=== PATIENT | male | born 1940 | race Caucasian/White ===

== ENCOUNTER → 2017-04-03 | Outpatient (CLI) | payer MEDICARE, OTHER ==
[~2017-04-03] MED LIST: ACET-93 PO; ASPI-586 PO; CEPH500C PO; CHOL10003 PO; CYAN250010 PO; FURO40TA4 PO; GEMF600T3 PO; HYDR-757 PO; LOSA50TA36 PO; MELA1TAB15 PO; METO50TA2 PO; NAPR500T3 PO; NIAC500T24 PO; OMEP20TA7 PO; POTA20TA15 PO; RANI150T15 PO; SIMV20TA3 PO
--- NOTE | 2017-04-03 13:12 | Diagnostic Imaging Report ---
PROCEDURE: US Carotid Duplex Bilateral. TECHNIQUE: Multiple real-time grayscale images were obtained over the carotid arteries in various projections bilaterally. Additional duplex Doppler and color Doppler images were also obtained. INDICATION: Follow-up TIA. FINDINGS: There is slightly prominent atherosclerotic plaque seen in the common carotid artery and the bifurcation on the left and prominent plaque in the proximal right internal carotid artery. The vertebral arteries demonstrate antegrade flow bilaterally with color flow demonstrating patency of the common, internal and external carotid arteries on both sides. Peak systolic velocities in the right internal carotid artery are 108, 120, and 79 cm/s and on the left are 96, 69, and 86 cm/s. ICA/CCA ratios are up to 1.1 on the right and 1.0 on the left. IMPRESSION: There is atherosclerotic plaque in the carotid arteries seen with estimated underlying stenosis under 40% bilaterally. Dictated by: Dictated on workstation # [id number]
== END ==
LOC: RAD 09:06
PROVIDERS: ATTEND Nurse Practitioner Family
DX: I65.23 Occlusion and stenosis of bilateral carotid arteries (principal); Z86.73 Personal history of transient ischemic attack (TIA), and cerebral infarction without residual deficits
CPT/HCPCS: 93880

== ENCOUNTER → 2017-04-29 | Outpatient (CLI) | payer MEDICARE, OTHER ==
--- NOTE | 2017-04-29 14:12 | Diagnostic Imaging Report ---
EXAMINATION: Renal ultrasound. INDICATION: Chronic kidney disease. FINDINGS: The right kidney is 11.7 cm and the left kidney is 13 cm in length. There is no hydronephrosis or focal lesion. The urinary bladder appears unremarkable. IMPRESSION: Unremarkable exam. Dictated by: Dictated on workstation # [id number]
== END ==
LOC: RAD 10:55
PROVIDERS: ATTEND Nurse Practitioner
DX: I12.9 Hypertensive chronic kidney disease with stage 1 through stage 4 chronic kidney disease, or unspecified chronic kidney disease (principal); N18.3 Chronic kidney disease, stage 3 (moderate); R80.9 Proteinuria, unspecified; K21.9 Gastro-esophageal reflux disease without esophagitis; E78.5 Hyperlipidemia, unspecified; M19.90 Unspecified osteoarthritis, unspecified site; M10.9 Gout, unspecified; R60.9 Edema, unspecified
CPT/HCPCS: 76770

== ENCOUNTER 2017-06-02 12:36 | Emergency (ER) | payer MEDICARE, OTHER ==
[~2017-06-02] VITALS: Ht 182.9 cm; Wt 88.5 kg
[2017-06-02] MEDS ORDERED: DOXY100T2 PO ×2 (13:45→13:47)
--- NOTE | 2017-06-02 13:49 | ED Integumentary General ---
General Chief Complaint: Bite-Animal/Human/Insect Stated Complaint: R LEG SPIDER BITE/BLURRED VISION Nursing Triage Note: Pt noticed redness and erythema on . Pt suspects a spider bite. Source: patient Exam Limitations: no limitations History of Present Illness Time seen by provider: 13:30 Initial Comments Here with report of skin problem and probable spider bite to the area of the posterior right leg. States that he is taking any insulin he felt a pain like a bite to the back of his leg. He should cut his pain legs but didn't seen anything but assumed it was a spider. He has a 4 x 8 cm area of redness with a 0.5 x 0.5 cm central area of ulceration that is blackened. No other injuries or concerns. Denies difficulty with urination or bowel movements. Denies abdominal pain or nausea/vomiting. Timing/Duration: getting worse Severity: moderate Location: extremities Possible Cause: insect bite Associated Symptoms: blisters, edema, No fever, No nasal congestion, No rash Allergies and Home Medications Allergies Coded Allergies: NKANo Known Allergies (Verified Allergy, Unknown, 10/26/06) Home Medications Acetaminophen 500 Mg Tablet, 500 MG PO DAILY, (Reported) Aspirin 81 Mg Tablet.dr, 81 MG PO DAILY, (Reported) Cholecalciferol (Vitamin D3) 1,000 Unit Tablet, 1,000 UNIT PO DAILY, (Reported) Cyanocobalamin (Vitamin B-12) 2,500 Mcg Tablet, 2,500 MCG PO DAILY, (Reported) Furosemide 40 Mg Tablet, 40 MG PO DAILY, (Reported) Gemfibrozil 600 Mg Tablet, 600 MG PO BID, (Reported) Losartan Potassium 50 Mg Tablet, 50 MG PO BID, (Reported) Melatonin/Pyridoxine 1 Each Tablet, 5 MG PO HS, (Reported) Metoprolol Tartrate 50 Mg Tablet, 50 MG PO BID, (Reported) Niacinamide 500 Mg Tablet, 500 MG PO DAILY, (Reported) Omeprazole 20 Mg Tablet.dr, 20 MG PO DAILY, (Reported) Potassium Chloride 20 Meq Tab.er.prt, 10 MEQ PO DAILY, (Reported) take 1/2 of 20meq tab Simvastatin 20 Mg Tablet, 20 MG PO HS, (Reported) Constitutional: see HPI, No chills, No fever EENTM: no symptoms reported Respiratory: no symptoms reported Gastrointestinal: no symptoms reported Genitourinary: no symptoms reported Musculoskeletal: no symptoms reported, No joint pain, No muscle pain Skin: see HPI, change in color, lesions Psychiatric/Neurological: No Symptoms Reported All Other Systems Reviewed Negative Unless Noted: Yes Past Vckdcpt-Kotwqr-Mcsmtb Hx Patient Social History Alcohol Use: Denies Use Recreational Drug Use: No Smoking Status: Never a Smoker Recent Foreign Travel: No Contact w/Someone Who Travel: No Recent Infectious Disease Expo: No Immunizations Up To Date Tetanus Booster (TDap): Unknown Date of Pneumonia Vaccine: Jan 09, 2014 Date of Influenza Vaccine: Aug 25, 2014 Surgeries HX Surgeries: Yes (BACK SX, L TKR, left elbow x3, bilat CTR,) Surgeries: Orthopedic Respiratory Hx Respiratory Disorders: No Cardiovascular Hx Cardiac Disorders: Yes Cardiac Disorders: High Cholesterol, Hypertension Neurological Hx Neurological Disorders: No Genitourinary Hx Genitourinary Disorders: No Gastrointestinal Hx Gastrointestinal Disorders: No Musculoskeletal Hx Musculoskeletal Disorders: Yes Musculoskeletal Disorders: Back Injury Endocrine Hx Endocrine Disorders: No HEENT HX ENT Disorders: No Cancer Hx Cancer: Yes Cancer: Skin Psychosocial Hx Psychiatric Problems: No Integumentary HX Skin/Integumentary Disorder: Yes (MRSA) Blood Transfusions Hx Blood Disorders: No Reviewed Nursing Assessment Reviewed/Agree w Nursing PMH: Yes Family Medical History Significant Family History: No Pertinent Family Hx Physical Exam Vital Signs Vital Sign - Last 12Hours 06/02/17 12:50 Temp 97.8 Pulse 63 Resp 16 B/P (MAP) 144/80 Pulse Ox 98 O2 Delivery Room Air Capillary Refill : Less Than 3 Seconds General Appearance: WD/WN, no apparent distress Neck: full range of motion, supple Cardiovascular: regular rate, rhythm, no murmur Respiratory: lungs clear, normal breath sounds Gastrointestinal: non tender, soft Back: normal inspection, no CVA tenderness, no vertebral tenderness Extremities: non-tender, normal inspection Neurologic/Psychiatric: alert, oriented x 3 Skin: warm/dry Skin Problem Location: lower extremities (posterior lower extremities) Skin Problem Character: erythema, other (4 x 8 cm erythematous and indurated skin with central 0.5 x 0.5 cm ulceration.) Progress/Results/Core Measures Results/Orders Vital Signs/I&O Vital Sign - Last 12Hours 06/02/17 12:50 Temp 97.8 Pulse 63 Resp 16 B/P (MAP) 144/80 Pulse Ox 98 O2 Delivery Room Air Blood Pressure Mean: 101 Progress Note : Progress Note Seen and evaluated. Discharged home with return precautions. Patient verbalize understanding instructions and agreement with plan. Departure Impression Impression: Primary Impression: Spider bite wound Qualified Codes: T63.304A - Toxic effect of unspecified spider venom, undetermined, initial encounter Disposition: HOME, SELF-CARE Condition: Stable Departure-Patient Inst. Decision time for Depature: 13:44 Referrals: THA TANNER MD (PCP/Family) Primary Care Physician Patient Instructions: Insect Bites and Stings (DC) Add. Discharge Instructions: All discharge instructions reviewed with patient and/or family. Voiced understanding. Use antibiotic ointment and Band-Aid over wound daily as needed. Follow-up with your Dr. within one week for recheck and further evaluation. Take medications as directed. Return for worsening, fever, vomiting, abdominal pain , weakness, increasingly dark urine, breathing problems or other concerns as needed. Scripts Doxycycline Hyclate (Doxycycline Hyclate) 100 Mg Tablet 100 MG PO BID, #20 TAB 0 Refills Prov: SAMUEL DUMAS MD 06/02/17 SAMUEL DUMAS MD Jun 02, 2017 13:49
[2017-06-02 13:55] VITALS: BP 138/70
--- OUTSIDE RECORDS SUMMARY | 2017-06-04 11:29 | XMS REPORT | Continuity of Care Document ---
Author Author [facility] Organization [facility] Address Unknown Phone Unavailable Allergies Active Description Code Type Severity Reaction Onset Reported/Identified Relationship to Patient Clinical Status Yes NKANo Known Allergies NKA Miscellaneous Allergy Unknown N/ A 10/26/2006 Medications Problems Date Dx Coded Attending Type Code Diagnosis Diagnosed By 10/24/1206 FLORES GR, THA Javier Ot M17.0 BILATERAL PRIMARY OSTEOARTHRITIS OF KNEE 10/24/1206 FLORES GR, THA Javier Ot M19.041 PRIMARY OSTEOARTHRITIS, RIGHT HAND 10/24/1206 THA TANNER MD Ot M19.042 PRIMARY OSTEOARTHRITIS, LEFT HAND 10/24/1206 THA TANNER MD Ot R53.1 WEAKNESS 02/05/2012 Ot 332.0 PARALYSIS AGITANS 02/05/2012 Ot 715.94 OSTEOARTHROS NOS-HAND 02/05/2012 Ot V57.21 ENCOUNTER FOR OCCUPATIONAL THERAPY 12/16/2014 JENNIFFER ORONA LEAD GENERATOR Ot 883.0 OPEN WOUND OF FINGER 12/16/2014 JENNIFFER ORONA LEAD GENERATOR Ot E000.8 OTHER EXTERNAL CAUSE STATUS 12/16/2014 JENNIFFER ORONA APRN Ot E849.0 ACCIDENT IN HOME 12/16/2014 JENNIFFER ORONA LEAD GENERATOR Ot E919.4 WOODWORKING MACHINE ACC 12/16/2014 JENNIFFER ORONA LEAD GENERATOR Ot V06.1 [id number], COMBINED [ 04/07/2016 Ot 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 04/07/2016 Ot 712.36 CHONDROCALCIN NOS-L/LEG 04/07/2016 Ot 715.36 LOC OSTEOARTH NOS-L/LEG 04/07/2016 Ot 719.06 JOINT EFFUSION-L/LEG 04/07/2016 THA TANNER MD Ot 722.4 CERVICAL DISC DEGEN 04/07/2016 THA TANNER MD Ot 782.0 SKIN SENSATION DISTURB 04/07/2016 THA TANNER MD Ot R53.1 WEAKNESS 04/07/2016 FLORES GR, THA Javier Ot R26.0 ATAXIC GAIT 04/09/2016 FLORES GR, THA Javier Ot R26.0 ATAXIC GAIT 04/09/2016 FLORES GR, THA Javier Ot R53.1 WEAKNESS 04/10/2016 FLORES GR, THA Javier Ot R26.0 ATAXIC GAIT 04/10/2016 FLORES GR, THA Javier Ot R53.1 WEAKNESS 04/13/2016 Ot 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 04/13/2016 Ot 712.36 CHONDROCALCIN NOS-L/LEG 04/13/2016 Ot 715.36 LOC OSTEOARTH NOS-L/LEG 04/13/2016 Ot 719.06 JOINT EFFUSION-L/LEG 04/13/2016 FLORES GR, THA Javier Ot 722.4 CERVICAL DISC DEGEN 04/13/2016 FLORES GR, THA Javier Ot 782.0 SKIN SENSATION DISTURB 04/13/2016 FLORES GR, THA Javier Ot R26.0 ATAXIC GAIT 04/13/2016 FLORES GR, THA Javier Ot R53.1 WEAKNESS 04/13/2016 FLORES GR, THA Javier Ot R53.1 WEAKNESS 04/14/2016 FLORES GR, THA Javier Ot R26.0 ATAXIC GAIT 04/14/2016 FLORES GR, THA Javier Ot R53.1 WEAKNESS 04/16/2016 FLORES GR, THA Javier Ot 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 ATTACK, UNSP 04/17/2016 FLORES GR, THA Javier Ot 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 ATTACK, UNSP 04/19/2016 FLORES GR, THA Javier Ot 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 ATTACK, UNSP 04/19/2016 FLORES GR, THA Javier Ot 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 ATTACK, UNSP 04/30/2016 FLORES GR, THA Javier Ot R26.0 ATAXIC GAIT 04/30/2016 FLORES GR, THA Javier Ot R53.1 WEAKNESS 05/14/2016 THA TANNER MD Ot 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 ATTACK, UNSP 05/16/2016 FLORES GR, THA Javier Ot 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 ATTACK, UNSP 05/18/2016 THA TANNER MD Ot R53.1 WEAKNESS 05/25/2016 FLORES GR, THA Javier Ot M17.0 BILATERAL PRIMARY OSTEOARTHRITIS OF KNEE 05/25/2016 FLORES GR, THA Javier Ot M19.041 PRIMARY OSTEOARTHRITIS, RIGHT HAND 05/25/2016 FLORES GR, THA Javier Ot M19.042 PRIMARY OSTEOARTHRITIS, LEFT HAND 05/25/2016 FLORES GR, THA Javier Ot R53.1 WEAKNESS 08/07/2016 LILI GR, RIGOBERTO Frank Ot K21.9 GASTRO-ESOPHAGEAL REFLUX DISEASE WITHOUT 08/07/2016 LILI GR, RIGOBERTO Frank Ot Z01.818 ENCOUNTER FOR OTHER PREPROCEDURAL EXAMIN 08/08/2016 LILI GR, RIGOBERTO Frank Ot K21.9 GASTRO-ESOPHAGEAL REFLUX DISEASE WITHOUT 08/08/2016 LILI GR, RIGOBERTO Frank Ot Z01.818 ENCOUNTER FOR OTHER PREPROCEDURAL EXAMIN 08/09/2016 Ot 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 08/09/2016 Ot 712.36 CHONDROCALCIN NOS-L/LEG 08/09/2016 Ot 715.36 LOC OSTEOARTH NOS-L/LEG 08/09/2016 Ot 719.06 JOINT EFFUSION-L/LEG 08/09/2016 FLORES GR, THA Javier Ot 722.4 CERVICAL DISC DEGEN 08/09/2016 FLORES GR, THA Javier Ot 782.0 SKIN SENSATION DISTURB 08/09/2016 THA TANNER MD Ot R26.0 ATAXIC GAIT 08/09/2016 FLORES GR, THA Javier Ot R53.1 WEAKNESS 08/09/2016 THA TANNER MD Ot 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 ATTACK, UNSP 08/09/2016 THA TANNER MD Ot 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 ATTACK, UNSP 08/09/2016 LILI GR, RIGOBERTO Frank Ot K25.9 GASTRIC ULCER, UNSP ACUTE OR CHRONIC, 08/10/2016 LILI GR, RIGOBERTO Frank Ot K25.9 GASTRIC ULCER, UNSP ACUTE OR CHRONIC, 08/13/2016 LILI GR, RIGOBERTO Frank Ot K21.9 GASTRO-ESOPHAGEAL REFLUX DISEASE WITHOUT 08/13/2016 LILI GR, RIGOBERTO Frank Ot Z01.818 ENCOUNTER FOR OTHER PREPROCEDURAL EXAMIN 08/16/2016 LILI GR, RIGOBERTO Frank Ot K25.9 GASTRIC ULCER, UNS ACUTE OR CHRONIC, 03/28/2017 ASHLEY CARVALHO APRN Ot Z86.73 PRSNL HX OF TIA (TIA), AND CEREB INFRC W 04/01/2017 ASHLEY CARVALHO APRN Ot 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 ATTACK, UNSP 04/03/2017 Ot 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 04/03/2017 Ot 712.36 CHONDROCALCIN NOS-L/LEG 04/03/2017 Ot 715.36 LOC OSTEOARTH NOS-L/LEG 04/03/2017 Ot 719.06 JOINT EFFUSION-L/LEG 04/03/2017 FLORES GR, THA Javier Ot 722.4 CERVICAL DISC DEGEN 04/03/2017 FLORES GR, THA Javier Ot 782.0 SKIN SENSATION DISTURB 04/03/2017 FLORES GR, THA Javier Ot R26.0 ATAXIC GAIT 04/03/2017 FLORES GR, THA Javier Ot R53.1 WEAKNESS 04/03/2017 FLORES GR, THA Javier Ot 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 ATTACK, UNSP 04/03/2017 FLORES GR, THA Javier Ot 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 ATTACK, UNSP 04/03/2017 ASHLEY CARVALHO APRN Ot 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 ATTACK, UNSP 04/03/2017 ASHLEY CARVALHO APRN Ot 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 ATTACK, UNSP 04/04/2017 ASHLEY CARVALHO APRN Ot 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 SOLAR PANEL INSTALLATION SUPERVISOR-C Ot M10.9 GOUT, UNSPECIFIED 05/21/2017 ABILIO BROTHERS SOLAR PANEL INSTALLATION SUPERVISOR-C Ot M19.90 UNSPECIFIED OSTEOARTHRITIS, UNSPECIFIED 05/21/2017 ABILIO BROTHERS SOLAR PANEL INSTALLATION SUPERVISOR-C Ot N18.3 CHRONIC KIDNEY DISEASE, STAGE 3 (MODERAT 05/21/2017 ABILIO BROTHERS SOLAR PANEL INSTALLATION SUPERVISOR-C Ot R60.9 EDEMA, UNSPECIFIED 05/21/2017 ABILIO BROTHERS SOLAR PANEL INSTALLATION SUPERVISOR-C Ot R80.9 PROTEINURIA, UNSPECIFIED Procedures Results Encounters ACCT No. Visit Date/Time Discharge Status Pt. Type Provider Facility Loc./Unit Complaint [id number] 08/09/2016 09:16:00 2015 11:10:00 DIS Outpatient RIGOBERTO PEARSON MD [facility] SDC GERD [id number] 08/07/2016 05:46:00 2015 12:50:00 DIS Outpatient RIGOBERTO PEARSON MD [facility] PREOP GERD [id number] 05/25/2016 10:02:00 2015 12:07:00 DIS Outpatient THA TANNER MD [facility] REHAB WEAKNESS;HAND AND KNEE ARTHRITIS [id number] 12/16/2014 20:01:00 2014 21:55:00 DIS Emergency JENNIFFER ORONA APRN [facility] ER L HAND INDEX FINGER LAC [id number] 02/19/2014 08:22:00 2013 23:59:59 CLS Outpatient THA TANNER MD [facility] RAD NECK PAIN, BILAT HAND NUMBNESS [id number] 04/29/2017 10:55:00 ACT Outpatient ABILIO BROTHERS SOLAR PANEL INSTALLATION SUPERVISOR-C [facility] RAD N18.3 CKD 3 [id number] 04/03/2017 09:06:00 ACT Outpatient ASHLEY CARVALHO APRN [facility] RAD HX OF TIA, F/U [id number] 04/17/2016 11:20:00 ACT Outpatient THA TANNER MD [facility] CARD TIA [id number] 04/13/2016 11:23:00 ACT Outpatient THA TANNER MD [facility] RAD TIA [id number] 04/07/2016 09:45:00 ACT Outpatient THA TANNER MD [facility] RAD GAIT INSTABILITY,WEAKNESS [id number] 04/07/2016 09:44:00 Document Registration [id number] 04/10/2012 17:59:00 Document Registration [id number] 01/30/2012 13:19:00 Document Registration
== END 2017-06-02 13:55 | disposition home or self-care (01) ==
LOC: EDUNIT# 12:36 → ER 12:39
DX: S80.861A Insect bite (nonvenomous), right lower leg, initial encounter (principal); E78.00 Pure hypercholesterolemia, unspecified; I10 Essential (primary) hypertension; Z85.828 Personal history of other malignant neoplasm of skin; Z98.890 Other specified postprocedural states; Z79.82 Long term (current) use of aspirin; W57.XXXA Bitten or stung by nonvenomous insect and other nonvenomous arthropods, initial encounter
CPT/HCPCS: 99283

== ENCOUNTER 2017-07-10 09:16 | Outpatient (CLI) | payer MEDICARE, OTHER ==
[~2017-07-10] VITALS: Ht 182.9 cm; Wt 87.8 kg
[~2017-07-10 09:16] MED LIST changes: +DOXY100T2 PO
[2017-07-10] MEDS ORDERED: FEBU40TA PO (09:32)
[2017-07-10] MEDS ORDERED: FURO40TA4 PO (09:32)
[2017-07-10] MEDS ORDERED: TRAM50TA2 PO (09:32)
[2017-07-10 09:40] VITALS: BP 121/66
[2017-07-10 10:09] LABS: BASOPHILS % (AUTO) 0 % (0-10); EOSINOPHILS # (AUTO) 0.2 10^3/uL (0.0-0.3); EOSINOPHILS % (AUTO) 3 % (0-10); LYMPHOCYTES # (AUTO) 1.9 X 10^3 (1.0-4.0); LYMPHOCYTES % (AUTO) 34 % (12-44); MEAN CORPUSCULAR HEMOGLOBIN 32 PG (25-34); MEAN CORPUSCULAR HGB CONC 33 G/DL (32-36); MEAN CORPUSCULAR VOLUME 95 FL (80-99); MEAN PLATELET VOLUME 10.1 FL (7.4-10.4); MONOCYTES # (AUTO) 0.7 X 10^3 (0.0-1.0); MONOCYTES % (AUTO) 12 % (0-12); NEUTROPHILS # (AUTO) 2.7 X 10^3 (1.8-7.8); NEUTROPHILS % (AUTO) 50 % (42-75); PLATELET COUNT 179 10^3/uL (130-400); RED BLOOD COUNT 4.03 10^6/uL (4.35-5.85); RED CELL DISTRIBUTION WIDTH 13.4 % (10.0-14.5); WHITE BLOOD COUNT 5.4 10^3/uL (4.3-11.0)
[2017-07-10 10:32] LABS: CALCIUM 9.9 MG/DL (8.5-10.1); CREATININE SERUM 1.55 MG/DL (0.60-1.30); POTASSIUM 4.2 MMOL/L (3.6-5.0)
== END 2017-07-10 15:00 ==
LOC: PREOP 09:16
PROVIDERS: ATTEND Surgery
DX: Z01.812 Encounter for preprocedural laboratory examination (principal); L98.9 Disorder of the skin and subcutaneous tissue, unspecified
CPT/HCPCS: 36415; 80048; 85025; 87081

== ENCOUNTER 2017-07-17 07:42 | Day surgery (SDC) | payer MEDICARE, OTHER ==
[~2017-07-17] VITALS: Ht 182.9 cm; Wt 87.8 kg
[~2017-07-17 07:42] MED LIST changes: +FEBU40TA PO; -NAPR500T3 PO; +NAPR500T4 PO; +TRAM50TA2 PO
--- NOTE | 2017-07-17 07:52 | Progress Note-Pre Operative ---
Pre-Operative Progress Note H&P Reviewed The H&P was reviewed, patient examined and no changes noted. Date Seen by Provider: Jul 04, 2017 Time Seen by Provider: 13:20 Date H&P Reviewed: Jul 17, 2017 Time H&P Reviewed: 07:52 Pre-Operative Diagnosis: Skin lesions both hands RIGOBERTO PEARSON MD Jul 17, 2017 7:52 am
[2017-07-17] MEDS ORDERED: ceFAZolin 2 GM/NS 50 ML IV ONE (08:00)
[2017-07-17 08:15] VITALS: BP 146/78
[2017-07-17] MEDS ORDERED: MIDAZOLAM 2 MG/2 ML (VERSED) VIAL ONE (08:19)
[2017-07-17] MEDS ORDERED: PROPOFOL INJECTION 50 ML IV ONE ×2 (08:19→10:43)
[2017-07-17] MEDS ORDERED: LACTATED RINGERS 1,000 ML IV PRN (08:24)
[2017-07-17] MEDS ORDERED: BUP/EPI 0.5% 1:200,000 (MARCAINE) 10ML VIAL IJ ONE (10:14)
[2017-07-17] MEDS ORDERED: ONDANSETRON 4 MG/2 ML (SDV) Z0FRAN ONE (11:06)
[2017-07-17] MEDS ORDERED: morphine INJ 10 MG/ML 1ML (SYR OR VIAL) IVP PRN (11:30)
[2017-07-17] MEDS ORDERED: ONDANSETRON 4 MG/2 ML (SDV) Z0FRAN IVP PRN (11:30)
--- NOTE | 2017-07-17 11:31 | Operative Report ---
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 Excision of 3 cm squamous cell carcinoma left hand with frozen section Description of Procedure Anesthesia Type: MAC Estimated blood loss (mL): minimal Specimen(s) collected/removed squamous cell carcinoma from the dorsum of each hand Description of the Procedure Indication for the procedures: this gentleman presented with a raised and rapidly enlarging lesions involving the dorsum of each and, having the appearance of skin cancers. He was offered excision with frozen section to confirm the diagnosis and ensure negative margins. Informed consent was obtained after reviewing the procedures in detail Description of procedure he was placed supine on the operative table and our SHANK SCOURER administered sedation, monitoring his vital signs. IV antibiotics were administered intravenously as prophylaxis against wound infection. 1. Excision of squamous cell carcinoma dorsum of right hand: After adequate antiseptic preparation, local anesthesia was achieved using 0.5 percent Marcaine with epinephrine. An elliptical incision 5 cm long by 3 cm in width was made and the lesion excised down to the subcutaneous tissue. It was oriented with silk sutures and sent for histological examination by frozen section. The pathologist confirmed a squamous cell carcinoma with negative margins. The skin edges were then approximated using a combination of 60 and 4- 0 nylon sutures in an interrupted fashion. A nonadherent dressing was then applied. 2. Excision of squamous cell carcinoma dorsum of left hand: A similar excision was performed making an incision 7 cm long by 4 cm wide. The lesion was also confirmed to be squamous cell carcinoma by frozen section. The defect was closed using a combination of 60 and 4-0 nylon sutures after undermining the skin edges. He tolerated the procedures well and was taken back to the nursing area in a stable condition Findings of the Procedure see operative report Allergies and Home Medications Allergies Coded Allergies: No Known Drug Allergies (Unverified , 07/10/17) Home Medications Acetaminophen 500 Mg Tablet, 500 MG PO BID, (Reported) Aspirin 81 Mg Tablet.dr, 81 MG PO DAILY, (Reported) Cholecalciferol (Vitamin D3) 1,000 Unit Tablet, 1,000 UNIT PO DAILY, (Reported) Cyanocobalamin (Vitamin B-12) 2,500 Mcg Tablet, 2,500 MCG PO DAILY, (Reported) Febuxostat 40 Mg Tablet, 40 MG PO DAILY, (Reported) Furosemide 40 Mg Tablet, 40 MG PO DAILY, (Reported) Gemfibrozil 600 Mg Tablet, 600 MG PO BID, (Reported) Losartan Potassium 50 Mg Tablet, 50 MG PO BID, (Reported) Melatonin/Pyridoxine 1 Each Tablet, 5 MG PO HS, (Reported) Metoprolol Tartrate 50 Mg Tablet, 50 MG PO BID, (Reported) Omeprazole 20 Mg Tablet.dr, 20 MG PO BID, (Reported) Potassium Chloride 20 Meq Tab.er.prt, 10 MEQ PO DAILY, (Reported) take 1/2 of 20meq tab Simvastatin 20 Mg Tablet, 20 MG PO HS, (Reported) Tramadol HCl 50 Mg Tablet, 50 MG PO BID, (Reported) RIGOBERTO PEARSON MD Jul 17, 2017 11:31 am
[2017-07-17] MEDS ORDERED: TRAM50TA2 PO (11:32)
--- NOTE | 2017-07-17 11:33 | Discharge Inst-Simple/Standard ---
Discharge Inst-Standard Discharge Medications New, Converted or Re-Newed RX: RX on Chart Patient Instructions/Follow Up Plan of Care/Instructions/FU: both hands to be kept elevated as much as possible. Replace bandages with Band-Aids in 48 hours. Follow-up with my nurse in 3 weeks for suture removal Activity as Tolerated: Yes Discharge Diet: No Restrictions RIGOBERTO PEARSON MD Jul 17, 2017 11:33 am
[2017-07-17 12:20] VITALS: BP 152/67
[2017-07-17 12:50] VITALS: BP 151/70
[2017-07-17 13:20] VITALS: BP 156/79
[2017-07-17] MEDS ORDERED: meTOprolol 5 MG/5 ML (LOPRESSOR) VIAL IV ONE (14:30)
== END 2017-07-17 13:32 | disposition home or self-care (01) ==
LOC: SDC 07:42
PROVIDERS: ATTEND Surgery
DX: C44.622 Squamous cell carcinoma of skin of right upper limb, including shoulder (principal); C44.629 Squamous cell carcinoma of skin of left upper limb, including shoulder; E78.5 Hyperlipidemia, unspecified; I12.9 Hypertensive chronic kidney disease with stage 1 through stage 4 chronic kidney disease, or unspecified chronic kidney disease; Z87.81 Personal history of (healed) traumatic fracture; Z86.73 Personal history of transient ischemic attack (TIA), and cerebral infarction without residual deficits; N18.3 Chronic kidney disease, stage 3 (moderate); K21.9 Gastro-esophageal reflux disease without esophagitis; Z96.652 Presence of left artificial knee joint; Z79.899 Other long term (current) drug therapy
CPT/HCPCS: 88305; 88331; 88332

== ENCOUNTER → 2018-02-04 | Outpatient (CLI) | payer MEDICARE, OTHER ==
[~2018-02-04] MED LIST changes: +METO50TA15 PO; -METO50TA2 PO; +NAPR-915 PO; -NAPR500T4 PO
--- NOTE | 2018-02-04 18:56 | Diagnostic Imaging Report ---
EXAMINATION: PA and lateral Chest at 11:59 a.m. INDICATION: Cough, congestion. COMPARISON: There are no prior studies available for comparison. FINDINGS: The heart size is within normal limits. The descending thoracic aorta is tortuous. The lungs are clear. There is no sign of failure, pneumonia, or pleural effusion to suggest an acute abnormality. The mediastinum is not widened. The osseous structures are intact. There is degenerative disc and bony disease throughout the mid thoracic spine. There also appear to be two orthopedic fixation screws overlying what appears to be the vertebral body of L1. IMPRESSION: There is no evidence for an acute cardiopulmonary abnormality. Dictated by: Dictated on workstation # [id number]
== END ==
LOC: RAD 11:23
PROVIDERS: ATTEND Family Medicine
DX: R05 Cough (principal); R07.89 Other chest pain; R09.89 Other specified symptoms and signs involving the circulatory and respiratory systems
CPT/HCPCS: 71046

== ENCOUNTER → 2018-02-07 | Outpatient (CLI) | payer MEDICARE, OTHER ==
--- NOTE | 2018-02-07 13:35 | Diagnostic Imaging Report ---
INDICATION: Right upper quadrant pain. TECHNIQUE: Multiple grayscale sonographic images were obtained of the right upper quadrant of the abdomen. CORRELATION STUDY: None. FINDINGS: LIVER: There is uniform echotexture within the visualized portions of the liver. There is normal, hepatopedal direction of flow within the main portal vein. Liver length of 17 cm. GALLBLADDER: There is approximately 7 mm echogenic non shadowing foci along the gallbladder wall, nonmobile. This is most compatible with small gallbladder polyp. No definitive shadowing gallstones. No significant pericholecystic fluid. COMMON BILE DUCT: Obscured and not visualized. No suggestion for overt bile duct dilatation. PANCREAS: Obscured by overlying bowel gas. RIGHT KIDNEY: Measures 11.7 cm. No hydronephrosis. AORTA/IVC: Not well visualized. OTHER: None. IMPRESSION: 1. Probable gallbladder polyp. Gallbladder is otherwise unremarkable. Biliary tree is not well visualized but without findings to suggest overt bile duct dilatation. Dictated by: Dictated on workstation # [id number]
== END ==
LOC: RAD 02-04 07:13
PROVIDERS: ATTEND Nurse Practitioner Family
DX: R10.11 Right upper quadrant pain (principal)
CPT/HCPCS: 76705

== ENCOUNTER → 2018-02-24 | Outpatient (CLI) | payer MEDICARE, OTHER ==
[~2018-02-24] VITALS: Ht 182.9 cm; Wt 90.0 kg
[~2018-02-24] MED LIST changes: +ACHD5005 PO; +PANT40TA3 PO; +SUCR1TAB PO
== END ==
LOC: PREOP 05:49
PROVIDERS: ATTEND Surgery
DX: Z01.818 Encounter for other preprocedural examination (principal); K82.4 Cholesterolosis of gallbladder

== ENCOUNTER 2018-02-26 05:48 | Day surgery (SDC) | payer MEDICARE, OTHER ==
[~2018-02-26] VITALS: Ht 182.9 cm; Wt 90.0 kg
[~2018-02-26 05:48] MED LIST changes: -ACHD5005 PO
--- OUTSIDE RECORDS SUMMARY | 2018-02-26 06:01 | XMS REPORT | CCD ---
Author Author [facility] Organization [facility] Address [address] [place] [address] Phone Care Team Providers Care Wharf Tender Name Role Phone PP Unavailable CCM Unavailable Summary Purpose Interface Exchange Insurance Providers Payer name Policy type / Coverage type Covered libertarian ID Effective Begin Date Effective End Date WPS Medicare Part B [id number] Unknown [facility] [id number] 2014 Unknown Family history Grandfather Diagnosis Age At Onset Cancer Unknown Sister Diagnosis Age At Onset No Family Disease Entered N/A Son Diagnosis Age At Onset No Family Disease Entered N/A Sister Diagnosis Age At Onset Diabetes mellitus Type 2 Unknown Daughter Diagnosis Age At Onset No Family Disease Entered N/A Runs in the family Diagnosis Age At Onset Diabetes mellitus Type 2 Unknown Son Diagnosis Age At Onset No Family Disease Entered N/A Daughter Diagnosis Age At Onset No Family Disease Entered N/A Daughter Diagnosis Age At Onset No Family Disease Entered N/A Father Diagnosis Age At Onset No Family Disease Entered N/A Mother Diagnosis Age At Onset Diabetes mellitus Type 2 Unknown Sister Diagnosis Age At Onset Diabetes mellitus Type 2 Unknown Social History Social History Element Codes Description Effective Dates Marital status Unknown 08/17/2011 Employment Unknown Retired [employer] 08/17/[address]: 153216716 Currently uses smokeless tobacco chews 1/2 can per day 08/17/[address]: 717974585 Never drinks alcohol 08/17/2011 Has the patient ever used illegal drugs? Unknown Has never used illegal drugs 08/17/2011 Allergies, Adverse Reactions, Alerts Allergies, Adverse Reactions, Alerts data not found Past Medical History Illness Codes Condition Status Onset Date Resolved Date Essential (primary) hypertension ICD-9: 401.1 ICD-10: I10 Active 09/03/2017 Unknown Mixed hyperlipidemia ICD-9: 272.2 ICD-10: E78.2 Active 10/09/2017 Unknown Encounter for immunization ICD-9: V03.9 ICD-10: Z23 Active 09/03/2017 Unknown Pain in right hand ICD -9: 729.5 ICD-10: M79.641 Active 09/03/2017 Unknown Essential (primary) hypertension ICD-9: 401.9 ICD-10: I10 Active 05/18/2014 Unknown Mixed hyperlipidemia ICD-9: 272.4 ICD-10: E78.2 Active 05/18/2014 Unknown Neoplasm of unspecified behavior of bone, soft tissue, 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 Active 06/20/2017 Unknown Insect bite (nonvenomous), right lower leg, initial encounter ICD-9: 916.4 ICD-10: S80.861A Active 06/10/2017 Unknown Encounter for general adult medical examination without abnormal findings ICD-9: V70.9 ICD-10: Z00.00 Active 02/27/2017 Unknown Encounter for general adult medical examination with abnormal findings ICD-9: V70.0 ICD-10: Z00.01 Active 02/27/2017 Unknown Chronic kidney disease, stage 3 (moderate) ICD-9: 585.3 ICD-10: N18.3 Active 02/15/2014 Unknown Gastro-esophageal reflux disease with esophagitis ICD-9: 530.11 ICD-10: K21.0 Active 07/23/2016 Unknown Idiopathic chronic gout, left ankle and foot, without tophus (tophi) ICD-9: 274.02 ICD-10: M1A.0720 Active 01/01/2017 Unknown Pain in left ankle and joints of left foot ICD-9: 719.47 ICD-10: M25.572 Active 01/01/2017 Unknown Pain in left foot ICD- 9: 729.5 ICD-10: M79.672 Active 12/12/2016 Unknown Pain in right ankle and joints of right foot ICD-9: 719.47 ICD-10: M25.571 Active 12/12/2016 Unknown Plantar fascial fibromatosis ICD-9: 728.71 ICD-10: M72.2 Active 12/12/2016 Unknown Erosive (osteo)arthritis ICD-9: 715.89 ICD-10: M15.4 Active 10/25/2016 Unknown Gastro-esophageal reflux disease without esophagitis ICD-9: 530.81 ICD-10: K21.9 Active 10/24/2016 Unknown Cellulitis of right upper limb ICD-9: 682.3 ICD-10: L03.113 Active 08/09/2016 Unknown Encounter for immunization ICD-9: V06.6 ICD-10: Z23 Active 08/09/2016 Unknown Cellulitis of unspecified part of limb ICD-9: 682.4 ICD-10: L03.119 Active 07/23/2016 Unknown Other abnormalities of gait and mobility ICD-9: 781.2 ICD-10: R26.89 Active 03/24/2012 Unknown 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 ICD-10: I69.398 Active 03/26/2016 Unknown Gas pain ICD-9: 787.3 ICD-10: R14.1 Active 12/11/2015 Unknown Primary generalized (osteo)arthritis ICD-9: 715.09 ICD-10: M15.0 Active 12/11/2015 Unknown Encounter for immunization ICD-9: V04.81 ICD-10: Z23 Active 08/26/2015 Unknown Osteoarthritis Unknown Active 06/13/2015 Unknown OSTEOARTH NOS-UNSPEC ICD-9: 715.90 Active 06/12/2015 Unknown ROUTINE PHYSICL LAB EXAM ICD-9: V72.62 Active 11/12/2013 Unknown Laceration of finger ICD-9: 883.0 Active 12/27/2014 Unknown Allergic rhinitis ICD- 9: 477.9 Active 12/13/2014 Unknown ACTINIC KERATOSIS ICD- 9: 702.0 Active 05/18/2014 Unknown ESSENTIAL HYPERTENSION ICD-9: 401.9 Active 05/18/2014 Unknown HYPERLIPIDEMIA ICD-9: 272.4 Active 05/18/2014 Unknown Bilateral hand numbness ICD-9: 782.0 Active 02/15/2014 Unknown Chronic renal disease, stage 3, moderately decreased glomerular filtration rate between 30-59 mL/min/1.73 square meter ICD-9: 585.3 Active 02/15/2014 Unknown Neck pain, chronic ICD -9: 723.1 Active 02/15/2014 Unknown Constipation - functional ICD-9: 564.09 Active 11/16/2013 Unknown Insomnia ICD-9: 780.52 Active 11/16/2013 Unknown COUGH ICD-9: 786.2 Active 02/13/2013 Unknown Pneumonia ICD-9: 486 Active 02/13/2013 Unknown Elevated glucose ICD-9 : 790.29 Active 06/03/2012 Unknown Encounter for long-term (current) use of medications ICD-9: V58.69 Active 06/03/2012 Unknown Gait abnormality ICD-9 : 781.2 Active 03/24/2012 Unknown Osteoarthritis, knee ICD-9: 715.96 Active 03/24/2012 Unknown Pain in limb ICD-9: 729.5 Active 03/24/2012 Unknown Degenerative joint disease involving multiple joints ICD-9: 715.89 Active 11/29/2011 Unknown VACCIN STREP PNEUMONIAE ICD-9: V03.82 Active 09/20/2011 Unknown IMPACTED CERUMEN ICD-9 : 380.4 Active 08/23/2011 Unknown Tinea of groin ICD-9: 110.3 Active 08/23/2011 Unknown Burning with urination ICD-9: 788.1 Active 08/21/2011 Unknown VACCIN FOR INFLUENZA ICD-9: V04.81 Active 08/21/2011 Unknown Arthritis Unknown Active 08/17/2011 Unknown Gastroesophageal reflux disease Unknown Active 08/17/2011 Unknown Hyperlipidemia Unknown Active 08/17/2011 Unknown Hypertension Unknown Active 08/17/2011 Unknown Migraines Unknown Active 08/17/2011 Unknown vertigo Unknown Active 08/17/2011 Unknown Problems Condition Codes Effective Dates Condition Status Essential (primary) hypertension ICD-9: 401.1 ICD-10: I10 09/03/2017 Active Mixed hyperlipidemia ICD-9: 272.2 ICD-10: E78.2 10/09/2017 Active Encounter for immunization ICD-9: V03.9 ICD-10: Z23 09/03/2017 Active Pain in right hand ICD -9: 729.5 ICD-10: M79.641 09/03/2017 Active Essential (primary) hypertension ICD-9: 401.9 ICD-10: I10 05/18/2014 Active Mixed hyperlipidemia ICD-9: 272.4 ICD-10: E78.2 05/18/2014 Active Neoplasm of unspecified behavior of bone, soft tissue, 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 06/20/2017 Active Insect bite (nonvenomous), right lower leg, initial encounter ICD-9: 916.4 ICD-10: S80.861A 06/10/2017 Active Encounter for general adult medical examination without abnormal findings ICD-9: V70.9 ICD-10: Z00.00 02/27/2017 Active Encounter for general adult medical examination with abnormal findings ICD-9: V70.0 ICD-10: Z00.01 02/27/2017 Active Chronic kidney disease, stage 3 (moderate) ICD-9: 585.3 ICD-10: N18.3 02/15/2014 Active Gastro-esophageal reflux disease with esophagitis ICD-9: 530.11 ICD-10: K21.0 07/23/2016 Active Idiopathic chronic gout, left ankle and foot, without tophus (tophi) ICD-9: 274.02 ICD-10: M1A.0720 01/01/2017 Active Pain in left ankle and joints of left foot ICD-9: 719.47 ICD-10: M25.572 01/01/2017 Active Pain in left foot ICD- 9: 729.5 ICD-10: M79.672 12/12/2016 Active Pain in right ankle and joints of right foot ICD-9: 719.47 ICD-10: M25.571 12/12/2016 Active Plantar fascial fibromatosis ICD-9: 728.71 ICD-10: M72.2 12/12/2016 Active Erosive (osteo)arthritis ICD-9: 715.89 ICD-10: M15.4 10/25/2016 Active Gastro-esophageal reflux disease without esophagitis ICD-9: 530.81 ICD-10: K21.9 10/24/2016 Active Cellulitis of right upper limb ICD-9: 682.3 ICD-10: L03.113 08/09/2016 Active Encounter for immunization ICD-9: V06.6 ICD-10: Z23 08/09/2016 Active Cellulitis of unspecified part of limb ICD-9: 682.4 ICD-10: L03.119 07/23/2016 Active Other abnormalities of gait and mobility ICD-9: 781.2 ICD-10: R26.89 03/24/2012 Active 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 ICD-10: I69.398 03/26/2016 Active Gas pain ICD-9: 787.3 ICD-10: R14.1 12/11/2015 Active Primary generalized (osteo)arthritis ICD-9: 715.09 ICD-10: M15.0 12/11/2015 Active Encounter for immunization ICD-9: V04.81 ICD-10: Z23 08/26/2015 Active Osteoarthritis Unknown 06/13/2015 Active OSTEOARTH NOS-UNSPEC ICD-9: 715.90 06/12/2015 Active ROUTINE PHYSICL LAB EXAM ICD-9: V72.62 11/12/2013 Active Laceration of finger ICD-9: 883.0 12/27/2014 Active Allergic rhinitis ICD- 9: 477.9 12/13/2014 Active ACTINIC KERATOSIS ICD- 9: 702.0 05/18/2014 Active ESSENTIAL HYPERTENSION ICD-9: 401.9 05/18/2014 Active HYPERLIPIDEMIA ICD-9: 272.4 05/18/2014 Active Bilateral hand numbness ICD-9: 782.0 02/15/2014 Active Chronic renal disease, stage 3, moderately decreased glomerular filtration rate between 30-59 mL/min/1.73 square meter ICD-9: 585.3 02/15/2014 Active Neck pain, chronic ICD -9: 723.1 02/15/2014 Active Constipation - functional ICD-9: 564.09 11/16/2013 Active Insomnia ICD-9: 780.52 11/16/2013 Active COUGH ICD-9: 786.2 02/13/2013 Active Pneumonia ICD-9: 486 02/13/2013 Active Elevated glucose ICD-9 : 790.29 06/03/2012 Active Encounter for long-term (current) use of medications ICD-9: V58.69 06/03/2012 Active Gait abnormality ICD-9 : 781.2 03/24/2012 Active Osteoarthritis, knee ICD-9: 715.96 03/24/2012 Active Pain in limb ICD-9: 729.5 03/24/2012 Active Degenerative joint disease involving multiple joints ICD-9: 715.89 11/29/2011 Active VACCIN STREP PNEUMONIAE ICD-9: V03.82 09/20/2011 Active IMPACTED CERUMEN ICD-9 : 380.4 08/23/2011 Active Tinea of groin ICD-9: 110.3 08/23/2011 Active Burning with urination ICD-9: 788.1 08/21/2011 Active VACCIN FOR INFLUENZA ICD-9: V04.81 08/21/2011 Active Arthritis Unknown 08/17/2011 Active Gastroesophageal reflux disease Unknown 08/17/2011 Active Hyperlipidemia Unknown 08/17/2011 Active Hypertension Unknown 08/17/2011 Active Migraines Unknown 08/17/2011 Active vertigo Unknown 08/17/2011 Active Medications Medication Codes Instructions Start Date Stop Date Status Fill Instructions omeprazole 20 mg capsule,delayed release RxNorm: 327645 TAKE 1 CAPSULE BY MOUTH TWICE A DAY 12/16/2017 12/10/2018 Active - First Attempt Ref: [id number] losartan 50 mg tablet RxNorm: 088977 1 Tablet(s) PO BID 201611/11/2017 Inactive tramadol 50 mg tablet RxNorm: 285680 1 Tablet(s) PO TID as needed 11/05/2017 11/11/2017 Inactive gemfibrozil 600 mg tablet RxNorm: 426560 TAKE 1 TABLET BY MOUTH TWICE A DAY 11/04/2017 05/02/2018 Active - First Attempt Ref: [id number] metoprolol tartrate 100 mg tablet RxNorm: 538772 TAKE ONE-HALF TABLET BY MOUTH TWO TIMES DAILY 11/04/2017 05/02/2018 Active - First Attempt Ref: [id number] losartan 50 mg tablet RxNorm: 427268 Tablet(s) Take 1 tablet by mouth twice a day 11/01/2017 11/04/2017 Inactive tramadol 50 mg tablet RxNorm: 184343 1 Tablet(s) PO TID as needed 11/01/2017 11/04/2017 Inactive simvastatin 20 mg tablet RxNorm: 283896 TAKE 1 TABLET BY MOUTH AT BEDTIME 10/07/2017 07/03/2018 Active - First Attempt Ref: [id number] furosemide 40 mg tablet RxNorm: 228989 Take 1 tablet by mouth daily 08/05/2017 01/31/2018 Active - First Attempt Ref: [id number] omeprazole 20 mg capsule,delayed release RxNorm: 123897 Take 1 capsule by mouth twice a day 06/19/2017 12/15/2017 Inactive - First Attempt Ref: [id number] tramadol 50 mg tablet RxNorm: 364345 1 Tablet(s) PO TID as needed 06/18/2017 10/31/2017 Inactive simvastatin 20 mg tablet RxNorm: 996872 Take 1 tablet by mouth at bedtime 06/17/2017 09/14/2017 Inactive - Ref: [id number] doxycycline hyclate 100 mg tablet RxNorm: 899302 1 Tablet(s) PO BID 06/02/2017 06/11/2017 Inactive simvastatin 20 mg tablet RxNorm: 738057 Take 1 tablet by mouth at bedtime 05/02/2017 06/16/2017 Inactive - First Attempt Ref: [id number] omeprazole 20 mg capsule,delayed release RxNorm: 048165 Take 1 capsule by mouth twice a day 05/01/2017 06/18/2017 Inactive - Ref: [id number] potassium chloride ER 20 mEq tablet,extended release(part/ cryst) RxNorm: 3577161 1 /2 Tablet(s) PO daily 03/15/20172017 Active tramadol 50 mg tablet RxNorm: 385948 1 Tablet(s) PO TID as needed 03/15/2017 06/17/2017 Inactive potassium chloride ER 20 mEq tablet,extended release(part/ cryst) RxNorm: 5845022 1 /2 Tablet(s) PO daily 03/15/20172016 Inactive simvastatin 20 mg tablet RxNorm: 640299 Take 1 tablet by mouth at bedtime 02/04/2017 05/01/2017 Inactive - First Attempt Ref: [id number] Uloric 40 mg tablet RxNorm: 969966 1 Tablet(s) PO daily 2016 No Stop Date Active Colcrys 0.6 mg tablet RxNorm: 345731 1 Tablet(s) PO UD 2016 No Stop Date Active 2 tabs po now then 1 tab daily x 1 week metoprolol tartrate 100 mg tablet RxNorm: 520249 Tablet(s) Take one-half tablet by mouth twice a day 11/01/20162016 Inactive - gemfibrozil 600 mg tablet RxNorm: 451869 Tablet(s) Take 1 tablet by mouth twice a day 11/01/2016 10/26/2017 Inactive - losartan 50 mg tablet RxNorm: 751306 Tablet(s) Take 1 tablet by mouth twice a day 11/01/2016 10/26/2017 Inactive - meclizine 25 mg tablet RxNorm: 382160 1/2 - 1 Tablet(s) PO BID as needed Dizziness 10/25/2016 02/21/2017 Inactive doxycycline hyclate 100 mg tablet RxNorm: 991117 1 Tablet(s) PO BID 10/25/2016 10/29/2016 Inactive Bactrim DS 800 mg-160 mg tablet RxNorm: 233616 1 Tablet(s) PO BID 08/10/2016 08/16/2016 Inactive furosemide 40 mg tablet RxNorm: 655220 Tablet(s) Take 1 tablet by mouth daily 08/01/2016 08/04/2017 Inactive Levaquin 500 mg tablet RxNorm: 859106 1 Tablet(s) PO daily 12/201510/24/2016 Inactive mupirocin 2 % topical ointment RxNorm: 925294 1 TOP BID 201507/26/2016 Inactive Levaquin 500 mg tablet RxNorm: 800574 1 Tablet(s) PO daily 12/201507/26/2016 Inactive mupirocin 2 % topical ointment RxNorm: 723143 1 TOP BID 201511/22/2016 Inactive Carafate 1 gram tablet RxNorm: 366383 1 Tablet(s) PO AC & HS 08/06/2016 Inactive potassium chloride ER 20 mEq tablet,extended release(part/ cryst) RxNorm: 6504397 1 /2 Tablet(s) PO daily 06/28/20162016 Inactive gemfibrozil 600 mg tablet RxNorm: 362501 Take 1 tablet by mouth twice a day 06/11/2016 10/31/2016 Inactive - metoprolol tartrate 100 mg tablet RxNorm: 711841 Take one-half tablet by mouth twice a day 06/11/2016 10/31/2016 Inactive - Carafate 1 gram tablet RxNorm: 696529 1 Tablet(s) PO AC & HS as needed for heartburn 02/24/2016 03/24/2016 Inactive omeprazole 20 mg capsule,delayed release RxNorm: 482043 1 Capsule(s) PO BID 02/24/2016 02/17/2017 Inactive simethicone 125 mg chewable tablet RxNorm: 928389 1 Tablet(s) PO QID 02/24/2016 03/26/2016 Inactive simethicone 125 mg tablet RxNorm: 312064 1 Tablet(s) PO QID 11/201502/23/2016 Inactive Carafate 1 gram tablet RxNorm: 456060 1 Tablet(s) PO AC & HS as needed for heartburn 02/24/2016 02/23/2016 Inactive simethicone 125 mg tablet RxNorm: 009580 1 Tablet(s) PO QID 02/13/2016 Inactive simethicone 125 mg tablet RxNorm: 119027 1 Tablet(s) PO QID 02/23/2016 Inactive metoprolol tartrate 100 mg tablet RxNorm: 157555 Take one-half tablet by mouth twice a day 12/19/2015 06/10/2016 Inactive - simethicone 125 mg tablet RxNorm: 429449 1 Tablet(s) PO QID 01/09/2016 Inactive losartan 50 mg tablet RxNorm: 320742 Take 1 tablet by mouth twice a day 10/23/2015 10/31/2016 Inactive - potassium chloride ER 20 mEq tablet,extended release(part/ cryst) RxNorm: 867638 1 Tablet(s) PO daily 09/06/2015 06/27/2016 Inactive omeprazole 20 mg capsule,delayed release RxNorm: 123815 Take 1 capsule by mouth daily 07/04/2015 02/23/2016 Inactive gemfibrozil 600 mg tablet RxNorm: 758129 Take 1 tablet by mouth twice a day 07/04/2015 03/29/2016 Inactive furosemide 40 mg tablet RxNorm: 036547 Take 1 tablet by mouth daily 07/04/2015 06/27/2016 Inactive naproxen 500 mg tablet RxNorm: 584883 1 Tablet(s) PO BID 201408/09/2016 Inactive [SAVINGS FOR NON-COVERED DRUGS -- BIN:099071, PCN: [id number], Group: [id number], ID # [id number], Questions: . THIS IS NOT INSURANCE.] Flonase 50 mcg/actuation nasal spray,suspension RxNorm: 891242 1 [place] NASAL BID 12/13/2014 03/26/2016 Inactive [SAVINGS FOR UNINSURED PATIENTS -- BIN:218725, PCN: [id number], Group: [id number], ID# [id number], Process claim through [employer], for questions: . THIS IS NOT INSURANCE.] furosemide 40 mg tablet RxNorm: 647503 1 Tablet(s) PO daily 07/03/2015 Inactive metoprolol tartrate 100 mg tablet RxNorm: 281574 1/2 Tablet(s) PO BID 11/22/2014 12/18/2015 Inactive simvastatin 20 mg tablet RxNorm: 093409 1 Tablet(s) PO QHS 02/03/2017 Inactive omeprazole 20 mg capsule,delayed release RxNorm: 622928 1 Capsule(s) PO daily 11/22/2014 07/03/2015 Inactive gemfibrozil 600 mg tablet RxNorm: 641579 1 Tablet(s) PO BID 07/03/2015 Inactive metoprolol tartrate 100 mg tablet RxNorm: 906120 1/2 Tablet(s) PO BID 09/30/2014 11/21/2014 Inactive metoprolol tartrate 100 mg tablet RxNorm: 960183 1 Tablet(s) PO daily 09/30/2014 09/29/2014 Inactive losartan 100 mg tablet RxNorm: 790276 1 Tablet(s) PO daily 04/201412/23/2015 Inactive furosemide 40 mg tablet RxNorm: 423662 1 Tablet(s) PO daily 01/201411/21/2014 Inactive metoprolol tartrate 100 mg tablet RxNorm: 623173 1/2 Tablet(s) PO BID 09/27/2014 09/29/2014 Inactive omeprazole 20 mg capsule,delayed release RxNorm: 728892 1 Capsule(s) PO daily 09/27/2014 11/21/2014 Inactive Efudex 5 % topical cream RxNorm: 710712 1 Application TOP BID apply to lesions on ears, cheek, nose bid x 2 weeks, then stop 05/18/2014 05/31/2014 Inactive [SAVINGS FOR UNINSURED PATIENTS -- BIN:222824, PCN: [id number], Group: [id number], ID# [id number], Process claim through [employer], for questions: . THIS IS NOT INSURANCE.] KCL 20 meq RxNorm: 1/2 Tablet(s) PO daily 02/15/2014 03/26/2016 Inactive furosemide 40 mg tablet RxNorm: 222637 1/2 Tablet(s) PO daily 02/15/2014 09/26/2014 Inactive diazepam 2 mg tablet RxNorm: 208114 1/2-1 Tablet(s) PO HS PRN pt to take 1/2 - 1 pill at bedtime as needed if persistent nausea. 02/15/2014 03/26/2016 Inactive naproxen 500 mg tablet RxNorm: 911321 1 Tablet(s) PO BID 201301/16/2015 Inactive losartan 50 mg tablet RxNorm: 090344 1 Tablet(s) PO BID 201309/29/2014 Inactive metoprolol tartrate 100 mg tablet RxNorm: 070840 1/2 Tablet(s) PO BID 11/23/2013 09/26/2014 Inactive KCL 20 meq RxNorm: 1 Tablet(s) PO daily 11/23/2013 02/14/2014 Inactive furosemide 40 mg tablet RxNorm: 107221 1 Tablet(s) PO daily 02/14/2014 Inactive omeprazole 20 mg capsule,delayed release RxNorm: 301116 1 Capsule(s) PO daily 11/23/2013 09/26/2014 Inactive simvastatin 20 mg tablet RxNorm: 483677 1 Tablet(s) PO QHS 11/17/2014 Inactive diazepam 2 mg tablet RxNorm: 443127 1/2-1 Tablet(s) PO HS PRN pt to take 1/2 - 1 pill at bedtime as needed if persistent nausea. 11/16/2013 01/14/2014 Inactive furosemide 40 mg tablet RxNorm: 763983 1 Tablet(s) PO daily 11/22/2013 Inactive aspirin 81 mg capsule,delayed release RxNorm: 998777 4 weekly Capsule(s) PO PRN 08/18/2013 03/27/2016 Inactive Influenza Virus Vaccine 0.5 mL RxNorm: IM 08/18/2013 08/18/2013 Inactive Kenalog 40 mg/mL Susp for Injection RxNorm: 6931348 Milliliter(s) Inj 02/13/2013 02/13/2013 Inactive Rocephin 500 mg Solution for Injection RxNorm: 602995 Inj 02/1302/13/2013 Inactive cefdinir 300 mg capsule RxNorm: 930403 1 Capsule(s) PO BID start tomorrow 02/13/2013 02/19/2013 Inactive Tricor 145 mg tablet RxNorm: 898184 1 Tablet(s) PO daily 201207/05/2013 Inactive Tricor 145 mg tablet RxNorm: 264692 1 Tablet(s) PO daily 201212/31/2012 Inactive KCL 20 meq RxNorm: 1 Tablet(s) PO daily 12/16/2012 11/22/2013 Inactive naproxen sodium 550 mg tablet RxNorm: 712513 1 Tablet(s) PO BID 12/16/2012 12/31/2012 Inactive simvastatin 20 mg tablet RxNorm: 806292 1 Tablet(s) PO QHS 12/31/2012 Inactive metoprolol tartrate 100 mg tablet RxNorm: 064177 1/2 Tablet(s) PO BID 10/06/2012 09/30/2013 Inactive hydrochlorothiazide 25 mg tablet RxNorm: 983086 1 Tablet(s) PO daily 10/01/2012 08/17/2013 Inactive furosemide 40 mg tablet RxNorm: 410085 1 Tablet(s) PO daily 05/201208/17/2013 Inactive omeprazole 20 mg capsule,delayed release RxNorm: 202464 1 Capsule(s) PO daily 10/01/2012 09/25/2013 Inactive Influenza Virus Vaccine 0.5 mL RxNorm: IM 08/27/2012 08/27/2012 Inactive losartan 100 mg Tab RxNorm: 708840 1/2 Tablet(s) PO BID 201104/03/2013 Inactive omeprazole 20 mg capsule,delayed release RxNorm: 083965 1 Capsule(s) PO daily 11/14/2011 09/30/2012 Inactive KCL 20 meq RxNorm: 1 Tablet(s) PO daily 11/14/2011 11/07/2012 Inactive simvastatin 20 mg tablet RxNorm: 117961 1 Tablet(s) PO QHS 01/201109/20/2012 Inactive metoprolol tartrate 100 mg tablet RxNorm: 222015 1/2 Tablet(s) PO BID 09/27/2011 09/20/2012 Inactive hydrochlorothiazide 25 mg tablet RxNorm: 299522 1 Tablet(s) PO daily 09/27/2011 09/20/2012 Inactive furosemide 40 mg tablet RxNorm: 712454 1 Tablet(s) PO daily 01/201109/30/2012 Inactive Cozaar 50 mg Tab RxNorm: 039813 1/2 Tablet(s) PO BID 201003/23/2012 Inactive meclizine 25 mg Tab RxNorm: 651212 1 Tablet(s) PO Q6 PRN 09/2603/26/2016 Inactive Pneumovax 23 25 mcg/0.5 mL Injection RxNorm: 877802 1/2 Milliliter(s) Inj 09/20/2011 09/20/2011 Inactive Cozaar 50 mg Tab RxNorm: 122855 1 Tablet(s) PO daily 201009/26/2011 Inactive Diflucan 150 mg Tab RxNorm: 492370 1 Tablet(s) PO daily 201008/29/2011 Inactive Influenza Virus Vaccine 0.5 mL RxNorm: IM 08/21/2011 08/21/2011 Inactive Vitamin B-12 500 mcg tablet RxNorm: 032735 1 Tablet(s) PO daily No Start Date Active acetaminophen 500 mg tablet RxNorm: 880401 2 Tablet(s) PO BID No Start Date Active aspirin 81 mg tablet,delayed release RxNorm: 989359 1 Tablet(s) PO every other day No Start Date Active Vitamin D3 400 unit tablet RxNorm: 161030 1 Tablet(s) PO daily No Start Date Active [place] Antacid oral RxNorm: 1897 oral No Start Date Active melatonin 5 mg tablet RxNorm: 583789 1 Tablet(s) PO QHS No Start Date Active metoprolol tartrate 100 mg Tab RxNorm: 612365 1/2 Tablet(s) PO BID No Start Date 09/26/2011 Inactive aspirin 81 mg capsule,delayed release RxNorm: 030707 1 Capsule(s) PO daily No Start Date 08/17/2013 Inactive Cialis 5 mg Tab RxNorm : 842183 1 or 2 Tablet(s) PO PRN No Start Date 03/26/2016 Inactive furosemide 40 mg Tab RxNorm: 360229 1 Tablet(s) PO daily No Start Date 09/26/2011 Inactive omeprazole 20 mg Cap, Delayed Release RxNorm: 794380 1 Capsule(s) PO daily No Start Date 11/13/2011 Inactive Tylenol PM Extra Strength 25 mg-500 mg tablet RxNorm: 4147945 1 Tablet(s) PO QPM No Start Date 10/09/2017 Inactive gemfibrozil 600 mg tablet RxNorm: 708359 1 Tablet(s) PO BID No Start Date 08/17/2013 Inactive naproxen 500 mg tablet RxNorm: 708101 1 Tablet(s) PO BID No Start Date 01/18/2014 Inactive naproxen sodium 550 mg tablet RxNorm: 188554 1 Tablet(s) PO BID No Start Date 12/15/2012 Inactive simvastatin 20 mg tablet RxNorm: 138252 1 Tablet(s) PO QHS No Start Date 11/22/2013 Inactive hydrochlorothiazide 25 mg Tab RxNorm: 689809 1 Tablet(s) PO daily No Start Date 09/26/2011 Inactive Zantac oral RxNorm: 904068 oral No Start Date 10/24/2016 Inactive losartan 100 mg Tab RxNorm: 869204 1/2 Tablet(s) PO BID No Start Date 04/08/2012 Inactive meclizine 25 mg Tab RxNorm: 799205 1 Tablet(s) PO PRN No Start Date 09/25/2011 Inactive simvastatin 20 mg Tab RxNorm: 283812 1 Tablet(s) PO QHS No Start Date 09/26/2011 Inactive Vitamin B-12 500 mcg tablet RxNorm: 396042 1 Tablet(s) PO daily No Start Date 03/27/2016 Inactive KCL 20 meq RxNorm: 1 PO daily No Start Date 11/13/2011 Inactive Vitamin B12 Oral RxNorm: Oral No Start Date 08/17/2013 Inactive Vitamin B-12 1,000 mcg tablet RxNorm: 209012 1 Tablet(s) PO daily No Start Date 11/23/2016 Inactive Slo-Niacin 250 mg tablet,extended release RxNorm: 053043 1 Tablet(s) PO daily No Start Date 04/25/2016 Inactive fenofibrate nanocrystallized 145 mg tablet RxNorm: 840550 1 Tablet(s) PO QPM No Start Date 12/12/2014 Inactive Colcrys 0.6 mg tablet RxNorm: 085436 1 Tablet(s) PO UD No Start Date 12/12/2016 Inactive 2 tabs po now then 1 tab daily x 1 week Zithromax Z-Jose 250 mg tablet RxNorm: 862571 Tablet(s) PO start this morning No Start Date 08/09/2013 Inactive Tylenol 500 mg RxNorm : 1 PO daily No Start Date 08/17/2013 Inactive Vitamin D 1,000 unit Tab RxNorm: 462980 1 Tablet(s) PO daily No Start Date 11/23/2016 Inactive losartan 50 mg tablet RxNorm: 482091 1 Tablet(s) PO BID No Start Date 01/18/2014 Inactive Medication Administered Medication Codes Instructions Start Date Status Influenza Virus Vaccine 0.5 mL RxNorm: 08/18/2013 No longer Active Rocephin 500 mg Solution for Injection RxNorm: 863637 02/13/2013 No longer Active Kenalog 40 mg/mL Susp for Injection RxNorm: 3151249 Milliliter 02/13/2013 No longer Active Influenza Virus Vaccine 0.5 mL RxNorm: 08/27/2012 No longer Active Pneumovax 23 25 mcg/0.5 mL Injection RxNorm: 595675 1/2Milliliter 09/20/2011 No longer Active Influenza Virus Vaccine 0.5 mL RxNorm: 08/21/2011 No longer Active Immunizations Vaccine Codes Date Status Influenza CVX: 141 09/03/2017 completed Pneumococcal (Adult) CVX: 33 09/03/2017 completed Influenza CVX: 141 08/10/2016 completed Pneumococcal (Adult) CVX: 133 08/10/2016 completed Influenza CVX: 141 08/26/2015 completed PPD Unknown 06/03/2015 completed Influenza CVX: 141 08/17/2014 completed Influenza CVX: 141 08/18/2013 completed Influenza CVX: 141 08/27/2012 completed Pneumococcal (Adult) CVX: 33 09/20/2011 completed Influenza CVX: 141 08/21/2011 completed Assessments Condition Codes Effective Dates Essential (primary) hypertension ICD-10: I10 ICD-9: 401.1 10/09/2017 Mixed hyperlipidemia ICD-10: E78.2 ICD-9: 272.2 10/09/2017 Encounter for immunization ICD-10: Z23 ICD-9: V03.9 09/03/2017 Pain in right hand ICD-10: M79.641 ICD-9: 729.5 09/03/2017 Neoplasm of unspecified behavior of bone, soft tissue, 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 ICD-9: 239.2 06/20/2017 Essential (primary) hypertension ICD-10: I10 ICD-9: 401.9 06/20/2017 Mixed hyperlipidemia ICD-10: E78.2 ICD-9: 272.4 06/20/2017 Insect bite (nonvenomous), right lower leg, initial encounter ICD-10: S80.861A ICD-9: 916.4 06/10/2017 Encounter for general adult medical examination with abnormal findings ICD-10: Z00.01 ICD-9: V70.0 02/27/2017 Gastro-esophageal reflux disease with esophagitis ICD-10: K21.0 ICD-9: 530.11 02/21/2017 Chronic kidney disease, stage 3 (moderate) ICD-10: N18.3 ICD-9: 585.3 02/21/2017 Pain in left ankle and joints of left foot ICD-10: M25.572 ICD-9: 719.47 01/01/2017 Idiopathic chronic gout, left ankle and foot, 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4 07/24/2016 Other abnormalities of gait and mobility ICD-10: R26.89 ICD-9: 781.2 06/28/2016 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 ICD-9: 438.89 03/27/2016 Primary generalized (osteo)arthritis ICD-10: M15.0 ICD-9: 715.09 12/12/2015 Gas pain ICD-10: R14.1 ICD-9: 787.3 12/12/2015 Encounter for immunization ICD-10: Z23 ICD-9: V04.81 08/26/2015 ESSENTIAL HYPERTENSION ICD-9: 401.9 06/13 OSTEOARTH NOS-UNSPEC ICD-9: 715.90 2014 HYPERLIPIDEMIA ICD-9: 272.4 06/13/2015 ROUTINE PHYSICL LAB EXAM ICD-9: V72.62 Laceration of finger ICD-9: 883.0 2014 Allergic rhinitis ICD-9: 477.9 2014 ACTINIC KERATOSIS ICD-9: 702.0 2013 Neck pain, chronic ICD-9: 723.1 2013 Chronic renal disease, stage 3, moderately decreased glomerular filtration rate between 30-59 mL/min/1.73 square meter ICD-9: 585.3 02/15/2014 OSTEOARTHROSIS-MULTIPLE SITES ICD-9: 715.89 02/15/2014 Bilateral hand numbness ICD-9: 782.0 OTHER ABNORMAL GLUCOSE ICD-9: 790.29 Insomnia ICD-9: 780.52 11/16/2013 Constipation - functional ICD-9: 564.09 11/16/2013 ENCNTR LONG-RX USE NEC ICD-9: V58.69 VACCIN FOR INFLUENZA ICD-9: V04.81 2012 COUGH ICD-9: 786.2 02/13/2013 Pneumonia ICD-9: 486 02/13/2013 PAIN IN LIMB ICD-9: 729.5 06/05/2012 Gait abnormality ICD-9: 781.2 03/24/2012 Osteoarthritis, knee ICD-9: 715.96 2011 DERMATOPHYTOSIS OF GROIN ICD-9: 110.3 VACCIN STREP PNEUMONIAE ICD-9: V03.82 IMPACTED CERUMEN ICD-9: 380.4 08/23/2011 Dysuria ICD-9: 788.1 08/23/2011 Reason For Visit Reason For Visit Effective Dates Notes hypertension 10/09/2017 vaccination against influenza 09/03/2017 worried that the skin cancer is growing back -tender near incision -also wondered if he has a stitch still in constipation 06/20/2017 Hospital Follow Up 06/10/2017 ER follow up - spider bite Annual Medicare Wellness Exam 02/27/2017 hypertension 02/21/2017 foot pain 01/01/2017 foot pain 12/13/2016 hypertension 10/25/2016 vaccination against influenza 08/10/2016 gastroesophageal reflux 07/24/2016 hypertension 06/28/2016 hypertension 04/26/2016 abnormal test results 04/10/2016 hypertension 03/27/2016 hypertension 12/12/2015 vaccination against influenza 08/26/2015 hypertension 06/13/2015 hypertension 12/13/2014 hypertension 08/17/2014 in lower legs at times- pt wonders if he should take Magnesium hypertension 05/18/2014 hypertension 02/15/2014 constipation 11/16/2013 hypertension 08/18/2013 hypertension 05/13/2013 cough 02/13/2013 hypertension 01/01/2013 hypertension 10/02/2012 vaccination against influenza 08/27/2012 hypertension 06/05/2012 knee pain 03/24/2012 has been working out and may have lifted too much weight with his legs - pt has been taking naprosyn for the pain hypertension 01/31/2012 hypertension 11/29/2011 rash 09/20/2011 dysuria 08/23/2011 Results Observation Observation Code Item Item Code Result Date Total Psa Ord10 PSA 0.81 ng/mL 10/08/2017 Lipid Ord30 CHOL 179 mg/dL 10/08/2017 Lipid Ord30 HDL 45.0 mg/dl 10/08/2017 Lipid Ord30 TRIG 64 mg/dL 10/08/2017 Lipid Ord30 LDL 121 mg/dL 10/08/2017 Lipid Ord30 C/HDL 4.0 Ratio 10/08/2017 Cbc With Differential Ord2 WBC 4.44 K/ul 10/08/2017 Cbc With Differential Ord2 RBC 3.71 M/ul 10/08/2017 Cbc With Differential Ord2 HGB 12.3 g/dl 10/08/2017 Cbc With Differential Ord2 Neut% 55.5 % 10/08/2017 Cbc With Differential Ord2 HCT 35.9 % 10/08/2017 Cbc With Differential Ord2 MCV 96.8 fl 10/08/2017 Cbc With Differential Ord2 Lymph% 28.6 % 10/08/2017 Cbc With Differential Ord2 MCH 33.2 pg 10/08/2017 Cbc With Differential Ord2 [place]% 13.7 % 10/08/2017 Cbc With Differential Ord2 MCHC 34.3 pg 10/08/2017 Cbc With Differential Ord2 Eos% 2.0 % 10/08/2017 Cbc With Differential Ord2 PLT 150 K/ul 10/08/2017 Cbc With Differential Ord2 Baso% 0.2 % 10/08/2017 Cbc With Differential Ord2 RDW 13.4 % 10/08/2017 Cbc With Differential Ord2 Neut ABS# 2.46 K/ul 10/08/2017 Cbc With Differential Ord2 Lymph ABS# 1.27 K/ul 10/08/2017 Cbc With Differential Ord2 [place] ABS# 0.6 K/ul 10/08/2017 Cbc With Differential Ord2 Eos ABS# 0.1 K/ul 10/08/2017 Cbc With Differential Ord2 Baso ABS# 0.0 K/ul 10/08/2017 Renal Iyo634 NA 142 mEq/L 10/08/2017 Renal Lgg596 K 4.1 mEq/L 10/08/2017 Renal Nny555 CL 106 mEq/L 10/08/2017 Renal Rwo205 CO2 28.0 mEq/L 10/08/2017 Renal Egu652 ANION GAP 12 10/08/2017 Renal Alj467 Osmo 291 mOsmo 10/08/2017 Renal Odk210 GLUCOSE 96 mg/dL 10/08/2017 Renal Wfz840 BUN 36 mg/dL 10/08/2017 Renal Ufz657 Creat 1.3 mg/dL 10/08/2017 Renal Ret668 eGFR 55 ml/min/1.73m2 10/08/2017 Renal Tnf426 B/C Ratio 26.9 Ratio 10/08/2017 Renal Nky586 CALCIUM 9.5 mg/dL 10/08/2017 Renal Bvk314 PHOS 3.3 mg/dL 10/08/2017 Renal Jyp057 ALBUMIN 4.1 g/dL 10/08/2017 Urinalysis Ord28 U-Color Yellow 04/02/2017 Urinalysis Ord28 U-Clarity Clear 04/02/2017 Urinalysis Ord28 U-Gluc Negative 04/02/2017 Urinalysis Ord28 U-Bili Negative 04/02/2017 Urinalysis Ord28 U-Ketone Negative 04/02/2017 Urinalysis Ord28 U-SG 1.010 04/02/2017 Urinalysis Ord28 U-Blood Negative 04/02/2017 Urinalysis Ord28 U-pH 5.0 04/02/2017 Urinalysis Ord28 U-Protein Negative 04/02/2017 Urinalysis Ord28 U-Urobilin 0.2 E.U./dL E.U./dL 04/02/2017 Urinalysis Ord28 U-Nitrites Negative 04/02/2017 Urinalysis Ord28 U-Leuk Negative 04/02/2017 Urinalysis Ord28 U-Bact None 04/02/2017 Urinalysis Ord28 U-Squamous Epi None per/HPF 04/02/2017 Urinalysis Ord28 U-Crystal None per/HPF 04/02/2017 Urinalysis Ord28 U-Mucus None 04/02/2017 Urinalysis Ord28 U-Renal tubular epi None 04/02/2017 Urinalysis Ord28 U-RBC None per/HPF 04/02/2017 Urinalysis Ord28 U-Transitional epi None per/HPF 04/02/2017 Urinalysis Ord28 U-WBC None per/HPF 04/02/2017 Urinalysis Ord28 U-Cast None per/HPF 04/02/2017 Urinalysis Ord28 U-VOL VOLUME SUFFICIENT (10mL) 04/02/2017 Urinalysis Ord28 U-Yeast NEGATIVE 04/02/2017 Urinalysis Ord28 U-Com Urine saved if culture needed (specimen acceptable for 48 hours from collection if refrigerated) 04/02/2017 Random Urine Protein/Creatinine Ratio [id number] U Prot 3.0 mg/dl 04/02/2017 Random Urine Protein/Creatinine Ratio [id number] U CREAT 48.0 mg/dL 04/02/2017 Random Urine Protein/Creatinine Ratio [id number] R MTP/Creat Ratio 0.06 04/02/2017 Cbc With Differential Ord2 WBC 5.49 K/ul 04/02/2017 Cbc With Differential Ord2 RBC 4.08 M/ul 04/02/2017 Cbc With Differential Ord2 HGB 13.0 g/dl 04/02/2017 Cbc With Differential Ord2 Neut% 49.6 % 04/02/2017 Cbc With Differential Ord2 HCT 39.6 % 04/02/2017 Cbc With Differential Ord2 Lymph% 31.0 % 04/02/2017 Cbc With Differential Ord2 MCV 97.1 fl 04/02/2017 Cbc With Differential Ord2 MCH 31.9 pg 04/02/2017 Cbc With Differential Ord2 [place]% 13.1 % 04/02/2017 Cbc With Differential Ord2 MCHC 32.8 pg 04/02/2017 Cbc With Differential Ord2 Eos% 5.8 % 04/02/2017 Cbc With Differential Ord2 PLT 168 K/ul 04/02/2017 Cbc With Differential Ord2 Baso% 0.5 % 04/02/2017 Cbc With Differential Ord2 Neut ABS# 2.72 K/ul 04/02/2017 Cbc With Differential Ord2 RDW 13.6 % 04/02/2017 Cbc With Differential Ord2 Lymph ABS# 1.70 K/ul 04/02/2017 Cbc With Differential Ord2 [place] ABS# 0.7 K/ul 04/02/2017 Cbc With Differential Ord2 Eos ABS# 0.3 K/ul 04/02/2017 Cbc With Differential Ord2 Baso ABS# 0.0 K/ul 04/02/2017 Renal Cps027 NA 139 mEq/L 04/02/2017 Renal Rdy050 K 4.6 mEq/L 04/02/2017 Renal Wqe943 CL 101 mEq/L 04/02/2017 Renal Eff424 CO2 27.0 mEq/L 04/02/2017 Renal Cxn376 ANION GAP 16 04/02/2017 Renal Kqq816 Osmo 286 mOsmo 04/02/2017 Renal Qzy187 GLUCOSE 98 mg/dL 04/02/2017 Renal Fvq577 BUN 36 mg/dL 04/02/2017 Renal Ias933 Creat 1.6 mg/dL 04/02/2017 Renal Igv687 eGFR 45 ml/min/1.73m2 04/02/2017 Renal Jbg979 B/C Ratio 22.5 Ratio 04/02/2017 Renal Ahj353 CALCIUM 9.5 mg/dL 04/02/2017 Renal Tvh702 PHOS 3.9 mg/dL 04/02/2017 Renal Cjv413 ALBUMIN 4.2 g/dL 04/02/2017 Uric Acid Ord77 Uric A 4.8 mg/dL 02/11/2017 Uric Acid Ord77 Uric A 9.0 mg/dL 01/01/2017 Comp Metabolic Smq971 NA 136 mEq/L 01/01/2017 Comp Metabolic Ytp470 K 4.4 mEq/L 01/01/2017 Comp Metabolic Yvl936 CL 102 mEq/L 01/01/2017 Comp Metabolic Mcg151 CO2 25.0 mEq/L 01/01/2017 Comp Metabolic Gub229 ANION GAP 13 01/01/2017 Comp Metabolic Lnp300 GLUCOSE 98 mg/dL 01/01/2017 Comp Metabolic Vhr695 Creat 1.5 mg/dL 01/01/2017 Comp Metabolic Fgp850 eGFR 49 ml/min/1.73m2 01/01/2017 Comp Metabolic Pmn196 BUN 35 mg/dL 01/01/2017 Comp Metabolic Ixi700 B/C Ratio 23.8 Ratio 01/01/2017 Comp Metabolic Fnu595 CALCIUM 9.8 mg/dL 01/01/2017 Comp Metabolic Dvw148 ALK PHOS 60 U/L 01/01/2017 Comp Metabolic Oug741 AST(SGOT) 14 U/L 01/01/2017 Comp Metabolic Cdr504 ALT(SGPT) 9 U/L 01/01/2017 Comp Metabolic Ixz257 BILI T 0.6 mg/dL 01/01/2017 Comp Metabolic Ljg985 ALBUMIN 4.5 g/dL 01/01/2017 Comp Metabolic Cku156 TPRO 7.6 g/dL 01/01/2017 Comp Metabolic Wmy208 GLOB 3.1 g/dL 01/01/2017 Comp Metabolic Sqh186 A/G Ratio 1.4 Ratio 01/01/2017 Comp Metabolic Zbq782 Osmo 280 mOsmo 01/01/2017 Comp Metabolic Rbs774 NA 142 mEq/L 12/13/2016 Comp Metabolic Rqk731 K 4.3 mEq/L 12/13/2016 Comp Metabolic Kgm981 CL 106 mEq/L 12/13/2016 Comp Metabolic Ylr964 CO2 28.0 mEq/L 12/13/2016 Comp Metabolic Ixc704 ANION GAP 12 12/13/2016 Comp Metabolic Bgr261 GLUCOSE 107 mg/dL 12/13/2016 Comp Metabolic Kut473 Creat 1.2 mg/dL 12/13/2016 Comp Metabolic Fti949 eGFR 62 ml/min/1.73m2 12/13/2016 Comp Metabolic Tpk448 BUN 24 mg/dL 12/13/2016 Comp Metabolic Pqt103 B/C Ratio 20.0 Ratio 12/13/2016 Comp Metabolic Uko447 CALCIUM 9.7 mg/dL 12/13/2016 Comp Metabolic Ddl781 ALK PHOS 69 U/L 12/13/2016 Comp Metabolic Cvp257 AST(SGOT) 10 U/L 12/13/2016 Comp Metabolic Lvd062 ALT(SGPT) 6 U/L 12/13/2016 Comp Metabolic Rzh686 BILI T 0.6 mg/dL 12/13/2016 Comp Metabolic Bur694 ALBUMIN 4.3 g/dL 12/13/2016 Comp Metabolic Wmv231 TPRO 7.5 g/dL 12/13/2016 Comp Metabolic Wnt648 GLOB 3.2 g/dL 12/13/2016 Comp Metabolic Rol895 A/G Ratio 1.3 Ratio 12/13/2016 Comp Metabolic Jwp863 Osmo 288 mOsmo 12/13/2016 Cbc With Differential Ord2 WBC 8.90 K/ul 12/13/2016 Cbc With Differential Ord2 RBC 4.06 M/ul 12/13/2016 Cbc With Differential Ord2 HGB 12.8 g/dl 12/13/2016 Cbc With Differential Ord2 HCT 39.2 % 12/13/2016 Cbc With Differential Ord2 Neut% 72.3 % 12/13/2016 Cbc With Differential Ord2 MCV 96.6 fl 12/13/2016 Cbc With Differential Ord2 Lymph% 14.4 % 12/13/2016 Cbc With Differential Ord2 MCH 31.5 pg 12/13/2016 Cbc With Differential Ord2 [place]% 12.4 % 12/13/2016 Cbc With Differential Ord2 MCHC 32.7 pg 12/13/2016 Cbc With Differential Ord2 Eos% 0.7 % 12/13/2016 Cbc With Differential Ord2 Baso% 0.2 % 12/13/2016 Cbc With Differential Ord2 PLT 203 K/ul 12/13/2016 Cbc With Differential Ord2 RDW 13.4 % 12/13/2016 Cbc With Differential Ord2 Neut ABS# 6.44 K/ul 12/13/2016 Cbc With Differential Ord2 Lymph ABS# 1.28 K/ul 12/13/2016 Cbc With Differential Ord2 [place] ABS# 1.1 K/ul 12/13/2016 Cbc With Differential Ord2 Eos ABS# 0.1 K/ul 12/13/2016 Cbc With Differential Ord2 Baso ABS# 0.0 K/ul 12/13/2016 Uric Acid Ord77 Uric A 7.6 mg/dL 12/13/2016 Cbc With Differential Ord2 WBC 4.60 K/ul 10/29/2016 Cbc With Differential Ord2 RBC 4.19 M/ul 10/29/2016 Cbc With Differential Ord2 HGB 13.2 g/dl 10/29/2016 Cbc With Differential Ord2 HCT 40.1 % 10/29/2016 Cbc With Differential Ord2 Neut% 43.7 % 10/29/2016 Cbc With Differential Ord2 MCV 95.7 fl 10/29/2016 Cbc With Differential Ord2 Lymph% 40.7 % 10/29/2016 Cbc With Differential Ord2 MCH 31.5 pg 10/29/2016 Cbc With Differential Ord2 [place]% 12.6 % 10/29/2016 Cbc With Differential Ord2 MCHC 32.9 pg 10/29/2016 Cbc With Differential Ord2 Eos% 2.6 % 10/29/2016 Cbc With Differential Ord2 Baso% 0.4 % 10/29/2016 Cbc With Differential Ord2 PLT 157 K/ul 10/29/2016 Cbc With Differential Ord2 Neut ABS# 2.01 K/ul 10/29/2016 Cbc With Differential Ord2 RDW 13.6 % 10/29/2016 Cbc With Differential Ord2 Lymph ABS# 1.87 K/ul 10/29/2016 Cbc With Differential Ord2 [place] ABS# 0.6 K/ul 10/29/2016 Cbc With Differential Ord2 Eos ABS# 0.1 K/ul 10/29/2016 Cbc With Differential Ord2 Baso ABS# 0.0 K/ul 10/29/2016 Tsh Ord6 hTSH II 1.92 uIU/mL 10/29/2016 Lipid Ord30 CHOL 151 mg/dL 10/29/2016 Lipid Ord30 HDL 34.0 mg/dl 10/29/2016 Lipid Ord30 TRIG 94 mg/dL 10/29/2016 Lipid Ord30 LDL 98 mg/dL 10/29/2016 Lipid Ord30 C/HDL 4.4 Ratio 10/29/2016 Comp Metabolic Mkw071 NA 140 mEq/L 10/29/2016 Comp Metabolic Xew701 K 4.4 mEq/L 10/29/2016 Comp Metabolic Fud937 CL 104 mEq/L 10/29/2016 Comp Metabolic Jvn185 CO2 28.0 mEq/L 10/29/2016 Comp Metabolic Fkr670 ANION GAP 12 10/29/2016 Comp Metabolic Ohh803 GLUCOSE 85 mg/dL 10/29/2016 Comp Metabolic Cru229 Creat 1.4 mg/dL 10/29/2016 Comp Metabolic Eza992 eGFR 51 ml/min/1.73m2 10/29/2016 Comp Metabolic Sqw157 BUN 35 mg/dL 10/29/2016 Comp Metabolic Qkj664 B/C Ratio 24.3 Ratio 10/29/2016 Comp Metabolic Gcr989 CALCIUM 9.7 mg/dL 10/29/2016 Comp Metabolic Vvt913 ALK PHOS 56 U/L 10/29/2016 Comp Metabolic Xwz927 AST(SGOT) 13 U/L 10/29/2016 Comp Metabolic Ndo974 ALT(SGPT) 8 U/L 10/29/2016 Comp Metabolic Nwp256 BILI T 0.5 mg/dL 10/29/2016 Comp Metabolic Cqj692 ALBUMIN 4.2 g/dL 10/29/2016 Comp Metabolic Zvi835 TPRO 7.0 g/dL 10/29/2016 Comp Metabolic Ugb016 GLOB 2.8 g/dL 10/29/2016 Comp Metabolic Qxr034 A/G Ratio 1.5 Ratio 10/29/2016 Comp Metabolic Itz613 Osmo 287 mOsmo 10/29/2016 Cbc With Differential Ord2 WBC 4.9 K/uL 12/06/2015 Cbc With Differential Ord2 LYM 1.6 K/uL 12/06/2015 Cbc With Differential Ord2 LYM% 31.7 % 12/06/2015 Cbc With Differential Ord2 NEUT/GRAN 2.9 K/uL 12/06/2015 Cbc With Differential Ord2 NEUT/GRAN % 58.7 % 12/06/2015 Cbc With Differential Ord2 MID 0.5 K/uL 12/06/2015 Cbc With Differential Ord2 MID% 9.6 % 12/06/2015 Cbc With Differential Ord2 RBC 4.27 M/uL 12/06/2015 Cbc With Differential Ord2 HGB 13.1 g/dL 12/06/2015 Cbc With Differential Ord2 HCT 41.3 % 12/06/2015 Cbc With Differential Ord2 MCV 97 fL 12/06/2015 Cbc With Differential Ord2 MCH 31 pg 12/06/2015 Cbc With Differential Ord2 MCHC 32 g/dL 12/06/2015 Cbc With Differential Ord2 PLT 158 K/uL 12/06/2015 Cbc With Differential Ord2 RDW 13.6 % 12/06/2015 Total Psa Ord10 PSA 0.75 ng/mL 12/06/2015 Lipid Ord30 CHOL 185 mg/dL 12/06/2015 Lipid Ord30 HDL 41.0 mg/dl 12/06/2015 Lipid Ord30 TRIG 102 mg/dL 12/06/2015 Lipid Ord30 LDL 124 mg/dL 12/06/2015 Lipid Ord30 C/HDL 4.5 Ratio 12/06/2015 Comp Metabolic Pra277 NA 138 mEq/L 12/06/2015 Comp Metabolic Njh522 K 4.3 mEq/L 12/06/2015 Comp Metabolic Huu894 CL 101 mEq/L 12/06/2015 Comp Metabolic Ftp747 CO2 28.0 mEq/L 12/06/2015 Comp Metabolic Bph559 ANION GAP 13 12/06/2015 Comp Metabolic Gkm968 GLUCOSE 86 mg/dL 12/06/2015 Comp Metabolic Bbk758 Creat 1.3 mg/dL 12/06/2015 Comp Metabolic Aow715 eGFR 56 ml/min/1.73m2 12/06/2015 Comp Metabolic Jea890 BUN 29 mg/dL 12/06/2015 Comp Metabolic Puy929 B/C Ratio 22.0 Ratio 12/06/2015 Comp Metabolic Qjt241 CALCIUM 9.7 mg/dL 12/06/2015 Comp Metabolic Bpa015 ALK PHOS 49 U/L 12/06/2015 Comp Metabolic Dja515 AST(SGOT) 14 U/L 12/06/2015 Comp Metabolic Jbe006 ALT(SGPT) 9 U/L 12/06/2015 Comp Metabolic Uvq956 BILI T 0.6 mg/dL 12/06/2015 Comp Metabolic Wuv882 ALBUMIN 4.3 g/dL 12/06/2015 Comp Metabolic Uvo378 TPRO 7.0 g/dL 12/06/2015 Comp Metabolic Lhm648 GLOB 2.7 g/dL 12/06/2015 Comp Metabolic Qlc818 A/G Ratio 1.6 Ratio 12/06/2015 Comp Metabolic Hxe423 Osmo 281 mOsmo 12/06/2015 Tsh Ord6 hTSH II 2.98 uIU/mL 12/06/2015 Comp Metabolic Yvk859 NA 138 mEq/L 06/03/2015 Comp Metabolic Qml793 K 4.1 mEq/L 06/03/2015 Comp Metabolic Xcg593 CL 103 mEq/L 06/03/2015 Comp Metabolic Fxo570 CO2 25.0 mEq/L 06/03/2015 Comp Metabolic Ubp128 ANION GAP 14 06/03/2015 Comp Metabolic Sdy435 GLUCOSE 89 mg/dL 06/03/2015 Comp Metabolic Tve479 Creat 1.3 mg/dL 06/03/2015 Comp Metabolic Efm364 eGFR 58 ml/min/1.73m2 06/03/2015 Comp Metabolic Qjp571 BUN 38 mg/dL 06/03/2015 Comp Metabolic Flh520 B/C Ratio 29.7 Ratio 06/03/2015 Comp Metabolic Qop058 CALCIUM 9.3 mg/dL 06/03/2015 Comp Metabolic Zba593 ALK PHOS 51 U/L 06/03/2015 Comp Metabolic Jjw733 AST(SGOT) 13 U/L 06/03/2015 Comp Metabolic Hqh383 ALT(SGPT) 10 U/L 06/03/2015 Comp Metabolic Wer080 BILI T 0.5 mg/dL 06/03/2015 Comp Metabolic Lnb834 ALBUMIN 4.1 g/dL 06/03/2015 Comp Metabolic Etv506 TPRO 6.8 g/dL 06/03/2015 Comp Metabolic Hpa648 GLOB 2.7 g/dL 06/03/2015 Comp Metabolic Gdg856 A/G Ratio 1.5 Ratio 06/03/2015 Comp Metabolic Zsi182 Osmo 284 mOsmo 06/03/2015 Tsh Ord6 hTSH II 2.96 uIU/mL 06/03/2015 Cbc With Differential Ord2 WBC 4.3 K/uL 06/03/2015 Cbc With Differential Ord2 LYM 1.7 K/uL 06/03/2015 Cbc With Differential Ord2 LYM% 39.6 % 06/03/2015 Cbc With Differential Ord2 NEUT/GRAN 2.2 K/uL 06/03/2015 Cbc With Differential Ord2 NEUT/GRAN % 51.1 % 06/03/2015 Cbc With Differential Ord2 MID 0.4 K/uL 06/03/2015 Cbc With Differential Ord2 MID% 9.3 % 06/03/2015 Cbc With Differential Ord2 RBC 3.91 M/uL 06/03/2015 Cbc With Differential Ord2 HGB 12.2 g/dL 06/03/2015 Cbc With Differential Ord2 HCT 36.9 % 06/03/2015 Cbc With Differential Ord2 MCV 94 fL 06/03/2015 Cbc With Differential Ord2 MCH 31 pg 06/03/2015 Cbc With Differential Ord2 MCHC 33 g/dL 06/03/2015 Cbc With Differential Ord2 PLT 147 K/uL 06/03/2015 Cbc With Differential Ord2 RDW 13.3 % 06/03/2015 Lipid Ord30 CHOL 153 mg/dL 06/03/2015 Lipid Ord30 HDL 35.0 mg/dl 06/03/2015 Lipid Ord30 TRIG 108 mg/dL 06/03/2015 Lipid Ord30 LDL 96 mg/dL 06/03/2015 Lipid Ord30 C/HDL 4.4 Ratio 06/03/2015 CHEM 14 1489045 AST 20 U/L 02/12/2014 CHEM 14 4515992 ALT 14 IU/L 02/12/2014 CHEM 14 2507725 BUN 37 MG/DL 02/12/2014 CHEM 14 8889992 ALBUMIN 4.6 GM/DL 02/12/2014 CHEM 14 4936887 CHLORIDE 104 MMOL/L 02/12/2014 CHEM 14 8826877 BILI TOT 0.6 MG/DL 02/12/2014 CHEM 14 8802015 ALK PHOS 45 U/L 02/12/2014 CHEM 14 0415441 SODIUM 139 MMOL/L 02/12/2014 CHEM 14 4444651 CREATININE 1.45 MG/DL 02/12/2014 CHEM 14 2323200 CALCIUM 9.7 MG/DL 02/12/2014 CHEM 14 7883700 POTASSIUM 4.2 MMOL/L 02/12/2014 CHEM 14 8629514 PROT TOT 7.1 GM/DL 02/12/2014 CHEM 14 3908790 GLUCOSE 91 MG/DL 02/12/2014 CHEM 14 7345586 BICARB 26 MMOL/L 02/12/2014 CHEM 14 7206550 ANION GAP 9 MEQ/L 02/12/2014 GFR CALC 1351395 GFR AA 58.0L ML/MIN 02/12/2014 GFR CALC 9913009 GFR NON-AA 48.0L ML/MIN 02/12/2014 A1C HPLC 6889212 A1C HPLC 87551-4 5.3 % 02/12/2014 CHEM 14 4319699 AST 15 U/L 11/12/2013 CHEM 14 5759207 ALT 10 IU/L 11/12/2013 CHEM 14 3126551 BUN 41 MG/DL 11/12/2013 CHEM 14 5442580 ALBUMIN 4.5 GM/DL 11/12/2013 CHEM 14 6023115 CHLORIDE 104 MMOL/L 11/12/2013 CHEM 14 1586715 BILI TOT 0.5 MG/DL 11/12/2013 CHEM 14 0028568 ALK PHOS 42 U/L 11/12/2013 CHEM 14 4658984 SODIUM 138 MMOL/L 11/12/2013 CHEM 14 4395602 CREATININE 1.32 MG/DL 11/12/2013 CHEM 14 8962048 CALCIUM 9.8 MG/DL 11/12/2013 CHEM 14 0447525 POTASSIUM 4.3 MMOL/L 11/12/2013 CHEM 14 4846654 PROT TOT 7.0 GM/DL 11/12/2013 CHEM 14 5654957 GLUCOSE 92 MG/DL 11/12/2013 CHEM 14 2893314 BICARB 26 MMOL/L 11/12/2013 CHEM 14 1886888 ANION GAP 8 MEQ/L 11/12/2013 GFR CALC 3861918 GFR AA >60 ML/MIN 11/12/2013 GFR CALC 0605142 GFR NON-AA 53.0L ML/MIN 11/12/2013 LIPID GRP HDL TEST 37 MG/DL 11/12/2013 LIPID GRP TRIG 83 MG/DL 11/12/2013 LIPID GRP TEST LDL 108 MG/DL 11/12/2013 LIPID GRP CHOL 162 MG/DL 11/12/2013 LIPID GRP RCHOL/HDL 4.38 RATIO 11/12/2013 CBC [id number] WBC 5.5 10e9/L 11/12/2013 CBC 8247195 RBC 4.23 10e12/L 11/12/2013 CBC 3134240 HGB 13.3 g/dL 11/12/2013 CBC 8132539 HCT DET 39.6 % 11/12/2013 CBC 1204787 MCV 93.6 fL 11/12/2013 CBC 8810214 MCH 31.4 pg 11/12/2013 CBC 5168263 MCHC 33.6 g/dL 11/12/2013 CBC 9162297 PLT 143 10e9/L 11/12/2013 CBC 9798702 MPV 10.5 fL 11/12/2013 CBC 5345918 SIVA % 45.7 % 11/12/2013 CBC 6184371 LY % 37.3 % 11/12/2013 CBC 3408951 MON % 13.5 % 11/12/2013 CBC 7267073 EOS % 3.1 % 11/12/2013 CBC 1339870 BASO % 0.4 % 11/12/2013 CBC 8182509 RDW 13.2 % 11/12/2013 CBC 6219394 ABS SIVA 2.51 10e9/L 11/12/2013 CBC 3551420 ABS LYMPH 2.05 10e9/L 11/12/2013 CBC 7789928 ABS MONO 0.74 10e9/L 11/12/2013 CBC 5176804 ABS EOS 0.17 10e9/L 11/12/2013 CBC 6479668 ABS BASO 0.02 10e9/L 11/12/2013 CBC 7178843 RDW-SD 43.3 fL 11/12/2013 TSH 6604431 TSH 2.625 uIU/ML 11/12/2013 GFR CALC 5666256 GFR AA >60 ML/MIN 08/10/2013 GFR CALC 7435930 GFR NON-AA 57.0L ML/MIN 08/10/2013 CBC 4747973 WBC 4.8 10e9/L 08/10/2013 CBC 4778041 RBC 3.97 10e12/L 08/10/2013 CBC 5396911 HGB 12.5 g/dL 08/10/2013 CBC 4283066 HCT DET 38.2 % 08/10/2013 CBC 9014846 MCV 96.2 fL 08/10/2013 CBC 2552778 MCH 31.5 pg 08/10/2013 CBC 5861736 MCHC 32.7 g/dL 08/10/2013 CBC 5138293 PLT 157 10e9/L 08/10/2013 CBC 5602738 MPV 10.5 fL 08/10/2013 CBC 5390237 SIVA % 46.0 % 08/10/2013 CBC 5335205 LY % 36.5 % 08/10/2013 CBC 7487456 MON % 13.6 % 08/10/2013 CBC 1561540 EOS % 3.5 % 08/10/2013 CBC 5933262 BASO % 0.4 % 08/10/2013 CBC 9108030 RDW 13.4 % 08/10/2013 CBC 1654025 ABS SIVA 2.21 10e9/L 08/10/2013 CBC 3837536 ABS LYMPH 1.75 10e9/L 08/10/2013 CBC 2961032 ABS MONO 0.65 10e9/L 08/10/2013 CBC 5721994 ABS EOS 0.17 10e9/L 08/10/2013 CBC 3285224 ABS BASO 0.02 10e9/L 08/10/2013 CBC 2732093 RDW-SD 45.5 fL 08/10/2013 CHEM 14 1350861 AST 15 U/L 08/10/2013 CHEM 14 9427911 ALT 11 IU/L 08/10/2013 CHEM 14 1338351 BUN 31 MG/DL 08/10/2013 CHEM 14 1944606 ALBUMIN 4.2 GM/DL 08/10/2013 CHEM 14 4592780 CHLORIDE 106 MMOL/L 08/10/2013 CHEM 14 1961458 BILI TOT 0.5 MG/DL 08/10/2013 CHEM 14 4007342 ALK PHOS 31 U/L 08/10/2013 CHEM 14 0437336 SODIUM 139 MMOL/L 08/10/2013 CHEM 14 8181328 CREATININE 1.24 MG/DL 08/10/2013 CHEM 14 9315372 CALCIUM 9.3 MG/DL 08/10/2013 CHEM 14 [id number] POTASSIUM 4.3 MMOL/L 08/10/2013 CHEM 14 [id number] PROT TOT 6.1 GM/DL 08/10/2013 CHEM 14 [id number] GLUCOSE 104 MG/DL 08/10/2013 CHEM 14 [id number] BICARB 27 MMOL/L 08/10/2013 CHEM 14 7040122 ANION GAP 6 MEQ/L 08/10/2013 A1C HPLC [id number] A1C HPLC 35682-4 5.5 % 08/10/2013 A1C HPLC [id number] A1C HPLC 25533-8 5.5 % 05/11/2013 CHEM 14 [id number] AST 15 U/L 05/11/2013 CHEM 14 [id number] ALT 12 IU/L 05/11/2013 CHEM 14 [id number] BUN 34 MG/DL 05/11/2013 CHEM 14 [id number] ALBUMIN 4.4 GM/DL 05/11/2013 CHEM 14 [id number] CHLORIDE 105 MMOL/L 05/11/2013 CHEM 14 [id number] BILI TOT 0.4 MG/DL 05/11/2013 CHEM 14 [id number] ALK PHOS 27 U/L 05/11/2013 CHEM 14 [id number] SODIUM 140 MMOL/L 05/11/2013 CHEM 14 [id number] CREATININE 1.32 MG/DL 05/11/2013 CHEM 14 [id number] CALCIUM 9.5 MG/DL 05/11/2013 CHEM 14 [id number] POTASSIUM 4.2 MMOL/L 05/11/2013 CHEM 14 [id number] PROT TOT 6.8 GM/DL 05/11/2013 CHEM 14 [id number] GLUCOSE 107 MG/DL 05/11/2013 CHEM 14 [id number] BICARB 29 MMOL/L 05/11/2013 CHEM 14 [id number] ANION GAP 6 MEQ/L 05/11/2013 LIPID GRP [id number] HDL TEST 32 MG/DL 05/11/2013 LIPID GRP [id number] TRIG 148 MG/DL 05/11/2013 LIPID GRP [id number] TEST LDL 96 MG/DL 05/11/2013 LIPID GRP [id number] CHOL 158 MG/DL 05/11/2013 LIPID GRP RCHOL/HDL 4.94 RATIO 05/11/2013 CBC [id number] WBC 5.1 10e9/L 05/11/2013 CBC [id number] RBC 4.19 10e12/L 05/11/2013 CBC [id number] HGB 13.2 g/dL 05/11/2013 CBC 6913840 HCT DET 39.8 % 05/11/2013 CBC [id number] MCV 95.0 fL 05/11/2013 CBC [id number] MCH 31.5 pg 05/11/2013 CBC [id number] MCHC 33.2 g/dL 05/11/2013 CBC [id number] PLT 151 10e9/L 05/11/2013 CBC [id number] MPV 10.7 fL 05/11/2013 CBC [id number] SIVA % 55.9 % 05/11/2013 CBC [id number] LY % 24.8 % 05/11/2013 CBC [id number] MON % 13.9 % 05/11/2013 CBC [id number] EOS % 5.0 % 05/11/2013 CBC [id number] BASO % 0.4 % 05/11/2013 CBC [id number] RDW 13.7 % 05/11/2013 CBC [id number] ABS SIVA 2.85 10e9/L 05/11/2013 CBC [id number] ABS LYMPH 1.26 10e9/L 05/11/2013 CBC [id number] ABS MONO 0.71 10e9/L 05/11/2013 CBC [id number] ABS EOS 0.26 10e9/L 05/11/2013 CBC [id number] ABS BASO 0.02 10e9/L 05/11/2013 CBC [id number] RDW-SD 45.5 fL 05/11/2013 GFR CALC 3177588 GFR AA >60 ML/MIN 05/11/2013 GFR CALC 7468571 GFR NON-AA 53.0L ML/MIN 05/11/2013 A1C HPLC [id number] A1C HPLC 40812-6 5.2 % 12/30/2012 CHEM 14 [id number] AST 19 U/L 12/30/2012 CHEM 14 2053229 ALT 16 IU/L 12/30/2012 CHEM 14 [id number] BUN 38 MG/DL 12/30/2012 CHEM 14 2051351 ALBUMIN 4.6 GM/DL 12/30/2012 CHEM 14 1677438 CHLORIDE 101 MMOL/L 12/30/2012 CHEM 14 [id number] BILI TOT 0.6 MG/DL 12/30/2012 CHEM 14 4960494 ALK PHOS 50 U/L 12/30/2012 CHEM 14 4471364 SODIUM 139 MMOL/L 12/30/2012 CHEM 14 [id number] CREATININE 1.12 MG/DL 12/30/2012 CHEM 14 8142520 CALCIUM 9.8 MG/DL 12/30/2012 CHEM 14 2877583 POTASSIUM 3.8 MMOL/L 12/30/2012 CHEM 14 7412431 PROT TOT 6.9 GM/DL 12/30/2012 CHEM 14 8510096 GLUCOSE 100 MG/DL 12/30/2012 CHEM 14 [id number] BICARB 30 MMOL/L 12/30/2012 CHEM 14 [id number] ANION GAP 8 MEQ/L 12/30/2012 LIPID GRP HDL TEST 35 MG/DL 12/30/2012 LIPID GRP TRIG 302 MG/DL 12/30/2012 LIPID GRP TEST LDL 127 MG/DL 12/30/2012 LIPID GRP CHOL 222 MG/DL 12/30/2012 LIPID GRP RCHOL/HDL 6.34 RATIO 12/30/2012 GFR CALC [id number] GFR AA >60 ML/MIN 12/30/2012 GFR CALC 4411289 GFR NON-AA >60 ML/MIN 12/30/2012 CBC [id number] WBC 5.3 10e9/L 12/30/2012 CBC [id number] RBC 4.76 10e12/L 12/30/2012 CBC [id number] HGB 15.0 g/dL 12/30/2012 CBC 4086029 HCT DET 43.7 % 12/30/2012 CBC [id number] MCV 91.8 fL 12/30/2012 CBC [id number] MCH 31.5 pg 12/30/2012 CBC [id number] MCHC 34.3 g/dL 12/30/2012 CBC 1968523 PLT 137 10e9/L 12/30/2012 CBC [id number] MPV 10.8 fL 12/30/2012 CBC [id number] SIVA % 50.1 % 12/30/2012 CBC [id number] LY % 32.3 % 12/30/2012 CBC [id number] MON % 12.9 % 12/30/2012 CBC [id number] EOS % 4.3 % 12/30/2012 CBC [id number] BASO % 0.4 % 12/30/2012 CBC [id number] RDW 13.3 % 12/30/2012 CBC [id number] ABS SIVA 2.66 10e9/L 12/30/2012 CBC [id number] ABS LYMPH 1.71 10e9/L 12/30/2012 CBC 5940491 ABS MONO 0.68 10e9/L 12/30/2012 CBC [id number] ABS EOS 0.23 10e9/L 12/30/2012 CBC [id number] ABS BASO 0.02 10e9/L 12/30/2012 CBC [id number] RDW-SD 43.9 fL 12/30/2012 CHEM 14 [id number] AST 16 U/L 09/30/2012 CHEM 14 [id number] ALT 14 IU/L 09/30/2012 CHEM 14 [id number] BUN 30 MG/DL 09/30/2012 CHEM 14 [id number] ALBUMIN 4.2 GM/DL 09/30/2012 CHEM 14 [id number] CHLORIDE 105 MMOL/L 09/30/2012 CHEM 14 3013685 BILI TOT 0.6 MG/DL 09/30/2012 CHEM 14 8228113 ALK PHOS 48 U/L 09/30/2012 CHEM 14 7191923 SODIUM 139 MMOL/L 09/30/2012 CHEM 14 [id number] CREATININE 1.00 MG/DL 09/30/2012 CHEM 14 0499718 CALCIUM 9.2 MG/DL 09/30/2012 CHEM 14 [id number] POTASSIUM 4.0 MMOL/L 09/30/2012 CHEM 14 1574174 PROT TOT 6.8 GM/DL 09/30/2012 CHEM 14 [id number] GLUCOSE 95 MG/DL 09/30/2012 CHEM 14 [id number] BICARB 29 MMOL/L 09/30/2012 CHEM 14 9985408 ANION GAP 5 MEQ/L 09/30/2012 LIPID GRP HDL TEST 31 MG/DL 09/30/2012 LIPID GRP TRIG 124 MG/DL 09/30/2012 LIPID GRP TEST LDL 98 MG/DL 09/30/2012 LIPID GRP CHOL 154 MG/DL 09/30/2012 LIPID GRP RCHOL/HDL 4.97 RATIO 09/30/2012 CBC [id number] WBC 4.9 10e9/L 09/30/2012 CBC [id number] RBC 4.61 10e12/L 09/30/2012 CBC 1615745 HGB 14.3 g/dL 09/30/2012 CBC [id number] HCT DET 43.1 % 09/30/2012 CBC [id number] MCV 93.5 fL 09/30/2012 CBC [id number] MCH 31.0 pg 09/30/2012 CBC [id number] MCHC 33.2 g/dL 09/30/2012 CBC [id number] PLT 137 10e9/L 09/30/2012 CBC [id number] MPV 10.8 fL 09/30/2012 CBC [id number] SIVA % 50.9 % 09/30/2012 CBC [id number] LY % 32.4 % 09/30/2012 CBC [id number] MON % 12.2 % 09/30/2012 CBC [id number] EOS % 4.1 % 09/30/2012 CBC [id number] BASO % 0.4 % 09/30/2012 CBC [id number] RDW 12.9 % 09/30/2012 CBC [id number] ABS SIVA 2.49 10e9/L 09/30/2012 CBC [id number] ABS LYMPH 1.59 10e9/L 09/30/2012 CBC [id number] ABS MONO 0.60 10e9/L 09/30/2012 CBC [id number] ABS EOS 0.20 10e9/L 09/30/2012 CBC [id number] ABS BASO 0.02 10e9/L 09/30/2012 CBC [id number] RDW-SD 42.5 fL 09/30/2012 A1C HPLC [id number] A1C HPLC 30440-0 4.8 % 09/30/2012 GFR CALC [id number] GFR AA >60 ML/MIN 09/30/2012 GFR CALC 2061651 GFR NON-AA >60 ML/MIN 09/30/2012 PSA EQ [id number] PSA EQ 0.48 NG/ML 09/30/2012 A1C HPLC [id number] A1C HPLC 48891-5 5.3 % 06/03/2012 GFR CALC 5884722 GFR AA >60 ML/MIN 06/03/2012 GFR CALC [id number] GFR NON-AA >60 ML/MIN 06/03/2012 CBC 1373050 WBC 5.2 10e9/L 06/03/2012 CBC [id number] RBC 4.57 10e12/L 06/03/2012 CBC 1738924 HGB 14.3 g/dL 06/03/2012 CBC 7404235 HCT DET 42.9 % 06/03/2012 CBC [id number] MCV 93.9 fL 06/03/2012 CBC [id number] MCH 31.3 pg 06/03/2012 CBC [id number] MCHC 33.3 g/dL 06/03/2012 CBC [id number] PLT 146 10e9/L 06/03/2012 CBC [id number] MPV 10.5 fL 06/03/2012 CBC [id number] SIVA % 58.3 % 06/03/2012 CBC 1551047 LY % 27.6 % 06/03/2012 CBC [id number] MON % 11.2 % 06/03/2012 CBC [id number] EOS % 2.5 % 06/03/2012 CBC [id number] BASO % 0.4 % 06/03/2012 CBC [id number] RDW 13.2 % 06/03/2012 CBC [id number] ABS SIVA 3.03 10e9/L 06/03/2012 CBC [id number] ABS LYMPH 1.44 10e9/L 06/03/2012 CBC [id number] ABS MONO 0.58 10e9/L 06/03/2012 CBC 1451245 ABS EOS 0.13 10e9/L 06/03/2012 CBC 9865417 ABS BASO 0.02 10e9/L 06/03/2012 CBC 1864503 RDW-SD 43.8 fL 06/03/2012 LIPID GRP HDL TEST 38 MG/DL 06/03/2012 LIPID GRP 1033895 TRIG 123 MG/DL 06/03/2012 LIPID GRP 6703249 TEST LDL 97 MG/DL 06/03/2012 LIPID GRP 0495191 CHOL 160 MG/DL 06/03/2012 LIPID GRP 3204888 RCHOL/HDL 4.21 RATIO 06/03/2012 CHEM 14 0824363 AST 17 U/L 06/03/2012 CHEM 14 0460311 ALT 15 IU/L 06/03/2012 CHEM 14 [id number] BUN 26 MG/DL 06/03/2012 CHEM 14 9331504 ALBUMIN 4.7 GM/DL 06/03/2012 CHEM 14 [id number] CHLORIDE 104 MMOL/L 06/03/2012 CHEM 14 [id number] BILI TOT 0.7 MG/DL 06/03/2012 CHEM 14 0914035 ALK PHOS 54 U/L 06/03/2012 CHEM 14 8629593 SODIUM 141 MMOL/L 06/03/2012 CHEM 14 5912715 CREATININE 1.11 MG/DL 06/03/2012 CHEM 14 7084009 CALCIUM 9.9 MG/DL 06/03/2012 CHEM 14 [id number] POTASSIUM 4.1 MMOL/L 06/03/2012 CHEM 14 0614411 PROT TOT 7.3 GM/DL 06/03/2012 CHEM 14 6206191 GLUCOSE 108 MG/DL 06/03/2012 CHEM 14 [id number] BICARB 30 MMOL/L 06/03/2012 CHEM 14 0130255 ANION GAP 7 MEQ/L 06/03/2012 URINALYSIS NONAUTO W/O SCOPE 29398 Specific [place] 1.020 DateTime(Free Text in Aprima) URINALYSIS NONAUTO W/O SCOPE 25068 PH 6.0 DateTime(Free Text in Apr[employer]) URINALYSIS NONAUTO W/O SCOPE 23245 GLUCOSE neg DateTime( Free Text in Apr[employer]) URINALYSIS NONAUTO W/O SCOPE 59310 Protein neg DateTime( Free Text in Apr[employer]) URINALYSIS NONAUTO W/O SCOPE 66050 Blood neg DateTime(Free Text in Apr[employer]) URINALYSIS NONAUTO W/O SCOPE 39552 Bilirubin neg DateTime(Free Text in Apr[employer]) URINALYSIS NONAUTO W/O SCOPE 83456 Ketones neg DateTime( Free Text in Apr[employer]) URINALYSIS NONAUTO W/O SCOPE 33365 Urobilinogen neg DateTime(Free Text in Apr[employer]) URINALYSIS NONAUTO W/O SCOPE 44660 Nitrite neg DateTime( Free Text in Apr[employer]) URINALYSIS NONAUTO W/O SCOPE 68291 Leukocytes neg DateTime(Free Text in Aprima) Review of Systems System Result Effective Dates Constitutional No night sweats 2016 Constitutional No chills 10/09/2017 Constitutional No fatigue 10/09/2017 Constitutional No fever 10/09/2017 Eyes No vision change 10/09/2017 Ears/Nose/Throat/Neck No dizziness 2016 Ears/Nose/Throat/Neck No headache 2016 Ears/Nose/Throat/Neck hearing loss 2016 Cardiovascular No chest pain/pressure Cardiovascular No dyspnea 10/09/2017 Cardiovascular No edema 10/09/2017 Cardiovascular No exercise intolerance Cardiovascular No fatigue 10/09/2017 Cardiovascular No near-syncope/dizziness 10/09/2017 Respiratory No chest congestion 2016 Respiratory No cough 10/09/2017 Gastrointestinal No abdominal pain 2016 Gastrointestinal No constipation 2016 Gastrointestinal No diarrhea 10/09/2017 Gastrointestinal gas and bloating 2016 Gastrointestinal No nausea 10/09/2017 Gastrointestinal No vomiting 10/09/2017 Musculoskeletal stiffness 10/09/2017 Musculoskeletal arthralgia(s) 10/09/2017 Dermatologic No rash 10/09/2017 Dermatologic No sores 10/09/2017 Neurologic No dizziness 10/09/2017 Neurologic gait abnormality 10/09/2017 Neurologic No headache 10/09/2017 Neurologic No neck pain 10/09/2017 Neurologic No syncope 10/09/2017 Psychiatric No anxiety 10/09/2017 Psychiatric No depression 10/09/2017 Dermatologic erythema 09/03/2017 Constitutional No recent illness 2016 Constitutional No anorexia 09/03/2017 Constitutional No night sweats 2016 Constitutional No chills 09/03/2017 Constitutional No diaphoresis 09/03/2017 Constitutional No fatigue 09/03/2017 Constitutional No fever 09/03/2017 Constitutional No insomnia 09/03/2017 Constitutional No malaise 09/03/2017 Constitutional No weight loss 09/03/2017 Constitutional No weight gain 09/03/2017 Constitutional No night sweats 2016 Constitutional No chills 06/20/2017 Constitutional No fatigue 06/20/2017 Constitutional No fever 06/20/2017 Eyes No vision change 06/20/2017 Ears/Nose/Throat/Neck No dizziness 2016 Ears/Nose/Throat/Neck No headache 2016 Ears/Nose/Throat/Neck hearing loss 2016 Cardiovascular No chest pain/pressure Cardiovascular No dyspnea 06/20/2017 Cardiovascular No edema 06/20/2017 Cardiovascular No exercise intolerance Cardiovascular No fatigue 06/20/2017 Cardiovascular No near-syncope/dizziness 06/20/2017 Respiratory No chest congestion 2016 Respiratory No cough 06/20/2017 Gastrointestinal No abdominal pain 2016 Gastrointestinal No constipation 2016 Gastrointestinal No diarrhea 06/20/2017 Gastrointestinal gas and bloating 2016 Gastrointestinal No nausea 06/20/2017 Gastrointestinal No vomiting 06/20/2017 Musculoskeletal stiffness 06/20/2017 Musculoskeletal arthralgia(s) 06/20/2017 Dermatologic No rash 06/20/2017 Dermatologic sores 06/20/2017 Neurologic No dizziness 06/20/2017 Neurologic gait abnormality 06/20/2017 Neurologic No headache 06/20/2017 Neurologic No neck pain 06/20/2017 Neurologic No syncope 06/20/2017 Psychiatric No anxiety 06/20/2017 Psychiatric No depression 06/20/2017 Constitutional No recent illness 2016 Constitutional No anorexia 06/10/2017 Constitutional No night sweats 2016 Constitutional No chills 06/10/2017 Constitutional No diaphoresis 06/10/2017 Constitutional No fever 06/10/2017 Constitutional No fatigue 06/10/2017 Constitutional No insomnia 06/10/2017 Constitutional No malaise 06/10/2017 Constitutional No weight loss 06/10/2017 Constitutional No weight gain 06/10/2017 Dermatologic sores 06/10/2017 Constitutional No recent illness 2016 Constitutional No chills 02/27/2017 Constitutional No diaphoresis 02/27/2017 Constitutional No fever 02/27/2017 Eyes No eye erythema 02/27/2017 Ears/Nose/Throat/Neck No nasal allergies 02/27/2017 Ears/Nose/Throat/Neck No nasal discharge 02/27/2017 Cardiovascular No chest pain/pressure 03/2017 Cardiovascular No dyspnea 02/27/2017 Respiratory No cough 02/27/2017 Respiratory No dyspnea 02/27/2017 Dermatologic No rash 02/27/2017 Neurologic No alteration of consciousness 02/27/2017 Neurologic No mental status change 2016 Constitutional No night sweats 2016 Constitutional No chills 02/21/2017 Constitutional No fatigue 02/21/2017 Constitutional No fever 02/21/2017 Eyes No vision change 02/21/2017 Ears/Nose/Throat/Neck No dizziness 2016 Ears/Nose/Throat/Neck No headache 2016 Ears/Nose/Throat/Neck hearing loss 2016 Cardiovascular No chest pain/pressure Cardiovascular No dyspnea 02/21/2017 Cardiovascular No edema 02/21/2017 Cardiovascular No exercise intolerance Cardiovascular No fatigue 02/21/2017 Cardiovascular No near-syncope/dizziness 02/21/2017 Respiratory No chest congestion 2016 Respiratory No cough 02/21/2017 Gastrointestinal No abdominal pain 2016 Gastrointestinal No constipation 2016 Gastrointestinal No diarrhea 02/21/2017 Gastrointestinal gas and bloating 2016 Gastrointestinal No nausea 02/21/2017 Gastrointestinal No vomiting 02/21/2017 Musculoskeletal stiffness 02/21/2017 Musculoskeletal arthralgia(s) 02/21/2017 Dermatologic No rash 02/21/2017 Dermatologic No sores 02/21/2017 Neurologic No dizziness 02/21/2017 Neurologic gait abnormality 02/21/2017 Neurologic No headache 02/21/2017 Neurologic No neck pain 02/21/2017 Neurologic No syncope 02/21/2017 Psychiatric No anxiety 02/21/2017 Psychiatric No depression 02/21/2017 Constitutional No recent illness 2016 Constitutional No anorexia 01/01/2017 Constitutional No night sweats 2016 Constitutional No chills 01/01/2017 Constitutional No diaphoresis 01/01/2017 Constitutional No fatigue 01/01/2017 Constitutional No fever 01/01/2017 Constitutional No insomnia 01/01/2017 Constitutional No malaise 01/01/2017 Constitutional No weight loss 01/01/2017 Constitutional No weight gain 01/01/2017 Constitutional No obesity 01/01/2017 Eyes No eye pain 01/01/2017 Eyes No vision change 01/01/2017 Ears/Nose/Throat/Neck No dizziness 2016 Ears/Nose/Throat/Neck No headache 2016 Cardiovascular No chest pain/pressure 05/2017 Cardiovascular No dyspnea 01/01/2017 Respiratory No chest congestion 2016 Respiratory No chest tightness 2016 Respiratory No cough 01/01/2017 Gastrointestinal No abdominal pain 2016 Gastrointestinal No constipation 2016 Gastrointestinal No diarrhea 01/01/2017 Gastrointestinal No nausea 01/01/2017 Gastrointestinal No vomiting 01/01/2017 Genitourinary/Nephrology No anuria/oliguria 01/01/2017 Genitourinary/Nephrology No dysuria 01/01 Musculoskeletal stiffness 01/01/2017 Musculoskeletal swelling 01/01/2017 Musculoskeletal arthralgia(s) 01/01/2017 Dermatologic No rash 01/01/2017 Dermatologic No sores 01/01/2017 Neurologic No alteration of consciousness 01/01/2017 Neurologic No mental status change 2016 Psychiatric No anxiety 01/01/2017 Psychiatric No depression 01/01/2017 Endocrine No polydipsia 01/01/2017 Endocrine No polyuria 01/01/2017 Hematologic/Lymphatic No abnormal ecchymoses 01/01/2017 Hematologic/Lymphatic No abnormal bleeding and bruising 01/01/2017 Constitutional No recent illness 2016 Constitutional No anorexia 12/13/2016 Constitutional No night sweats 2016 Constitutional No chills 12/13/2016 Constitutional No diaphoresis 12/13/2016 Constitutional No fatigue 12/13/2016 Constitutional No fever 12/13/2016 Constitutional No insomnia 12/13/2016 Constitutional No malaise 12/13/2016 Constitutional No weight loss 12/13/2016 Constitutional No weight gain 12/13/2016 Constitutional No obesity 12/13/2016 Eyes No eye pain 12/13/2016 Eyes No vision change 12/13/2016 Ears/Nose/Throat/Neck No dizziness 2016 Ears/Nose/Throat/Neck No headache 2016 Cardiovascular No chest pain/pressure Cardiovascular No dyspnea 12/13/2016 Respiratory No chest congestion 2016 Respiratory No chest tightness 2016 Respiratory No cough 12/13/2016 Gastrointestinal No abdominal pain 2016 Gastrointestinal No constipation 2016 Gastrointestinal No diarrhea 12/13/2016 Gastrointestinal No nausea 12/13/2016 Gastrointestinal No vomiting 12/13/2016 Genitourinary/Nephrology No anuria/oliguria 12/13/2016 Genitourinary/Nephrology No dysuria 12/13 Musculoskeletal stiffness 12/13/2016 Musculoskeletal swelling 12/13/2016 Musculoskeletal arthralgia(s) 12/13/2016 Dermatologic No rash 12/13/2016 Dermatologic No sores 12/13/2016 Neurologic No alteration of consciousness 12/13/2016 Neurologic No mental status change 2016 Psychiatric No anxiety 12/13/2016 Psychiatric No depression 12/13/2016 Endocrine No polydipsia 12/13/2016 Endocrine No polyuria 12/13/2016 Hematologic/Lymphatic No abnormal ecchymoses 12/13/2016 Hematologic/Lymphatic No abnormal bleeding and bruising 12/13/2016 Constitutional No night sweats 2015 Constitutional No chills 10/25/2016 Constitutional No fatigue 10/25/2016 Constitutional No fever 10/25/2016 Eyes No vision change 10/25/2016 Ears/Nose/Throat/Neck No dizziness 2015 Ears/Nose/Throat/Neck No headache 2015 Ears/Nose/Throat/Neck hearing loss 2015 Cardiovascular No chest pain/pressure 11/2015 Cardiovascular No dyspnea 10/25/2016 Cardiovascular No edema 10/25/2016 Cardiovascular No exercise intolerance Cardiovascular No fatigue 10/25/2016 Cardiovascular No near-syncope/dizziness 10/25/2016 Respiratory No chest congestion 2015 Respiratory No cough 10/25/2016 Gastrointestinal No abdominal pain 2015 Gastrointestinal No constipation 2015 Gastrointestinal No diarrhea 10/25/2016 Gastrointestinal gas and bloating 2015 Gastrointestinal No nausea 10/25/2016 Gastrointestinal No vomiting 10/25/2016 Musculoskeletal stiffness 10/25/2016 Musculoskeletal arthralgia(s) 10/25/2016 Dermatologic No rash 10/25/2016 Dermatologic No sores 10/25/2016 Neurologic No dizziness 10/25/2016 Neurologic gait abnormality 10/25/2016 Neurologic No headache 10/25/2016 Neurologic No neck pain 10/25/2016 Neurologic No syncope 10/25/2016 Psychiatric No anxiety 10/25/2016 Psychiatric No depression 10/25/2016 Constitutional No recent illness 2015 Constitutional No anorexia 08/10/2016 Constitutional No night sweats 2015 Constitutional No chills 08/10/2016 Constitutional No diaphoresis 08/10/2016 Constitutional No fatigue 08/10/2016 Constitutional No fever 08/10/2016 Constitutional No insomnia 08/10/2016 Constitutional No malaise 08/10/2016 Constitutional No weight loss 08/10/2016 Constitutional No weight gain 08/10/2016 Eyes No eye discharge 08/10/2016 Eyes No eye erythema 08/10/2016 Ears/Nose/Throat/Neck No dizziness 2015 Ears/Nose/Throat/Neck No headache 2015 Cardiovascular No chest pain/pressure Respiratory No cough 08/10/2016 Gastrointestinal No constipation 2015 Gastrointestinal No diarrhea 08/10/2016 Gastrointestinal gas and bloating 2015 Gastrointestinal gastroesophageal reflux 08/10/2016 Genitourinary/Nephrology No dysuria 08/10 Musculoskeletal joint complaint 2015 Neurologic No alteration of consciousness 08/10/2016 Constitutional No recent illness 2015 Constitutional No anorexia 07/24/2016 Constitutional No night sweats 2015 Constitutional No chills 07/24/2016 Constitutional No diaphoresis 07/24/2016 Constitutional No fatigue 07/24/2016 Constitutional No fever 07/24/2016 Constitutional No insomnia 07/24/2016 Constitutional No malaise 07/24/2016 Constitutional No weight loss 07/24/2016 Constitutional No weight gain 07/24/2016 Gastrointestinal gastroesophageal reflux 07/24/2016 Gastrointestinal gas and bloating 2015 Gastrointestinal No diarrhea 07/24/2016 Gastrointestinal No constipation 2015 Genitourinary/Nephrology No dysuria 07/24 Dermatologic sores 07/24/2016 Ears/Nose/Throat/Neck No dizziness 2015 Ears/Nose/Throat/Neck No headache 2015 Musculoskeletal joint complaint 2015 Cardiovascular No chest pain/pressure Respiratory No cough 07/24/2016 Eyes No eye discharge 07/24/2016 Eyes No eye erythema 07/24/2016 Neurologic No alteration of consciousness 07/24/2016 Constitutional No night sweats 2015 Constitutional No chills 06/28/2016 Constitutional No fatigue 06/28/2016 Constitutional No fever 06/28/2016 Eyes No vision change 06/28/2016 Ears/Nose/Throat/Neck No dizziness 2015 Ears/Nose/Throat/Neck No headache 2015 Ears/Nose/Throat/Neck hearing loss 2015 Cardiovascular No chest pain/pressure 02/2016 Cardiovascular No dyspnea 06/28/2016 Cardiovascular No edema 06/28/2016 Cardiovascular No exercise intolerance Cardiovascular No fatigue 06/28/2016 Cardiovascular No near-syncope/dizziness 06/28/2016 Respiratory No chest congestion 2015 Respiratory No cough 06/28/2016 Gastrointestinal No abdominal pain 2015 Gastrointestinal No constipation 2015 Gastrointestinal No diarrhea 06/28/2016 Gastrointestinal gas and bloating 2015 Gastrointestinal No nausea 06/28/2016 Gastrointestinal No vomiting 06/28/2016 Musculoskeletal stiffness 06/28/2016 Musculoskeletal arthralgia(s) 06/28/2016 Dermatologic No rash 06/28/2016 Dermatologic No sores 06/28/2016 Neurologic No dizziness 06/28/2016 Neurologic gait abnormality 06/28/2016 Neurologic No headache 06/28/2016 Neurologic No neck pain 06/28/2016 Neurologic No syncope 06/28/2016 Psychiatric No anxiety 06/28/2016 Psychiatric No depression 06/28/2016 Constitutional No night sweats 2015 Constitutional No chills 04/26/2016 Constitutional No fatigue 04/26/2016 Constitutional No fever 04/26/2016 Eyes No vision change 04/26/2016 Ears/Nose/Throat/Neck No dizziness 2015 Ears/Nose/Throat/Neck No headache 2015 Ears/Nose/Throat/Neck hearing loss 2015 Cardiovascular No chest pain/pressure 12/2015 Cardiovascular No dyspnea 04/26/2016 Cardiovascular No edema 04/26/2016 Cardiovascular No exercise intolerance Cardiovascular No fatigue 04/26/2016 Cardiovascular No near-syncope/dizziness 04/26/2016 Respiratory No chest congestion 2015 Respiratory No cough 04/26/2016 Gastrointestinal No abdominal pain 2015 Gastrointestinal No constipation 2015 Gastrointestinal No diarrhea 04/26/2016 Gastrointestinal gas and bloating 2015 Gastrointestinal No nausea 04/26/2016 Gastrointestinal No vomiting 04/26/2016 Musculoskeletal stiffness 04/26/2016 Musculoskeletal arthralgia(s) 04/26/2016 Dermatologic No rash 04/26/2016 Dermatologic No sores 04/26/2016 Neurologic No dizziness 04/26/2016 Neurologic gait abnormality 04/26/2016 Neurologic No headache 04/26/2016 Neurologic No neck pain 04/26/2016 Neurologic No syncope 04/26/2016 Psychiatric No anxiety 04/26/2016 Psychiatric No depression 04/26/2016 Constitutional No night sweats 2015 Constitutional No chills 04/10/2016 Constitutional No fatigue 04/10/2016 Constitutional No fever 04/10/2016 Eyes No vision change 04/10/2016 Ears/Nose/Throat/Neck No dizziness 2015 Ears/Nose/Throat/Neck No headache 2015 Ears/Nose/Throat/Neck hearing loss 2015 Cardiovascular No chest pain/pressure Cardiovascular No dyspnea 04/10/2016 Cardiovascular No edema 04/10/2016 Cardiovascular No exercise intolerance Cardiovascular No fatigue 04/10/2016 Cardiovascular No near-syncope/dizziness 04/10/2016 Respiratory No chest congestion 2015 Respiratory No cough 04/10/2016 Gastrointestinal No abdominal pain 2015 Gastrointestinal No constipation 2015 Gastrointestinal No diarrhea 04/10/2016 Gastrointestinal gas and bloating 2015 Gastrointestinal No nausea 04/10/2016 Gastrointestinal No vomiting 04/10/2016 Musculoskeletal stiffness 04/10/2016 Musculoskeletal arthralgia(s) 04/10/2016 Dermatologic No rash 04/10/2016 Dermatologic No sores 04/10/2016 Neurologic No dizziness 04/10/2016 Neurologic gait abnormality 04/10/2016 Neurologic No headache 04/10/2016 Neurologic No neck pain 04/10/2016 Neurologic No syncope 04/10/2016 Psychiatric No anxiety 04/10/2016 Psychiatric No depression 04/10/2016 Constitutional No night sweats 2015 Constitutional No chills 03/27/2016 Constitutional No fatigue 03/27/2016 Constitutional No fever 03/27/2016 Eyes No vision change 03/27/2016 Ears/Nose/Throat/Neck No dizziness 2015 Ears/Nose/Throat/Neck No headache 2015 Ears/Nose/Throat/Neck hearing loss 2015 Cardiovascular No chest pain/pressure 01/2016 Cardiovascular No dyspnea 03/27/2016 Cardiovascular No edema 03/27/2016 Cardiovascular No exercise intolerance Cardiovascular No fatigue 03/27/2016 Cardiovascular No near-syncope/dizziness 03/27/2016 Respiratory No chest congestion 2015 Respiratory No cough 03/27/2016 Gastrointestinal No abdominal pain 2015 Gastrointestinal No constipation 2015 Gastrointestinal No diarrhea 03/27/2016 Gastrointestinal gas and bloating 2015 Gastrointestinal No nausea 03/27/2016 Gastrointestinal No vomiting 03/27/2016 Musculoskeletal stiffness 03/27/2016 Musculoskeletal arthralgia(s) 03/27/2016 Dermatologic No rash 03/27/2016 Dermatologic No sores 03/27/2016 Neurologic No dizziness 03/27/2016 Neurologic No headache 03/27/2016 Neurologic No neck pain 03/27/2016 Neurologic No syncope 03/27/2016 Psychiatric No anxiety 03/27/2016 Psychiatric No depression 03/27/2016 Neurologic gait abnormality 03/27/2016 Constitutional No night sweats 2015 Constitutional No chills 12/12/2015 Constitutional No fatigue 12/12/2015 Constitutional No fever 12/12/2015 Eyes No vision change 12/12/2015 Ears/Nose/Throat/Neck No dizziness 2015 Ears/Nose/Throat/Neck No headache 2015 Ears/Nose/Throat/Neck hearing loss 2015 Cardiovascular No chest pain/pressure Cardiovascular No dyspnea 12/12/2015 Cardiovascular No edema 12/12/2015 Cardiovascular No exercise intolerance Cardiovascular No fatigue 12/12/2015 Cardiovascular No near-syncope/dizziness 12/12/2015 Respiratory No chest congestion 2015 Respiratory No cough 12/12/2015 Gastrointestinal No abdominal pain 2015 Gastrointestinal No constipation 2015 Gastrointestinal No diarrhea 12/12/2015 Gastrointestinal No nausea 12/12/2015 Gastrointestinal No vomiting 12/12/2015 Musculoskeletal stiffness 12/12/2015 Musculoskeletal arthralgia(s) 12/12/2015 Dermatologic No rash 12/12/2015 Dermatologic No sores 12/12/2015 Neurologic No dizziness 12/12/2015 Neurologic No headache 12/12/2015 Neurologic No neck pain 12/12/2015 Neurologic No syncope 12/12/2015 Psychiatric No anxiety 12/12/2015 Psychiatric No depression 12/12/2015 Gastrointestinal gas and bloating 2015 Constitutional No night sweats 2014 Constitutional No chills 06/13/2015 Constitutional No fatigue 06/13/2015 Constitutional No fever 06/13/2015 Eyes No vision change 06/13/2015 Ears/Nose/Throat/Neck No dizziness 2014 Ears/Nose/Throat/Neck No headache 2014 Ears/Nose/Throat/Neck hearing loss 2014 Respiratory No chest congestion 2014 Respiratory No cough 06/13/2015 Gastrointestinal No abdominal pain 2014 Gastrointestinal No constipation 2014 Gastrointestinal No diarrhea 06/13/2015 Gastrointestinal No nausea 06/13/2015 Gastrointestinal No vomiting 06/13/2015 Musculoskeletal stiffness 06/13/2015 Musculoskeletal arthralgia(s) 06/13/2015 Dermatologic No rash 06/13/2015 Dermatologic No sores 06/13/2015 Psychiatric No anxiety 06/13/2015 Psychiatric No depression 06/13/2015 Cardiovascular No chest pain/pressure Cardiovascular No dyspnea 06/13/2015 Cardiovascular No edema 06/13/2015 Cardiovascular No exercise intolerance Cardiovascular No fatigue 06/13/2015 Cardiovascular No near-syncope/dizziness 06/13/2015 Neurologic No dizziness 06/13/2015 Neurologic No headache 06/13/2015 Neurologic No neck pain 06/13/2015 Neurologic No syncope 06/13/2015 Constitutional No insomnia 12/13/2014 Ears/Nose/Throat/Neck No sore throat Ears/Nose/Throat/Neck No nasal discharge 12/13/2014 Ears/Nose/Throat/Neck postnasal drip Cardiovascular No chest pain/pressure Cardiovascular No dyspnea 12/13/2014 Respiratory No chest congestion 2014 Respiratory No cough 12/13/2014 Gastrointestinal No vomiting 12/13/2014 Gastrointestinal No nausea 12/13/2014 Gastrointestinal No dyspepsia 12/13/2014 Gastrointestinal No abdominal pain 2014 Gastrointestinal No constipation 2014 Gastrointestinal No diarrhea 12/13/2014 Gastrointestinal gas and bloating 2014 Constitutional No night sweats 2014 Constitutional No chills 12/13/2014 Constitutional No fatigue 12/13/2014 Constitutional No fever 12/13/2014 Eyes No vision change 12/13/2014 Ears/Nose/Throat/Neck No dizziness 2014 Ears/Nose/Throat/Neck No headache 2014 Ears/Nose/Throat/Neck hearing loss 2014 Musculoskeletal stiffness 12/13/2014 Musculoskeletal arthralgia(s) 12/13/2014 Dermatologic No rash 12/13/2014 Dermatologic No sores 12/13/2014 Psychiatric No anxiety 12/13/2014 Psychiatric No depression 12/13/2014 Constitutional No night sweats 2013 Constitutional No chills 08/17/2014 Constitutional No fatigue 08/17/2014 Constitutional No fever 08/17/2014 Eyes No vision change 08/17/2014 Ears/Nose/Throat/Neck No dizziness 2013 Ears/Nose/Throat/Neck No headache 2013 Ears/Nose/Throat/Neck hearing loss 2013 Respiratory No chest congestion 2013 Respiratory No cough 08/17/2014 Gastrointestinal No abdominal pain 2013 Gastrointestinal No constipation 2013 Gastrointestinal No diarrhea 08/17/2014 Gastrointestinal No nausea 08/17/2014 Gastrointestinal No vomiting 08/17/2014 Musculoskeletal stiffness 08/17/2014 Musculoskeletal arthralgia(s) 08/17/2014 Dermatologic No rash 08/17/2014 Dermatologic No sores 08/17/2014 Psychiatric No anxiety 08/17/2014 Psychiatric No depression 08/17/2014 Constitutional No night sweats 2013 Constitutional No chills 05/18/2014 Constitutional No fatigue 05/18/2014 Constitutional No fever 05/18/2014 Eyes No vision change 05/18/2014 Ears/Nose/Throat/Neck No dizziness 2013 Ears/Nose/Throat/Neck No headache 2013 Ears/Nose/Throat/Neck hearing loss 2013 Respiratory No chest congestion 2013 Respiratory No cough 05/18/2014 Gastrointestinal No abdominal pain 2013 Gastrointestinal No constipation 2013 Gastrointestinal No diarrhea 05/18/2014 Gastrointestinal No nausea 05/18/2014 Gastrointestinal No vomiting 05/18/2014 Musculoskeletal stiffness 05/18/2014 Musculoskeletal arthralgia(s) 05/18/2014 Dermatologic No rash 05/18/2014 Dermatologic No sores 05/18/2014 Psychiatric No anxiety 05/18/2014 Psychiatric No depression 05/18/2014 Constitutional No night sweats 2013 Constitutional No chills 02/15/2014 Constitutional No fatigue 02/15/2014 Constitutional No fever 02/15/2014 Eyes No vision change 02/15/2014 Ears/Nose/Throat/Neck No dizziness 2013 Ears/Nose/Throat/Neck No headache 2013 Ears/Nose/Throat/Neck hearing loss 2013 Respiratory No chest congestion 2013 Respiratory No cough 02/15/2014 Gastrointestinal No abdominal pain 2013 Gastrointestinal No constipation 2013 Gastrointestinal No diarrhea 02/15/2014 Gastrointestinal No nausea 02/15/2014 Gastrointestinal No vomiting 02/15/2014 Musculoskeletal stiffness 02/15/2014 Musculoskeletal arthralgia(s) 02/15/2014 Dermatologic No rash 02/15/2014 Dermatologic No sores 02/15/2014 Psychiatric No anxiety 02/15/2014 Psychiatric No depression 02/15/2014 Musculoskeletal neck pain 02/15/2014 Constitutional No night sweats 2012 Constitutional No chills 11/16/2013 Constitutional No fatigue 11/16/2013 Constitutional No fever 11/16/2013 Eyes No vision change 11/16/2013 Ears/Nose/Throat/Neck No dizziness 2012 Ears/Nose/Throat/Neck No headache 2012 Ears/Nose/Throat/Neck hearing loss 2012 Respiratory No chest congestion 2012 Respiratory No cough 11/16/2013 Gastrointestinal No abdominal pain 2012 Gastrointestinal No constipation 2012 Gastrointestinal No diarrhea 11/16/2013 Gastrointestinal No nausea 11/16/2013 Gastrointestinal No vomiting 11/16/2013 Musculoskeletal stiffness 11/16/2013 Musculoskeletal arthralgia(s) 11/16/2013 Dermatologic No rash 11/16/2013 Dermatologic No sores 11/16/2013 Psychiatric No anxiety 11/16/2013 Psychiatric No depression 11/16/2013 Constitutional No night sweats 2012 Constitutional No chills 08/18/2013 Constitutional No fatigue 08/18/2013 Constitutional No fever 08/18/2013 Eyes No vision change 08/18/2013 Ears/Nose/Throat/Neck No dizziness 2012 Ears/Nose/Throat/Neck No headache 2012 Ears/Nose/Throat/Neck hearing loss 2012 Respiratory No chest congestion 2012 Respiratory No cough 08/18/2013 Gastrointestinal No abdominal pain 2012 Gastrointestinal No constipation 2012 Gastrointestinal No diarrhea 08/18/2013 Gastrointestinal No nausea 08/18/2013 Gastrointestinal No vomiting 08/18/2013 Musculoskeletal stiffness 08/18/2013 Musculoskeletal arthralgia(s) 08/18/2013 Dermatologic No rash 08/18/2013 Dermatologic No sores 08/18/2013 Psychiatric No anxiety 08/18/2013 Psychiatric No depression 08/18/2013 Constitutional No night sweats 2012 Constitutional No chills 05/13/2013 Constitutional No fatigue 05/13/2013 Constitutional No fever 05/13/2013 Eyes No vision change 05/13/2013 Ears/Nose/Throat/Neck No dizziness 2012 Ears/Nose/Throat/Neck No headache 2012 Ears/Nose/Throat/Neck hearing loss 2012 Respiratory No chest congestion 2012 Respiratory No cough 05/13/2013 Gastrointestinal No abdominal pain 2012 Gastrointestinal No constipation 2012 Gastrointestinal No diarrhea 05/13/2013 Gastrointestinal No nausea 05/13/2013 Gastrointestinal No vomiting 05/13/2013 Musculoskeletal stiffness 05/13/2013 Musculoskeletal arthralgia(s) 05/13/2013 Dermatologic No rash 05/13/2013 Dermatologic No sores 05/13/2013 Psychiatric No anxiety 05/13/2013 Psychiatric No depression 05/13/2013 Constitutional recent illness 02/13/2013 Constitutional No anorexia 02/13/2013 Constitutional No night sweats 2012 Constitutional chills 02/13/2013 Constitutional diaphoresis 02/13/2013 Constitutional No fatigue 02/13/2013 Constitutional No fever 02/13/2013 Constitutional No insomnia 02/13/2013 Eyes No eye discharge 02/13/2013 Eyes No eye erythema 02/13/2013 Ears/Nose/Throat/Neck No dizziness 2012 Ears/Nose/Throat/Neck No headache 2012 Ears/Nose/Throat/Neck No nasal allergies 02/13/2013 Ears/Nose/Throat/Neck No nasal discharge 02/13/2013 Ears/Nose/Throat/Neck No otalgia 2012 Ears/Nose/Throat/Neck No sinus congestion 02/13/2013 Ears/Nose/Throat/Neck sore throat 2012 Cardiovascular No chest pain/pressure Gastrointestinal No abdominal pain 2012 Gastrointestinal No constipation 2012 Gastrointestinal No diarrhea 02/13/2013 Gastrointestinal No nausea 02/13/2013 Gastrointestinal No vomiting 02/13/2013 Genitourinary/Nephrology No dysuria 02/13 Musculoskeletal No joint complaint 2012 Dermatologic No sores 02/13/2013 Dermatologic No rash 02/13/2013 Constitutional No night sweats 2012 Constitutional No chills 01/01/2013 Constitutional No fatigue 01/01/2013 Constitutional No fever 01/01/2013 Eyes No vision change 01/01/2013 Ears/Nose/Throat/Neck No dizziness 2012 Ears/Nose/Throat/Neck No headache 2012 Ears/Nose/Throat/Neck hearing loss 2012 Cardiovascular No chest pain/pressure 05/2013 Respiratory No chest congestion 2012 Respiratory No cough 01/01/2013 Gastrointestinal No abdominal pain 2012 Gastrointestinal No constipation 2012 Gastrointestinal No diarrhea 01/01/2013 Gastrointestinal No nausea 01/01/2013 Gastrointestinal No vomiting 01/01/2013 Genitourinary/Nephrology No penile pain and discharge 01/01/2013 Genitourinary/Nephrology No testicular pain 01/01/2013 Musculoskeletal stiffness 01/01/2013 Musculoskeletal arthralgia(s) 01/01/2013 Dermatologic No rash 01/01/2013 Dermatologic No sores 01/01/2013 Psychiatric No anxiety 01/01/2013 Psychiatric No depression 01/01/2013 Constitutional No night sweats 2011 Constitutional No chills 10/02/2012 Constitutional No fatigue 10/02/2012 Constitutional No fever 10/02/2012 Eyes No vision change 10/02/2012 Ears/Nose/Throat/Neck No dizziness 2011 Ears/Nose/Throat/Neck No headache 2011 Ears/Nose/Throat/Neck hearing loss 2011 Cardiovascular No chest pain/pressure 06/2012 Respiratory No chest congestion 2011 Respiratory No cough 10/02/2012 Gastrointestinal No abdominal pain 2011 Gastrointestinal No constipation 2011 Gastrointestinal No diarrhea 10/02/2012 Gastrointestinal No nausea 10/02/2012 Gastrointestinal No vomiting 10/02/2012 Genitourinary/Nephrology No penile pain and discharge 10/02/2012 Genitourinary/Nephrology No testicular pain 10/02/2012 Musculoskeletal stiffness 10/02/2012 Musculoskeletal arthralgia(s) 10/02/2012 Dermatologic No rash 10/02/2012 Dermatologic No sores 10/02/2012 Psychiatric No anxiety 10/02/2012 Psychiatric No depression 10/02/2012 Constitutional No fatigue 06/05/2012 Constitutional No fever 06/05/2012 Respiratory No chest congestion 2011 Respiratory No cough 06/05/2012 Gastrointestinal No abdominal pain 2011 Gastrointestinal No constipation 2011 Gastrointestinal No diarrhea 06/05/2012 Genitourinary/Nephrology No penile pain and discharge 06/05/2012 Genitourinary/Nephrology No testicular pain 06/05/2012 Dermatologic No rash 06/05/2012 Dermatologic No sores 06/05/2012 Psychiatric No anxiety 06/05/2012 Psychiatric No depression 06/05/2012 Ears/Nose/Throat/Neck No dizziness 2011 Ears/Nose/Throat/Neck cerumen 06/05/2012 Ears/Nose/Throat/Neck hearing loss 2011 Constitutional No night sweats 2011 Constitutional No chills 06/05/2012 Eyes No vision change 06/05/2012 Ears/Nose/Throat/Neck No headache 2011 Cardiovascular No chest pain/pressure 10/2012 Gastrointestinal No nausea 06/05/2012 Gastrointestinal No vomiting 06/05/2012 Musculoskeletal stiffness 06/05/2012 Musculoskeletal arthralgia(s) 06/05/2012 Constitutional No fatigue 03/24/2012 Constitutional No fever 03/24/2012 Respiratory No chest congestion 2011 Respiratory No cough 03/24/2012 Gastrointestinal No abdominal pain 2011 Gastrointestinal No constipation 2011 Gastrointestinal No diarrhea 03/24/2012 Genitourinary/Nephrology No penile pain and discharge 03/24/2012 Genitourinary/Nephrology No testicular pain 03/24/2012 Psychiatric No anxiety 03/24/2012 Psychiatric No depression 03/24/2012 Dermatologic No rash 03/24/2012 Dermatologic No sores 03/24/2012 Constitutional No night sweats 2011 Constitutional No chills 01/31/2012 Eyes No vision change 01/31/2012 Ears/Nose/Throat/Neck No dizziness 2011 Ears/Nose/Throat/Neck No headache 2011 Cardiovascular No chest pain/pressure 06/2012 Gastrointestinal No vomiting 01/31/2012 Gastrointestinal No nausea 01/31/2012 Constitutional No fever 01/31/2012 Gastrointestinal No diarrhea 01/31/2012 Gastrointestinal No constipation 2011 Constitutional No fatigue 01/31/2012 Respiratory No chest congestion 2011 Respiratory No cough 01/31/2012 Gastrointestinal No abdominal pain 2011 Genitourinary/Nephrology No penile pain and discharge 01/31/2012 Genitourinary/Nephrology No testicular pain 01/31/2012 Musculoskeletal stiffness 01/31/2012 Musculoskeletal arthralgia(s) 01/31/2012 Psychiatric No anxiety 01/31/2012 Psychiatric No depression 01/31/2012 Constitutional No fatigue 11/29/2011 Constitutional No fever 11/29/2011 Respiratory No chest congestion 2011 Respiratory No cough 11/29/2011 Gastrointestinal No abdominal pain 2011 Gastrointestinal No constipation 2011 Gastrointestinal No diarrhea 11/29/2011 Genitourinary/Nephrology No penile pain and discharge 11/29/2011 Genitourinary/Nephrology No testicular pain 11/29/2011 Musculoskeletal stiffness 11/29/2011 Musculoskeletal arthralgia(s) 11/29/2011 Psychiatric No anxiety 11/29/2011 Psychiatric No depression 11/29/2011 Constitutional No fatigue 09/20/2011 Constitutional No fever 09/20/2011 Respiratory No chest congestion 2010 Respiratory No cough 09/20/2011 Gastrointestinal No abdominal pain 2010 Gastrointestinal No constipation 2010 Gastrointestinal No diarrhea 09/20/2011 Genitourinary/Nephrology No testicular pain 09/20/2011 Genitourinary/Nephrology No penile pain and discharge 09/20/2011 Musculoskeletal arthralgia(s) 09/20/2011 Musculoskeletal stiffness 09/20/2011 Psychiatric No anxiety 09/20/2011 Psychiatric No depression 09/20/2011 Constitutional No anorexia 08/23/2011 Constitutional No chills 08/23/2011 Constitutional No fatigue 08/23/2011 Eyes No vision change 08/23/2011 Ears/Nose/Throat/Neck No dizziness 2010 Ears/Nose/Throat/Neck No dysphagia 2010 Ears/Nose/Throat/Neck No headache 2010 Cardiovascular No fatigue 08/23/2011 Cardiovascular hypertension 08/23/2011 Cardiovascular No chest pain/pressure Respiratory No chest congestion 2010 Respiratory No chest tightness 2010 Respiratory No cough 08/23/2011 Gastrointestinal No anorexia 08/23/2011 Gastrointestinal No constipation 2010 Gastrointestinal No diarrhea 08/23/2011 Gastrointestinal dyspepsia 08/23/2011 Gastrointestinal gastroesophageal reflux 08/23/2011 Gastrointestinal gas and bloating 2010 Genitourinary/Nephrology dysuria 2010 Musculoskeletal arthralgia(s) 08/23/2011 Dermatologic rash 08/23/2011 Psychiatric No anxiety 08/23/2011 Psychiatric No depression 08/23/2011 Physical Exam Exam Name System Name Item Name Status Result Effective Dates Notes Full Exam - General 1994 Constitutional general appearance Overall: well developed 10/09/2017 None Full Exam - General 1994 Constitutional general appearance Overall: in no acute distress 10/09/2017 None Full Exam - General 1994 Constitutional general appearance Overall: well nourished 10/09/2017 None Full Exam - General 1994 Eyes pupils and irises Overall: pupils equal, round, reactive to light and accomodation 10/09/2017 None Full Exam - General 1994 Ears/Nose/Throat otoscopic exam Overall: external auditory canals clear 10/09/2017 None Full Exam - General 1994 Ears/Nose/Throat otoscopic exam Overall: tympanic membranes clear 10/09/2017 None Full Exam - General 1994 Ears/Nose/Throat oral cavity/pharynx/larynx Overall: oral mucosa clear 10/09/2017 None Full Exam - General 1994 Ears/Nose/Throat oral cavity/pharynx/larynx Overall: oropharyngeal mucosa clear 10/09/2017 None Full Exam - General 1994 Ears/Nose/Throat oral cavity/pharynx/larynx Overall: no masses 10/09/2017 None Full Exam - General 1994 Respiratory auscultation Overall: breath sounds clear bilaterally 10/09/2017 None Full Exam - General 1994 Respiratory respiratory effort/rhythm Overall: no retractions 10/09/2017 None Full Exam - General 1994 Respiratory respiratory effort/rhythm Overall: normal rate 10/09/2017 None Full Exam - General 1994 Cardiovascular auscultation of heart Overall: regular rate 10/09/2017 None Full Exam - General 1994 Cardiovascular auscultation of heart Overall: normal heart sounds 10/09/2017 None Full Exam - General 1994 Abdomen abdominal exam Overall: no tenderness 10/09/2017 None Full Exam - General 1994 Abdomen abdominal exam Overall: normal bowel sounds 10/09/2017 None Full Exam - General 1994 Lymphatic neck nodes Overall: anterior cervical chain benign 10/09/2017 None Full Exam - General 1994 Lymphatic neck nodes Overall: posterior cervical chain benign 10/09/2017 None Full Exam - General 1994 Musculoskeletal digits and nails MCPs: swelling 10/09/2017 None Full Exam - General 1994 Musculoskeletal digits and nails MCPs: nodule 10/09/2017 None Full Exam - General 1994 Neurologic cranial nerves Overall: crainial nerves 2 - 12 grossly intact 10/09/2017 None Full Exam - General 1994 Psychiatric orientation/consciousness Overall: oriented to person, place and time 10/09/2017 None Full Exam - General 1994 Psychiatric mood and affect Overall: normal mood and affect 10/09/2017 None Full Exam - General 1994 Constitutional general appearance Overall: well developed 09/03/2017 None Full Exam - General 1994 Constitutional general appearance Overall: in no acute distress 09/03/2017 None Full Exam - General 1994 Constitutional general appearance Overall: well nourished 09/03/2017 None Full Exam - General 1994 Eyes pupils and irises Overall: pupils equal, round, reactive to light and accomodation 09/03/2017 None Full Exam - General 1994 Respiratory auscultation Overall: breath sounds clear bilaterally 09/03/2017 None Full Exam - General 1994 Respiratory respiratory effort/rhythm Overall: no retractions 09/03/2017 None Full Exam - General 1994 Respiratory respiratory effort/rhythm Overall: normal rate 09/03/2017 None Full Exam - General 1994 Cardiovascular auscultation of heart Overall: regular rate 09/03/2017 None Full Exam - General 1994 Cardiovascular auscultation of heart Overall: normal heart sounds 09/03/2017 None Full Exam - General 1994 Abdomen abdominal exam Overall: no tenderness 09/03/2017 None Full Exam - General 1994 Abdomen abdominal exam Overall: normal bowel sounds 09/03/2017 None Full Exam - General 1994 Lymphatic neck nodes Overall: anterior cervical chain benign 09/03/2017 None Full Exam - General 1994 Lymphatic neck nodes Overall: posterior cervical chain benign 09/03/2017 None Full Exam - General 1994 Musculoskeletal digits and nails MCPs: swelling 09/03/2017 None Full Exam - General 1994 Musculoskeletal digits and nails MCPs: nodule 09/03/2017 None Full Exam - General 1994 Integument inspection of skin Location: right hand 09/03/2017 scar noted dorsum of hand near thumb with pinpoint scabbed raised area , slight swelling Full Exam - General 1994 Neurologic cranial nerves Overall: crainial nerves 2 - 12 grossly intact 09/03/2017 None Full Exam - General 1994 Psychiatric orientation/consciousness Overall: oriented to person, place and time 09/03/2017 None Full Exam - General 1994 Psychiatric mood and affect Overall: normal mood and affect 09/03/2017 None Full Exam - General 1994 Constitutional general appearance Overall: well developed 06/20/2017 None Full Exam - General 1994 Constitutional general appearance Overall: in no acute distress 06/20/2017 None Full Exam - General 1994 Constitutional general appearance Overall: well nourished 06/20/2017 None Full Exam - General 1994 Eyes pupils and irises Overall: pupils equal, round, reactive to light and accomodation 06/20/2017 None Full Exam - General 1994 Ears/Nose/Throat otoscopic exam Overall: external auditory canals clear 06/20/2017 None Full Exam - General 1994 Ears/Nose/Throat otoscopic exam Overall: tympanic membranes clear 06/20/2017 None Full Exam - General 1994 Ears/Nose/Throat oral cavity/pharynx/larynx Overall: oral mucosa clear 06/20/2017 None Full Exam - General 1994 Ears/Nose/Throat oral cavity/pharynx/larynx Overall: oropharyngeal mucosa clear 06/20/2017 None Full Exam - General 1994 Ears/Nose/Throat oral cavity/pharynx/larynx Overall: no masses 06/20/2017 None Full Exam - General 1994 Respiratory auscultation Overall: breath sounds clear bilaterally 06/20/2017 None Full Exam - General 1994 Respiratory respiratory effort/rhythm Overall: no retractions 06/20/2017 None Full Exam - General 1994 Respiratory respiratory effort/rhythm Overall: normal rate 06/20/2017 None Full Exam - General 1994 Cardiovascular auscultation of heart Overall: regular rate 06/20/2017 None Full Exam - General 1994 Cardiovascular auscultation of heart Overall: normal heart sounds 06/20/2017 None Full Exam - General 1994 Abdomen abdominal exam Overall: no tenderness 06/20/2017 None Full Exam - General 1994 Abdomen abdominal exam Overall: normal bowel sounds 06/20/2017 None Full Exam - General 1994 Lymphatic neck nodes Overall: anterior cervical chain benign 06/20/2017 None Full Exam - General 1994 Lymphatic neck nodes Overall: posterior cervical chain benign 06/20/2017 None Full Exam - General 1994 Musculoskeletal digits and nails MCPs: swelling 06/20/2017 None Full Exam - General 1994 Musculoskeletal digits and nails MCPs: nodule 06/20/2017 None Full Exam - General 1994 Neurologic cranial nerves Overall: crainial nerves 2 - 12 grossly intact 06/20/2017 None Full Exam - General 1994 Psychiatric orientation/consciousness Overall: oriented to person, place and time 06/20/2017 None Full Exam - General 1994 Psychiatric mood and affect Overall: normal mood and affect 06/20/2017 None Full Exam - General 1994 Integument inspection of skin Location: left hand 06/20/2017 nodular skin lesion of dorsum of hand near lateral part of hand Full Exam - General 1994 Integument inspection of skin Location: right hand 06/20/2017 nodular skin lesion of dorsum of hand near thumb Full Exam - General 1994 Constitutional general appearance Overall: well developed 06/10/2017 None Full Exam - General 1994 Constitutional general appearance Overall: in no acute distress 06/10/2017 None Full Exam - General 1994 Constitutional general appearance Overall: well nourished 06/10/2017 None Full Exam - General 1994 Respiratory auscultation Overall: breath sounds clear bilaterally 06/10/2017 None Full Exam - General 1994 Respiratory respiratory effort/rhythm Overall: no retractions 06/10/2017 None Full Exam - General 1994 Respiratory respiratory effort/rhythm Overall: normal rate 06/10/2017 None Full Exam - General 1994 Cardiovascular auscultation of heart Overall: regular rate 06/10/2017 None Full Exam - General 1994 Cardiovascular auscultation of heart Overall: normal heart sounds 06/10/2017 None Full Exam - General 1994 Psychiatric orientation/consciousness Overall: oriented to person, place and time 06/10/2017 None Full Exam - General 1994 Integument inspection of skin Location: right leg 06/10/2017 calf with bruising noted approx 4cm x 6cm with central ulcer almost completely healed Full Exam - General 1994 Constitutional general appearance Overall: well developed 02/27/2017 None Full Exam - General 1994 Constitutional general appearance Overall: in no acute distress 02/27/2017 None Full Exam - General 1994 Constitutional general appearance Overall: well nourished 02/27/2017 None Full Exam - General 1994 Eyes conjunctiva /eyelids Overall: conjunctiva clear 02/27/2017 None Full Exam - General 1994 Eyes conjunctiva /eyelids Overall: eyelids normal 02/27/2017 None Full Exam - General 1994 Ears/Nose/Throat lips/teeth/gingiva Overall: benign lips 02/27/2017 None Full Exam - General 1994 Ears/Nose/Throat oral cavity/pharynx/larynx Overall: oral mucosa clear 02/27/2017 None Full Exam - General 1994 Respiratory auscultation Overall: breath sounds clear bilaterally 02/27/2017 None Full Exam - General 1994 Respiratory respiratory effort/rhythm Overall: no retractions 02/27/2017 None Full Exam - General 1994 Respiratory respiratory effort/rhythm Overall: normal rate 02/27/2017 None Full Exam - General 1994 Cardiovascular extremities Overall: no clubbing 02/27/2017 None Full Exam - General 1994 Cardiovascular auscultation of heart Overall: regular rate 02/27/2017 None Full Exam - General 1994 Cardiovascular auscultation of heart Overall: normal heart sounds 02/27/2017 None Full Exam - General 1994 Musculoskeletal head and neck Overall: head atraumatic 02/27/2017 None Full Exam - General 1994 Psychiatric orientation/consciousness Overall: oriented to person, place and time 02/27/2017 None Full Exam - General 1994 Psychiatric mood and affect Overall: normal mood and affect 02/27/2017 None Full Exam - General 1994 Psychiatric appearance Overall: well-groomed, good eye contact 02/27/2017 None Full Exam - General 1994 Constitutional general appearance Overall: well developed 02/21/2017 None Full Exam - General 1994 Constitutional general appearance Overall: in no acute distress 02/21/2017 None Full Exam - General 1994 Constitutional general appearance Overall: well nourished 02/21/2017 None Full Exam - General 1994 Eyes pupils and irises Overall: pupils equal, round, reactive to light and accomodation 02/21/2017 None Full Exam - General 1994 Ears/Nose/Throat otoscopic exam Overall: external auditory canals clear 02/21/2017 None Full Exam - General 1994 Ears/Nose/Throat otoscopic exam Overall: tympanic membranes clear 02/21/2017 None Full Exam - General 1994 Ears/Nose/Throat oral cavity/pharynx/larynx Overall: oral mucosa clear 02/21/2017 None Full Exam - General 1994 Ears/Nose/Throat oral cavity/pharynx/larynx Overall: oropharyngeal mucosa clear 02/21/2017 None Full Exam - General 1994 Ears/Nose/Throat oral cavity/pharynx/larynx Overall: no masses 02/21/2017 None Full Exam - General 1994 Respiratory auscultation Overall: breath sounds clear bilaterally 02/21/2017 None Full Exam - General 1994 Respiratory respiratory effort/rhythm Overall: no retractions 02/21/2017 None Full Exam - General 1994 Respiratory respiratory effort/rhythm Overall: normal rate 02/21/2017 None Full Exam - General 1994 Cardiovascular auscultation of heart Overall: regular rate 02/21/2017 None Full Exam - General 1994 Cardiovascular auscultation of heart Overall: normal heart sounds 02/21/2017 None Full Exam - General 1994 Abdomen abdominal exam Overall: no tenderness 02/21/2017 None Full Exam - General 1994 Abdomen abdominal exam Overall: normal bowel sounds 02/21/2017 None Full Exam - General 1994 Lymphatic neck nodes Overall: anterior cervical chain benign 02/21/2017 None Full Exam - General 1994 Lymphatic neck nodes Overall: posterior cervical chain benign 02/21/2017 None Full Exam - General 1994 Musculoskeletal digits and nails MCPs: swelling 02/21/2017 None Full Exam - General 1994 Musculoskeletal digits and nails MCPs: nodule 02/21/2017 None Full Exam - General 1994 Neurologic cranial nerves Overall: crainial nerves 2 - 12 grossly intact 02/21/2017 None Full Exam - General 1994 Psychiatric orientation/consciousness Overall: oriented to person, place and time 02/21/2017 None Full Exam - General 1994 Psychiatric mood and affect Overall: normal mood and affect 02/21/2017 None Full Exam - General 1994 Constitutional general appearance Overall: well developed 01/01/2017 None Full Exam - General 1994 Constitutional general appearance Overall: in no acute distress 01/01/2017 None Full Exam - General 1994 Constitutional general appearance Overall: well nourished 01/01/2017 None Full Exam - General 1994 Constitutional general appearance Assistive Device: crutches 01/01/2017 due to foot pain Full Exam - General 1994 Eyes pupils and irises Overall: pupils equal, round, reactive to light and accomodation 01/01/2017 None Full Exam - General 1994 Ears/Nose/Throat otoscopic exam Overall: external auditory canals clear 01/01/2017 None Full Exam - General 1994 Ears/Nose/Throat otoscopic exam Overall: tympanic membranes clear 01/01/2017 None Full Exam - General 1994 Ears/Nose/Throat oral cavity/pharynx/larynx Overall: oral mucosa clear 01/01/2017 None Full Exam - General 1994 Ears/Nose/Throat oral cavity/pharynx/larynx Overall: oropharyngeal mucosa clear 01/01/2017 None Full Exam - General 1994 Ears/Nose/Throat oral cavity/pharynx/larynx Overall: no masses 01/01/2017 None Full Exam - General 1994 Respiratory auscultation Overall: breath sounds clear bilaterally 01/01/2017 None Full Exam - General 1994 Respiratory respiratory effort/rhythm Overall: no retractions 01/01/2017 None Full Exam - General 1994 Respiratory respiratory effort/rhythm Overall: normal rate 01/01/2017 None Full Exam - General 1994 Cardiovascular auscultation of heart Overall: regular rate 01/01/2017 None Full Exam - General 1994 Cardiovascular auscultation of heart Overall: normal heart sounds 01/01/2017 None Full Exam - General 1994 Abdomen abdominal exam Overall: normal bowel sounds 01/01/2017 None Full Exam - General 1994 Musculoskeletal lower extremity Inspection - ankle: swelling @ medial malleolus 01/01/2017 and slightly warm --Improved Full Exam - General 1994 Musculoskeletal lower extremity Inspection - ankle: swelling @ midfoot 01/01/2017 and warm to touch, tender to palpation plantar of left foot from heel to ball --Improved Full Exam - General 1994 Neurologic cranial nerves Overall: crainial nerves 2 - 12 grossly intact 01/01/2017 None Full Exam - General 1994 Psychiatric orientation/consciousness Overall: oriented to person, place and time 01/01/2017 None Full Exam - General 1994 Psychiatric mood and affect Overall: normal mood and affect 01/01/2017 None Full Exam - General 1994 Constitutional general appearance Overall: well developed 12/13/2016 None Full Exam - General 1994 Constitutional general appearance Overall: in no acute distress 12/13/2016 None Full Exam - General 1994 Constitutional general appearance Overall: well nourished 12/13/2016 None Full Exam - General 1994 Eyes pupils and irises Overall: pupils equal, round, reactive to light and accomodation 12/13/2016 None Full Exam - General 1994 Ears/Nose/Throat otoscopic exam Overall: external auditory canals clear 12/13/2016 None Full Exam - General 1994 Ears/Nose/Throat otoscopic exam Overall: tympanic membranes clear 12/13/2016 None Full Exam - General 1994 Ears/Nose/Throat oral cavity/pharynx/larynx Overall: oral mucosa clear 12/13/2016 None Full Exam - General 1994 Ears/Nose/Throat oral cavity/pharynx/larynx Overall: oropharyngeal mucosa clear 12/13/2016 None Full Exam - General 1994 Ears/Nose/Throat oral cavity/pharynx/larynx Overall: no masses 12/13/2016 None Full Exam - General 1994 Respiratory auscultation Overall: breath sounds clear bilaterally 12/13/2016 None Full Exam - General 1994 Respiratory respiratory effort/rhythm Overall: no retractions 12/13/2016 None Full Exam - General 1994 Respiratory respiratory effort/rhythm Overall: normal rate 12/13/2016 None Full Exam - General 1994 Cardiovascular auscultation of heart Overall: regular rate 12/13/2016 None Full Exam - General 1994 Cardiovascular auscultation of heart Overall: normal heart sounds 12/13/2016 None Full Exam - General 1994 Abdomen abdominal exam Overall: normal bowel sounds 12/13/2016 None Full Exam - General 1994 Neurologic cranial nerves Overall: crainial nerves 2 - 12 grossly intact 12/13/2016 None Full Exam - General 1994 Psychiatric orientation/consciousness Overall: oriented to person, place and time 12/13/2016 None Full Exam - General 1994 Psychiatric mood and affect Overall: normal mood and affect 12/13/2016 None Full Exam - General 1994 Constitutional general appearance Assistive Device: crutches 12/13/2016 due to foot pain Full Exam - General 1994 Musculoskeletal lower extremity Inspection - ankle: swelling @ medial malleolus 12/13/2016 and slightly warm Full Exam - General 1994 Musculoskeletal lower extremity Inspection - ankle: swelling @ midfoot 12/13/2016 and warm to touch, tender to palpation plantar of left foot from heel to ball Full Exam - General 1994 Constitutional general appearance Overall: well developed 10/25/2016 None Full Exam - General 1994 Constitutional general appearance Overall: in no acute distress 10/25/2016 None Full Exam - General 1994 Constitutional general appearance Overall: well nourished 10/25/2016 None Full Exam - General 1994 Eyes pupils and irises Overall: pupils equal, round, reactive to light and accomodation 10/25/2016 None Full Exam - General 1994 Ears/Nose/Throat otoscopic exam Overall: external auditory canals clear 10/25/2016 None Full Exam - General 1994 Ears/Nose/Throat otoscopic exam Overall: tympanic membranes clear 10/25/2016 None Full Exam - General 1994 Ears/Nose/Throat oral cavity/pharynx/larynx Overall: oral mucosa clear 10/25/2016 None Full Exam - General 1994 Ears/Nose/Throat oral cavity/pharynx/larynx Overall: oropharyngeal mucosa clear 10/25/2016 None Full Exam - General 1994 Ears/Nose/Throat oral cavity/pharynx/larynx Overall: no masses 10/25/2016 None Full Exam - General 1994 Respiratory auscultation Overall: breath sounds clear bilaterally 10/25/2016 None Full Exam - General 1994 Respiratory respiratory effort/rhythm Overall: no retractions 10/25/2016 None Full Exam - General 1994 Respiratory respiratory effort/rhythm Overall: normal rate 10/25/2016 None Full Exam - General 1994 Cardiovascular auscultation of heart Overall: regular rate 10/25/2016 None Full Exam - General 1994 Cardiovascular auscultation of heart Overall: normal heart sounds 10/25/2016 None Full Exam - General 1994 Abdomen abdominal exam Overall: no tenderness 10/25/2016 None Full Exam - General 1994 Abdomen abdominal exam Overall: normal bowel sounds 10/25/2016 None Full Exam - General 1994 Neurologic cranial nerves Overall: crainial nerves 2 - 12 grossly intact 10/25/2016 None Full Exam - General 1994 Psychiatric orientation/consciousness Overall: oriented to person, place and time 10/25/2016 None Full Exam - General 1994 Psychiatric mood and affect Overall: normal mood and affect 10/25/2016 None Full Exam - General 1994 Lymphatic neck nodes Overall: anterior cervical chain benign 10/25/2016 None Full Exam - General 1994 Lymphatic neck nodes Overall: posterior cervical chain benign 10/25/2016 None Full Exam - General 1994 Musculoskeletal digits and nails MCPs: swelling 10/25/2016 None Full Exam - General 1994 Musculoskeletal digits and nails MCPs: nodule 10/25/2016 None Full Exam - General 1994 Constitutional general appearance Overall: well developed 08/10/2016 None Full Exam - General 1994 Constitutional general appearance Overall: in no acute distress 08/10/2016 None Full Exam - General 1994 Constitutional general appearance Overall: well nourished 08/10/2016 None Full Exam - General 1994 Eyes pupils and irises Overall: pupils equal, round, reactive to light and accomodation 08/10/2016 None Full Exam - General 1994 Ears/Nose/Throat otoscopic exam Overall: external auditory canals clear 08/10/2016 None Full Exam - General 1994 Ears/Nose/Throat otoscopic exam Overall: tympanic membranes clear 08/10/2016 None Full Exam - General 1994 Ears/Nose/Throat oral cavity/pharynx/larynx Overall: oral mucosa clear 08/10/2016 None Full Exam - General 1994 Ears/Nose/Throat oral cavity/pharynx/larynx Overall: oropharyngeal mucosa clear 08/10/2016 None Full Exam - General 1994 Ears/Nose/Throat oral cavity/pharynx/larynx Overall: no masses 08/10/2016 None Full Exam - General 1994 Respiratory auscultation Overall: breath sounds clear bilaterally 08/10/2016 None Full Exam - General 1994 Respiratory respiratory effort/rhythm Overall: no retractions 08/10/2016 None Full Exam - General 1994 Respiratory respiratory effort/rhythm Overall: normal rate 08/10/2016 None Full Exam - General 1994 Cardiovascular auscultation of heart Overall: regular rate 08/10/2016 None Full Exam - General 1994 Cardiovascular auscultation of heart Overall: normal heart sounds 08/10/2016 None Full Exam - General 1994 Abdomen abdominal exam Overall: normal bowel sounds 08/10/2016 None Full Exam - General 1994 Abdomen abdominal exam Epigastric: tender to palpation 08/10/2016 None Full Exam - General 1994 Neurologic cranial nerves Overall: crainial nerves 2 - 12 grossly intact 08/10/2016 None Full Exam - General 1994 Psychiatric orientation/consciousness Overall: oriented to person, place and time 08/10/2016 None Full Exam - General 1994 Psychiatric mood and affect Overall: normal mood and affect 08/10/2016 None Full Exam - General 1994 Integument inspection of skin Location: right arm 08/10/2016 [id number] amount of pustular drainage noted Full Exam - General 1994 Constitutional general appearance Overall: well developed 07/24/2016 None Full Exam - General 1994 Constitutional general appearance Overall: in no acute distress 07/24/2016 None Full Exam - General 1994 Constitutional general appearance Overall: well nourished 07/24/2016 None Full Exam - General 1994 Eyes pupils and irises Overall: pupils equal, round, reactive to light and accomodation 07/24/2016 None Full Exam - General 1994 Ears/Nose/Throat otoscopic exam Overall: external auditory canals clear 07/24/2016 None Full Exam - General 1994 Ears/Nose/Throat otoscopic exam Overall: tympanic membranes clear 07/24/2016 None Full Exam - General 1994 Ears/Nose/Throat oral cavity/pharynx/larynx Overall: oral mucosa clear 07/24/2016 None Full Exam - General 1994 Ears/Nose/Throat oral cavity/pharynx/larynx Overall: oropharyngeal mucosa clear 07/24/2016 None Full Exam - General 1994 Ears/Nose/Throat oral cavity/pharynx/larynx Overall: no masses 07/24/2016 None Full Exam - General 1994 Respiratory auscultation Overall: breath sounds clear bilaterally 07/24/2016 None Full Exam - General 1994 Respiratory respiratory effort/rhythm Overall: no retractions 07/24/2016 None Full Exam - General 1994 Respiratory respiratory effort/rhythm Overall: normal rate 07/24/2016 None Full Exam - General 1994 Cardiovascular auscultation of heart Overall: regular rate 07/24/2016 None Full Exam - General 1994 Cardiovascular auscultation of heart Overall: normal heart sounds 07/24/2016 None Full Exam - General 1994 Abdomen abdominal exam Overall: normal bowel sounds 07/24/2016 None Full Exam - General 1994 Neurologic cranial nerves Overall: crainial nerves 2 - 12 grossly intact 07/24/2016 None Full Exam - General 1994 Psychiatric orientation/consciousness Overall: oriented to person, place and time 07/24/2016 None Full Exam - General 1994 Psychiatric mood and affect Overall: normal mood and affect 07/24/2016 None Full Exam - General 1994 Abdomen abdominal exam Epigastric: tender to palpation 07/24/2016 None Full Exam - General 1994 Constitutional general appearance Overall: well developed 06/28/2016 None Full Exam - General 1994 Constitutional general appearance Overall: in no acute distress 06/28/2016 None Full Exam - General 1994 Constitutional general appearance Overall: well nourished 06/28/2016 None Full Exam - General 1994 Eyes pupils and irises Overall: pupils equal, round, reactive to light and accomodation 06/28/2016 None Full Exam - General 1994 Ears/Nose/Throat otoscopic exam Overall: external auditory canals clear 06/28/2016 None Full Exam - General 1994 Ears/Nose/Throat otoscopic exam Overall: tympanic membranes clear 06/28/2016 None Full Exam - General 1994 Ears/Nose/Throat oral cavity/pharynx/larynx Overall: oral mucosa clear 06/28/2016 None Full Exam - General 1994 Ears/Nose/Throat oral cavity/pharynx/larynx Overall: oropharyngeal mucosa clear 06/28/2016 None Full Exam - General 1994 Ears/Nose/Throat oral cavity/pharynx/larynx Overall: no masses 06/28/2016 None Full Exam - General 1994 Respiratory auscultation Overall: breath sounds clear bilaterally 06/28/2016 None Full Exam - General 1994 Respiratory respiratory effort/rhythm Overall: no retractions 06/28/2016 None Full Exam - General 1994 Respiratory respiratory effort/rhythm Overall: normal rate 06/28/2016 None Full Exam - General 1994 Cardiovascular auscultation of heart Overall: regular rate 06/28/2016 None Full Exam - General 1994 Cardiovascular auscultation of heart Overall: normal heart sounds 06/28/2016 None Full Exam - General 1994 Abdomen abdominal exam Overall: no tenderness 06/28/2016 None Full Exam - General 1994 Abdomen abdominal exam Overall: normal bowel sounds 06/28/2016 None Full Exam - General 1994 Neurologic cranial nerves Overall: crainial nerves 2 - 12 grossly intact 06/28/2016 None Full Exam - General 1994 Psychiatric orientation/consciousness Overall: oriented to person, place and time 06/28/2016 None Full Exam - General 1994 Psychiatric mood and affect Overall: normal mood and affect 06/28/2016 None Full Exam - General 1994 Constitutional general appearance Overall: well developed 04/26/2016 None Full Exam - General 1994 Constitutional general appearance Overall: in no acute distress 04/26/2016 None Full Exam - General 1994 Constitutional general appearance Overall: well nourished 04/26/2016 None Full Exam - General 1994 Eyes pupils and irises Overall: pupils equal, round, reactive to light and accomodation 04/26/2016 None Full Exam - General 1994 Ears/Nose/Throat otoscopic exam Overall: external auditory canals clear 04/26/2016 None Full Exam - General 1994 Ears/Nose/Throat otoscopic exam Overall: tympanic membranes clear 04/26/2016 None Full Exam - General 1994 Ears/Nose/Throat oral cavity/pharynx/larynx Overall: oral mucosa clear 04/26/2016 None Full Exam - General 1994 Ears/Nose/Throat oral cavity/pharynx/larynx Overall: oropharyngeal mucosa clear 04/26/2016 None Full Exam - General 1994 Ears/Nose/Throat oral cavity/pharynx/larynx Overall: no masses 04/26/2016 None Full Exam - General 1994 Respiratory auscultation Overall: breath sounds clear bilaterally 04/26/2016 None Full Exam - General 1994 Respiratory respiratory effort/rhythm Overall: no retractions 04/26/2016 None Full Exam - General 1994 Respiratory respiratory effort/rhythm Overall: normal rate 04/26/2016 None Full Exam - General 1994 Cardiovascular auscultation of heart Overall: regular rate 04/26/2016 None Full Exam - General 1994 Cardiovascular auscultation of heart Overall: normal heart sounds 04/26/2016 None Full Exam - General 1994 Abdomen abdominal exam Overall: no tenderness 04/26/2016 None Full Exam - General 1994 Abdomen abdominal exam Overall: normal bowel sounds 04/26/2016 None Full Exam - General 1994 Neurologic cranial nerves Overall: crainial nerves 2 - 12 grossly intact 04/26/2016 None Full Exam - General 1994 Psychiatric orientation/consciousness Overall: oriented to person, place and time 04/26/2016 None Full Exam - General 1994 Psychiatric mood and affect Overall: normal mood and affect 04/26/2016 None Full Exam - General 1994 Constitutional general appearance Overall: well developed 04/10/2016 None Full Exam - General 1994 Constitutional general appearance Overall: in no acute distress 04/10/2016 None Full Exam - General 1994 Constitutional general appearance Overall: well nourished 04/10/2016 None Full Exam - General 1994 Eyes pupils and irises Overall: pupils equal, round, reactive to light and accomodation 04/10/2016 None Full Exam - General 1994 Ears/Nose/Throat otoscopic exam Overall: external auditory canals clear 04/10/2016 None Full Exam - General 1994 Ears/Nose/Throat otoscopic exam Overall: tympanic membranes clear 04/10/2016 None Full Exam - General 1994 Ears/Nose/Throat oral cavity/pharynx/larynx Overall: oral mucosa clear 04/10/2016 None Full Exam - General 1994 Ears/Nose/Throat oral cavity/pharynx/larynx Overall: oropharyngeal mucosa clear 04/10/2016 None Full Exam - General 1994 Ears/Nose/Throat oral cavity/pharynx/larynx Overall: no masses 04/10/2016 None Full Exam - General 1994 Respiratory auscultation Overall: breath sounds clear bilaterally 04/10/2016 None Full Exam - General 1994 Respiratory respiratory effort/rhythm Overall: no retractions 04/10/2016 None Full Exam - General 1994 Respiratory respiratory effort/rhythm Overall: normal rate 04/10/2016 None Full Exam - General 1994 Cardiovascular auscultation of heart Overall: regular rate 04/10/2016 None Full Exam - General 1994 Cardiovascular auscultation of heart Overall: normal heart sounds 04/10/2016 None Full Exam - General 1994 Abdomen abdominal exam Overall: no tenderness 04/10/2016 None Full Exam - General 1994 Abdomen abdominal exam Overall: normal bowel sounds 04/10/2016 None Full Exam - General 1994 Neurologic cranial nerves Overall: crainial nerves 2 - 12 grossly intact 04/10/2016 None Full Exam - General 1994 Psychiatric orientation/consciousness Overall: oriented to person, place and time 04/10/2016 None Full Exam - General 1994 Psychiatric mood and affect Overall: normal mood and affect 04/10/2016 None Full Exam - General 1994 Constitutional general appearance Overall: well developed 03/27/2016 None Full Exam - General 1994 Constitutional general appearance Overall: in no acute distress 03/27/2016 None Full Exam - General 1994 Constitutional general appearance Overall: well nourished 03/27/2016 None Full Exam - General 1994 Eyes pupils and irises Overall: pupils equal, round, reactive to light and accomodation 03/27/2016 None Full Exam - General 1994 Ears/Nose/Throat otoscopic exam Overall: external auditory canals clear 03/27/2016 None Full Exam - General 1994 Ears/Nose/Throat otoscopic exam Overall: tympanic membranes clear 03/27/2016 None Full Exam - General 1994 Ears/Nose/Throat oral cavity/pharynx/larynx Overall: oral mucosa clear 03/27/2016 None Full Exam - General 1994 Ears/Nose/Throat oral cavity/pharynx/larynx Overall: oropharyngeal mucosa clear 03/27/2016 None Full Exam - General 1994 Ears/Nose/Throat oral cavity/pharynx/larynx Overall: no masses 03/27/2016 None Full Exam - General 1994 Respiratory auscultation Overall: breath sounds clear bilaterally 03/27/2016 None Full Exam - General 1994 Respiratory respiratory effort/rhythm Overall: no retractions 03/27/2016 None Full Exam - General 1994 Respiratory respiratory effort/rhythm Overall: normal rate 03/27/2016 None Full Exam - General 1994 Cardiovascular auscultation of heart Overall: regular rate 03/27/2016 None Full Exam - General 1994 Cardiovascular auscultation of heart Overall: normal heart sounds 03/27/2016 None Full Exam - General 1994 Abdomen abdominal exam Overall: no tenderness 03/27/2016 None Full Exam - General 1994 Abdomen abdominal exam Overall: normal bowel sounds 03/27/2016 None Full Exam - General 1994 Neurologic cranial nerves Overall: crainial nerves 2 - 12 grossly intact 03/27/2016 None Full Exam - General 1994 Psychiatric orientation/consciousness Overall: oriented to person, place and time 03/27/2016 None Full Exam - General 1994 Psychiatric mood and affect Overall: normal mood and affect 03/27/2016 None Full Exam - General 1994 Constitutional general appearance Overall: well developed 12/12/2015 None Full Exam - General 1994 Constitutional general appearance Overall: in no acute distress 12/12/2015 None Full Exam - General 1994 Constitutional general appearance Overall: well nourished 12/12/2015 None Full Exam - General 1994 Eyes pupils and irises Overall: pupils equal, round, reactive to light and accomodation 12/12/2015 None Full Exam - General 1994 Ears/Nose/Throat otoscopic exam Overall: external auditory canals clear 12/12/2015 None Full Exam - General 1994 Ears/Nose/Throat otoscopic exam Overall: tympanic membranes clear 12/12/2015 None Full Exam - General 1994 Ears/Nose/Throat oral cavity/pharynx/larynx Overall: oral mucosa clear 12/12/2015 None Full Exam - General 1994 Ears/Nose/Throat oral cavity/pharynx/larynx Overall: oropharyngeal mucosa clear 12/12/2015 None Full Exam - General 1994 Ears/Nose/Throat oral cavity/pharynx/larynx Overall: no masses 12/12/2015 None Full Exam - General 1994 Respiratory auscultation Overall: breath sounds clear bilaterally 12/12/2015 None Full Exam - General 1994 Respiratory respiratory effort/rhythm Overall: no retractions 12/12/2015 None Full Exam - General 1994 Respiratory respiratory effort/rhythm Overall: normal rate 12/12/2015 None Full Exam - General 1994 Cardiovascular auscultation of heart Overall: regular rate 12/12/2015 None Full Exam - General 1994 Cardiovascular auscultation of heart Overall: normal heart sounds 12/12/2015 None Full Exam - General 1994 Abdomen abdominal exam Overall: no tenderness 12/12/2015 None Full Exam - General 1994 Abdomen abdominal exam Overall: normal bowel sounds 12/12/2015 None Full Exam - General 1994 Neurologic cranial nerves Overall: crainial nerves 2 - 12 grossly intact 12/12/2015 None Full Exam - General 1994 Psychiatric orientation/consciousness Overall: oriented to person, place and time 12/12/2015 None Full Exam - General 1994 Psychiatric mood and affect Overall: normal mood and affect 12/12/2015 None Full Exam - General 1994 Constitutional general appearance Overall: well developed 06/13/2015 None Full Exam - General 1994 Constitutional general appearance Overall: in no acute distress 06/13/2015 None Full Exam - General 1994 Constitutional general appearance Overall: well nourished 06/13/2015 None Full Exam - General 1994 Eyes pupils and irises Overall: pupils equal, round, reactive to light and accomodation 06/13/2015 None Full Exam - General 1994 Ears/Nose/Throat otoscopic exam Overall: external auditory canals clear 06/13/2015 None Full Exam - General 1994 Ears/Nose/Throat otoscopic exam Overall: tympanic membranes clear 06/13/2015 None Full Exam - General 1994 Ears/Nose/Throat oral cavity/pharynx/larynx Overall: oral mucosa clear 06/13/2015 None Full Exam - General 1994 Ears/Nose/Throat oral cavity/pharynx/larynx Overall: oropharyngeal mucosa clear 06/13/2015 None Full Exam - General 1994 Ears/Nose/Throat oral cavity/pharynx/larynx Overall: no masses 06/13/2015 None Full Exam - General 1994 Respiratory auscultation Overall: breath sounds clear bilaterally 06/13/2015 None Full Exam - General 1994 Respiratory respiratory effort/rhythm Overall: no retractions 06/13/2015 None Full Exam - General 1994 Respiratory respiratory effort/rhythm Overall: normal rate 06/13/2015 None Full Exam - General 1994 Cardiovascular auscultation of heart Overall: regular rate 06/13/2015 None Full Exam - General 1994 Cardiovascular auscultation of heart Overall: normal heart sounds 06/13/2015 None Full Exam - General 1994 Abdomen abdominal exam Overall: no tenderness 06/13/2015 None Full Exam - General 1994 Abdomen abdominal exam Overall: normal bowel sounds 06/13/2015 None Full Exam - General 1994 Musculoskeletal lower extremity Overall: knee benign 06/13/2015 None Full Exam - General 1994 Musculoskeletal lower extremity Inspection - knee: swelling 06/13/2015 None Full Exam - General 1994 Musculoskeletal lower extremity Inspection - knee: presence of a scar 06/13/2015 None Full Exam - General 1994 Musculoskeletal lower extremity Palpation - knee: a normal exam 06/13/2015 None Full Exam - General 1994 Musculoskeletal lower extremity Palpation - knee: warm 06/13/2015 None Full Exam - General 1994 Musculoskeletal lower extremity Palpation - knee: crepitus 06/13/2015 None Full Exam - General 1994 Musculoskeletal lower extremity ROM - knee: crepitus 06/13/2015 None Full Exam - General 1994 Musculoskeletal lower extremity ROM - knee: pain with flexion 06/13/2015 None Full Exam - General 1994 Musculoskeletal lower extremity ROM - knee: decreased extension 06/13/2015 None Full Exam - General 1994 Integument inspection of skin Dermatitis: erythema 06/13/2015 None Full Exam - General 1994 Integument inspection of skin Location: inguinal area 06/13/2015 None Full Exam - General 1994 Integument inspection of skin Rash/Lesions: patch 06/13/2015 None Full Exam - General 1994 Integument inspection of skin Pigmentation: erythematous 06/13/2015 None Full Exam - General 1994 Neurologic cranial nerves Overall: crainial nerves 2 - 12 grossly intact 06/13/2015 None Full Exam - General 1994 Psychiatric orientation/consciousness Overall: oriented to person, place and time 06/13/2015 None Full Exam - General 1994 Psychiatric mood and affect Overall: normal mood and affect 06/13/2015 None Full Exam - General 1994 Constitutional general appearance Overall: well developed 12/13/2014 None Full Exam - General 1994 Constitutional general appearance Overall: in no acute distress 12/13/2014 None Full Exam - General 1994 Constitutional general appearance Overall: well nourished 12/13/2014 None Full Exam - General 1994 Eyes pupils and irises Overall: pupils equal, round, reactive to light and accomodation 12/13/2014 None Full Exam - General 1994 Ears/Nose/Throat otoscopic exam Overall: external auditory canals clear 12/13/2014 None Full Exam - General 1994 Ears/Nose/Throat otoscopic exam Overall: tympanic membranes clear 12/13/2014 None Full Exam - General 1994 Ears/Nose/Throat oral cavity/pharynx/larynx Overall: oral mucosa clear 12/13/2014 None Full Exam - General 1994 Ears/Nose/Throat oral cavity/pharynx/larynx Overall: oropharyngeal mucosa clear 12/13/2014 None Full Exam - General 1994 Ears/Nose/Throat oral cavity/pharynx/larynx Overall: no masses 12/13/2014 None Full Exam - General 1994 Respiratory auscultation Overall: breath sounds clear bilaterally 12/13/2014 None Full Exam - General 1994 Respiratory respiratory effort/rhythm Overall: no retractions 12/13/2014 None Full Exam - General 1994 Respiratory respiratory effort/rhythm Overall: normal rate 12/13/2014 None Full Exam - General 1994 Cardiovascular auscultation of heart Overall: regular rate 12/13/2014 None Full Exam - General 1994 Cardiovascular auscultation of heart Overall: normal heart sounds 12/13/2014 None Full Exam - General 1994 Abdomen abdominal exam Overall: no tenderness 12/13/2014 None Full Exam - General 1994 Abdomen abdominal exam Overall: normal bowel sounds 12/13/2014 None Full Exam - General 1994 Musculoskeletal lower extremity Overall: knee benign 12/13/2014 None Full Exam - General 1994 Musculoskeletal lower extremity Inspection - knee: swelling 12/13/2014 None Full Exam - General 1994 Musculoskeletal lower extremity Inspection - knee: presence of a scar 12/13/2014 None Full Exam - General 1994 Musculoskeletal lower extremity Palpation - knee: a normal exam 12/13/2014 None Full Exam - General 1994 Musculoskeletal lower extremity Palpation - knee: warm 12/13/2014 None Full Exam - General 1994 Musculoskeletal lower extremity Palpation - knee: crepitus 12/13/2014 None Full Exam - General 1994 Musculoskeletal lower extremity ROM - knee: crepitus 12/13/2014 None Full Exam - General 1994 Musculoskeletal lower extremity ROM - knee: pain with flexion 12/13/2014 None Full Exam - General 1994 Musculoskeletal lower extremity ROM - knee: decreased extension 12/13/2014 None Full Exam - General 1994 Integument inspection of skin Dermatitis: erythema 12/13/2014 None Full Exam - General 1994 Integument inspection of skin Location: inguinal area 12/13/2014 None Full Exam - General 1994 Integument inspection of skin Rash/Lesions: patch 12/13/2014 None Full Exam - General 1994 Integument inspection of skin Pigmentation: erythematous 12/13/2014 None Full Exam - General 1994 Neurologic cranial nerves Overall: crainial nerves 2 - 12 grossly intact 12/13/2014 None Full Exam - General 1994 Psychiatric orientation/consciousness Overall: oriented to person, place and time 12/13/2014 None Full Exam - General 1994 Psychiatric mood and affect Overall: normal mood and affect 12/13/2014 None Full Exam - General 1994 Constitutional general appearance Overall: well developed 08/17/2014 None Full Exam - General 1994 Constitutional general appearance Overall: in no acute distress 08/17/2014 None Full Exam - General 1994 Constitutional general appearance Overall: well nourished 08/17/2014 None Full Exam - General 1994 Eyes pupils and irises Overall: pupils equal, round, reactive to light and accomodation 08/17/2014 None Full Exam - General 1994 Ears/Nose/Throat otoscopic exam Overall: external auditory canals clear 08/17/2014 None Full Exam - General 1994 Ears/Nose/Throat otoscopic exam Overall: tympanic membranes clear 08/17/2014 None Full Exam - General 1994 Ears/Nose/Throat oral cavity/pharynx/larynx Overall: oral mucosa clear 08/17/2014 None Full Exam - General 1994 Ears/Nose/Throat oral cavity/pharynx/larynx Overall: oropharyngeal mucosa clear 08/17/2014 None Full Exam - General 1994 Ears/Nose/Throat oral cavity/pharynx/larynx Overall: no masses 08/17/2014 None Full Exam - General 1994 Respiratory auscultation Overall: breath sounds clear bilaterally 08/17/2014 None Full Exam - General 1994 Respiratory respiratory effort/rhythm Overall: no retractions 08/17/2014 None Full Exam - General 1994 Respiratory respiratory effort/rhythm Overall: normal rate 08/17/2014 None Full Exam - General 1994 Cardiovascular auscultation of heart Overall: regular rate 08/17/2014 None Full Exam - General 1994 Cardiovascular auscultation of heart Overall: normal heart sounds 08/17/2014 None Full Exam - General 1994 Abdomen abdominal exam Overall: no tenderness 08/17/2014 None Full Exam - General 1994 Abdomen abdominal exam Overall: normal bowel sounds 08/17/2014 None Full Exam - General 1994 Musculoskeletal lower extremity Overall: knee benign 08/17/2014 None Full Exam - General 1994 Musculoskeletal lower extremity Inspection - knee: swelling 08/17/2014 None Full Exam - General 1994 Musculoskeletal lower extremity Inspection - knee: presence of a scar 08/17/2014 None Full Exam - General 1994 Musculoskeletal lower extremity Palpation - knee: a normal exam 08/17/2014 None Full Exam - General 1994 Musculoskeletal lower extremity Palpation - knee: warm 08/17/2014 None Full Exam - General 1994 Musculoskeletal lower extremity Palpation - knee: crepitus 08/17/2014 None Full Exam - General 1994 Musculoskeletal lower extremity ROM - knee: crepitus 08/17/2014 None Full Exam - General 1994 Musculoskeletal lower extremity ROM - knee: pain with flexion 08/17/2014 None Full Exam - General 1994 Musculoskeletal lower extremity ROM - knee: decreased extension 08/17/2014 None Full Exam - General 1994 Integument inspection of skin Dermatitis: erythema 08/17/2014 None Full Exam - General 1994 Integument inspection of skin Location: inguinal area 08/17/2014 None Full Exam - General 1994 Integument inspection of skin Rash/Lesions: patch 08/17/2014 None Full Exam - General 1994 Integument inspection of skin Pigmentation: erythematous 08/17/2014 None Full Exam - General 1994 Neurologic cranial nerves Overall: crainial nerves 2 - 12 grossly intact 08/17/2014 None Full Exam - General 1994 Psychiatric orientation/consciousness Overall: oriented to person, place and time 08/17/2014 None Full Exam - General 1994 Psychiatric mood and affect Overall: normal mood and affect 08/17/2014 None Full Exam - General 1994 Constitutional general appearance Overall: well developed 05/18/2014 None Full Exam - General 1994 Constitutional general appearance Overall: in no acute distress 05/18/2014 None Full Exam - General 1994 Constitutional general appearance Overall: well nourished 05/18/2014 None Full Exam - General 1994 Eyes pupils and irises Overall: pupils equal, round, reactive to light and accomodation 05/18/2014 None Full Exam - General 1994 Ears/Nose/Throat otoscopic exam Overall: external auditory canals clear 05/18/2014 None Full Exam - General 1994 Ears/Nose/Throat otoscopic exam Overall: tympanic membranes clear 05/18/2014 None Full Exam - General 1994 Ears/Nose/Throat oral cavity/pharynx/larynx Overall: oral mucosa clear 05/18/2014 None Full Exam - General 1994 Ears/Nose/Throat oral cavity/pharynx/larynx Overall: oropharyngeal mucosa clear 05/18/2014 None Full Exam - General 1994 Ears/Nose/Throat oral cavity/pharynx/larynx Overall: no masses 05/18/2014 None Full Exam - General 1994 Respiratory auscultation Overall: breath sounds clear bilaterally 05/18/2014 None Full Exam - General 1994 Respiratory respiratory effort/rhythm Overall: no retractions 05/18/2014 None Full Exam - General 1994 Respiratory respiratory effort/rhythm Overall: normal rate 05/18/2014 None Full Exam - General 1994 Cardiovascular auscultation of heart Overall: regular rate 05/18/2014 None Full Exam - General 1994 Cardiovascular auscultation of heart Overall: normal heart sounds 05/18/2014 None Full Exam - General 1994 Abdomen abdominal exam Overall: no tenderness 05/18/2014 None Full Exam - General 1994 Abdomen abdominal exam Overall: normal bowel sounds 05/18/2014 None Full Exam - General 1994 Musculoskeletal lower extremity Overall: knee benign 05/18/2014 None Full Exam - General 1994 Musculoskeletal lower extremity Inspection - knee: swelling 05/18/2014 None Full Exam - General 1994 Musculoskeletal lower extremity Inspection - knee: presence of a scar 05/18/2014 None Full Exam - General 1994 Musculoskeletal lower extremity Palpation - knee: a normal exam 05/18/2014 None Full Exam - General 1994 Musculoskeletal lower extremity Palpation - knee: warm 05/18/2014 None Full Exam - General 1994 Musculoskeletal lower extremity Palpation - knee: crepitus 05/18/2014 None Full Exam - General 1994 Musculoskeletal lower extremity ROM - knee: crepitus 05/18/2014 None Full Exam - General 1994 Musculoskeletal lower extremity ROM - knee: pain with flexion 05/18/2014 None Full Exam - General 1994 Musculoskeletal lower extremity ROM - knee: decreased extension 05/18/2014 None Full Exam - General 1994 Integument inspection of skin Dermatitis: erythema 05/18/2014 on ears, nose, cheeks Full Exam - General 1994 Integument inspection of skin Rash/Lesions: patch 05/18/2014 None Full Exam - General 1994 Neurologic cranial nerves Overall: crainial nerves 2 - 12 grossly intact 05/18/2014 None Full Exam - General 1994 Psychiatric orientation/consciousness Overall: oriented to person, place and time 05/18/2014 None Full Exam - General 1994 Psychiatric mood and affect Overall: normal mood and affect 05/18/2014 None Full Exam - General 1994 Integument inspection of skin Dermatitis: thickened 05/18/2014 None Full Exam - General 1994 Integument inspection of skin Dermatitis: dryness/ flaking 05/18/2014 None Full Exam - General 1994 Constitutional general appearance Overall: well developed 02/15/2014 None Full Exam - General 1994 Constitutional general appearance Overall: in no acute distress 02/15/2014 None Full Exam - General 1994 Constitutional general appearance Overall: well nourished 02/15/2014 None Full Exam - General 1994 Eyes pupils and irises Overall: pupils equal, round, reactive to light and accomodation 02/15/2014 None Full Exam - General 1994 Ears/Nose/Throat otoscopic exam Overall: external auditory canals clear 02/15/2014 None Full Exam - General 1994 Ears/Nose/Throat otoscopic exam Overall: tympanic membranes clear 02/15/2014 None Full Exam - General 1994 Ears/Nose/Throat oral cavity/pharynx/larynx Overall: oral mucosa clear 02/15/2014 None Full Exam - General 1994 Ears/Nose/Throat oral cavity/pharynx/larynx Overall: oropharyngeal mucosa clear 02/15/2014 None Full Exam - General 1994 Ears/Nose/Throat oral cavity/pharynx/larynx Overall: no masses 02/15/2014 None Full Exam - General 1994 Respiratory auscultation Overall: breath sounds clear bilaterally 02/15/2014 None Full Exam - General 1994 Respiratory respiratory effort/rhythm Overall: no retractions 02/15/2014 None Full Exam - General 1994 Respiratory respiratory effort/rhythm Overall: normal rate 02/15/2014 None Full Exam - General 1994 Cardiovascular auscultation of heart Overall: regular rate 02/15/2014 None Full Exam - General 1994 Cardiovascular auscultation of heart Overall: normal heart sounds 02/15/2014 None Full Exam - General 1994 Abdomen abdominal exam Overall: no tenderness 02/15/2014 None Full Exam - General 1994 Abdomen abdominal exam Overall: normal bowel sounds 02/15/2014 None Full Exam - General 1994 Musculoskeletal lower extremity Overall: knee benign 02/15/2014 None Full Exam - General 1994 Musculoskeletal lower extremity Inspection - knee: swelling 02/15/2014 None Full Exam - General 1994 Musculoskeletal lower extremity Inspection - knee: presence of a scar 02/15/2014 None Full Exam - General 1994 Musculoskeletal lower extremity Palpation - knee: a normal exam 02/15/2014 None Full Exam - General 1994 Musculoskeletal lower extremity Palpation - knee: warm 02/15/2014 None Full Exam - General 1994 Musculoskeletal lower extremity Palpation - knee: crepitus 02/15/2014 None Full Exam - General 1994 Musculoskeletal lower extremity ROM - knee: crepitus 02/15/2014 None Full Exam - General 1994 Musculoskeletal lower extremity ROM - knee: pain with flexion 02/15/2014 None Full Exam - General 1994 Musculoskeletal lower extremity ROM - knee: decreased extension 02/15/2014 None Full Exam - General 1994 Integument inspection of skin Dermatitis: erythema 02/15/2014 None Full Exam - General 1994 Integument inspection of skin Location: inguinal area 02/15/2014 None Full Exam - General 1994 Integument inspection of skin Rash/Lesions: patch 02/15/2014 None Full Exam - General 1994 Integument inspection of skin Pigmentation: erythematous 02/15/2014 None Full Exam - General 1994 Neurologic cranial nerves Overall: crainial nerves 2 - 12 grossly intact 02/15/2014 None Full Exam - General 1994 Psychiatric orientation/consciousness Overall: oriented to person, place and time 02/15/2014 None Full Exam - General 1994 Psychiatric mood and affect Overall: normal mood and affect 02/15/2014 None Full Exam - General 1994 Constitutional general appearance Overall: well developed 11/16/2013 None Full Exam - General 1994 Constitutional general appearance Overall: in no acute distress 11/16/2013 None Full Exam - General 1994 Constitutional general appearance Overall: well nourished 11/16/2013 None Full Exam - General 1994 Eyes pupils and irises Overall: pupils equal, round, reactive to light and accomodation 11/16/2013 None Full Exam - General 1994 Ears/Nose/Throat otoscopic exam Overall: external auditory canals clear 11/16/2013 None Full Exam - General 1994 Ears/Nose/Throat otoscopic exam Overall: tympanic membranes clear 11/16/2013 None Full Exam - General 1994 Ears/Nose/Throat oral cavity/pharynx/larynx Overall: oral mucosa clear 11/16/2013 None Full Exam - General 1994 Ears/Nose/Throat oral cavity/pharynx/larynx Overall: oropharyngeal mucosa clear 11/16/2013 None Full Exam - General 1994 Ears/Nose/Throat oral cavity/pharynx/larynx Overall: no masses 11/16/2013 None Full Exam - General 1994 Respiratory auscultation Overall: breath sounds clear bilaterally 11/16/2013 None Full Exam - General 1994 Respiratory respiratory effort/rhythm Overall: no retractions 11/16/2013 None Full Exam - General 1994 Respiratory respiratory effort/rhythm Overall: normal rate 11/16/2013 None Full Exam - General 1994 Cardiovascular auscultation of heart Overall: regular rate 11/16/2013 None Full Exam - General 1994 Cardiovascular auscultation of heart Overall: normal heart sounds 11/16/2013 None Full Exam - General 1994 Abdomen abdominal exam Overall: no tenderness 11/16/2013 None Full Exam - General 1994 Abdomen abdominal exam Overall: normal bowel sounds 11/16/2013 None Full Exam - General 1994 Musculoskeletal lower extremity Overall: knee benign 11/16/2013 None Full Exam - General 1994 Musculoskeletal lower extremity Inspection - knee: swelling 11/16/2013 None Full Exam - General 1994 Musculoskeletal lower extremity Inspection - knee: presence of a scar 11/16/2013 None Full Exam - General 1994 Musculoskeletal lower extremity Palpation - knee: a normal exam 11/16/2013 None Full Exam - General 1994 Musculoskeletal lower extremity Palpation - knee: warm 11/16/2013 None Full Exam - General 1994 Musculoskeletal lower extremity Palpation - knee: crepitus 11/16/2013 None Full Exam - General 1994 Musculoskeletal lower extremity ROM - knee: crepitus 11/16/2013 None Full Exam - General 1994 Musculoskeletal lower extremity ROM - knee: pain with flexion 11/16/2013 None Full Exam - General 1994 Musculoskeletal lower extremity ROM - knee: decreased extension 11/16/2013 None Full Exam - General 1994 Integument inspection of skin Dermatitis: erythema 11/16/2013 None Full Exam - General 1994 Integument inspection of skin Location: inguinal area 11/16/2013 None Full Exam - General 1994 Integument inspection of skin Rash/Lesions: patch 11/16/2013 None Full Exam - General 1994 Integument inspection of skin Pigmentation: erythematous 11/16/2013 None Full Exam - General 1994 Neurologic cranial nerves Overall: crainial nerves 2 - 12 grossly intact 11/16/2013 None Full Exam - General 1994 Psychiatric orientation/consciousness Overall: oriented to person, place and time 11/16/2013 None Full Exam - General 1994 Psychiatric mood and affect Overall: normal mood and affect 11/16/2013 None Full Exam - General 1994 Musculoskeletal lower extremity Palpation - knee: a normal exam 08/18/2013 None Full Exam - General 1994 Musculoskeletal lower extremity Palpation - knee: warm 08/18/2013 None Full Exam - General 1994 Musculoskeletal lower extremity Palpation - knee: crepitus 08/18/2013 None Full Exam - General 1994 Musculoskeletal lower extremity ROM - knee: crepitus 08/18/2013 None Full Exam - General 1994 Musculoskeletal lower extremity ROM - knee: pain with flexion 08/18/2013 None Full Exam - General 1994 Constitutional general appearance Overall: well developed 08/18/2013 None Full Exam - General 1994 Constitutional general appearance Overall: in no acute distress 08/18/2013 None Full Exam - General 1994 Constitutional general appearance Overall: well nourished 08/18/2013 None Full Exam - General 1994 Eyes pupils and irises Overall: pupils equal, round, reactive to light and accomodation 08/18/2013 None Full Exam - General 1994 Ears/Nose/Throat otoscopic exam Overall: external auditory canals clear 08/18/2013 None Full Exam - General 1994 Ears/Nose/Throat otoscopic exam Overall: tympanic membranes clear 08/18/2013 None Full Exam - General 1994 Ears/Nose/Throat oral cavity/pharynx/larynx Overall: oral mucosa clear 08/18/2013 None Full Exam - General 1994 Ears/Nose/Throat oral cavity/pharynx/larynx Overall: oropharyngeal mucosa clear 08/18/2013 None Full Exam - General 1994 Respiratory respiratory effort/rhythm Overall: no retractions 08/18/2013 None Full Exam - General 1994 Respiratory respiratory effort/rhythm Overall: normal rate 08/18/2013 None Full Exam - General 1995 Cardiovascular auscultation of heart Overall: regular rate 08/18/2013 None Full Exam - General 1995 Cardiovascular auscultation of heart Overall: normal heart sounds 08/18/2013 None Full Exam - General 1995 Abdomen abdominal exam Overall: no tenderness 08/18/2013 None Full Exam - General 1995 Abdomen abdominal exam Overall: normal bowel sounds 08/18/2013 None Full Exam - General 1995 Musculoskeletal lower extremity Overall: knee benign 08/18/2013 None Full Exam - General 1995 Musculoskeletal lower extremity Inspection - knee: swelling 08/18/2013 None Full Exam - General 1995 Musculoskeletal lower extremity Inspection - knee: presence of a scar 08/18/2013 None Full Exam - General 1994 Ears/Nose/Throat oral cavity/pharynx/larynx Overall: no masses 08/18/2013 None Full Exam - General 1994 Respiratory auscultation Overall: breath sounds clear bilaterally 08/18/2013 None Full Exam - General 1994 Musculoskeletal lower extremity ROM - knee: decreased extension 08/18/2013 None Full Exam - General 1994 Integument inspection of skin Dermatitis: erythema 08/18/2013 None Full Exam - General 1994 Integument inspection of skin Location: inguinal area 08/18/2013 None Full Exam - General 1994 Integument inspection of skin Rash/Lesions: patch 08/18/2013 None Full Exam - General 1994 Integument inspection of skin Pigmentation: erythematous 08/18/2013 None Full Exam - General 1994 Neurologic cranial nerves Overall: crainial nerves 2 - 12 grossly intact 08/18/2013 None Full Exam - General 1994 Psychiatric orientation/consciousness Overall: oriented to person, place and time 08/18/2013 None Full Exam - General 1994 Psychiatric mood and affect Overall: normal mood and affect 08/18/2013 None Full Exam - General 1994 Constitutional general appearance Overall: well developed 05/13/2013 None Full Exam - General 1994 Constitutional general appearance Overall: in no acute distress 05/13/2013 None Full Exam - General 1994 Constitutional general appearance Overall: well nourished 05/13/2013 None Full Exam - General 1994 Eyes pupils and irises Overall: pupils equal, round, reactive to light and accomodation 05/13/2013 None Full Exam - General 1994 Ears/Nose/Throat otoscopic exam Overall: external auditory canals clear 05/13/2013 None Full Exam - General 1994 Ears/Nose/Throat otoscopic exam Overall: tympanic membranes clear 05/13/2013 None Full Exam - General 1994 Ears/Nose/Throat oral cavity/pharynx/larynx Overall: oral mucosa clear 05/13/2013 None Full Exam - General 1995 Ears/Nose/Throat oral cavity/pharynx/larynx Overall: oropharyngeal mucosa clear 05/13/2013 None Full Exam - General 1994 Ears/Nose/Throat oral cavity/pharynx/larynx Overall: no masses 05/13/2013 None Full Exam - General 1994 Respiratory auscultation Overall: breath sounds clear bilaterally 05/13/2013 None Full Exam - General 1994 Respiratory respiratory effort/rhythm Overall: no retractions 05/13/2013 None Full Exam - General 1994 Respiratory respiratory effort/rhythm Overall: normal rate 05/13/2013 None Full Exam - General 1994 Cardiovascular auscultation of heart Overall: regular rate 05/13/2013 None Full Exam - General 1994 Cardiovascular auscultation of heart Overall: normal heart sounds 05/13/2013 None Full Exam - General 1994 Abdomen abdominal exam Overall: no tenderness 05/13/2013 None Full Exam - General 1994 Abdomen abdominal exam Overall: normal bowel sounds 05/13/2013 None Full Exam - General 1994 Musculoskeletal lower extremity Overall: knee benign 05/13/2013 None Full Exam - General 1994 Musculoskeletal lower extremity Inspection - knee: swelling 05/13/2013 None Full Exam - General 1994 Musculoskeletal lower extremity Inspection - knee: presence of a scar 05/13/2013 None Full Exam - General 1994 Musculoskeletal lower extremity Palpation - knee: a normal exam 05/13/2013 None Full Exam - General 1994 Musculoskeletal lower extremity Palpation - knee: warm 05/13/2013 None Full Exam - General 1994 Musculoskeletal lower extremity Palpation - knee: crepitus 05/13/2013 None Full Exam - General 1994 Musculoskeletal lower extremity ROM - knee: crepitus 05/13/2013 None Full Exam - General 1994 Musculoskeletal lower extremity ROM - knee: pain with flexion 05/13/2013 None Full Exam - General 1994 Musculoskeletal lower extremity ROM - knee: decreased extension 05/13/2013 None Full Exam - General 1994 Integument inspection of skin Dermatitis: erythema 05/13/2013 None Full Exam - General 1994 Integument inspection of skin Location: inguinal area 05/13/2013 None Full Exam - General 1994 Integument inspection of skin Rash/Lesions: patch 05/13/2013 None Full Exam - General 1994 Integument inspection of skin Pigmentation: erythematous 05/13/2013 None Full Exam - General 1994 Neurologic cranial nerves Overall: crainial nerves 2 - 12 grossly intact 05/13/2013 None Full Exam - General 1994 Psychiatric orientation/consciousness Overall: oriented to person, place and time 05/13/2013 None Full Exam - General 1994 Psychiatric mood and affect Overall: normal mood and affect 05/13/2013 None Full Exam - General 1994 Psychiatric orientation/consciousness Overall: oriented to person, place and time 02/13/2013 None Full Exam - General 1994 Neurologic cranial nerves Overall: crainial nerves 2 - 12 grossly intact 02/13/2013 None Full Exam - General 1994 Abdomen abdominal exam Overall: no tenderness 02/13/2013 None Full Exam - General 1994 Abdomen abdominal exam Overall: normal bowel sounds 02/13/2013 None Full Exam - General 1994 Cardiovascular auscultation of heart Overall: regular rate 02/13/2013 None Full Exam - General 1994 Cardiovascular auscultation of heart Overall: normal heart sounds 02/13/2013 None Full Exam - General 1994 Cardiovascular auscultation of heart Overall: no murmurs 02/13/2013 None Full Exam - General 1994 Respiratory respiratory effort/rhythm Overall: normal rate 02/13/2013 None Full Exam - General 1994 Respiratory respiratory effort/rhythm Overall: no retractions 02/13/2013 None Full Exam - General 1994 Ears/Nose/Throat otoscopic exam Overall: tympanic membranes clear 02/13/2013 None Full Exam - General 1994 Ears/Nose/Throat otoscopic exam Overall: external auditory canals clear 02/13/2013 None Full Exam - General 1994 Ears/Nose/Throat oral cavity/pharynx/larynx Overall: oropharyngeal mucosa clear 02/13/2013 None Full Exam - General 1995 Ears/Nose/Throat oral cavity/pharynx/larynx Overall: no masses 02/13/2013 None Full Exam - General 1994 Ears/Nose/Throat oral cavity/pharynx/larynx Overall: oral mucosa clear 02/13/2013 None Full Exam - General 1994 Respiratory auscultation Lower lung field: crackles 02/13/2013 None Full Exam - General 1994 Respiratory auscultation Upper lung field: a normal exam 02/13/2013 None Full Exam - General 1994 Eyes conjunctiva /eyelids Overall: conjunctiva clear 02/13/2013 None Full Exam - General 1994 Eyes conjunctiva /eyelids Overall: eyelids normal 02/13/2013 None Full Exam - General 1995 Eyes conjunctiva /eyelids Overall: cornea clear 02/13/2013 None Full Exam - General 1995 Eyes pupils and irises Overall: pupils equal, round, reactive to light and accomodation 02/13/2013 None Full Exam - General 1995 Constitutional general appearance Overall: well nourished 02/13/2013 None Full Exam - General 1995 Constitutional general appearance Overall: well developed 02/13/2013 None Full Exam - General 1995 Constitutional general appearance Overall: in no acute distress 02/13/2013 None Full Exam - General 1995 Neurologic cranial nerves Overall: crainial nerves 2 - 12 grossly intact 01/01/2013 None Full Exam - General 1995 Psychiatric orientation/consciousness Overall: oriented to person, place and time 01/01/2013 None Full Exam - General 1995 Psychiatric mood and affect Overall: normal mood and affect 01/01/2013 None Full Exam - General 1995 Integument inspection of skin Dermatitis: erythema 01/01/2013 None Full Exam - General 1994 Integument inspection of skin Location: inguinal area 01/01/2013 None Full Exam - General 1994 Integument inspection of skin Rash/Lesions: patch 01/01/2013 None Full Exam - General 1995 Integument inspection of skin Pigmentation: erythematous 01/01/2013 None Full Exam - General 1994 Respiratory respiratory effort/rhythm Overall: normal rate 01/01/2013 None Full Exam - General 1994 Cardiovascular auscultation of heart Overall: regular rate 01/01/2013 None Full Exam - General 1994 Cardiovascular auscultation of heart Overall: normal heart sounds 01/01/2013 None Full Exam - General 1994 Abdomen abdominal exam Overall: no tenderness 01/01/2013 None Full Exam - General 1994 Abdomen abdominal exam Overall: normal bowel sounds 01/01/2013 None Full Exam - General 1994 Musculoskeletal lower extremity Overall: knee benign 01/01/2013 None Full Exam - General 1994 Musculoskeletal lower extremity Inspection - knee: swelling 01/01/2013 None Full Exam - General 1995 Musculoskeletal lower extremity Inspection - knee: presence of a scar 01/01/2013 None Full Exam - General 1995 Musculoskeletal lower extremity Palpation - knee: a normal exam 01/01/2013 None Full Exam - General 1995 Musculoskeletal lower extremity Palpation - knee: warm 01/01/2013 None Full Exam - General 1994 Musculoskeletal lower extremity Palpation - knee: crepitus 01/01/2013 None Full Exam - General 1995 Musculoskeletal lower extremity ROM - knee: crepitus 01/01/2013 None Full Exam - General 1995 Musculoskeletal lower extremity ROM - knee: pain with flexion 01/01/2013 None Full Exam - General 1994 Musculoskeletal lower extremity ROM - knee: decreased extension 01/01/2013 None Full Exam - General 1995 Constitutional general appearance Overall: well developed 01/01/2013 None Full Exam - General 1995 Constitutional general appearance Overall: in no acute distress 01/01/2013 None Full Exam - General 1994 Constitutional general appearance Overall: well nourished 01/01/2013 None Full Exam - General 1994 Eyes pupils and irises Overall: pupils equal, round, reactive to light and accomodation 01/01/2013 None Full Exam - General 1995 Ears/Nose/Throat otoscopic exam Overall: external auditory canals clear 01/01/2013 None Full Exam - General 1995 Ears/Nose/Throat otoscopic exam Overall: tympanic membranes clear 01/01/2013 None Full Exam - General 1995 Ears/Nose/Throat oral cavity/pharynx/larynx Overall: oral mucosa clear 01/01/2013 None Full Exam - General 1995 Ears/Nose/Throat oral cavity/pharynx/larynx Overall: oropharyngeal mucosa clear 01/01/2013 None Full Exam - General 1995 Ears/Nose/Throat oral cavity/pharynx/larynx Overall: no masses 01/01/2013 None Full Exam - General 1994 Respiratory auscultation Overall: breath sounds clear bilaterally 01/01/2013 None Full Exam - General 1994 Respiratory respiratory effort/rhythm Overall: no retractions 01/01/2013 None Full Exam - General 1994 Constitutional general appearance Overall: well developed 10/02/2012 None Full Exam - General 1994 Constitutional general appearance Overall: in no acute distress 10/02/2012 None Full Exam - General 1994 Constitutional general appearance Overall: well nourished 10/02/2012 None Full Exam - General 1994 Eyes pupils and irises Overall: pupils equal, round, reactive to light and accomodation 10/02/2012 None Full Exam - General 1995 Ears/Nose/Throat otoscopic exam Overall: external auditory canals clear 10/02/2012 None Full Exam - General 1995 Ears/Nose/Throat otoscopic exam Overall: tympanic membranes clear 10/02/2012 None Full Exam - General 1995 Ears/Nose/Throat oral cavity/pharynx/larynx Overall: oral mucosa clear 10/02/2012 None Full Exam - General 1995 Ears/Nose/Throat oral cavity/pharynx/larynx Overall: oropharyngeal mucosa clear 10/02/2012 None Full Exam - General 1994 Ears/Nose/Throat oral cavity/pharynx/larynx Overall: no masses 10/02/2012 None Full Exam - General 1994 Respiratory auscultation Overall: breath sounds clear bilaterally 10/02/2012 None Full Exam - General 1994 Respiratory respiratory effort/rhythm Overall: no retractions 10/02/2012 None Full Exam - General 1994 Respiratory respiratory effort/rhythm Overall: normal rate 10/02/2012 None Full Exam - General 1994 Cardiovascular auscultation of heart Overall: regular rate 10/02/2012 None Full Exam - General 1994 Cardiovascular auscultation of heart Overall: normal heart sounds 10/02/2012 None Full Exam - General 1994 Abdomen abdominal exam Overall: no tenderness 10/02/2012 None Full Exam - General 1994 Abdomen abdominal exam Overall: normal bowel sounds 10/02/2012 None Full Exam - General 1994 Musculoskeletal lower extremity Overall: knee benign 10/02/2012 None Full Exam - General 1994 Musculoskeletal lower extremity Inspection - knee: swelling 10/02/2012 None Full Exam - General 1994 Musculoskeletal lower extremity Inspection - knee: presence of a scar 10/02/2012 None Full Exam - General 1994 Musculoskeletal lower extremity Palpation - knee: a normal exam 10/02/2012 None Full Exam - General 1994 Musculoskeletal lower extremity Palpation - knee: warm 10/02/2012 None Full Exam - General 1994 Musculoskeletal lower extremity Palpation - knee: crepitus 10/02/2012 None Full Exam - General 1994 Musculoskeletal lower extremity ROM - knee: crepitus 10/02/2012 None Full Exam - General 1994 Musculoskeletal lower extremity ROM - knee: pain with flexion 10/02/2012 None Full Exam - General 1994 Musculoskeletal lower extremity ROM - knee: decreased extension 10/02/2012 None Full Exam - General 1994 Neurologic cranial nerves Overall: crainial nerves 2 - 12 grossly intact 10/02/2012 None Full Exam - General 1994 Psychiatric orientation/consciousness Overall: oriented to person, place and time 10/02/2012 None Full Exam - General 1994 Psychiatric mood and affect Overall: normal mood and affect 10/02/2012 None Full Exam - General 1994 Cardiovascular auscultation of heart Overall: normal heart sounds 06/05/2012 None Full Exam - General 1994 Abdomen abdominal exam Overall: no tenderness 06/05/2012 None Full Exam - General 1994 Abdomen abdominal exam Overall: normal bowel sounds 06/05/2012 None Full Exam - General 1994 Musculoskeletal lower extremity Overall: knee benign 06/05/2012 None Full Exam - General 1994 Musculoskeletal lower extremity Inspection - knee: swelling 06/05/2012 None Full Exam - General 1994 Musculoskeletal lower extremity Inspection - knee: presence of a scar 06/05/2012 None Full Exam - General 1994 Musculoskeletal lower extremity Palpation - knee: a normal exam 06/05/2012 None Full Exam - General 1994 Musculoskeletal lower extremity Palpation - knee: warm 06/05/2012 None Full Exam - General 1994 Musculoskeletal lower extremity Palpation - knee: crepitus 06/05/2012 None Full Exam - General 1994 Musculoskeletal lower extremity ROM - knee: crepitus 06/05/2012 None Full Exam - General 1994 Musculoskeletal lower extremity ROM - knee: pain with flexion 06/05/2012 None Full Exam - General 1994 Musculoskeletal lower extremity ROM - knee: decreased extension 06/05/2012 None Full Exam - General 1994 Psychiatric orientation/consciousness Overall: oriented to person, place and time 06/05/2012 None Full Exam - General 1994 Psychiatric mood and affect Overall: normal mood and affect 06/05/2012 None Full Exam - General 1994 Constitutional general appearance Overall: well nourished 06/05/2012 None Full Exam - General 1994 Constitutional general appearance Overall: well developed 06/05/2012 None Full Exam - General 1994 Constitutional general appearance Overall: in no acute distress 06/05/2012 None Full Exam - General 1994 Respiratory auscultation Overall: breath sounds clear bilaterally 06/05/2012 None Full Exam - General 1994 Respiratory respiratory effort/rhythm Overall: no retractions 06/05/2012 None Full Exam - General 1994 Respiratory respiratory effort/rhythm Overall: normal rate 06/05/2012 None Full Exam - General 1994 Cardiovascular auscultation of heart Overall: regular rate 06/05/2012 None Full Exam - General 1994 Eyes pupils and irises Overall: pupils equal, round, reactive to light and accomodation 06/05/2012 None Full Exam - General 1994 Ears/Nose/Throat otoscopic exam Overall: external auditory canals clear 06/05/2012 None Full Exam - General 1994 Ears/Nose/Throat otoscopic exam Overall: tympanic membranes clear 06/05/2012 None Full Exam - General 1994 Ears/Nose/Throat oral cavity/pharynx/larynx Overall: oral mucosa clear 06/05/2012 None Full Exam - General 1995 Ears/Nose/Throat oral cavity/pharynx/larynx Overall: oropharyngeal mucosa clear 06/05/2012 None Full Exam - General 1994 Ears/Nose/Throat oral cavity/pharynx/larynx Overall: no masses 06/05/2012 None Full Exam - General 1994 Neurologic cranial nerves Overall: crainial nerves 2 - 12 grossly intact 06/05/2012 None Full Exam - General 1994 Constitutional general appearance Overall: well nourished 03/24/2012 None Full Exam - General 1994 Constitutional general appearance Overall: well developed 03/24/2012 None Full Exam - General 1994 Constitutional general appearance Overall: in no acute distress 03/24/2012 None Full Exam - General 1994 Respiratory auscultation Overall: breath sounds clear bilaterally 03/24/2012 None Full Exam - General 1994 Respiratory respiratory effort/rhythm Overall: no retractions 03/24/2012 None Full Exam - General 1994 Respiratory respiratory effort/rhythm Overall: normal rate 03/24/2012 None Full Exam - General 1994 Cardiovascular auscultation of heart Overall: regular rate 03/24/2012 None Full Exam - General 1994 Cardiovascular auscultation of heart Overall: normal heart sounds 03/24/2012 None Full Exam - General 1994 Abdomen abdominal exam Overall: no tenderness 03/24/2012 None Full Exam - General 1994 Abdomen abdominal exam Overall: normal bowel sounds 03/24/2012 None Full Exam - General 1994 Integument inspection of skin Dermatitis: erythema 03/24/2012 None Full Exam - General 1994 Integument inspection of skin Location: inguinal area 03/24/2012 None Full Exam - General 1994 Integument inspection of skin Rash/Lesions: patch 03/24/2012 None Full Exam - General 1994 Integument inspection of skin Pigmentation: erythematous 03/24/2012 None Full Exam - General 1994 Psychiatric orientation/consciousness Overall: oriented to person, place and time 03/24/2012 None Full Exam - General 1994 Psychiatric mood and affect Overall: normal mood and affect 03/24/2012 None Full Exam - General 1994 Musculoskeletal lower extremity Overall: knee benign 03/24/2012 None Full Exam - General 1994 Musculoskeletal lower extremity Inspection - knee: presence of a scar 03/24/2012 None Full Exam - General 1994 Musculoskeletal lower extremity Inspection - knee: swelling 03/24/2012 None Full Exam - General 1994 Musculoskeletal lower extremity Palpation - knee: warm 03/24/2012 None Full Exam - General 1995 Musculoskeletal lower extremity Palpation - knee: a normal exam 03/24/2012 None Full Exam - General 1994 Musculoskeletal lower extremity Palpation - knee: crepitus 03/24/2012 None Full Exam - General 1994 Musculoskeletal lower extremity ROM - knee: crepitus 03/24/2012 None Full Exam - General 1994 Musculoskeletal lower extremity ROM - knee: pain with flexion 03/24/2012 None Full Exam - General 1994 Musculoskeletal lower extremity ROM - knee: decreased extension 03/24/2012 None Full Exam - General 1994 Constitutional general appearance Overall: well nourished 01/31/2012 None Full Exam - General 1994 Constitutional general appearance Overall: well developed 01/31/2012 None Full Exam - General 1994 Constitutional general appearance Overall: in no acute distress 01/31/2012 None Full Exam - General 1994 Respiratory auscultation Overall: breath sounds clear bilaterally 01/31/2012 None Full Exam - General 1994 Respiratory respiratory effort/rhythm Overall: no retractions 01/31/2012 None Full Exam - General 1994 Respiratory respiratory effort/rhythm Overall: normal rate 01/31/2012 None Full Exam - General 1994 Cardiovascular auscultation of heart Overall: regular rate 01/31/2012 None Full Exam - General 1994 Ears/Nose/Throat oral cavity/pharynx/larynx Overall: no masses 01/31/2012 None Full Exam - General 1995 Ears/Nose/Throat oral cavity/pharynx/larynx Overall: oral mucosa clear 01/31/2012 None Full Exam - General 1994 Neurologic cranial nerves Overall: crainial nerves 2 - 12 grossly intact 01/31/2012 None Full Exam - General 1994 Cardiovascular auscultation of heart Overall: normal heart sounds 01/31/2012 None Full Exam - General 1994 Abdomen abdominal exam Overall: no tenderness 01/31/2012 None Full Exam - General 1994 Abdomen abdominal exam Overall: normal bowel sounds 01/31/2012 None Full Exam - General 1994 Integument inspection of skin Dermatitis: erythema 01/31/2012 None Full Exam - General 1994 Integument inspection of skin Location: inguinal area 01/31/2012 None Full Exam - General 1994 Integument inspection of skin Rash/Lesions: patch 01/31/2012 None Full Exam - General 1994 Integument inspection of skin Pigmentation: erythematous 01/31/2012 None Full Exam - General 1994 Psychiatric orientation/consciousness Overall: oriented to person, place and time 01/31/2012 None Full Exam - General 1994 Psychiatric mood and affect Overall: normal mood and affect 01/31/2012 None Full Exam - General 1994 Eyes pupils and irises Overall: pupils equal, round, reactive to light and accomodation 01/31/2012 None Full Exam - General 1995 Ears/Nose/Throat otoscopic exam Overall: tympanic membranes clear 01/31/2012 None Full Exam - General 1995 Ears/Nose/Throat otoscopic exam Overall: external auditory canals clear 01/31/2012 None Full Exam - General 1994 Ears/Nose/Throat oral cavity/pharynx/larynx Overall: oropharyngeal mucosa clear 01/31/2012 None Full Exam - General 1994 Constitutional general appearance Overall: well nourished 11/29/2011 None Full Exam - General 1994 Constitutional general appearance Overall: well developed 11/29/2011 None Full Exam - General 1994 Constitutional general appearance Overall: in no acute distress 11/29/2011 None Full Exam - General 1994 Respiratory auscultation Overall: breath sounds clear bilaterally 11/29/2011 None Full Exam - General 1994 Respiratory respiratory effort/rhythm Overall: no retractions 11/29/2011 None Full Exam - General 1994 Respiratory respiratory effort/rhythm Overall: normal rate 11/29/2011 None Full Exam - General 1994 Cardiovascular auscultation of heart Overall: regular rate 11/29/2011 None Full Exam - General 1994 Cardiovascular auscultation of heart Overall: normal heart sounds 11/29/2011 None Full Exam - General 1994 Abdomen abdominal exam Overall: no tenderness 11/29/2011 None Full Exam - General 1994 Abdomen abdominal exam Overall: normal bowel sounds 11/29/2011 None Full Exam - General 1994 Integument inspection of skin Dermatitis: erythema 11/29/2011 None Full Exam - General 1994 Integument inspection of skin Location: inguinal area 11/29/2011 None Full Exam - General 1994 Integument inspection of skin Rash/Lesions: patch 11/29/2011 None Full Exam - General 1994 Integument inspection of skin Pigmentation: erythematous 11/29/2011 None Full Exam - General 1994 Psychiatric orientation/consciousness Overall: oriented to person, place and time 11/29/2011 None Full Exam - General 1994 Psychiatric mood and affect Overall: normal mood and affect 11/29/2011 None Full Exam - General 1994 Integument inspection of skin Pigmentation: erythematous 09/20/2011 None Full Exam - General 1994 Abdomen abdominal exam Overall: no tenderness 09/20/2011 None Full Exam - General 1994 Abdomen abdominal exam Overall: normal bowel sounds 09/20/2011 None Full Exam - General 1994 Cardiovascular auscultation of heart Overall: regular rate 09/20/2011 None Full Exam - General 1994 Cardiovascular auscultation of heart Overall: normal heart sounds 09/20/2011 None Full Exam - General 1994 Respiratory respiratory effort/rhythm Overall: normal rate 09/20/2011 None Full Exam - General 1994 Respiratory respiratory effort/rhythm Overall: no retractions 09/20/2011 None Full Exam - General 1994 Respiratory auscultation Overall: breath sounds clear bilaterally 09/20/2011 None Full Exam - General 1994 Constitutional general appearance Overall: well nourished 09/20/2011 None Full Exam - General 1994 Constitutional general appearance Overall: well developed 09/20/2011 None Full Exam - General 1994 Constitutional general appearance Overall: in no acute distress 09/20/2011 None Full Exam - General 1994 Psychiatric orientation/consciousness Overall: oriented to person, place and time 09/20/2011 None Full Exam - General 1994 Psychiatric mood and affect Overall: normal mood and affect 09/20/2011 None Full Exam - General 1994 Integument inspection of skin Dermatitis: erythema 09/20/2011 None Full Exam - General 1994 Integument inspection of skin Location: inguinal area 09/20/2011 None Full Exam - General 1994 Integument inspection of skin Rash/Lesions: patch 09/20/2011 None Full Exam - General 1994 Integument inspection of skin Dermatitis: erythema 08/23/2011 None Full Exam - General 1994 Integument inspection of skin Location: inguinal area 08/23/2011 and scrotum Full Exam - General 1994 Musculoskeletal head and neck Overall: cervical spine benign 08/23/2011 None Full Exam - General 1994 Musculoskeletal head and neck Overall: head atraumatic 08/23/2011 None Full Exam - General 1994 Abdomen abdominal exam Overall: no tenderness 08/23/2011 None Full Exam - General 1994 Abdomen abdominal exam Overall: normal bowel sounds 08/23/2011 None Full Exam - General 1994 Cardiovascular auscultation of heart Overall: regular rate 08/23/2011 None Full Exam - General 1994 Cardiovascular auscultation of heart Overall: normal heart sounds 08/23/2011 None Full Exam - General 1994 Cardiovascular auscultation of heart Overall: no murmurs 08/23/2011 None Full Exam - General 1994 Respiratory auscultation Overall: breath sounds clear bilaterally 08/23/2011 None Full Exam - General 1994 Respiratory respiratory effort/rhythm Overall: normal rate 08/23/2011 None Full Exam - General 1994 Respiratory respiratory effort/rhythm Overall: no retractions 08/23/2011 None Full Exam - General 1994 Constitutional general appearance Overall: well nourished 08/23/2011 None Full Exam - General 1994 Constitutional general appearance Overall: well developed 08/23/2011 None Full Exam - General 1994 Constitutional general appearance Overall: in no acute distress 08/23/2011 None Full Exam - General 1994 Psychiatric mood and affect Overall: normal mood and affect 08/23/2011 None Full Exam - General 1994 Psychiatric orientation/consciousness Overall: oriented to person, place and time 08/23/2011 None Full Exam - General 1994 Ears/Nose/Throat otoscopic exam External auditory canal: complete cerumen impaction 08/23/2011 None Procedures Procedure Codes Date ADMIN INFLUENZA VIRUS VAC CPT-4: G0008 09/03/2017 ADMIN [address]NEUMOCOCCAL VACCINE SNOMED CT: 12817550 CPT-4: G0009 09/03/2017 FLU VAC NO PRSV 4 MILAD 3 YRS+ CPT-4: 06072 09/03/2017 Pneumococcal Polysaccharide Vaccine, 23-Valent, Ad CPT-4: 45050 09/03/2017 PPPS, SUBSEQ VISIT CPT -4: G0439 02/27/2017 ADMIN INFLUENZA VIRUS VAC Formatting Model/CDA Sections, Assigned to/Lucia Escobar CPT-4: [id number] 08/10/2016 ADMIN PNEUMOCOCCAL VACCINE SNOMED CT: 29927162 CPT-4: G0009 08/10/2016 PNEUMOCOCCAL VACC [address]: 62717018 CPT-4: 70536 08/10/2016 FLU VACC PRSV FREE INC ANTIG CPT-4: 19244 08/10/2016 ADMIN INFLUENZA VIRUS VAC Formatting Model/CDA Sections, Assigned to CPT-4: [id number] 08/26/2015 FLU VACC 4 MILAD 3 YRS PLUS IM Formatting Model/CDA Sections, Assigned to SNOMED CT: 08896308 CPT-4: 10630Nbsmbfq 08/26/2015 ADMIN INFLUENZA VIRUS VAC CPT-4: G0008 08/17/2014 FLU VAC NO PRSV 4 MILAD 3 YRS+ Assigned to/Lucia Escobar CPT-4: 28045Uxxousz 08/17/2014 ROUTINE VENIPUNCTURE CPT-4: 60706 02/12/2014 ROUTINE VENIPUNCTURE CPT-4: 92220 11/12/2013 ADMIN INFLUENZA VIRUS VAC CPT-4: G0008 08/18/2013 FLULAVAL VACC, 3 YRS & >, IM CPT-4: Q2036 08/18/2013 PRESCRIP TRANSMIT VIA ERX SY CPT-4: G8553 08/18/2013 ROUTINE VENIPUNCTURE CPT-4: 74829 08/10/2013 ROUTINE VENIPUNCTURE CPT-4: 58920 05/11/2013 ROCEPHIN, PER 250 MG CPT-4: J0696 02/13/2013 TRIAMCINOLONE ACET INJ NOS CPT-4: J3301 02/13/2013 PRESCRIP TRANSMIT VIA ERX SY CPT-4: G8553 02/13/2013 PRESCRIP TRANSMIT VIA ERX SY CPT-4: G8553 01/01/2013 ROUTINE VENIPUNCTURE CPT-4: 35468 12/30/2012 ROUTINE VENIPUNCTURE CPT-4: 14543 09/30/2012 ADMIN INFLUENZA VIRUS VAC CPT-4: G0008 08/27/2012 FLULAVAL VACC, 3 YRS & >, IM CPT-4: Q2036 08/27/2012 ROUTINE VENIPUNCTURE CPT-4: 88883 06/03/2012 DRAIN/INJECT JOINT/BURSA CPT-4: 77615 03/24/2012 TRIAMCINOLONE ACET INJ NOS CPT-4: J3301 03/24/2012 ROUTINE VENIPUNCTURE CPT-4: 50524 01/29/2012 ROUTINE VENIPUNCTURE CPT-4: 34451 11/27/2011 ADMIN PNEUMOCOCCAL VACCINE SNOMED CT: 07187785 CPT-4: G0009 09/20/2011 Pneumococcal Polysaccharide Vaccine, 23-Valent, Ad CPT-4: 91449 09/20/2011 REMOVE IMPACTED EAR WAX UNI CPT-4: 12048 08/23/2011 PRESCRIP TRANSMIT VIA ERX SY CPT-4: G8553 08/23/2011 ADMIN INFLUENZA VIRUS VAC CPT-4: G0008 08/21/2011 FLULAVAL VACC, 3 YRS & >, IM CPT-4: Q2036 08/21/2011 ROUTINE VENIPUNCTURE CPT-4: 47618 08/21/2011 URINALYSIS NONAUTO W/O SCOPE CPT-4: 68401 08/21/2011 Vital Signs Date Vital 10/09/2017 Blood Pressure 1: 128/68 Code : 8480-6 BMI: 27.3 Code : 54888-3 Heart Rate 1 : 56 bpm Height: 5'11" SpO2: 98% Weight: 196 lbs 09/03/2017 Blood Pressure 1: 124/64 Code : 8480-6 BMI: 27.1 Code : 71984-4 Heart Rate 1 : 58 bpm Height: 5'11" SpO2: 94% Weight: 194 lbs 06/20/2017 Blood Pressure 1: 128/70 Code : 8480-6 BMI: 27.1 Code : 19346-1 Heart Rate 1 : 62 bpm Height: 5'11" SpO2: 98% Weight: 194 lbs 06/10/2017 Blood Pressure 1: 126/62 Code : 8480-6 BMI: 26.8 Code : 98492-2 Heart Rate 1 : 61 bpm Height: 5'11" SpO2: 96% Weight: 192 lbs 8 oz 02/27/2017 Blood Pressure 1: 130/64 Code : 8480-6 BMI: 28.0 Code : 28826-4 Heart Rate 1 : 60 bpm Height: 5'11" SpO2: 97% Waist Measure (cm): 97 cm Weight: 201 lbs 02/21/2017 Blood Pressure 1: 130/62 Code : 8480-6 BMI: 28.0 Code : 94851-2 Heart Rate 1 : 60 bpm Height: 5'11" SpO2: 97% Weight: 201 lbs 01/01/2017 Blood Pressure 1: 144/70 Code : 8480-6 BMI: 28.6 Code : 29859-2 Heart Rate 1 : 81 bpm Height: 5'11" SpO2: 98% Weight: 205 lbs 12/13/2016 Blood Pressure 1: 160/74 Code : 8480-6 Heart Rate 1: 70 bpm Height: 5'11" SpO2: 98% Weight: 10/25/2016 Blood Pressure 1: 136/78 Code : 8480-6 BMI: 28.6 Code : 09131-9 Heart Rate 1 : 65 bpm Height: 5'11" SpO2: 97% Weight: 205 lbs 08/10/2016 Blood Pressure 1: 138/70 Code : 8480-6 BMI: 28.5 Code : 45982-5 Heart Rate 1 : 64 bpm Height: 5'11" SpO2: 95% Weight: 204 lbs 07/24/2016 Blood Pressure 1: 118/80 Code : 8480-6 BMI: 28.5 Code : 43744-8 Heart Rate 1 : 64 bpm Height: 5'11" SpO2: 98% Weight: 204 lbs 06/28/2016 Blood Pressure 1: 132/72 Code : 8480-6 BMI: 29.0 Code : 54319-6 Heart Rate 1 : 66 bpm Height: 5'11" SpO2: 98% Weight: 208 lbs 04/26/2016 Blood Pressure 1: 140/80 Code : 8480-6 BMI: 29.7 Code : 90794-2 Heart Rate 1 : 63 bpm Height: 5'11" SpO2: 98% Weight: 213 lbs 04/10/2016 Blood Pressure 1: 130/70 Code : 8480-6 BMI: 29.7 Code : 52844-7 Heart Rate 1 : 67 bpm Height: 5'11" SpO2: 98% Weight: 213 lbs 03/27/2016 Blood Pressure 1: 118/68 Code : 8480-6 BMI: 29.4 Code : 89425-3 Heart Rate 1 : 66 bpm Height: 5'11" SpO2: 98% Weight: 211 lbs 12/12/2015 Blood Pressure 1: 148/72 Code : 8480-6 BMI: 30.4 Code : 28452-2 Heart Rate 1 : 62 bpm Height: 5'11" Weight: 218 lbs 06/13/2015 Blood Pressure 1: 138/70 Code : 8480-6 BMI: 30.7 Code : 95946-7 Heart Rate 1 : 59 bpm Height: 5'11" SpO2: 97% Weight: 220 lbs 12/13/2014 Blood Pressure 1: 128/72 Code : 8480-6 BMI: 31.5 Code : 84297-7 Heart Rate 1 : 60 bpm Height: 5'11" Weight: 226 lbs 08/17/2014 Blood Pressure 1: 148/88 Code : 8480-6 BMI: 31.4 Code : 85864-3 Heart Rate 1 : 64 bpm Height: 5'11" Weight: 225 lbs 05/18/2014 Blood Pressure 1: 132/70 Code : 8480-6 BMI: 30.5 Code : 81215-3 Heart Rate 1 : 58 bpm Height: 5'11" SpO2: 97% Weight: 219 lbs 02/15/2014 Blood Pressure 1: 130/78 Code : 8480-6 BMI: 31.2 Code : 38216-1 Heart Rate 1 : 68 bpm Height: 5'11" Weight: 224 lbs 11/16/2013 Blood Pressure 1: 158/84 Code : 8480-6 BMI: 31.4 Code : 15465-4 Heart Rate 1 : 60 bpm Height: 5'11" Weight: 225 lbs 08/18/2013 Blood Pressure 1: 140/80 Code : 8480-6 BMI: 31.8 Code : 88479-7 Heart Rate 1 : 64 bpm Height: 5'11" Weight: 228 lbs 05/13/2013 Blood Pressure 1: 126/72 Code : 8480-6 BMI: 31.9 Code : 92118-7 Heart Rate 1 : 60 bpm Height: 5'11" Weight: 229 lbs 02/13/2013 Blood Pressure 1: 140/82 Code : 8480-6 BMI: 32.5 Code : 52926-7 Heart Rate 1 : 68 bpm Height: 5'11" SpO2: 98% Temperature: 36.7 (C) / 98.0 (F) Weight: 233 lbs 01/01/2013 Blood Pressure 1: 128/72 Code : 8480-6 BMI: 32.4 Code : 66437-9 Heart Rate 1 : 68 bpm Height: 5'11" Respiratory Rate: 16 bpm Weight: 232 lbs 10/02/2012 Blood Pressure 1: 138/70 Code : 8480-6 BMI: 31.5 Code : 60543-0 Heart Rate 1 : 60 bpm Height: 5'11" Respiratory Rate: 12 bpm Weight: 226 lbs 06/05/2012 Blood Pressure 1: 120/62 Code : 8480-6 Heart Rate 1: 64 bpm Respiratory Rate : 12 bpm Weight: 227 lbs 03/24/2012 Blood Pressure 1: 134/74 Code : 8480-6 Heart Rate 1: 62 bpm Respiratory Rate : 16 bpm Weight: 230 lbs 01/31/2012 Blood Pressure 1: 130/68 Code : 8480-6 BMI: 32.1 Code : 32092-2 Heart Rate 1 : 64 bpm Height: 5'11" Respiratory Rate: 16 bpm Weight: 230 lbs 11/29/2011 Blood Pressure 1: 144/80 Code : 8480-6 BMI: 31.9 Code : 75032-9 Heart Rate 1 : 56 bpm Height: 5'11" Respiratory Rate: 16 bpm Weight: 229 lbs 09/20/2011 Blood Pressure 1: 172/90 Code : 8480-6 BMI: 31.0 Code : 74460-4 Heart Rate 1 : 64 bpm Height: 5'11" Respiratory Rate: 12 bpm Weight: 222 lbs 08/23/2011 Blood Pressure 1: 150/78 Code : 8480-6 BMI: 31.6 Code : 21688-0 Heart Rate 1 : 64 bpm Height: 5'10" Respiratory Rate: 16 bpm Weight: 223 lbs 8 oz Functional Status No Functional Status data History of Present Illness Symptom Name Status Result Effective Date Notes hypertension Quality stable 10/09/2017 None hypertension Onset and Resolution ongoing 10/09/2017 None hypertension Onset of Symptom during adulthood 10/09/2017 None hypertension Blood Pressure Values patient checking blood pressure at home - did not bring in readings 10/09/2017 None hypertension Alleviating Factors medication 10/09/2017 None hypertension Pertinent Findings Denies dizziness 10/09/2017 --States that his equilibrium is off hypertension Pertinent Findings dyspnea 10/09/2017 with exertion after he eats hypertension Pertinent Findings edema 10/09/2017 in his legs- worse on the right hypertension Quality primary hypertension 10/09/2017 None hyperlipidemia Onset and Resolution gradual in onset 10/09/2017 None hyperlipidemia Onset of Symptom during adulthood 10/09/2017 None hyperlipidemia Quality stable 10/09/2017 None hyperlipidemia Alleviating Factors medication 10/09/2017 None hyperlipidemia Exacerbating Factors diet 10/09/2017 None hyperlipidemia Significant Medications statin 10/09/2017 None arthritis Significant Medical Conditions advancing age 1110/09/2017 None arthritis Location knees 10/09/2017 None arthritis Location on the left 10/09/2017 None arthritis Location on the right 10/09/2017 None arthritis Onset and Resolution gradual in onset 10/09/2017 None arthritis Onset and Resolution ongoing 10/09/2017 None arthritis Frequency of Episodes daily 10/09/2017 None skin lesion Quality scabbed 09/03/2017 None skin lesion Onset and Resolution ongoing 09/03/2017 None skin lesion Onset of Symptom 1 years ago 09/03/2017 None skin lesion Frequency of Episodes daily 09/03/2017 None skin lesion Pertinent Findings Denies fever 09/03/2017 None vaccination against influenza Location deltoid-Lt 09/03/2017 None constipation Quality intermittent 06/20/2017 None constipation Onset and Resolution ongoing 06/20/2017 None constipation Onset of Symptom 2-3 months ago 06/20/2017 None constipation Severity moderate 06/20/2017 None constipation Frequency of Episodes weekly 06/20/2017 None constipation Length of Episodes 4-5 days 06/20/2017 None constipation Pertinent Findings adequate oral intake 06/20/2017 None constipation Pertinent Findings decreased energy level 06/20/2017 None constipation Pertinent Findings Denies poor weight gain 06/20/2017 None hemorrhoids Quality intermittent 06/20/2017 None hemorrhoids Onset and Resolution ongoing 06/20/2017 None hemorrhoids Onset of Symptom 35 years ago 06/20/2017 None hemorrhoids Limitation on Activities does not limit activities 06/20/2017 None hemorrhoids Pertinent Findings Denies nausea 06/20/2017 None hemorrhoids Pertinent Findings Denies pelvic pain 06/20/2017 None skin lesion Quality scabbed 06/20/2017 None skin lesion Onset and Resolution ongoing 06/20/2017 None skin lesion Onset of Symptom 1 years ago 06/20/2017 None skin lesion Frequency of Episodes daily 06/20/2017 None skin lesion Pertinent Findings Denies fever 06/20/2017 None Hospital Follow Up _ Other: spider 06/10/2017 None Hospital Follow Up Quality acute illness 06/10/2017 None Hospital Follow Up Pertinent Findings Other: _ 06/10/2017 None Hospital Follow Up Location right leg 06/10/2017 None Hospital Follow Up Onset and Resolution ongoing 06/10/2017 None Hospital Follow Up Severity moderate 06/10/2017 None Hospital Follow Up Significant Medical Conditions acute illness 06/10/2017 spider bite Hospital Follow Up Alleviating Factors medication 06/10/2017 abx Annual Medicare Wellness Exam Alcohol Use drinks 1 drinks per day 02/27/2017 None Annual Medicare Wellness Exam Aspirin Use yes 02/27/2017 None Annual Medicare Wellness Exam Blood Glucose (self reported) don't know 02/27/2017 None Annual Medicare Wellness Exam Blood Pressure (self reported ) low / normal (120/80) 02/27/2017 None Annual Medicare Wellness Exam Cholesterol (self reported) don't know 02/27/2017 None Annual Medicare Wellness Exam Depression (last 6 months) almost never 02/27/2017 None Annual Medicare Wellness Exam Depression or Hopelessness almost never 02/27/2017 None Annual Medicare Wellness Exam Describe Your Health good 02/27/2017 None Annual Medicare Wellness Exam Exercise Habits exercises 3 days per week 02/27/2017 None Annual Medicare Wellness Exam Exercise Habits exercises 60 minutes per day 02/27/2017 None Annual Medicare Wellness Exam Handling Stress usually [place] effectively 02/27/2017 None Annual Medicare Wellness Exam Hemaglobin A-1C (self reported ) don't know 02/27/2017 None Annual Medicare Wellness Exam Hours of Sleep 7 02/27/2017 None Annual Medicare Wellness Exam Interaction with Friends yes 02/27/2017 None Annual Medicare Wellness Exam Interests & Pleasure some of the time 02/27/2017 None Annual Medicare Wellness Exam Life Satisfaction very satisfied 02/27/2017 None Annual Medicare Wellness Exam Motor Vehicle Safety always fastens seat belt: y 02/27/2017 None Annual Medicare Wellness Exam Motor Vehicle Safety drives after drinking: n 02/27/2017 None Annual Medicare Wellness Exam Motor Vehicle Safety rides with someone who has been drinking: n 2016 None Annual Medicare Wellness Exam Nutrition servings of fried food / high fat foods per day: 0 2016 None Annual Medicare Wellness Exam Nutrition servings of high fiber / whole grain per day: 2 02/27/2017 None Annual Medicare Wellness Exam Nutrition servings of vegetables / fruit per day: 2 02/27/2017 None Annual Medicare Wellness Exam Smoking and Tobacco Use chews tobacco 02/27/2017 None Annual Medicare Wellness Exam Social & Emotional Support usually 02/27/2017 None Annual Medicare Wellness Exam Stress some of the time 02/27/2017 None Annual Medicare Wellness Exam Sun Exposure protects skin when outdoors: n 02/27/2017 None hypertension Quality stable 02/21/2017 None hypertension Onset and Resolution ongoing 02/21/2017 None hypertension Onset of Symptom during adulthood 02/21/2017 None hypertension Blood Pressure Values patient checking blood pressure at home - did not bring in readings 02/21/2017 (occasional)--117/65 this morning at home hypertension Alleviating Factors medication 02/21/2017 None hypertension Pertinent Findings dizziness 02/21/2017 "not bad"- occasional hypertension Pertinent Findings Denies dyspnea 02/21/2017 None hypertension Pertinent Findings edema 02/21/2017 None gastroesophageal reflux Quality heartburn 02/21/2017 None gastroesophageal reflux Quality intermittent 02/21/2017 None gastroesophageal reflux Onset and Resolution ongoing 02/21/2017 None gastroesophageal reflux Alleviating Factors proton pump inhibitor 02/21/2017 None gastroesophageal reflux Exacerbating Factors eating 02/21/2017 None joint complaint Location diffusely 02/21/2017 None joint complaint Location on both knees 02/21/2017 None joint complaint Quality aching 02/21/2017 None joint complaint Quality intermittent 02/21/2017 None joint complaint Onset and Resolution gradual in onset 02/21/2017 None joint complaint Onset and Resolution ongoing 02/21/2017 None fatigue Onset and Resolution ongoing 02/21/2017 None fatigue Alleviating Factors rest 02/21/2017 None fatigue Exacerbating Factors activity 02/21/2017 None foot pain Location on the left 01/01/2017 None foot pain Onset and Resolution sudden in onset 01/01/2017 None foot pain Pertinent Findings limping 01/01/2017 None foot pain Pertinent Findings pain with movement 01/01/2017 None foot pain Pertinent Findings stiffness 01/01/2017 None foot pain Pertinent Findings swelling 01/01/2017 None foot pain Quality dull pain 01/01/2017 None foot pain Onset of Symptom 2 weeks ago 01/01/2017 None foot pain Location on the left 12/13/2016 None foot pain Quality sharp pain 12/13/2016 None foot pain Onset and Resolution sudden in onset 12/13/2016 None foot pain Onset of Symptom 4 days ago 12/13/2016 None foot pain Pertinent Findings limping 12/13/2016 None foot pain Pertinent Findings pain with movement 12/13/2016 None foot pain Pertinent Findings stiffness 12/13/2016 None foot pain Pertinent Findings swelling 12/13/2016 None hypertension Quality stable 10/25/2016 None hypertension Onset and Resolution ongoing 10/25/2016 None hypertension Onset of Symptom during adulthood 10/25/2016 None hypertension Blood Pressure Values patient checking blood pressure at home - did not bring in readings 10/25/2016 (occasional)--137/74 this morning at home hypertension Alleviating Factors medication 10/25/2016 None hypertension Pertinent Findings dizziness 10/25/2016 "not often" hypertension Pertinent Findings Denies dyspnea 10/25/2016 None hypertension Pertinent Findings edema 10/25/2016 None gastroesophageal reflux Quality heartburn 10/25/2016 None gastroesophageal reflux Quality intermittent 10/25/2016 None gastroesophageal reflux Onset and Resolution ongoing 10/25/2016 None gastroesophageal reflux Frequency of Episodes decreasing 10/25/2016 None gastroesophageal reflux Timing of Episodes at night 10/25/2016 None gastroesophageal reflux Alleviating Factors proton pump inhibitor 10/25/2016 None gastroesophageal reflux Exacerbating Factors eating 10/25/2016 None gastroesophageal reflux Quality stable 10/25/2016 None joint complaint Location on both knees 10/25/2016 None joint complaint Location diffusely 10/25/2016 None joint complaint Quality aching 10/25/2016 None joint complaint Quality intermittent 10/25/2016 None joint complaint Onset and Resolution gradual in onset 10/25/2016 None joint complaint Onset and Resolution ongoing 10/25/2016 None gastroesophageal reflux Quality intermittent 08/10/2016 None gastroesophageal reflux Onset and Resolution ongoing 08/10/2016 None gastroesophageal reflux Frequency of Episodes daily 08/10/2016 None gastroesophageal reflux Pertinent Findings Denies cough 08/10/2016 None gastroesophageal reflux Pertinent Findings Denies heartburn 08/10/2016 None gastroesophageal reflux Pertinent Findings Denies bloating 08/10/2016 None gastroesophageal reflux Quality intermittent 07/24/2016 None gastroesophageal reflux Onset and Resolution ongoing 07/24/2016 None gastroesophageal reflux Onset of Symptom _ months ago 07/24/2016 None gastroesophageal reflux Frequency of Episodes weekly 07/24/2016 None gastroesophageal reflux Pertinent Findings Denies cough 07/24/2016 None gastroesophageal reflux Pertinent Findings Denies emesis 07/24/2016 None gastroesophageal reflux Pertinent Findings heartburn 07/24/2016 None hypertension Quality stable 06/28/2016 None hypertension Onset and Resolution ongoing 06/28/2016 None hypertension Onset of Symptom during adulthood 06/28/2016 None hypertension Blood Pressure Values patient checking blood pressure at home - did not bring in readings 06/28/2016 (occasional) hypertension Triggers no known associated factors 06/28/2016 None hypertension Alleviating Factors medication 06/28/2016 None hypertension Pertinent Findings dizziness 06/28/2016 "not much" hypertension Pertinent Findings Denies dyspnea 06/28/2016 None hypertension Pertinent Findings edema 06/28/2016 -mildly in his lower legs gas and bloating Quality improving 06/28/2016 None gas and bloating Onset and Resolution ongoing 06/28/2016 None gas and bloating Onset of Symptom months ago 06/28/2016 None gas and bloating Frequency of Episodes decreasing 06/28/2016 None gas and bloating Triggers meals 06/28/2016 None gas and bloating Exacerbating Factors meals 06/28/2016 None gas and bloating Pertinent Findings flatulence 06/28/2016 None gas and bloating Quality intermittent 06/28/2016 None gastroesophageal reflux Quality heartburn 06/28/2016 None gastroesophageal reflux Quality intermittent 06/28/2016 None gastroesophageal reflux Onset and Resolution ongoing 06/28/2016 None gastroesophageal reflux Frequency of Episodes decreasing 06/28/2016 None gastroesophageal reflux Timing of Episodes at night 06/28/2016 None gastroesophageal reflux Alleviating Factors proton pump inhibitor 06/28/2016 None gastroesophageal reflux Exacerbating Factors eating 06/28/2016 None hypertension Quality stable 04/26/2016 None hypertension Onset and Resolution ongoing 04/26/2016 None hypertension Onset of Symptom during adulthood 04/26/2016 None hypertension Blood Pressure Values patient checking blood pressure at home - did not bring in readings 04/26/2016 None hypertension Frequency of Episodes weekly 04/26/2016 3 times hypertension Triggers no known associated factors 04/26/2016 None hypertension Alleviating Factors medication 04/26/2016 None gas and bloating Onset and Resolution ongoing 04/26/2016 None gas and bloating Onset of Symptom months ago 04/26/2016 None gas and bloating Triggers meals 04/26/2016 None gas and bloating Exacerbating Factors meals 04/26/2016 None gas and bloating Pertinent Findings flatulence 04/26/2016 None nasal discharge Onset and Resolution ongoing 04/26/2016 None nasal discharge Onset of Symptom 3 months ago 04/26/2016 None hypertension Pertinent Findings dizziness 04/26/2016 -some in the mornings hypertension Pertinent Findings dyspnea 04/26/2016 -occasionally after he eats, along with chest tightness hypertension Pertinent Findings edema 04/26/2016 -mildly in his lower legs gas and bloating Quality improving 04/26/2016 None gas and bloating Frequency of Episodes decreasing 04/26/2016 None nasal discharge Quality improving 04/26/2016 None nasal discharge Quality intermittent 04/26/2016 None abnormal test results Abnormal Indicator abnormal 04/10/2016 None abnormal test results Test Performed 3 days ago 04/10/2016 None abnormal test results Type of Test(s) MRI 04/10/2016 of the brain hypertension Onset and Resolution ongoing 03/27/2016 None hypertension Onset of Symptom during adulthood 03/27/2016 None hypertension Blood Pressure Values patient checking blood pressure at home - did not bring in readings 03/27/2016 None hypertension Frequency of Episodes weekly 03/27/2016 3 times hypertension Triggers no known associated factors 03/27/2016 None gas and bloating Onset and Resolution ongoing 03/27/2016 None gas and bloating Onset of Symptom months ago 03/27/2016 None gas and bloating Exacerbating Factors meals 03/27/2016 None gas and bloating Triggers meals 03/27/2016 None gas and bloating Pertinent Findings flatulence 03/27/2016 None nasal discharge Onset and Resolution ongoing 03/27/2016 None nasal discharge Onset of Symptom 3 months ago 03/27/2016 None hypertension Quality stable 03/27/2016 None hypertension Alleviating Factors medication 03/27/2016 None hypertension Onset and Resolution ongoing 12/12/2015 None hypertension Onset of Symptom during adulthood 12/12/2015 None hypertension Blood Pressure Values patient checking blood pressure at home - did not bring in readings 12/12/2015 None hypertension Frequency of Episodes weekly 12/12/2015 3 times hypertension Triggers no known associated factors 12/12/2015 None hypertension Pertinent Findings Denies anxiety 12/12/2015 None hypertension Pertinent Findings decreased energy 12/12/2015 None hyperlipidemia Onset and Resolution ongoing 12/12/2015 None hypertension Blood Pressure Values patient checking blood pressure at home - did not bring in readings 06/13/2015 None hypertension Frequency of Episodes weekly 06/13/2015 3 times hypertension Onset and Resolution ongoing 06/13/2015 None hyperlipidemia Onset and Resolution ongoing 06/13/2015 None hypertension Onset of Symptom during adulthood 06/13/2015 None hypertension Triggers no known associated factors 06/13/2015 None hypertension Pertinent Findings Denies anxiety 06/13/2015 None hypertension Pertinent Findings decreased energy 06/13/2015 None hypertension Quality chronic 12/13/2014 None hypertension Onset and Resolution ongoing 12/13/2014 None hypertension Onset of Symptom during adulthood 12/13/2014 None hypertension Alleviating Factors medication 12/13/2014 None hypertension Exacerbating Factors change in dietary habits 12/13/2014 None hypertension Pertinent Findings dizziness 12/13/2014 occ spells hypertension Pertinent Findings Denies dyspnea 12/13/2014 None hypertension Pertinent Findings edema 12/13/2014 slight bilateral lower extremities hypertension Blood Pressure Values pt checking blood pressure - see scanned document 12/13/2014 None sinus congestion Onset of Symptom 1 months ago 12/13/2014 None sinus congestion Pertinent Findings Denies fever 12/13/2014 None sinus congestion Pertinent Findings Denies cough 12/13/2014 reports sneezing hypertension Quality chronic 08/17/2014 None hypertension Onset and Resolution ongoing 08/17/2014 None hypertension Onset of Symptom during adulthood 08/17/2014 None hypertension Alleviating Factors medication 08/17/2014 None hypertension Exacerbating Factors change in dietary habits 08/17/2014 None hypertension Pertinent Findings Denies dizziness 08/17/2014 occ spells- he reports unsteady on his feet but denies dizziness. hypertension Pertinent Findings Denies dyspnea 08/17/2014 None hypertension Pertinent Findings Denies edema 08/17/2014 None hypertension Blood Pressure Values pt checking blood pressure - see scanned document 08/17/2014 None spasms/spasticity Location on both feet 08/17/2014 None spasms/spasticity Location on both legs 08/17/2014 None spasms/spasticity Quality intermittent 08/17/2014 None spasms/spasticity Onset of Symptom 1-2 months ago 08/17/2014 None spasms/spasticity Triggers exertion 08/17/2014 None hypertension Blood Pressure Values patient checking blood pressure at home - did not bring in readings 05/18/2014 None hypertension Pertinent Findings dizziness 05/18/2014 occ spells hypertension Pertinent Findings Denies dyspnea 05/18/2014 None hypertension Pertinent Findings Denies edema 05/18/2014 None hypertension Quality chronic 05/18/2014 None hypertension Onset and Resolution ongoing 05/18/2014 None hypertension Onset of Symptom during adulthood 05/18/2014 None hypertension Alleviating Factors medication 05/18/2014 None hypertension Exacerbating Factors change in dietary habits 05/18/2014 None hypertension Quality chronic 02/15/2014 None hypertension Onset and Resolution ongoing 02/15/2014 None hypertension Blood Pressure Values patient checking blood pressure at home - did not bring in readings 02/15/2014 131/77 hand pain Location on the right 02/15/2014 None hand pain Location on the left 02/15/2014 None hand pain Quality worsening 02/15/2014 None hand pain Pertinent Findings Denies swelling 02/15/2014 None hand pain Pertinent Findings stiffness 02/15/2014 None hand pain Pertinent Findings pain with movement 02/15/2014 None insomnia Quality chronic 02/15/2014 states since starting valium 1 mg at hs his symptoms have improved insomnia Onset and Resolution ongoing 02/15/2014 None insomnia Severity moderate 02/15/2014 he states that he has trouble "getting to sleep", but the valium did improve his symptoms. hand pain Quality numbness 02/15/2014 from his hands up to his elbows hand pain Onset of Symptom 1-2 months ago 02/15/2014 None hand pain Severity moderate 02/15/2014 None hand pain Pertinent Findings tingling 02/15/2014 he states that he will notice that his hands waking him up at night - his hands will be numb - this will occur also when he drives and his hands are on the stearing wheel. hypertension Onset of Symptom during adulthood 02/15/2014 None hypertension Pertinent Findings Denies decreased energy 02/15/2014 None hypertension Pertinent Findings Denies anxiety 02/15/2014 None constipation Quality acute 11/16/2013 None constipation Onset and Resolution sudden in onset 11/16/2013 None constipation Onset of Symptom 2 weeks ago 11/16/2013 None constipation Exacerbating Factors diet changes 11/16/2013 not eating salads like he use to insomnia Quality chronic 11/16/2013 None insomnia Quality difficulty falling asleep 11/16/2013 None insomnia Quality disrupted sleep 11/16/2013 None insomnia Onset and Resolution ongoing 11/16/2013 None hypertension Quality chronic 11/16/2013 None hypertension Onset and Resolution ongoing 11/16/2013 None hypertension Pertinent Findings Denies anxiety 11/16/2013 None hypertension Pertinent Findings Denies abdominal mass 11/16/2013 None hypertension Pertinent Findings Denies decreased energy 11/16/2013 None hypertension Pertinent Findings Denies dizziness 11/16/2013 None insomnia Pertinent Findings Denies depressed mood 11/16/2013 None insomnia Pertinent Findings Denies dizziness 11/16/2013 None insomnia Pertinent Findings Denies nausea 11/16/2013 None insomnia Triggers no known associated factors 11/16/2013 None hypertension Blood Pressure Values pt checking blood pressure - see scanned document 11/16/2013 blood pressures in the 117-130/65-72 range at night hypertension Quality chronic 08/18/2013 None hypertension Onset and Resolution ongoing 08/18/2013 None hypertension Blood Pressure Values patient checking blood pressure at home - did not bring in readings 08/18/2013 None hypertension Severity mild 08/18/2013 None hypertension Triggers stress 08/18/2013 None hypertension Alleviating Factors medication 08/18/2013 None hypertension Exacerbating Factors stress 08/18/2013 None hypertension Quality chronic 05/13/2013 None hypertension Onset and Resolution ongoing 05/13/2013 None hypertension Blood Pressure Values patient checking blood pressure at home - did not bring in readings 05/13/2013 None hypertension Severity mild 05/13/2013 None hypertension Triggers stress 05/13/2013 None hypertension Alleviating Factors medication 05/13/2013 None hypertension Exacerbating Factors stress 05/13/2013 None cough Onset and Resolution sudden in onset 02/13/2013 None cough Onset of Symptom 1 weeks ago 02/13/2013 None cough Onset and Resolution ongoing 02/13/2013 None cough Pertinent Findings Denies purulent sputum 02/13/2013 None cough Pertinent Findings Denies sputum production 02/13/2013 cant cough it up cough Location in the lung 02/13/2013 None cough Quality dry None cough Quality intermittent 02/13/2013 None cough Pertinent Findings Denies nasal congestion 02/13/2013 None cough Pertinent Findings chest discomfort 02/13/2013 None cough Limitation on Activities does not limit activities 02/13/2013 None cough Frequency of Episodes increasing 02/13/2013 None cough Triggers no known associated factors 02/13/2013 None cough Pertinent Findings Denies dyspnea 02/13/2013 None cough Pertinent Findings Denies tachypnea 02/13/2013 None hypertension Quality chronic 01/01/2013 None hypertension Onset and Resolution ongoing 01/01/2013 None hypertension Blood Pressure Values patient checking blood pressure at home - did not bring in readings 01/01/2013 None hypertension Severity mild 01/01/2013 None hypertension Triggers stress 01/01/2013 None hypertension Alleviating Factors medication 01/01/2013 None hypertension Exacerbating Factors stress 01/01/2013 None hypertension Quality chronic 10/02/2012 None hypertension Onset and Resolution ongoing 10/02/2012 None hypertension Blood Pressure Values patient checking blood pressure at home - did not bring in readings 10/02/2012 None hypertension Severity mild 10/02/2012 None hypertension Triggers stress 10/02/2012 None hypertension Alleviating Factors medication 10/02/2012 None hypertension Exacerbating Factors stress 10/02/2012 None hypertension Quality chronic 06/05/2012 None hypertension Onset and Resolution ongoing 06/05/2012 None hypertension Blood Pressure Values patient checking blood pressure at home - did not bring in readings 06/05/2012 None knee pain Quality stable 06/05/2012 wondering abt taking glucosamine knee pain Quality throbbing 06/05/2012 pt states it rebollar knee pain Onset and Resolution gradual in onset 06/05/2012 None knee pain Onset of Symptom _ weeks ago 06/05/2012 None knee pain Limitation on Activities moderately limits activities 06/05/2012 None knee pain Severity moderate 06/05/2012 None knee pain Significant Medical Conditions degenerative joint disease 06/05/2012 None knee pain Alleviating Factors NSAID's 06/05/2012 None knee pain Alleviating Factors rest 06/05/2012 None knee pain Exacerbating Factors weight bearing 06/05/2012 None knee pain Exacerbating Factors flexion of the knee 06/05/2012 None knee pain Exacerbating Factors extension of the knee 06/05/2012 None knee pain Pertinent Findings clicking 06/05/2012 None knee pain Pertinent Findings decreased range of motion 06/05/2012 None knee pain Pertinent Findings limping 06/05/2012 None knee pain Pertinent Findings pain with movement 06/05/2012 None knee pain Pertinent Findings warmth 06/05/2012 None hypertension Blood Pressure Values pt checking blood pressure - see scanned document 06/05/2012 None hypertension Severity mild 06/05/2012 None hypertension Triggers stress 06/05/2012 None hypertension Alleviating Factors medication 06/05/2012 None hypertension Exacerbating Factors stress 06/05/2012 None arthritis Frequency of Episodes daily 06/05/2012 in both hands arthritis Limitation on Activities does not limit activities 06/05/2012 has to work through the pain arthritis Quality chronic 06/05/2012 None arthritis Severity moderate 06/05/2012 None arthritis Significant Medical Conditions advancing age 0706/05/2012 None arthritis Significant Medical Conditions degenerative joint disease (osteoarthritis) 06/05/2012 None knee pain Onset of Symptom 1-2 weeks ago 03/24/2012 None knee pain Quality throbbing 03/24/2012 pt states it rebollar knee pain Pertinent Findings clicking 03/24/2012 None knee pain Pertinent Findings decreased range of motion 03/24/2012 None knee pain Pertinent Findings limping 03/24/2012 None knee pain Pertinent Findings pain with movement 03/24/2012 None knee pain Pertinent Findings warmth 03/24/2012 None knee pain Exacerbating Factors weight bearing 03/24/2012 None knee pain Exacerbating Factors flexion of the knee 03/24/2012 None knee pain Significant Medical Conditions degenerative joint disease 03/24/2012 None knee pain Mechanism of injury unknown 03/24/2012 None knee pain Exacerbating Factors extension of the knee 03/24/2012 None knee pain Alleviating Factors NSAID's 03/24/2012 None knee pain Alleviating Factors rest 03/24/2012 None hypertension Quality chronic 03/24/2012 None hypertension Onset and Resolution ongoing 03/24/2012 None hypertension Blood Pressure Values pt checking blood pressure - see scanned document 03/24/2012 None hypertension Severity mild 03/24/2012 None hypertension Triggers stress 03/24/2012 None hypertension Alleviating Factors medication 03/24/2012 None hypertension Exacerbating Factors stress 03/24/2012 None arthritis Frequency of Episodes daily 03/24/2012 in both hands arthritis Limitation on Activities does not limit activities 03/24/2012 has to work through the pain arthritis Quality chronic 03/24/2012 None arthritis Severity moderate 03/24/2012 None arthritis Significant Medical Conditions advancing age 0403/24/2012 None arthritis Significant Medical Conditions degenerative joint disease (osteoarthritis) 03/24/2012 None knee pain Onset and Resolution gradual in onset 03/24/2012 None knee pain Limitation on Activities moderately limits activities 03/24/2012 None knee pain Severity moderate 03/24/2012 None hypertension Blood Pressure Values pt checking blood pressure - see scanned document 01/31/2012 None hypertension Severity mild 01/31/2012 None hypertension Triggers stress 01/31/2012 None hypertension Alleviating Factors medication 01/31/2012 None hypertension Exacerbating Factors stress 01/31/2012 None hypertension Pertinent Findings Denies decreased energy 01/31/2012 None hyperlipidemia Onset and Resolution ongoing 01/31/2012 None hyperlipidemia Severity mild 01/31/2012 None hyperlipidemia Significant Medications statin 01/31/2012 None hyperlipidemia Alleviating Factors medication 01/31/2012 None hyperlipidemia Exacerbating Factors diet 01/31/2012 None hyperlipidemia Pertinent Findings Denies polyuria 01/31/2012 None hyperlipidemia Pertinent Findings Denies nausea 01/31/2012 None hypertension Quality chronic 01/31/2012 None hypertension Onset and Resolution ongoing 01/31/2012 None arthritis Frequency of Episodes daily 11/29/2011 in both hands hypertension Blood Pressure Values pt checking blood pressure - see scanned document 11/29/2011 None hypertension Severity mild 11/29/2011 None hypertension Triggers stress 11/29/2011 None hypertension Alleviating Factors medication 11/29/2011 None hypertension Exacerbating Factors stress 11/29/2011 None arthritis Quality chronic 11/29/2011 None arthritis Severity moderate 11/29/2011 None arthritis Significant Medical Conditions advancing age 0111/29/2011 None arthritis Significant Medical Conditions degenerative joint disease (osteoarthritis) 11/29/2011 None hypertension Quality chronic 11/29/2011 None hypertension Onset and Resolution ongoing 11/29/2011 None arthritis Limitation on Activities does not limit activities 11/29/2011 has to work through the pain hypertension Quality chronic 09/20/2011 None hypertension Onset and Resolution ongoing 09/20/2011 None rash Location-Major in the groin area 09/20/2011 None rash Quality chronic 09/20/2011 None rash Quality dry 09/20 None rash Color erythematous 09/20/2011 None rash Onset and Resolution gradual in onset 09/20/2011 None rash Onset and Resolution ongoing 09/20/2011 None rash Length of Episodes 2 months 09/20/2011 None rash Limitation on Activities does not limit activities 09/20/2011 None rash Severity mild None rash Prior Treatments previously treated 09/20/2011 None hypertension Onset of Symptom during adulthood 09/20/2011 None hypertension Severity mild 09/20/2011 None hypertension Frequency of Episodes increasing 09/20/2011 None hypertension Triggers stress 09/20/2011 None hypertension Alleviating Factors diet changes 09/20/2011 None hypertension Exacerbating Factors medication 09/20/2011 None dysuria Quality burning 08/23/2011 off and on. rash Location-Trunk in the perianal area 08/23/2011 on scrotum dysuria Onset and Resolution ongoing 08/23/2011 None dysuria Limitation on Activities does not limit urination 08/23/2011 None dysuria Triggers no known associated factors 08/23/2011 None rash Quality acute None rash Quality dry 08/23 None rash Quality pruritic 08/23/2011 None rash Color pink 2010 None rash Severity mild None rash Prior Treatments previously untreated 08/23/2011 None rash Triggers no known triggers 08/23/2011 None Advance Directives No Advance Directive data Encounters Encounter Performer Location Codes Date ([id number]) [id number] EST. PATIENT, LEVEL IV Diagnosis: Essential (primary) hypertension[ICD10: I10] Diagnosis: Mixed hyperlipidemia[ICD10: E78.2] Marti Obrien MD, [facility] CPT-4: 71204 10/09/2017 ([id number]) 85701 EST. PATIENT, LEVEL III Diagnosis: Essential (primary) hypertension[ICD10: I10] Diagnosis: Pain in right hand[ICD10: M79.641] Diagnosis: Encounter for immunization[ICD10: Z23] Cadence Obrien MD, [facility] CPT-4: 46927 09/03/2017 ([id number]) 26599 EST. 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 PATIENT, LEVEL III Diagnosis: Insect bite (nonvenomous), right lower leg, initial encounter[ICD10: S80.861A] Cadence Obrien MD, [facility] CPT-4: 17964 ([id number]) 21961 EST. PATIENT, LEVEL IV Diagnosis: Essential (primary) hypertension[ICD10: I10] Diagnosis: Gastro-esophageal reflux disease with esophagitis[ICD10: K21.0] Diagnosis: Chronic kidney disease, stage 3 (moderate)[ICD10: N18.3] Marti Obrien MD, [facility] CPT-4: 78076 02/21/2017 ([id number]) 66463 EST. 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 PATIENT, LEVEL IV Diagnosis: Essential (primary) hypertension[ICD10: I10] Diagnosis: Chronic kidney disease, stage 3 (moderate)[ICD10: N18.3] Diagnosis: Erosive (osteo)arthritis[ICD10: M15.4] Diagnosis: Gastro-esophageal reflux disease without esophagitis[ICD10: K21.9] Marti Obrien MD, [facility] CPT-4: 87199 10/25/2016 ([id number]) 97875 EST. PATIENT, LEVEL III Diagnosis: Gastro-esophageal reflux disease without esophagitis[ICD10: K21.9] Diagnosis: Encounter for immunization[ICD10: Z23] Diagnosis: Cellulitis of right upper limb[ICD10: L03.113] Cadence Obrien MD, [facility] CPT-4: 55847 08/10/2016 ([id number]) 91241 EST. PATIENT, LEVEL III Diagnosis: Gastro-esophageal reflux disease with esophagitis[ICD10: K21.0] Diagnosis: Cellulitis of unspecified part of limb[ICD10: L03.119] Cadence Obrien MD, [facility] CPT-4: 75955 07/24/2016 ([id number]) 97157 EST. PATIENT, LEVEL IV Diagnosis: Essential (primary) hypertension[ICD10: I10] Diagnosis: Gastro-esophageal reflux disease without esophagitis[ICD10: K21.9] Diagnosis: Other abnormalities of gait and mobility[ICD10: R26.89] Marti Obrien MD, [facility] CPT-4: 28648 06/28/2016 ([id number]) 82922 EST. PATIENT, LEVEL III Diagnosis: Essential (primary) hypertension[ICD10: I10] Diagnosis: Gastro-esophageal reflux disease without esophagitis[ICD10: K21.9] Marti Obrien MD, [facility] CPT-4: 91681 04/26/2016 ([id number]) 05481 EST. PATIENT, LEVEL III Diagnosis: Essential (primary) hypertension[ICD10: I10] Marti Obrien MD, [facility] CPT-4: 42708 04/10/2016 ([id number]) 65977 EST. 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 PATIENT, LEVEL IV Diagnosis: Essential (primary) hypertension[ICD10: I10] Diagnosis: Mixed hyperlipidemia[ICD10: E78.2] Diagnosis: Gas pain[ICD10: R14.1] Diagnosis: Primary generalized (osteo)arthritis[ICD10: M15.0] Franci Obrien MD, [facility] CPT-4: 14285 12/12/2015 ([id number]) 89153 EST. PATIENT, LEVEL IV Diagnosis: ESSENTIAL HYPERTENSION[ICD9: 401.9] Diagnosis: HYPERLIPIDEMIA[ICD9: 272.4] Diagnosis: OSTEOARTH NOS-UNSPEC[ICD9: 715.90] Marti Obrien MD, [facility] CPT-4: 19902 06/13/2015 ([id number]) Miscellaneous no charge Diagnosis: HYPERLIPIDEMIA[ICD9: 272.4] Diagnosis: ESSENTIAL HYPERTENSION[ICD9: 401.9] Diagnosis: ROUTINE PHYSICL LAB EXAM[ICD9: V72.62] Marti Obrien MD, [facility] CPT-4: 52428 06/03/2015 ([id number]) 06863 EST. PATIENT, LEVEL II Diagnosis: Laceration of finger[ICD9: 883.0] Cadence Obrien MD, [facility] CPT-4: 91635 12/27/2014 ([id number]) 64819 EST. PATIENT, LEVEL IV Diagnosis: ESSENTIAL HYPERTENSION[ICD9: 401.9] Diagnosis: HYPERLIPIDEMIA[ICD9: 272.4] Diagnosis: Allergic rhinitis[ICD9: 477.9] Marti Obrien MD, [facility] CPT- 4: 74312 12/13/2014 ([id number]) 10178 EST. PATIENT, LEVEL III Diagnosis: ESSENTIAL HYPERTENSION[ICD9: 401.9] Marti Obrien MD, [facility] CPT-4: 80683 08/17/2014 ([id number]) 56568 EST. PATIENT, LEVEL IV Diagnosis: ESSENTIAL HYPERTENSION[ICD9: 401.9] Diagnosis: HYPERLIPIDEMIA[ICD9: 272.4] Diagnosis: ACTINIC KERATOSIS[ICD9: 702.0] Marti Obrien MD, [facility] CPT- 4: 00842 05/18/2014 ([id number]) 44683 EST. PATIENT, LEVEL IV Diagnosis: Bilateral hand numbness[ICD9: 782.0] Diagnosis: Neck pain, chronic[ICD9: 723.1] Diagnosis: Chronic renal disease, stage 3, moderately decreased glomerular filtration rate between 30-59 mL/min/1.73 square meter[ICD9: 585.3] Diagnosis: ESSENTIAL HYPERTENSION[SNOMED: 85838048] Diagnosis: OSTEOARTHROSIS-MULTIPLE SITES[ICD9: 715.89] Marti Obrien MD, [facility] CPT-4: 82197 02/15/2014 ([id number]) 42286 EST. PATIENT, LEVEL IV Diagnosis: ESSENTIAL HYPERTENSION[SNOMED: 44257042] Diagnosis: HYPERLIPIDEMIA[ICD9: 272.4] Diagnosis: Insomnia[ICD9: 780.52] Diagnosis: Constipation - functional[ICD9: 564.09] Marti Obrien MD [facility] CPT-4: 14261 11/16/2013 ([id number]) 83507 EST. PATIENT, LEVEL III Diagnosis: ESSENTIAL HYPERTENSION[SNOMED: 53682658] Diagnosis: OSTEOARTHROSIS-MULTIPLE SITES[ICD9: 715.89] Marti Obrien MD [facility] CPT-4: 37566 08/18/2013 ([id number]) 71966 EST. PATIENT, LEVEL IV Diagnosis: ESSENTIAL HYPERTENSION[SNOMED: 97015078] Diagnosis: HYPERLIPIDEMIA[ICD9: 272.4] Marti Obrien MD [facility] CPT- 4: 96854 05/13/2013 ([id number]) 35389 EST. PATIENT, LEVEL IV Diagnosis: Pneumonia[ICD9: 486] Diagnosis: ESSENTIAL HYPERTENSION[SNOMED: 08273660] Diagnosis: COUGH[ICD9: 786.2] Cadence Obrien MD [facility] CPT-4: 11090 02/13/2013 ([id number]) 13806 EST. PATIENT, LEVEL IV Diagnosis: ESSENTIAL HYPERTENSION[SNOMED: 32324909] Diagnosis: HYPERLIPIDEMIA[ICD9: 272.4] Marti Obrien MD [facility] CPT- 4: 73145 01/01/2013 ([id number]) 88535 EST. PATIENT, LEVEL III Diagnosis: ESSENTIAL HYPERTENSION[SNOMED: 84056490] Diagnosis: Actinic keratosis[ICD9: 702.0] Marti Obrien MD [facility] CPT- 4: 16764 10/02/2012 ([id number]) 05616 EST. PATIENT, LEVEL IV Diagnosis: ESSENTIAL HYPERTENSION[SNOMED: 10632081] Diagnosis: PAIN IN LIMB[ICD9: 729.5] Diagnosis: OSTEOARTHROSIS-MULTIPLE SITES[ICD9: 715.89] Marti Obrien MD [facility] CPT-4: 33417 06/05/2012 15638 EST. PATIENT, LEVEL IV Diagnosis: Gait abnormality[ICD9: 781.2] Diagnosis: ESSENTIAL HYPERTENSION[SNOMED: 52084404] Marti Obrien MD [facility] CPT-4: 46579 03/24/2012 ([id number]) 74760 EST. PATIENT, LEVEL IV Diagnosis: ESSENTIAL HYPERTENSION[SNOMED: 14650973] Diagnosis: HYPERLIPIDEMIA[ICD9: 272.4] Marti Obrien MD, [facility] CPT- 4: 31692 01/31/2012 [id number] EST. PATIENT, LEVEL IV Diagnosis: ESSENTIAL HYPERTENSION[SNOMED: 53185393] Diagnosis: Degenerative joint disease involving multiple joints[ICD9: 715.89] Marti Obrien MD, [facility] CPT-4: 22517 11/29/2011 [id number] EST. PATIENT, LEVEL IV Diagnosis: ESSENTIAL HYPERTENSION[SNOMED: 55171302] Diagnosis: DERMATOPHYTOSIS OF GROIN[ICD9: 110.3] Diagnosis: VACCIN STREP PNEUMONIAE[ICD9: V03.82] Marti Obrien MD, [facility] CPT-4: 28517 09/20/2011 06850 EST. PATIENT, LEVEL IV Diagnosis: Tinea of groin[ICD9: 110.3] Diagnosis: Dysuria[ICD9: 788.1] Diagnosis: ESSENTIAL HYPERTENSION[SNOMED: 50224689] Diagnosis: IMPACTED CERUMEN[ICD9: 380.4] Marti Obrien MD, [facility] CPT- 4: 98729 08/23/2011 Plan of Care Planned Activity Notes Codes Status Date Visit Plan: Hypertension - well controlled - continue with current medications, continue with no added salt diet. Pt has been encouraged to exercise daily. The pt has been advised to call the office if there are any acute concerns about change in blood pressure readings at home. Hyperlipidemia - pt has been counseled about appropriate diet, exercise, and need for low fat food choices. I have discussed the need for the patient to take medications as prescribed. If the patient has negative side effects from the medication, they are to CALL the office and not abruptly discontinue the medication without discussion with a practitioner in the office. We will check labs in 3-6 months for follow up on the patient's chronic medical problem and to assure normal liver response to medications. 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 Patient verbalized understanding of plan. 09/03/2017 Appointment: Cadence Lindsey [facility]el: [phone] [phone] (30 min) Complex 09/03/2017 Patient Education: Patient Medication Summary Completed 09/03/2017 Visit Plan: Hypertension - well controlled - continue with current medications, continue with no added salt diet. Pt has been encouraged to exercise daily. The pt has been advised to call the office if there are any acute concerns about change in blood pressure readings at home. Hyperlipidemia - pt has been counseled about appropriate diet, exercise, and need for low fat food choices. I have discussed the need for the patient to take medications as prescribed. If the patient has negative side effects from the medication, they are to CALL the office and not abruptly discontinue the medication without discussion with a practitioner in the office. We will check labs in 3-6 months for follow up on the patient's chronic medical problem and to assure normal liver response to medications. Skin lesion on hands - referral to Dr. Pearson for evaluation/removal. 06/20/2017 Visit Plan: Hypertension - well controlled - continue with current medications, continue with no added salt diet. Pt has been encouraged to exercise daily. The pt has been advised to call the office if there are any acute concerns about change in blood pressure readings at home. Hyperlipidemia - pt has been counseled about appropriate diet, exercise, and need for low fat food choices. I have discussed the need for the patient to take medications as prescribed. If the patient has negative side effects from the medication, they are to CALL the office and not abruptly discontinue the medication without discussion with a practitioner in the office. We will check labs in 3-6 months for follow up on the patient's chronic medical problem and to assure normal liver response to medications. Skin lesion on hands - referral to Dr. Pearson for evaluation/removal. 06/20/2017 Appointment: Marti Obrien [facility]Ptel: [phone] [facility] (15 min) Moderate 06/20/2017 Patient Education: Patient Medication Summary Completed 06/20/2017 Care Plan: Referral Order SNOMED-CT : [id number] Pending 06/20/2017 Visit Plan: Spider bite-ER follow up-healing well-finish abx-return in 10 days for wound check to ensure resolution of infection. Patient verbalized understanding of plan. 06/10/2017 Appointment: Cadence Lindsey [facility]Ptel: [phone] [phone] (15 min) Moderate 06/10/2017 Patient Education: Patient Medication Summary Completed 06/10/2017 Referral: External, Ordering Provider Patient informed. Completed 04/16/2017 Care Plan: Referral Order SNOMED-CT : [id number] Pending 02/28/2017 Visit Plan: Medicare Exam - today we discussed the patients past history, immunizations, preventative exams/evaluations - colonoscopy, fecal occult blood testing, routine labs for renal function, glucose, cholesterol, osteoporosis evaluations, cardiovascular testing and cancer screenings. We have also discussed mental health and the signs/symptoms of depression. The patient was advised of home safety evaluations and the need to make sure that as the aging process continues, we need to be aware of different ways to make the home a safer place to reside. The patient has also been counseled that exercise is necessary - and of utmost importance as we age to help decrease fall risk and to maintain independece in the home. Today we discussed the need for the patient to create paperwork for Advanced directives as well as for the patient to provide this office with a copy of her DOPA paperwork for health care surrogate. 02/27/2017 Appointment: Franci Stiles WPtel: [phone] [facility] [facility] - Annual Wellness Visit 02/27/2017 Patient Education: Patient Medication Summary Completed 02/27/2017 Visit Plan: Hypertension - well controlled - continue with current medications, continue with no added salt diet. Pt has been encouraged to exercise daily. The pt has been advised to call the office if there are any acute concerns about change in blood pressure readings at home. Chronic renal insufficiency - referral to underground supervisor due to stage 3 renal failure. OA - continue with supportive care, rx for tramadol and tylenol. 02/21/2017 Appointment: Camille Marti WPtel: [phone] [facility] (15 min) Moderate 02/21/2017 Patient Education: Patient Medication Summary Completed 02/21/2017 Patient Education: Hypertension Completed 02/21/2017 Visit Plan: Gout-acute attack resolved-check uric acid- start uloric 40mg daily-discussed low purine diet-repeat uric acid level in 1 month. Patient verbalized understanding of plan. 01/01/2017 Appointment: Cadence Lindsey WPtel: [phone] [phone] (30 min) Complex 01/01/2017 Patient Education: Patient Medication Summary Completed 01/01/2017 Visit Plan: Plantar fasciitis- pt was educated that this is an inflammatory process, need to stretch the foot and reduce inflammation by using a frozen bottle of water or a tennis ball on the bottom of the foot at least three times a day until the pain is improved. Right ankle swelling/pain- check labs to r/o gout 12/13/2016 Appointment: Cadence Lindsey WPtel: [phone] [phone] (30 min) Complex 12/13/2016 Patient Education: Patient Medication Summary Completed 12/13/2016 Visit Plan: Hypertension - well controlled - continue with current medications, continue with no added salt diet. Pt has been encouraged to exercise daily. The pt has been advised to call the office if there are any acute concerns about change in blood pressure readings at home. Hypertension - uncontrolled - the patient's medications have been modified as documented in the visit note. The patient has been counseled to cut back on salt in diet for a no added salt diet, low fat diet, start an exercise program with low weight bearing exercises and higher aerobic activity for heart health. The patient is to check blood pressure readings as an outpatient and either fax, call, or email the readings to the office next week for practitioner to review. The pt is to call for acute concerns. Arthritis- occasionally uncontrolled symptoms- recommend pt to take antiinflammatory as directed for pain control. Use tylenol for break through pain symptoms. Esophageal Reflux - the patient has been counseled against excessive intake of caffeine, spicy foods, peppermint, and cinnamon - all of which can exacerbate esophageal reflux. The patient is to take medications as prescribed and call the office if the symptoms are not improving. 10/25/2016 Appointment: Marti Obrien WPtel: [phone] [facility] (15 min) Moderate 10/25/2016 Patient Education: Patient Medication Summary Completed 10/25/2016 Patient Education: Hypertension Completed 10/25/2016 Patient Education: Patient Medication Summary Completed 10/25/2016 Care Plan: Cbc With Differential Pending 10/25/2016 Care Plan: Lipid Pending 10/25/2016 Care Plan: Comp Metabolic Pending 10/25/2016 Care Plan: Tsh Pending 10/25/2016 Visit Plan: Esophageal Reflux - the patient has been counseled against excessive intake of caffeine, spicy foods, peppermint, and cinnamon - all of which can exacerbate esophageal reflux. The patient is to take medications as prescribed and call the office if the symptoms are not improving. MRSA-right wrist-continue abx-oral and topical 08/10/2016 Appointment: Cadence Lindsey WPtel: [phone] [phone] [place] (15 min) Moderate 08/10/2016 Patient Education: Patient Medication Summary Completed 08/10/2016 Visit Plan: Esophageal Reflux - the patient has been counseled against excessive intake of caffeine, spicy foods, peppermint, and cinnamon - all of which can exacerbate esophageal reflux. The patient is to take medications as prescribed and call the office if the symptoms are not improving. Sore-right wrist-cultured today in the office 07/24/2016 Visit Plan: Esophageal Reflux - the patient has been counseled against excessive intake of caffeine, spicy foods, peppermint, and cinnamon - all of which can exacerbate esophageal reflux. The patient is to take medications as prescribed and call the office if the symptoms are not improving. Sore-right wrist-cultured today in the office 07/24/2016 Patient Education: Patient Medication Summary Completed 07/24/2016 Care Plan: Referral Order SNOMED-CT : [id number] Pending 07/24/2016 Visit Plan: Hypertension - well controlled - continue with current medications, continue with no added salt diet. Pt has been encouraged to exercise daily. The pt has been advised to call the office if there are any acute concerns about change in blood pressure readings at home. Esophageal Reflux - the patient has been counseled against excessive intake of caffeine, spicy foods, peppermint, and cinnamon - all of which can exacerbate esophageal reflux. The patient is to take medications as prescribed and call the office if the symptoms are not improving. 06/28/2016 Patient Education: Patient Medication Summary Completed 06/28/2016 Visit Plan: Hypertension - well controlled - continue with current medications, continue with no added salt diet. Pt has been encouraged to exercise daily. The pt has been advised to call the office if there are any acute concerns about change in blood pressure readings at home. Reflux - continue with use of nazia-seltzer chews for gas and reflux 04/26/2016 Patient Education: Patient Medication Summary Completed 04/26/2016 Patient Education: Hypertension Completed 04/26/2016 Visit Plan: Hypertension - well controlled - continue with current medications, continue with no added salt diet. Pt has been encouraged to exercise daily. The pt has been advised to call the office if there are any acute concerns about change in blood pressure readings at home. Gait abnormality - with abnormal MRI of head - discussed with patient, waiting on echo and carotid ultrasound. 04/10/2016 Appointment: Marti Obrien WPtel: [address] [place], [place] [id number] (15 min) Moderate 04/10/2016 Patient Education: Patient Medication Summary Completed 04/10/2016 Patient Education: Hypertension Completed 04/10/2016 Visit Plan: Gait Abnormality - recommended MRI of the brain , monitor symptoms - concern for possibility of normal pressure hydrocephalus. Hypertension - well controlled - continue with current medications, continue with no added salt diet. Pt has been encouraged to exercise daily. The pt has been advised to call the office if there are any acute concerns about change in blood pressure readings at home. 03/27/2016 Patient Education: Patient Medication Summary Completed 03/27/2016 Patient Education: Hypertension Completed 03/27/2016 Visit Plan: Hypertension - well controlled - continue with current medications, continue with no added salt diet. Pt has been encouraged to exercise daily. The pt has been advised to call the office if there are any acute concerns about change in blood pressure readings at home. Hyperlipidemia - pt has been counseled about appropriate diet, exercise, and need for low fat food choices. I have discussed the need for the patient to take medications as prescribed. If the patient has negative side effects from the medication, they are to CALL the office and not abruptly discontinue the medication without discussion with a practitioner in the office. We will check labs in 3-6 months for follow up on the patient's chronic medical problem and to assure normal liver response to medications. Arthritis- occasionally uncontrolled symptoms- recommend pt to take antiinflammatory as directed for pain control. Use tylenol for break through pain symptoms. Esophageal Reflux - the patient has been counseled against excessive intake of caffeine, spicy foods, peppermint, and cinnamon - all of which can exacerbate esophageal reflux. The patient is to take medications as prescribed and call the office if the symptoms are not improving. 12/12/2015 Appointment: Cadence Lindsey WPtel: [phone] [phone] (15 min) Moderate 12/12/2015 Patient Education: Patient Medication Summary Completed 12/12/2015 Patient Education: Hypertension Completed 12/12/2015 Appointment: Injection 08/26/2015 Patient Education: Patient Medication Summary Completed 08/26/2015 Visit Plan: Hypertension - well controlled - continue with current medications, continue with no added salt diet. Pt has been encouraged to exercise daily. The pt has been advised to call the office if there are any acute concerns about change in blood pressure readings at home. Hyperlipidemia - pt has been counseled about appropriate diet, exercise, and need for low fat food choices. I have discussed the need for the patient to take medications as prescribed. If the patient has negative side effects from the medication, they are to CALL the office and not abruptly discontinue the medication without discussion with a practitioner in the office. We will check labs in 3-6 months for follow up on the patient's chronic medical problem and to assure normal liver response to medications. Arthritis- occasionally uncontrolled symptoms- recommend pt to take antiinflammatory as directed for pain control. Use tylenol for break through pain symptoms. 06/13/2015 Appointment: Marti Obrien WPtel: [phone] [facility] Follow up 06/13/2015 Patient Education: Patient Medication Summary Completed 06/13/2015 Patient Education: Hypertension Completed 06/13/2015 Patient Education: Patient Medication Summary Completed 06/03/2015 Patient Education: Hypertension Completed 06/03/2015 Appointment: Marti Obrien WPtel: [phone] [id number] Follow up 03/10/2015 Appointment: Nurse Visit 12/27/2014 Patient Education: Patient Medication Summary Completed 12/27/2014 Visit Plan: Hypertension - well controlled - continue with current medications, continue with no added salt diet. Pt has been encouraged to exercise daily. The pt has been advised to call the office if there are any acute concerns about change in blood pressure readings at home. Hyperlipidemia - pt has been counseled about appropriate diet, exercise, and need for low fat food choices. I have discussed the need for the patient to take medications as prescribed. If the patient has negative side effects from the medication, they are to CALL the office and not abruptly discontinue the medication without discussion with a practitioner in the office. We will check labs in 3-6 months for follow up on the patient's chronic medical problem and to assure normal liver response to medications. Nasal allergies - flonase nasal spray - 1 spray per nostril twice daily - Nasal spray- use twice daily, one spray per nostril twice daily, after 30 minutes, rinse out nose with saline spray.. Use opposite hand per nostril to spray in the nasal steroid allergy spray. use mucinex 600mg twice daily. 12/13/2014 Appointment: Marti Obrien WPtel: [phone] [facility] Follow up 12/13/2014 Patient Education: Patient Medication Summary Completed 12/13/2014 Care Plan: COMPLETE CBC AUTOMATED due April 2015 LOINC : 59529-9 Ordered 12/13/2014 Visit Plan: Hypertension - well controlled - continue with current medications, continue with no added salt diet. Pt has been encouraged to exercise daily. The pt has been advised to call the office if there are any acute concerns about change in blood pressure readings at home. 08/17/2014 Appointment: Marti Obrien WPtel: [phone] [id number] Follow up 08/17/2014 Patient Education: Patient Medication Summary Completed 08/17/2014 Visit Plan: Hypertension - well controlled - continue with current medications, continue with no added salt diet. Pt has been encouraged to exercise daily. The pt has been advised to call the office if there are any acute concerns about change in blood pressure readings at home. Hyperlipidemia - pt has been counseled about appropriate diet, exercise, and need for low fat food choices. I have discussed the need for the patient to take medications as prescribed. If the patient has negative side effects from the medication, they are to CALL the office and not abruptly discontinue the medication without discussion with a practicioner in the office. We will check labs in 3-6 months for follow up on the patient's chronic medical problem and to assure normal liver response to medications. precancerous skin lesions on ears, nose, and cheeks - rx for effudex to be used bid x 2 weeks, then stop 05/18/2014 Appointment: Marti Obrien WPtel: [phone] [facility] Follow up 05/18/2014 Patient Education: Patient Medication Summary Completed 05/18/2014 Patient Education: Hypertension Completed 05/18/2014 Visit Plan: Hypertension - well controlled - continue with current medications, continue with no added salt diet. Pt has been encouraged to exercise daily. The pt has been advised to call the office if there are any acute concerns about change in blood pressure readings at home. Neck pain - occasionally - history of spinal stenosis in lumbar spine - will check MRI of cervical spine. Hand pain - pt has a lot of osteoarthritis in his hands, however , with the history of lumbar spinal stenosis - I recomend that we first check a neck film to see if there is significant stenosis - if so, will refer him to Dr. Tang in [place] as she was his previous spine surgeon. If there is not significant stenosis in his cervical spine - then will refer Pasquale to Dr. Pulido in [place] for hand evaluation. Insomnia - recommended refill of valium Stage 3 renal insufficiency - recommended decrease in the dose of lasix to 20mg daily, and decrease on potassium to 10meq daily. 02/15/2014 Appointment: Marti Obrien WPtel: [phone] [facility] Follow up 02/15/2014 Patient Education: Patient Medication Summary Completed 02/15/2014 Patient Education: Hypertension Completed 02/15/2014 Appointment: Cadence Lindsey [facility]Ptel: [phone] [phone] Lab Draw 02/12/2014 Patient Education: Patient Medication Summary Completed 02/12/2014 Patient Education: Hypertension Completed 02/12/2014 Visit Plan: Hypertension - well controlled - continue with current medications, continue with no added salt diet. Pt has been encouraged to exercise daily. The pt has been advised to call the office if there are any acute concerns about change in blood pressure readings at home. Hyperlipidemia - pt has been counseled about appropriate diet, exercise, and need for low fat food choices. I have discussed the need for the patient to take medications as prescribed. If the patient has negative side effects from the medication, they are to CALL the office and not abruptly discontinue the medication without discussion with a practicioner in the office. We will check labs in 3-6 months for follow up on the patient's chronic medical problem and to assure normal liver response to medications. Constipation - uncontrolled - I have discussed with the patient the need for adequate fiber and water intake to facilitate soft , easily passed stools. The pt noted understanding of our conversation. I have given the patient a recipe for "power pudding" - equal parts, bran flakes, prune juice, and apple sauce. The pt is to call if symptoms not improved on this regimen. Insomnia - Pt has been advised to increase the light in the house during the day, and start dimming the lights during the evening hours. Pt has been advised to cut out caffiene after 5pm. Daytime napping worsens night time insomnia. Pt to try valium 1/2 pill at bedtime if needed. 11/16/2013 Appointment: Marti Obrien WPtel: [phone] [facility] Follow up 11/16/2013 Patient Education: Patient Medication Summary Completed 11/16/2013 Patient Education: Hypertension Completed 11/16/2013 Patient Education: Patient Medication Summary Completed 11/12/2013 Patient Education: Hypertension Completed 11/12/2013 Visit Plan: Hypertension - well controlled - continue with current medications, continue with no added salt diet. Pt has been encouraged to exercise daily. The pt has been advised to call the office if there are any acute concerns about change in blood pressure readings at home. OA - Arthritis- occasionally uncontrolled symptoms- recommend pt to take antiinflammatory as directed for pain control. Use tylenol for break through pain symptoms. 08/18/2013 Appointment: Marti Obrien WPtel: [phone] [facility] Follow up 08/18/2013 Patient Education: Patient Medication Summary Completed 08/18/2013 Patient Education: Hypertension Completed 08/18/2013 Patient Education: Patient Medication Summary Completed 08/10/2013 Patient Education: Hypertension Completed 08/10/2013 Visit Plan: Hypertension - well controlled - continue with current medications, continue with no added salt diet. Pt has been encouraged to exercise daily. The pt has been advised to call the office if there are any acute concerns about change in blood pressure readings at home. Hyperlipidemia - pt has been counseled about appropriate diet, exercise, and need for low fat food choices. I have discussed the need for the patient to take medications as prescribed. If the patient has negative side effects from the medication, they are to CALL the office and not abruptly discontinue the medication without discussion with a practicioner in the office. We will check labs in 3-6 months for follow up on the patient's chronic medical problem and to assure normal liver response to medications. 05/13/2013 Appointment: Marti Obrein WPtel: [phone] [facility] Follow up 05/13/2013 Patient Education: Patient Medication Summary Completed 05/13/2013 Patient Education: Hypertension Completed 05/13/2013 Patient Education: Patient Medication Summary Completed 05/11/2013 Patient Education: Hypertension Completed 05/11/2013 Visit Plan: Pneumonia - Pt has been diagnosed with pneumonia by physical exam. A chest xray has been ordered as have antibiotics. The pt is aware of the diagnosis and the need for acute treatment of this illness. Rocephin and kenalog injection today in the office. ER over the weekend if symptoms do not improve. Hypertension - continue with current medications, continue with no added salt diet. Pt has been encouraged to exercise daily. The pt has been advised to call the office if there are any acute concerns about change in blood pressure readings at home. 02/13/2013 Patient Education: Patient Medication Summary Completed 02/13/2013 Patient Education: Hypertension Completed 02/13/2013 Visit Plan: Hypertension - well controlled - continue with current medications, continue with no added salt diet. Pt has been encouraged to exercise daily. The pt has been advised to call the office if there are any acute concerns about change in blood pressure readings at home. Hyperlipidemia - pt has been counseled about appropriate diet, exercise, and need for low fat food choices. I have discussed the need for the patient to take medications as prescribed. If the patient has negative side effects from the medication, they are to CALL the office and not abruptly discontinue the medication without discussion with a practicioner in the office. We will check labs in 3-6 months for follow up on the patient's chronic medical problem and to assure normal liver response to medications. Pt is to stay on the same dose of simvastatin at 20 mg daily, continue with 500 mg of niacin, and start Tricor 145 mg daily. 01/01/2013 Appointment: Marti Obrien [facility]Ptel: [phone] [place] Follow up 01/01/2013 Patient Education: Patient Medication Summary Completed 01/01/2013 Patient Education: Hypertension Completed 01/01/2013 Patient Education: Patient Medication Summary Completed 12/30/2012 Patient Education: Hypertension Completed 12/30/2012 Visit Plan: Hypertension - well controlled - continue with current medications, continue with no added salt diet. Pt has been encouraged to exercise daily. The pt has been advised to call the office if there are any acute concerns about change in blood pressure readings at home. Slightly low platelets, recommended pt to change aspirin to saturday, saturday, , saturday. 10/02/2012 Appointment: Marti Obrien WPtel: [phone] [place] Established Patient Preventative visit 10/02/2012 Patient Education: Patient Medication Summary Completed 10/02/2012 Patient Education: High Blood Pressure: Essential Hypertension Completed 2011 Appointment: Marti Obrien WPtel: [phone] [place] Lab Draw 09/30/2012 Patient Education: Patient Medication Summary Completed 09/30/2012 Patient Education: High Blood Pressure: Essential Hypertension Completed 2011 Appointment: Cadence Lindsey WPtel: [phone] [id number] [place] Injection 08/27/2012 Patient Education: Patient Medication Summary Completed 08/27/2012 Visit Plan: Hypertension - well controlled - continue with current medications, continue with no added salt diet. Pt has been encouraged to exercise daily. The pt has been advised to call the office if there are any acute concerns about change in blood pressure readings at home. Hyperlipidemia - pt has been counseled about appropriate diet, exercise, and need for low fat food choices. I have discussed the need for the patient to take medications as prescribed. If the patient has negative side effects from the medication, they are to CALL the office and not abruptly discontinue the medication without discussion with a practicioner in the office. We will check labs in 3-6 months for follow up on the patient's chronic medical problem and to assure normal liver response to medications. Arthritis- occasionally uncontrolled symptoms- recommend pt to take antiinflammatory as directed for pain control. Use tylenol for break through pain symptoms. START ON THE GLUCOSAMINE AND CHONDROITON 06/05/2012 Appointment: Marti Obrien WPtel: [facility] [place] [place] [facility] 06/05/2012 Patient Education: Patient Medication Summary Completed 06/05/2012 Patient Education: High Blood Pressure: Essential Hypertension Completed 2011 Patient Education: Patient Medication Summary Completed 06/03/2012 Patient Education: High Blood Pressure: Essential Hypertension Completed 2011 Visit Plan: Hypertension - well controlled - continue with current medications, continue with no added salt diet. Pt has been encouraged to exercise daily. The pt has been advised to call the office if there are any acute concerns about change in blood pressure readings at home. Joint Injection - Pt was given post - injection instructions. The pt has been advised to use antiinflammatories post injection today, ice to the injected site, call if redness, warmth, or increased pain occurs at the site of injection. Arthritis- occasionally uncontrolled symptoms- recommend pt to take antiinflammatory as directed for pain control. Use tylenol for break through pain symptoms. 03/24/2012 Appointment: Marti Obrien WPtel: [phone] [facility] [place] [place] Other 03/24/2012 Patient Education: Patient Medication Summary Completed 03/24/2012 Patient Education: High Blood Pressure: Essential Hypertension Completed 2011 Visit Plan: Hypertension - well controlled - continue with current medications, continue with no added salt diet. Pt has been encouraged to exercise daily. The pt has been advised to call the office if there are any acute concerns about change in blood pressure readings at home. Hyperlipidemia - pt has been counseled about appropriate diet, exercise, and need for low fat food choices. I have discussed the need for the patient to take medications as prescribed. If the patient has negative side effects from the medication, they are to CALL the office and not abruptly discontinue the medication without discussion with a practicioner in the office. We will check labs in 3-6 months for follow up on the patient's chronic medical problem and to assure normal liver response to medications. NIACIN - increase the dose to 500 mg daily 01/31/2012 Appointment: Marti Obrien WPtel: [phone] [id number] Other 01/31/2012 Patient Education: Patient Medication Summary Completed 01/31/2012 Patient Education: High Blood Pressure: Essential Hypertension Completed 2011 Patient Education: Patient Medication Summary Completed 01/29/2012 Patient Education: High Blood Pressure: Essential Hypertension Completed 2011 Visit Plan: Hypertension - well controlled - continue with current medications, continue with no added salt diet. Pt has been encouraged to exercise daily. The pt has been advised to call the office if there are any acute concerns about change in blood pressure readings at home. 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 Recommended pt to continue with the naproxen 500mg twice daily. Recommend pt to start on tylenol at noon and also recommend pt to use parafin wax for hands in the morning. Needs platelet level rechecked next month. Pt with early symptoms of parkinson' s disease - will recommend pt to go to physical therapy for evaluation and recommendations on treatment as pt has increased right sided leaning when walking. 11/29/2011 Appointment: Marti Obrien WPtel: [phone] [id number] [place] Other 11/29/2011 Patient Education: Patient Medication Summary Completed 11/29/2011 Patient Education: High Blood Pressure: Essential Hypertension Completed 2011 Appointment: Marti Obrien WPtel: [phone] [facility] [place] [place] [place] Lab Draw 11/27/2011 Patient Education: Patient Medication Summary Completed 11/27/2011 Patient Education: High Blood Pressure: Essential Hypertension Completed 2011 Visit Plan: Hypertension - uncontrolled - the patient's medications have been modified as documented in the visit note. The patient has been counseled to cut back on salt in diet for a no added salt diet, low fat diet, start an exercise program with low weight bearing exercises and higher aerobic activity for heart health. The patient is to check blood pressure readings as an outpatient and either fax, call, or email the readings to the office next week for practicioner to review. The pt is to call for acute concerns. pneumovac keep using the treatment for the yeast/ fungal on the penis x one month. 09/20/2011 Appointment: Marti Obrien WPtel: [facility] [place] Other 09/20/2011 Patient Education: Patient Medication Summary Completed 09/20/2011 Patient Education: High Blood Pressure: Essential Hypertension Completed 2010 Visit Plan: yeast infection of groin script for antifungal sent electronically to [facility] while taking the antifungal, stop taking the simvastatin start the antifungal tomorrow, hold the simvastatin tonight restart the simvastatin a day after the antifungal is completed high blood pressre-new rx will be sent to [facility] Cerumen Impaction - The impacted cerumen was removed with the use of either ear currette alone or in combination with ear curette and water pick. The patient tolerated the procedure without incident and had improvement in hearing. 08/23/2011 Appointment: Marti Obrien WPtel: [facility] [place] Other 08/23/2011 Patient Education: Patient Medication Summary Completed 08/23/2011 Appointment: Marti Obrien WPtel: [phone] [facility] [place] [place] Lab Draw 08/21/2011 Patient Education: Patient Medication Summary Completed 08/21/2011 Referral: External, Ordering Provider Referral Appointment Requested Referral: Inocencio Referral Completed Referral: Gopal Pearson Referral Appointment Requested Referral: Inocencio Referral Completed Instructions Comment REFER TO DR PEARSON . Esophageal Reflux - the patient has been counseled against excessive intake of caffeine, spicy foods, peppermint, and cinnamon - all of which can exacerbate esophageal reflux. The patient is to take medications as prescribed and call the office if the symptoms are not improving. Sore-right wrist-cultured today in the office REFER TO DR PEARSON . Esophageal Reflux - the patient has been counseled against excessive intake of caffeine, spicy foods, peppermint, and cinnamon - all of which can exacerbate esophageal reflux. The patient is to take medications as prescribed and call the office if the symptoms are not improving. Sore-right wrist-cultured today in the office . Hypertension - well controlled - continue with current medications, continue with no added salt diet. Pt has been encouraged to exercise daily. The pt has been advised to call the office if there are any acute concerns about change in blood pressure readings at home. Hyperlipidemia - pt has been counseled about appropriate diet, exercise, and need for low fat food choices. I have discussed the need for the patient to take medications as prescribed. If the patient has negative side effects from the medication, they are to CALL the office and not abruptly discontinue the medication without discussion with a practicioner in the office. We will check labs in 3-6 months for follow up on the patient's chronic medical problem and to assure normal liver response to medications. . Hypertension - well controlled - continue with current medications, continue with no added salt diet. Pt has been encouraged to exercise daily. The pt has been advised to call the office if there are any acute concerns about change in blood pressure readings at home. Hyperlipidemia - pt has been counseled about appropriate diet, exercise, and need for low fat food choices. I have discussed the need for the patient to take medications as prescribed. If the patient has negative side effects from the medication, they are to CALL the office and not abruptly discontinue the medication without discussion with a practicioner in the office. We will check labs in 3-6 months for follow up on the patient's chronic medical problem and to assure normal liver response to medications. NIACIN - increase the dose to 500 mg daily . Hypertension - well controlled - continue with current medications, continue with no added salt diet. Pt has been encouraged to exercise daily. The pt has been advised to call the office if there are any acute concerns about change in blood pressure readings at home. Hyperlipidemia - pt has been counseled about appropriate diet, exercise, and need for low fat food choices. I have discussed the need for the patient to take medications as prescribed. If the patient has negative side effects from the medication, they are to CALL the office and not abruptly discontinue the medication without discussion with a practicioner in the office. We will check labs in 3-6 months for follow up on the patient's chronic medical problem and to assure normal liver response to medications. Constipation - uncontrolled - I have discussed with the patient the need for adequate fiber and water intake to facilitate soft, easily passed stools. The pt noted understanding of our conversation. I have given the patient a recipe for "power pudding" - equal parts, bran flakes, prune juice, and apple sauce. The pt is to call if symptoms not improved on this regimen. Insomnia - Pt has been advised to increase the light in the house during the day, and start dimming the lights during the evening hours. Pt has been advised to cut out caffiene after 5pm. Daytime napping worsens night time insomnia. Pt to try valium 1/2 pill at bedtime if needed. Pt is to stay on the same dose of simvastatin at 20 mg daily, continue with 500 mg of niacin, and start Tricor 145 mg daily.. Hypertension - well controlled - continue with current medications, continue with no added salt diet. Pt has been encouraged to exercise daily. The pt has been advised to call the office if there are any acute concerns about change in blood pressure readings at home. Hyperlipidemia - pt has been counseled about appropriate diet, exercise, and need for low fat food choices. I have discussed the need for the patient to take medications as prescribed. If the patient has negative side effects from the medication, they are to CALL the office and not abruptly discontinue the medication without discussion with a practicioner in the office. We will check labs in 3-6 months for follow up on the patient's chronic medical problem and to assure normal liver response to medications. Pt is to stay on the same dose of simvastatin at 20 mg daily, continue with 500 mg of niacin, and start Tricor 145 mg daily. flonase nasal spray - 1 spray per nostril twice daily - Nasal spray- use twice daily, one spray per nostril twice daily, after 30 minutes, rinse out nose with saline spray.. Use opposite hand per nostril to spray in the nasal steroid allergy spray. use mucinex 600mg twice daily. . Hypertension - well controlled - continue with current medications, continue with no added salt diet. Pt has been encouraged to exercise daily. The pt has been advised to call the office if there are any acute concerns about change in blood pressure readings at home. Hyperlipidemia - pt has been counseled about appropriate diet, exercise, and need for low fat food choices. I have discussed the need for the patient to take medications as prescribed. If the patient has negative side effects from the medication, they are to CALL the office and not abruptly discontinue the medication without discussion with a practitioner in the office. We will check labs in 3-6 months for follow up on the patient's chronic medical problem and to assure normal liver response to medications. Nasal allergies - flonase nasal spray - 1 spray per nostril twice daily - Nasal spray- use twice daily, one spray per nostril twice daily, after 30 minutes, rinse out nose with saline spray.. Use opposite hand per nostril to spray in the nasal steroid allergy spray. use mucinex 600mg twice daily. . Hypertension - uncontrolled - the patient's medications have been modified as documented in the visit note. The patient has been counseled to cut back on salt in diet for a no added salt diet, low fat diet, start an exercise program with low weight bearing exercises and higher aerobic activity for heart health. The patient is to check blood pressure readings as an outpatient and either fax , call, or email the readings to the office next week for practicioner to review. The pt is to call for acute concerns. pneumovac keep using the treatment for the yeast/ fungal on the penis x one month. Align samples provided and instructed on use. . Pneumonia - Pt has been diagnosed with pneumonia by physical exam. A chest xray has been ordered as have antibiotics. The pt is aware of the diagnosis and the need for acute treatment of this illness. Rocephin and kenalog injection today in the office. ER over the weekend if symptoms do not improve. Hypertension - continue with current medications, continue with no added salt diet. Pt has been encouraged to exercise daily. The pt has been advised to call the office if there are any acute concerns about change in blood pressure readings at home. . Hypertension - well controlled - continue with current medications, continue with no added salt diet. Pt has been encouraged to exercise daily. The pt has been advised to call the office if there are any acute concerns about change in blood pressure readings at home. . Medicare Exam - today we discussed the patients past history, immunizations, preventative exams/evaluations - colonoscopy, fecal occult blood testing, routine labs for renal function, glucose, cholesterol, osteoporosis evaluations, cardiovascular testing and cancer screenings. We have also discussed mental health and the signs/symptoms of depression. The patient was advised of home safety evaluations and the need to make sure that as the aging process continues, we need to be aware of different ways to make the home a safer place to reside. The patient has also been counseled that exercise is necessary - and of utmost importance as we age to help decrease fall risk and to maintain independece in the home. Today we discussed the need for the patient to create paperwork for Advanced directives as well as for the patient to provide this office with a copy of her DOP[employer] paperwork for health care surrogate. . Hypertension - well controlled - continue with current medications, continue with no added salt diet. Pt has been encouraged to exercise daily. The pt has been advised to call the office if there are any acute concerns about change in blood pressure readings at home. Slightly low platelets, recommended pt to change aspirin to saturday, saturday, , saturday. . Hypertension - well controlled - continue with current medications, continue with no added salt diet. Pt has been encouraged to exercise daily. The pt has been advised to call the office if there are any acute concerns about change in blood pressure readings at home. Chronic renal insufficiency - referral to underground supervisor due to stage 3 renal failure. OA - continue with supportive care, rx for tramadol and tylenol. . Hypertension - well controlled - continue with current medications, continue with no added salt diet. Pt has been encouraged to exercise daily. The pt has been advised to call the office if there are any acute concerns about change in blood pressure readings at home. Hyperlipidemia - pt has been counseled about appropriate diet, exercise, and need for low fat food choices. I have discussed the need for the patient to take medications as prescribed. If the patient has negative side effects from the medication, they are to CALL the office and not abruptly discontinue the medication without discussion with a practitioner in the office. We will check labs in 3-6 months for follow up on the patient's chronic medical problem and to assure normal liver response to medications. Arthritis- occasionally uncontrolled symptoms- recommend pt to take antiinflammatory as directed for pain control. Use tylenol for break through pain symptoms. Esophageal Reflux - the patient has been counseled against excessive intake of caffeine, spicy foods, peppermint, and cinnamon - all of which can exacerbate esophageal reflux. The patient is to take medications as prescribed and call the office if the symptoms are not improving. stop NIACIN increase voltaren to twice daily . Gait Abnormality - recommended MRI of the brain, monitor symptoms - concern for possibility of normal pressure hydrocephalus. Hypertension - well controlled - continue with current medications, continue with no added salt diet. Pt has been encouraged to exercise daily. The pt has been advised to call the office if there are any acute concerns about change in blood pressure readings at home. . Hypertension - well controlled - continue with current medications, continue with no added salt diet. Pt has been encouraged to exercise daily. The pt has been advised to call the office if there are any acute concerns about change in blood pressure readings at home. Gait abnormality - with abnormal MRI of head - discussed with patient, waiting on echo and carotid ultrasound. try melatonin 10mg to help with sleep. Hypertension - well controlled - continue with current medications, continue with no added salt diet. Pt has been encouraged to exercise daily. The pt has been advised to call the office if there are any acute concerns about change in blood pressure readings at home. Hyperlipidemia - pt has been counseled about appropriate diet, exercise, and need for low fat food choices. I have discussed the need for the patient to take medications as prescribed. If the patient has negative side effects from the medication, they are to CALL the office and not abruptly discontinue the medication without discussion with a practitioner in the office. We will check labs in 3-6 months for follow up on the patient's chronic medical problem and to assure normal liver response to medications. Arthritis- occasionally uncontrolled symptoms- recommend pt to take antiinflammatory as directed for pain control. Use tylenol for break through pain symptoms. . Hypertension - well controlled - continue with current medications, continue with no added salt diet. Pt has been encouraged to exercise daily. The pt has been advised to call the office if there are any acute concerns about change in blood pressure readings at home. Joint Injection - Pt was given post - injection instructions. The pt has been advised to use antiinflammatories post injection today, ice to the injected site, call if redness, warmth, or increased pain occurs at the site of injection. Arthritis- occasionally uncontrolled symptoms- recommend pt to take antiinflammatory as directed for pain control. Use tylenol for break through pain symptoms. . Hypertension - well controlled - continue with current medications, continue with no added salt diet. Pt has been encouraged to exercise daily. The pt has been advised to call the office if there are any acute concerns about change in blood pressure readings at home. 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 Recommended pt to continue with the naproxen 500mg twice daily. Recommend pt to start on tylenol at noon and also recommend pt to use parafin wax for hands in the morning. Needs platelet level rechecked next month. Pt with early symptoms of parkinson's disease - will recommend pt to go to physical therapy for evaluation and recommendations on treatment as pt has increased right sided leaning when walking. . Hypertension - well controlled - continue with current medications, continue with no added salt diet. Pt has been encouraged to exercise daily. The pt has been advised to call the office if there are any acute concerns about change in blood pressure readings at home. Hypertension - uncontrolled - the patient's medications have been modified as documented in the visit note. The patient has been counseled to cut back on salt in diet for a no added salt diet, low fat diet, start an exercise program with low weight bearing exercises and higher aerobic activity for heart health. The patient is to check blood pressure readings as an outpatient and either fax , call, or email the readings to the office next week for practitioner to review. The pt is to call for acute concerns. Arthritis- occasionally uncontrolled symptoms- recommend pt to take antiinflammatory as directed for pain control. Use tylenol for break through pain symptoms. Esophageal Reflux - the patient has been counseled against excessive intake of caffeine, spicy foods, peppermint, and cinnamon - all of which can exacerbate esophageal reflux. The patient is to take medications as prescribed and call the office if the symptoms are not improving. . Hypertension - well controlled - continue with current medications, continue with no added salt diet. Pt has been encouraged to exercise daily. The pt has been advised to call the office if there are any acute concerns about change in blood pressure readings at home. Hyperlipidemia - pt has been counseled about appropriate diet, exercise, and need for low fat food choices. I have discussed the need for the patient to take medications as prescribed. If the patient has negative side effects from the medication, they are to CALL the office and not abruptly discontinue the medication without discussion with a practitioner in the office. We will check labs in 3-6 months for follow up on the patient's chronic medical problem and to assure normal liver response to medications. . Gout-acute attack resolved-check uric acid-start uloric 40mg daily-discussed low purine diet-repeat uric acid level in 1 month. Patient verbalized understanding of plan. . Spider bite-ER follow up-healing well-finish abx-return in 10 days for wound check to ensure resolution of infection. Patient verbalized understanding of plan. Topical voltaren- samples provided Uric acid level Patient encouraged to roll frozen water bottle along bottom of foot 3-4 times per day Consider referral to vocational aide . Plantar fasciitis- pt was educated that this is an inflammatory process, need to stretch the foot and reduce inflammation by using a frozen bottle of water or a tennis ball on the bottom of the foot at least three times a day until the pain is improved. Right ankle swelling/pain-check labs to r/o gout . yeast infection of groin script for antifungal sent electronically to [facility] while taking the antifungal, stop taking the simvastatin start the antifungal tomorrow, hold the simvastatin tonight restart the simvastatin a day after the antifungal is completed high blood pressre-new rx will be sent to [facility] Cerumen Impaction - The impacted cerumen was removed with the use of either ear currette alone or in combination with ear curette and water pick. The patient tolerated the procedure without incident and had improvement in hearing. . Hypertension - well controlled - continue with current medications, continue with no added salt diet. Pt has been encouraged to exercise daily. The pt has been advised to call the office if there are any acute concerns about change in blood pressure readings at home. Neck pain - occasionally - history of spinal stenosis in lumbar spine - will check MRI of cervical spine. Hand pain - pt has a lot of osteoarthritis in his hands, however, with the history of lumbar spinal stenosis - I recomend that we first check a neck film to see if there is significant stenosis - if so, will refer him to Dr. Tang in [place] as she was his previous spine surgeon. If there is not significant stenosis in his cervical spine - then will refer Pasquale to Dr. Pulido in [place] for hand evaluation. Insomnia - recommended refill of valium Stage 3 renal insufficiency - recommended decrease in the dose of lasix to 20mg daily, and decrease on potassium to 10meq daily. PT INSTRUCTED TO STOP HIS HYDROCHLOROTHIAZIDE DUE TO ELEVATED CREATININE PT TO BRING BY BLOOD PRESSURE READINGS IN 1 MONTH. Hypertension - well controlled - continue with current medications, continue with no added salt diet. Pt has been encouraged to exercise daily. The pt has been advised to call the office if there are any acute concerns about change in blood pressure readings at home. OA - Arthritis- occasionally uncontrolled symptoms- recommend pt to take antiinflammatory as directed for pain control. Use tylenol for break through pain symptoms. . 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 Patient verbalized understanding of plan. . Hypertension - well controlled - continue with current medications, continue with no added salt diet. Pt has been encouraged to exercise daily. The pt has been advised to call the office if there are any acute concerns about change in blood pressure readings at home. Hyperlipidemia - pt has been counseled about appropriate diet, exercise, and need for low fat food choices. I have discussed the need for the patient to take medications as prescribed. If the patient has negative side effects from the medication, they are to CALL the office and not abruptly discontinue the medication without discussion with a practicioner in the office. We will check labs in 3-6 months for follow up on the patient's chronic medical problem and to assure normal liver response to medications. Arthritis- occasionally uncontrolled symptoms- recommend pt to take antiinflammatory as directed for pain control. Use tylenol for break through pain symptoms. START ON THE GLUCOSAMINE AND CHONDROITON . Hypertension - well controlled - continue with current medications, continue with no added salt diet. Pt has been encouraged to exercise daily. The pt has been advised to call the office if there are any acute concerns about change in blood pressure readings at home. Reflux - continue with use of nazia-seltzer chews for gas and reflux use cortisone q10 cream, mix with preparation H - use a quarter size amount twice a day when having hemorrhoid discomfort . Hypertension - well controlled - continue with current medications, continue with no added salt diet. Pt has been encouraged to exercise daily. The pt has been advised to call the office if there are any acute concerns about change in blood pressure readings at home. Hyperlipidemia - pt has been counseled about appropriate diet, exercise, and need for low fat food choices. I have discussed the need for the patient to take medications as prescribed. If the patient has negative side effects from the medication, they are to CALL the office and not abruptly discontinue the medication without discussion with a practitioner in the office. We will check labs in 3-6 months for follow up on the patient's chronic medical problem and to assure normal liver response to medications. Skin lesion on hands - referral to Dr. Pearson for evaluation/removal. OMEPRAZOLE 20MG TWICE DAILY STOP NAPROXEN OK TO USE TYLENOL NEEDED -NO MORE THAN 3000MG TOTAL IN 24 HOURS BACTRIM DS 1 PO TWICE DAILY FOR THE INFECTION IN YOUR RIGHT WRIST-I SENT THIS TO [facility] . Esophageal Reflux - the patient has been counseled against excessive intake of caffeine, spicy foods, peppermint, and cinnamon - all of which can exacerbate esophageal reflux. The patient is to take medications as prescribed and call the office if the symptoms are not improving. MRSA-right wrist-continue abx-oral and topical . Hypertension - well controlled - continue with current medications, continue with no added salt diet. Pt has been encouraged to exercise daily. The pt has been advised to call the office if there are any acute concerns about change in blood pressure readings at home. Hyperlipidemia - pt has been counseled about appropriate diet, exercise, and need for low fat food choices. I have discussed the need for the patient to take medications as prescribed. If the patient has negative side effects from the medication, they are to CALL the office and not abruptly discontinue the medication without discussion with a practicioner in the office. We will check labs in 3-6 months for follow up on the patient's chronic medical problem and to assure normal liver response to medications. precancerous skin lesions on ears, nose, and cheeks - rx for effudex to be used bid x 2 weeks, then stop zantac 150mg in the morning and take omeprazole in the evening A and D ointment - use on your arms in the evenings to help decrease the roughness. . Hypertension - well controlled - continue with current medications, continue with no added salt diet. Pt has been encouraged to exercise daily. The pt has been advised to call the office if there are any acute concerns about change in blood pressure readings at home. Esophageal Reflux - the patient has been counseled against excessive intake of caffeine, spicy foods, peppermint, and cinnamon - all of which can exacerbate esophageal reflux. The patient is to take medications as prescribed and call the office if the symptoms are not improving. use cortisone q10 cream, mix with preparation H - use a quarter size amount twice a day when having hemorrhoid discomfort . Hypertension - well controlled - continue with current medications, continue with no added salt diet. Pt has been encouraged to exercise daily. The pt has been advised to call the office if there are any acute concerns about change in blood pressure readings at home. Hyperlipidemia - pt has been counseled about appropriate diet, exercise, and need for low fat food choices. I have discussed the need for the patient to take medications as prescribed. If the patient has negative side effects from the medication, they are to CALL the office and not abruptly discontinue the medication without discussion with a practitioner in the office. We will check labs in 3-6 months for follow up on the patient's chronic medical problem and to assure normal liver response to medications. Skin lesion on hands - referral to Dr. Pearson for evaluation/removal.
--- OUTSIDE RECORDS SUMMARY | 2018-02-26 06:02 | XMS REPORT | Continuity of Care Document ---
Author Author [facility] Organization [facility] Address Unknown Phone Unavailable Allergies Active Description Code Type Severity Reaction Onset Reported/Identified Relationship to Patient Clinical Status Yes NKANo Known Allergies NKA Miscellaneous Allergy Unknown N/A 10/26/2006 Yes No Known Drug Allergies [id number] Drug Allergy Unknown N/A 07/10/2017 Medications There is no data. Problems Date Dx Coded Attending Type Code Diagnosis Diagnosed By 10/24/1206 FLORES GR, THA Javier Ot M17.0 BILATERAL PRIMARY OSTEOARTHRITIS OF KNEE 10/24/1206 FLORES GR, THA Javier Ot M19.041 PRIMARY OSTEOARTHRITIS, RIGHT HAND 10/24/1206 FLORES GR, THA Javier Ot M19.042 PRIMARY OSTEOARTHRITIS, LEFT HAND 10/24/1206 FLORES GR, THA Javier Ot R53.1 WEAKNESS 02/05/2012 Ot 332.0 PARALYSIS AGITANS 02/05/2012 Ot 715.94 OSTEOARTHROS NOS-HAND 02/05/2012 Ot V57.21 ENCOUNTER FOR OCCUPATIONAL THERAPY 12/16/2014 JENNIFFER ORONA [employer]PENTER [employer] Ot 883.0 OPEN WOUND OF FINGER 12/16/2014 JENNIFFER ORONA [employer] Ot E000.8 OTHER EXTERNAL CAUSE STATUS 12/16/2014 JENNIFFER ORONA [employer] Ot E849.0 ACCIDENT IN HOME 12/16/2014 JENNIFFER ORONA [employer] Ot E919.4 WOODWORKING MACHINE ACC 12/16/2014 JENNIFFER ORONA [employer] Ot V06.1 [id number], COMBINED [ 04/07/2016 Ot 275.49 OTH DISORD/ CALCIUM METABOLISM 04/07/2016 Ot 712.36 CHONDROCALCIN NOS-L/LEG 04/07/2016 Ot 715.36 LOC OSTEOARTH NOS-L/LEG 04/07/2016 Ot 719.06 JOINT EFFUSION-L/LEG 04/07/2016 FLORES GR, THA Javier Ot 722.4 CERVICAL DISC DEGEN 04/07/2016 FLORES GR, THA Javier Ot 782.0 SKIN SENSATION DISTURB 04/07/2016 FLORES GR, THA Javier Ot R53.1 WEAKNESS 04/07/2016 FLORES GR, THA Javier Ot R26.0 ATAXIC GAIT 04/09/2016 FLORES GR, THA Javier Ot R26.0 ATAXIC GAIT 04/09/2016 FLORES GR, THA Javier Ot R53.1 WEAKNESS 04/10/2016 FLORES GR, THA Javier Ot R26.0 ATAXIC GAIT 04/10/2016 FLORES GR, THA Javier Ot R53.1 WEAKNESS 04/13/2016 Ot 275.49 OTH DISORD/ CALCIUM METABOLISM 04/13/2016 Ot 712.36 CHONDROCALCIN NOS-L/LEG 04/13/2016 [...] 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 ATTACK, UNSP 04/19/2016 THA TANNER MD Ot 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 ATTACK, UNSP 04/30/2016 THA TANNER MD Ot R26.0 ATAXIC GAIT 04/30/2016 THA TANNER MD Ot R53.1 WEAKNESS 05/14/2016 THA TANNER MD Ot 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 ATTACK, UNSP 05/16/2016 THA TANNER MD Ot 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 ATTACK, UNSP 05/18/2016 THA TANNER MD Ot R53.1 WEAKNESS 05/25/2016 FLORES GR, THA Javier Ot M17.0 BILATERAL PRIMARY OSTEOARTHRITIS OF KNEE 05/25/2016 FLORES GR, THA Javier Ot M19.041 PRIMARY OSTEOARTHRITIS, RIGHT HAND 05/25/2016 FLORES GR, THA Javier Ot M19.042 PRIMARY OSTEOARTHRITIS, LEFT HAND 05/25/2016 THA TANNER MD Ot R53.1 WEAKNESS 08/07/2016 LILI GR, RIGOBERTO Frank Ot K21.9 GASTRO-ESOPHAGEAL REFLUX DISEASE WITHOUT 08/07/2016 LILI GR, RIGOBERTO Frank Ot Z01.818 ENCOUNTER FOR OTHER PREPROCEDURAL EXAMIN 08/08/2016 RIGOBERTO PEARSON MD Ot K21.9 GASTRO-ESOPHAGEAL REFLUX DISEASE WITHOUT 08/08/2016 RIGOBERTO PEARSON MD Ot Z01.818 ENCOUNTER FOR OTHER PREPROCEDURAL EXAMIN 08/09/2016 Ot 275.49 OTH DISORD/ CALCIUM METABOLISM 08/09/2016 Ot 712.36 CHONDROCALCIN NOS-L/LEG 08/09/2016 Ot 715.36 LOC OSTEOARTH NOS-L/LEG 08/09/2016 Ot 719.06 JOINT EFFUSION-L/LEG 08/09/2016 FLORES GR, THA Javier Ot 722.4 CERVICAL DISC DEGEN 08/09/2016 THA TANNER MD Ot 782.0 SKIN SENSATION DISTURB 08/09/2016 THA TANNER MD Ot R26.0 ATAXIC GAIT 08/09/2016 THA TANNER MD Ot R53.1 WEAKNESS 08/09/2016 THA TANNER MD Ot 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 ATTACK, UNSP 08/09/2016 THA TANNER MD Ot 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 ATTACK, UNSP 08/09/2016 LILI GR, RIGOBERTO Frank Ot K25.9 GASTRIC ULCER, UNSP ACUTE OR CHRONIC, 08/10/2016 RIGOBERTO PEARSON MD Ot K25.9 GASTRIC ULCER, UNSP ACUTE OR CHRONIC, 08/13/2016 RIGOBERTO PEARSON MD Ot K21.9 GASTRO-ESOPHAGEAL REFLUX DISEASE WITHOUT 08/13/2016 LILI GR, RIGOBERTO Frank Ot Z01.818 ENCOUNTER FOR OTHER PREPROCEDURAL EXAMIN 08/16/2016 LILI GR, RIGOBERTO Frank Ot K25.9 GASTRIC ULCER, UNS ACUTE OR CHRONIC, 03/28/2017 ASHLEY CARVALHO APRN Ot Z86.73 PRSNL HX OF TIA (TIA), AND CEREB INFRC W 04/01/2017 ASHLEY CARVALHO APRN Ot 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 ATTACK, UNSP 04/03/2017 Ot 275.49 OTH DISORD/ CALCIUM METABOLISM 04/03/2017 Ot 712.36 CHONDROCALCIN NOS-L/LEG 04/03/2017 [...] Javier Ot 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 ATTACK, [facility] 04/03/2017 ASHLEY CARVALHO APRN Ot G45.9 TRANSIENT [...] AND CEREB INFRC W 05/21/2017 ABILIO BROTHERS Ot E78.5 HYPERLIPIDEMIA, UNSPECIFIED 05/21/2017 ABILIO BROTHERS Ot I12.9 HYPERTENSIVE CHRONIC KIDNEY DISEASE W ST 05/21/2017 NEW, ABILIO G. COMMERCIAL LOAN REVIEWER-C Ot K21.9 GASTRO-ESOPHAGEAL REFLUX DISEASE WITHOUT 05/21/2017 ABILIO BROTHERS COMMERCIAL LOAN REVIEWER-C Ot M10.9 GOUT, UNSPECIFIED 05/21/2017 ABILIO BROTHERS COMMERCIAL LOAN REVIEWER-C Ot M19.90 UNSPECIFIED OSTEOARTHRITIS, UNSPECIFIED 05/21/2017 ABILIO BROTHERS COMMERCIAL LOAN REVIEWER-C Ot N18.3 CHRONIC KIDNEY DISEASE, STAGE 3 (MODERAT 05/21/2017 ABILIO BROTHERS COMMERCIAL LOAN REVIEWER-C Ot R60.9 EDEMA, UNSPECIFIED 05/21/2017 ABILIO BROTHERS COMMERCIAL LOAN REVIEWER-C Ot R80.9 PROTEINURIA, UNSPECIFIED 06/02/2017 SAMUEL DUMAS MD Ot E78.00 PURE HYPERCHOLESTEROLEMIA, UNSPECIFIED 06/02/2017 SAMUEL DUMAS MD Ot I10 ESSENTIAL (PRIMARY) HYPERTENSION 06/02/2017 SAMUEL DUMAS MD Ot S80.861A INSECT BITE (NONVENOMOUS), RIGHT LOWER L 06/02/2017 SAMUEL DUMAS MD Ot W57.XXXA BIT/STUNG BY NONVENOM INSECT OTH NONVE 06/02/2017 SAMUEL DUMAS MD Ot Z79.82 RETIREMENT (CURRENT) USE OF ASPIRIN 06/02/2017 SAMUEL DUMAS MD Ot Z85.828 PERSONAL HISTORY OF OTHER MALIGNANT NEOP 06/02/2017 SAMUEL DUMAS MD Ot Z98.890 OTHER SPECIFIED POSTPROCEDURAL STATES 06/08/2017 SAMUEL DUMAS MD Ot E78.00 PURE HYPERCHOLESTEROLEMIA, UNSPECIFIED 06/08/2017 SAMUEL DUMAS MD Ot I10 ESSENTIAL (PRIMARY) HYPERTENSION 06/08/2017 SAMUEL DUMAS MD Ot S80.861A INSECT BITE (NONVENOMOUS), RIGHT LOWER L 06/08/2017 SAMUEL DUMAS MD Ot W57.XXXA BIT/STUNG BY NONVENOM INSECT OTH NONVE 06/08/2017 SAMUEL DUMAS MD Ot Z79.82 BAND SCROLL SAW OPERATOR (CURRENT) USE OF ASPIRIN 06/08/2017 SAMUEL DUMAS MD Ot Z85.828 PERSONAL HISTORY OF OTHER MALIGNANT NEOP 06/08/2017 SAMUEL DUMAS MD Ot Z98.890 OTHER SPECIFIED POSTPROCEDURAL STATES 07/10/2017 LILI GR, RIGOBERTO Frank Ot L98.9 DISORDER OF THE SKIN AND SUBCUTANEOUS TI 07/10/2017 RIGOBERTO PEARSON MD Ot Z01.812 ENCOUNTER FOR PREPROCEDURAL LABORATORY E 07/17/2017 RIGOBERTO PEARSON MD Ot C44.622 SQUAMOUS CELL CARCINOMA SKIN/ RIGHT UPPE 07/17/2017 RIGOBERTO PEARSON MD, Ot C44.629 SQUAMOUS CELL CARCINOMA SKIN/ LEFT UPPER 07/17/2017 RIGOBERTO PEARSON MD Ot E78.5 HYPERLIPIDEMIA, UNSPECIFIED 07/17/2017 RIGOBERTO PEARSON MD Ot I12.9 HYPERTENSIVE CHRONIC KIDNEY DISEASE W ST 07/17/2017 RIGOBERTO PEARSON MD Ot K21.9 GASTRO-ESOPHAGEAL REFLUX DISEASE WITHOUT 07/17/2017 RIGOBERTO PEARSON MD Ot N18.3 CHRONIC KIDNEY DISEASE, STAGE 3 (MODERAT 07/17/2017 RIGOBERTO PEARSON MD Ot Z79.899 OTHER BAND SCROLL SAW OPERATOR (CURRENT) DRUG THERAPY 07/17/2017 RIGOBERTO PEARSON MD Ot Z86.73 PRSNL HX OF TIA (TIA), AND CEREB INFRC W 07/17/2017 RIGOBERTO PEARSON MD Ot Z87.81 PERSONAL HISTORY OF (HEALED) TRAUMATIC F 07/17/2017 RIGOBERTO PEARSON MD Ot Z96.652 PRESENCE OF LEFT ARTIFICIAL KNEE JOINT 07/25/2017 RIGOBERTO PEARSON MD Ot C44.622 SQUAMOUS CELL CARCINOMA SKIN/ RIGHT UPPE 07/25/2017 RIGOBERTO PEARSON MD, Ot C44.629 SQUAMOUS CELL CARCINOMA SKIN/ LEFT UPPER 07/25/2017 RIGOBERTO PEARSON MD Ot E78.5 HYPERLIPIDEMIA, UNSPECIFIED 07/25/2017 RIGOBERTO PEARSON MD Ot I12.9 HYPERTENSIVE CHRONIC KIDNEY DISEASE W ST 07/25/2017 RIGOBERTO PEARSON MD Ot K21.9 GASTRO-ESOPHAGEAL REFLUX DISEASE WITHOUT 07/25/2017 RIGOBERTO PEARSON MD Ot N18.3 CHRONIC KIDNEY DISEASE, STAGE 3 (MODERAT 07/25/2017 RIGOBERTO PEARSON MD Ot Z79.899 OTHER RETIREMENT (CURRENT) DRUG THERAPY 07/25/2017 RIGOBERTO PEARSON MD Ot Z86.73 PRSNL HX OF TIA (TIA), AND CEREB INFRC W 07/25/2017 LILI GR, RIGOBERTO Frank Ot Z87.81 PERSONAL HISTORY OF (HEALED) TRAUMATIC F 07/25/2017 LILI GR, RIGOBERTO Frank Ot Z96.652 PRESENCE OF LEFT ARTIFICIAL KNEE JOINT 02/05/2018 FLORES GR, THA Javier Ot R05 COUGH 02/05/2018 THA TANNER MD Ot R07.89 OTHER CHEST PAIN 02/05/2018 THA TANNER MD Ot R09.89 OTH SYMPTOMS AND SIGNS INVOLVING THE CIR 02/10/2018 ASHLEY CARVALHO APRN Ot R10.11 RIGHT UPPER QUADRANT PAIN Procedures There is no data. Results Test Result Range Complete blood count (CBC) with automated white blood cell (WBC) differential - 07/10/17 09:50 Blood leukocytes automated count (number/volume) 5.4 10*3/uL 4.3-11.0 Blood erythrocytes automated count (number/volume) 4.03 10*6/uL 4.35-5.85 Venous blood hemoglobin measurement (mass/volume) 12.7 g/dL 13.3-17.7 Blood hematocrit (volume fraction) 38 % 40-54 Automated erythrocyte mean corpuscular volume 95 [foz_us] 80-99 Automated erythrocyte mean corpuscular hemoglobin (mass per erythrocyte) 32 pg 25-34 Automated erythrocyte mean corpuscular hemoglobin concentration measurement ( mass/volume) 33 g/dL 32-36 Automated erythrocyte distribution width ratio 13.4 % 10.0-14.5 Automated blood platelet count (count/volume) 179 10*3/uL 130-400 Automated blood platelet mean volume measurement 10.1 [foz_us] 7.4-10.4 Automated blood neutrophils/100 leukocytes 50 % 42-75 Automated blood lymphocytes/100 leukocytes 34 % 12-44 Blood monocytes/100 leukocytes 12 % 0-12 Automated blood eosinophils/100 leukocytes 3 % 0-10 Automated blood basophils/100 leukocytes 0 % 0-10 Blood neutrophils automated count (number/volume) 2.7 10*3 1.8-7.8 Blood lymphocytes automated count (number/volume) 1.9 10*3 1.0-4.0 Blood monocytes automated count (number/volume) 0.7 10*3 0.0-1.0 Automated eosinophil count 0.2 10*3/uL 0.0-0.3 Automated blood basophil count (count/volume) 0.0 10*3/uL 0.0-0.1 Whole blood basic metabolic panel - 07/10/17 09:50 Serum or plasma sodium measurement (moles/volume) 141 mmol/L 135-145 Serum or plasma potassium measurement (moles/volume) 4.2 mmol/L 3.6-5.0 Serum or plasma chloride measurement (moles/volume) 105 mmol/L 98-107 Carbon dioxide 26 mmol/L 21-32 Serum or plasma anion gap determination (moles/volume) 10 mmol/L 5-14 Serum or plasma urea nitrogen measurement (mass/volume) 31 mg/dL 7-18 Serum or plasma creatinine measurement (mass/volume) 1.55 mg/dL 0.60-1.30 Serum or plasma urea nitrogen/creatinine mass ratio 20 NRG Serum or plasma creatinine measurement with calculation of estimated glomerular filtration rate 44 NRG Serum or plasma glucose measurement (mass/volume) 100 mg/dL 70-105 Serum or plasma calcium measurement (mass/volume) 9.9 mg/dL 8.5-10.1 Methicillin resistant Staphylococcus aureus (MRSA) screening culture - 09:55 Methicillin resistant Staphylococcus aureus (MRSA) screening culture NEG NRG Encounters ACCT No. Visit Date/Time Discharge Status Pt. Type Provider Facility Loc./Unit Complaint [id number] 02/07/2018 09:36:00 02/07/2018 23:59:59 CLS Outpatient ASHLEY CARVALHO APRN [facility] RAD RUQ PAIN [id number] 02/04/2018 11:23:00 02/04/2018 23:59:59 CLS Outpatient THA TANNER MD [facility] RAD COUGH,DYSPNEA,LOW CHEST PAIN [id number] 07/17/2017 07:42:00 07/17/2017 13:32:00 DIS Outpatient RIGOBERTO PEARSON MD [facility] SDC LESIONS [id number] 07/10/2017 09:16:00 07/10/2017 15:00:00 DIS Outpatient RIGOBERTO PEARSON MD [facility] PREOP LESIONS [id number] 06/02/2017 12:39:00 06/02/2017 13:55:00 DIS Emergency ALESIA MD, SAMUEL D [facility] ER R LEG SPIDER BITE/ BLURRED VISION [id number] 04/29/2017 10:55:00 04/29/2017 23:59:59 CLS Outpatient ABILIO BROTHERSC [facility] RAD N18.3 CKD 3 [id number] 04/03/2017 09:06:00 04/03/2017 23:59:59 CLS Outpatient ASHLEY CARVALHO APRN [facility] RAD HX OF TIA, F/U [id number] 08/09/2016 09:16:00 08/09/2016 11:10:00 DIS Outpatient RIGOBERTO PEARSON MD [facility] SDC GERD [id number] 08/07/2016 05:46:00 08/07/2016 12:50:00 DIS Outpatient RIGOBERTO PEARSON MD [facility] PREOP GERD [id number] 05/25/2016 10:02:00 05/25/2016 12:07:00 DIS Outpatient THA TANNER MD [facility] REHAB WEAKNESS;HAND AND KNEE ARTHRITIS [id number] 04/17/2016 11:20:00 04/17/2016 23:59:59 CLS Outpatient THA TANNER MD [facility] CARD TIA [id number] 04/13/2016 11:23:00 04/13/2016 23:59:59 CLS Outpatient THA TANNER MD [facility] RAD TIA [id number] 04/07/2016 09:45:00 04/07/2016 23:59:59 CLS Outpatient THA TANNER MD [facility] RAD GAIT INSTABILITY, WEAKNESS [id number] 12/16/2014 20:01:00 12/16/2014 21:55:00 DIS Emergency JENNIFFER ORONA APRN [facility] ER L HAND INDEX FINGER LAC [id number] 02/19/2014 08:22:00 02/19/2014 23:59:59 CLS Outpatient THA TANNER MD [facility] RAD NECK PAIN, BILAT HAND NUMBNESS [id number] 02/26/2018 08:00:00 PEN Preadtristan PEARSON MD, RIGOBERTO Frank [facility] GALLBLADDER POLYP [id number] 04/07/2016 09:44:00 Document Registration [id number] 04/10/2012 17:59:00 Document Registration [id number] 01/30/2012 13:19:00 Document Registration [id number] 10/04/2017 23:03:54 10/04/2017 23:59:59 [facility] Outpatient [id number] 12/30/2014 17:55:07 ACT Document Registration
[2018-02-26] MEDS ORDERED: LACTATED RINGERS 1,000 ML IV PRN (06:43)
[2018-02-26 06:45] LABS: BASOPHILS % (AUTO) 1 % (0-10); EOSINOPHILS # (AUTO) 0.2 10^3/uL (0.0-0.3); EOSINOPHILS % (AUTO) 3 % (0-10); HEMATOCRIT 38 % (40-54); HEMOGLOBIN 12.6 G/DL (13.3-17.7); LYMPHOCYTES % (AUTO) 33 % (12-44); MEAN CORPUSCULAR HEMOGLOBIN 31 PG (25-34); MEAN CORPUSCULAR HGB CONC 33 G/DL (32-36); MEAN CORPUSCULAR VOLUME 94 FL (80-99); MEAN PLATELET VOLUME 9.8 FL (7.4-10.4); MONOCYTES # (AUTO) 0.7 X 10^3 (0.0-1.0); MONOCYTES % (AUTO) 12 % (0-12); NEUTROPHILS # (AUTO) 3.1 X 10^3 (1.8-7.8); NEUTROPHILS % (AUTO) 52 % (42-75); PLATELET COUNT 219 10^3/uL (130-400); RED BLOOD COUNT 4.03 10^6/uL (4.35-5.85)
[2018-02-26] MEDS ORDERED: metroNIDAZOLE 500MG/100ML IVPB 100 ML IV ONE (06:45)
[2018-02-26] MEDS ORDERED: FAMOTIDINE 20MG/2ML IV (PEPCID) IV ONE (06:45)
[2018-02-26] MEDS ORDERED: ceFAZolin 2 GM IV Premixed 50 ML IV ONE (06:45)
[2018-02-26] MEDS ORDERED: DEXAMETHASONE 10 MG/ML (DECADRON) 1 ML VIAL ONE (06:46)
[2018-02-26] MEDS ORDERED: NEOSTIGMINE 1 MG/ML 5 ML SYRINGE ONE (06:46)
[2018-02-26] MEDS ORDERED: proPOfol 200 MG/20 ML (DIPRIVAN) VIAL IV ONE (06:46)
[2018-02-26] MEDS ORDERED: GLYCOPYRROLATE 0.2 MG/ML (ROBINUL) 2 ML VIAL ONE ×2 (06:46→08:03)
[2018-02-26] MEDS ORDERED: SEVOFLURANE (ULTANE) 15 ML INHAL SOLN ONE ×4 (06:46→08:26)
[2018-02-26] MEDS ORDERED: LIDOCAINE PF 2% 5 ML (XYLOCAINE) VIAL ONE (06:46)
[2018-02-26] MEDS ORDERED: ROCURONIUM 10 MG/ML 5 ML SYRINGE IV ONE (06:46)
[2018-02-26] MEDS ORDERED: ONDANSETRON 4 MG/2 ML (SDV) Z0FRAN ONE (06:46)
[2018-02-26] MEDS ORDERED: fentaNYL INJECTION 100 MCG/2 ML AMP ONE (06:46)
[2018-02-26] MEDS: LACTATED RINGERS 1,000 ML IV PRN ×2 (06:55→08:13)
[2018-02-26] MEDS ORDERED: BUP/EPI 0.5% 1:200,000 (SENSORCAINE) 30 ML VIAL ONE (07:02)
[2018-02-26] MEDS ORDERED: fentaNYL INJECTION 100 MCG/2 ML AMP IVP PRN (07:30)
[2018-02-26] MEDS ORDERED: ONDANSETRON 4 MG/2 ML (SDV) Z0FRAN IVP PRN (07:30)
--- NOTE | 2018-02-26 07:39 | Progress Note-Pre Operative ---
Pre-Operative Progress Note H&P Reviewed The H&P was reviewed, patient examined and no changes noted. Date Seen by Provider: Feb 17, 2018 Time Seen by Provider: 11:00 Date H&P Reviewed: Feb 26, 2018 Time H&P Reviewed: 07:38 Pre-Operative Diagnosis: Gallstone RIGOBERTO PEARSON MD Feb 26, 2018 7:39 am
[2018-02-26 07:44] VITALS: BP 140/67
--- NOTE | 2018-02-26 08:48 | Operative Report ---
Operative Report Date of Procedure/Surgery Feb 26, 2018 Surgeon (s) RIGOBERTO PEARSON MD Rn Discharge (s): N/A Post-Operative Diagnosis Same Procedure Performed Robotic-assisted cholecystectomy Description of Procedure Anesthesia Type: General Estimated blood loss (mL): Minimal Specimen(s) collected/removed Gallbladder Description of the Procedure Indication for the procedure: This gentleman presented with symptoms due to a single, nonmobile gallstone/polyp. He was offered cholecystectomy using minimally invasive technique or the robotic assistance. Informed consent was obtained after reviewing the operative details and complications of wound infection, bile leak and persistence of his symptoms. Description of the procedure: He was placed supine on the operating table and general anesthesia induced. One gram of Ancef and 500 mg of Flagyl were administered intravenously as prophylaxis against wound infection. Sequential compression devices were placed around his legs, to minimize the risk of venous thrombosis. Abdomen was prepared and draped in the usual sterile manner. Pneumoperitoneum was established using a Veress needle introduced over the subumbilical region. Intra-abdominal pressure was maintained at 15 mmHg, using carbon dioxide insufflation. A 12 mm trocar was placed and anatomy visualized using the high definition, 3-dimensional laparoscope, associated with da Lew system. Under direct view, I placed an 8 mm trocar over each side of the abdomen followed by a 5 mm trocar over the left subcostal region. The patient was then turned into reverse Trendelenburg position, with the right side tilted up. The robotic system was docked in place. The fundus of the gallbladder was retracted cephalad and the infundibulum grasped with Cadiere forceps. Peritoneum overlying Calot's triangle was incised using the hook cautery, delineating the cystic duct and artery. Both were divided between locking clips. Cholecystectomy was then completed using the hook cautery. Gallbladder was placed in an Endo Catch bag and removed via the subumbilical trocar site fascia over this incision was closed using number 1. Skin incisions were closed using 4-0 Vicryl, in a subcuticular fashion. 0.5 percent Marcaine with epinephrine was infiltrated along the incisions, both preemptively and at the conclusion of the operation. He tolerated the procedure well, was extubated in the operating room and taken to the recovery room in a stable condition Findings of the Procedure See op report Allergies and Home Medications Allergies Coded Allergies: No Known Drug Allergies (Unverified , 02/24/18) Home Medications Acetaminophen 500 Mg Tablet, 500 MG PO BID, (Reported) Aspirin 81 Mg Tablet.dr, 81 MG PO DAILY, (Reported) Cholecalciferol (Vitamin D3) 1,000 Unit Tablet, 1,000 UNIT PO DAILY, (Reported) Cyanocobalamin (Vitamin B-12) 2,500 Mcg Tablet, 2,500 MCG PO DAILY, (Reported) Febuxostat 40 Mg Tablet, 40 MG PO DAILY, (Reported) Furosemide 40 Mg Tablet, 40 MG PO DAILY, (Reported) Gemfibrozil 600 Mg Tablet, 600 MG PO BID, (Reported) Losartan Potassium 50 Mg Tablet, 50 MG PO BID, (Reported) Melatonin/Pyridoxine 1 Each Tablet, 5 MG PO HS, (Reported) Metoprolol Tartrate 50 Mg Tablet, 50 MG PO BID, (Reported) Pantoprazole Sodium 40 Mg Tablet.dr, 40 MG PO DAILY, (Reported) Potassium Chloride 20 Meq Tab.er.prt, 10 MEQ PO DAILY, (Reported) take 1/2 of 20meq tab Simvastatin 20 Mg Tablet, 20 MG PO HS, (Reported) Sucralfate 1 Gm Tablet, PO QID, (Reported) Tramadol HCl 50 Mg Tablet, 50 MG PO BID, (Reported) Patient Home Medication List Home Medication List Reviewed: Yes RIGOBERTO PEARSON MD Feb 26, 2018 8:48 am
[2018-02-26] MEDS ORDERED: ACHD5005 PO (08:49)
--- NOTE | 2018-02-26 08:49 | Discharge Inst-Simple/Standard ---
Discharge Inst-Standard Discharge Medications New, Converted or Re-Newed RX: RX on Chart Patient Instructions/Follow Up Plan of Care/Instructions/FU: Band-Aids off in 48 hours. Incentive spirometry. Follow-up in 3 weeks. Activity as Tolerated: Yes Discharge Diet: No Restrictions RIGOBERTO PEARSON MD Feb 26, 2018 8:49 am
[2018-02-26] MEDS: morphine INJ 10 MG/ML 1ML (SYR OR VIAL) IVP PRN ×3 (09:10→09:24)
[2018-02-26 09:50] VITALS: BP 146/79
[2018-02-26 10:20] VITALS: BP 136/75
[2018-02-26 10:50] VITALS: BP 131/71
[2018-02-26 11:10] VITALS: BP 131/71
== END 2018-02-26 11:10 | disposition home or self-care (01) ==
LOC: SDC 05:48
PROVIDERS: ATTEND Surgery
DX: K82.4 Cholesterolosis of gallbladder (principal); Z79.899 Other long term (current) drug therapy; Z87.891 Personal history of nicotine dependence; E78.5 Hyperlipidemia, unspecified; Z86.73 Personal history of transient ischemic attack (TIA), and cerebral infarction without residual deficits; K21.9 Gastro-esophageal reflux disease without esophagitis; I12.9 Hypertensive chronic kidney disease with stage 1 through stage 4 chronic kidney disease, or unspecified chronic kidney disease; N18.3 Chronic kidney disease, stage 3 (moderate)
CPT/HCPCS: 36415; 85025; 87081

== ENCOUNTER → 2018-04-23 | Outpatient (RCR) | payer MEDICARE, OTHER ==
[~2018-04-23] MED LIST changes: +ACHD5005 PO; -RANI150T15 PO; +RANI150T46 PO
== END | disposition home or self-care (01) ==
LOC: CR3 03-24 08:19
DX: Z29.8 Encounter for other specified prophylactic measures (principal)

== ENCOUNTER 2018-05-23 06:10 | Outpatient (RCR) | payer MEDICARE, OTHER ==
[~2018-05-23 06:10] MED LIST changes: -GEMF600T3 PO; +GEMF600T4 PO
== END 2018-05-25 | disposition home or self-care (01) ==
LOC: CR3 06:10
PROVIDERS: ATTEND Family Medicine
DX: Z29.8 Encounter for other specified prophylactic measures (principal)

== ENCOUNTER → 2018-06-25 | Outpatient (RCR) | payer MEDICARE, OTHER | END | disposition home or self-care (01) | LOC: CR3 05-26 12:13 | PROVIDERS: ATTEND Family Medicine | DX: Z29.8 Encounter for other specified prophylactic measures (principal) ==

== ENCOUNTER 2018-07-25 09:46 | Outpatient (RCR) | payer MEDICARE, OTHER ==
[~2018-07-25 09:46] MED LIST changes: -LOSA50TA36 PO; +LOSA50TA7 PO
== END 2018-07-27 | disposition home or self-care (01) ==
LOC: CR3 09:46
PROVIDERS: ATTEND Family Medicine
DX: Z29.8 Encounter for other specified prophylactic measures (principal)

== ENCOUNTER 2018-08-27 07:51 | Outpatient (RCR) | payer MEDICARE, OTHER | END 2018-08-28 | disposition home or self-care (01) | LOC: CR3 07:51 | PROVIDERS: ATTEND Family Medicine | DX: Z29.8 Encounter for other specified prophylactic measures (principal) ==

== ENCOUNTER 2018-09-26 09:19 | Outpatient (RCR) | payer MEDICARE, OTHER | END 2018-09-28 | disposition home or self-care (01) | LOC: CR3 09:19 | PROVIDERS: ATTEND Family Medicine | DX: Z29.8 Encounter for other specified prophylactic measures (principal) ==

== ENCOUNTER 2018-10-27 07:36 | Outpatient (RCR) | payer MEDICARE, OTHER | END 2018-10-29 | disposition home or self-care (01) | LOC: CR3 07:36 | PROVIDERS: ATTEND Family Medicine | DX: Z29.8 Encounter for other specified prophylactic measures (principal) ==

== ENCOUNTER 2019-02-06 09:35 | Outpatient (RCR) | payer MEDICARE, OTHER ==
[~2019-02-06 09:35] MED LIST changes: -GEMF600T4 PO; +GEMF600T8 PO; +LOSA50TA63 PO; -LOSA50TA7 PO
[2019-02-20] MEDS ORDERED: CEPH-507 PO (19:15)
== END 2019-03-24 | disposition home or self-care (01) ==
LOC: CR 09:35
PROVIDERS: ATTEND Internal Medicine Interventional Cardiology
DX: Z48.812 Encounter for surgical aftercare following surgery on the circulatory system (principal); Z95.1 Presence of aortocoronary bypass graft
CPT/HCPCS: 93798

== ENCOUNTER 2019-02-20 17:41 | Emergency (ER) | payer MEDICARE, OTHER ==
[~2019-02-20] VITALS: Ht 180.3 cm; Wt 86.2 kg
--- OUTSIDE RECORDS SUMMARY | 2019-02-20 17:54 | XMS REPORT | Continuity of Care Document ---
Author Author [facility] Organization [facility] Address Unknown Phone Unavailable Allergies Active Description Code Type Severity Reaction Onset Reported/Identified Relationship to Patient Clinical Status Yes NKANo Known Allergies NKA Miscellaneous Allergy Unknown N/A 10/26/2006 Yes No Known Drug Allergies [id number] Drug Allergy Unknown N/A 02/24/2018 Medications There is no data. Problems Date [...] ENCOUNTER FOR OCCUPATIONAL THERAPY 12/16/2014 JENNIFFER ORONA GAUGE AND WEIGH MACHINE OPERATOR Ot 883.0 OPEN WOUND OF FINGER 12/16/2014 JENNIFFER ORONA GAUGE AND WEIGH MACHINE OPERATOR Ot E000.8 OTHER EXTERNAL CAUSE STATUS 12/16/2014 JENNIFFER ORONA GAUGE AND WEIGH MACHINE OPERATOR Ot E849.0 ACCIDENT IN HOME 12/16/2014 JENNIFFER ORONA GAUGE AND WEIGH MACHINE OPERATOR Ot E919.4 WOODWORKING MACHINE ACC 12/16/2014 JENNIFFER ORONA GAUGE AND WEIGH MACHINE OPERATOR Ot V06.1 [id number], COMBINED [ 04/07/2016 Ot 275.49 OTH DISORD/ [...] 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 ATTACK, UNSP 04/19/2016 FOLRES GR, THA Javier Ot 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 ATTACK, UNSP 04/19/2016 THA TANNER MD Ot 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 ATTACK, UNSP 04/30/2016 THA TANNER MD Ot R26.0 ATAXIC GAIT 04/30/2016 THA TANNER MD Ot R53.1 WEAKNESS 05/14/2016 THA TANNER MD Ot 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 ATTACK, UNSP 05/16/2016 THA TANNER MD Ot 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 ATTACK, UNSP 05/18/2016 TAH TANNER MD Ot R53.1 WEAKNESS 05/25/2016 FLORES [...] Javier Ot 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 ATTACK, [facility] 04/03/2017 ASHLEY CARVALHO APRN Ot G45.9 TRANSIENT [...] DISEASE W ST 05/21/2017 NEW, ABILIO G. EMPLOYMENT ADVISOR-C Ot K21.9 GASTRO-ESOPHAGEAL REFLUX DISEASE WITHOUT 05/21/2017 ABILIO BROTHERS EMPLOYMENT ADVISOR-C Ot M10.9 GOUT, UNSPECIFIED 05/21/2017 ABILIO BRTOHERS EMPLOYMENT ADVISOR-C Ot M19.90 UNSPECIFIED OSTEOARTHRITIS, UNSPECIFIED 05/21/2017 ABILIO BROTHERS EMPLOYMENT ADVISOR-C Ot N18.3 CHRONIC KIDNEY DISEASE, STAGE 3 (MODERAT 05/21/2017 ABILIO BROTHERS EMPLOYMENT ADVISOR-C Ot R60.9 EDEMA, UNSPECIFIED 05/21/2017 ABILIO BROTHERS EMPLOYMENT ADVISOR-C Ot R80.9 PROTEINURIA, UNSPECIFIED 06/02/2017 SAMUEL DUMAS MD Ot E78.00 PURE HYPERCHOLESTEROLEMIA, UNSPECIFIED 06/02/2017 SAMUEL DUMAS MD Ot I10 ESSENTIAL (PRIMARY) HYPERTENSION 06/02/2017 SAMUEL DUMAS MD Ot S80.861A INSECT BITE (NONVENOMOUS), RIGHT LOWER L 06/02/2017 SAMUEL DUMAS MD Ot W57.XXXA BIT/STUNG BY NONVENOM INSECT OTH NONVE 06/02/2017 SAMUEL DUMAS MD Ot Z79.82 HALF-WAY (CURRENT) USE OF ASPIRIN 06/02/2017 SAMUEL DUMAS [...] NONVE 06/08/2017 SAMUEL DUMAS MD Ot Z79.82 LINER ROLL CHANGER (CURRENT) USE OF ASPIRIN 06/08/2017 SAMUEL DUMAS [...] 07/17/2017 RIGOBERTO PEARSON MD Ot Z79.899 OTHER LINER ROLL CHANGER (CURRENT) DRUG THERAPY 07/17/2017 RIGOBERTO PEARSON MD [...] 07/25/2017 RIGOBERTO PEARSON MD Ot Z79.899 OTHER HALF-WAY (CURRENT) DRUG THERAPY 07/25/2017 RIGOBERTO PEARSON MD Ot Z86.73 PRSNL HX OF TIA (TIA), AND CEREB INFRC W 07/25/2017 RIGOBERTO PEARSON MD Ot Z87.81 PERSONAL HISTORY OF (HEALED) TRAUMATIC F 07/25/2017 RIGOBERTO PEARSON MD Ot Z96.652 PRESENCE OF LEFT ARTIFICIAL KNEE JOINT 02/05/2018 THA TANNER MD Ot R05 COUGH 02/05/2018 FLORES GR, THA Javier Ot R07.89 OTHER CHEST PAIN 02/05/2018 THA TANNER MD Ot R09.89 OTH SYMPTOMS AND SIGNS INVOLVING THE CIR 02/10/2018 ASHLEY CARVALHO APRN Ot R10.11 RIGHT UPPER QUADRANT PAIN 02/25/2018 THA TANNER MD Ot R05 COUGH 02/25/2018 THA TANNER MD Ot R07.89 OTHER CHEST PAIN 02/25/2018 THA TANNER MD Ot R09.89 OTH SYMPTOMS AND SIGNS INVOLVING THE CIR 02/26/2018 RIGOBERTO PEARSON MD Ot E78.5 HYPERLIPIDEMIA, UNSPECIFIED 02/26/2018 RIGOBERTO PEARSON MD Ot I12.9 HYPERTENSIVE CHRONIC KIDNEY DISEASE W ST 02/26/2018 RIGOBERTO PEARSON MD Ot K21.9 GASTRO-ESOPHAGEAL REFLUX DISEASE WITHOUT 02/26/2018 RIGOBERTO PEARSON MD Ot K82.4 CHOLESTEROLOSIS OF GALLBLADDER 02/26/2018 RIGOBERTO PEARSON MD Ot N18.3 CHRONIC KIDNEY DISEASE, STAGE 3 (MODERAT 02/26/2018 RIGOBERTO PEARSON MD Ot Z79.899 OTHER LINER ROLL CHANGER (CURRENT) DRUG THERAPY 02/26/2018 RIGOBERTO PEARSON MD Ot Z86.73 PRSNL HX OF TIA (TIA), AND CEREB INFRC W 02/26/2018 RIGOBERTO PEARSON MD Ot Z87.891 PERSONAL HISTORY OF NICOTINE DEPENDENCE 02/27/2018 ASHLEY CARVALHO APRN Ot R10.11 RIGHT UPPER QUADRANT PAIN 02/27/2018 RIGOBERTO PEARSON MD Ot E78.5 HYPERLIPIDEMIA, UNSPECIFIED 02/27/2018 RIGOBERTO PEARSON MD Ot I12.9 HYPERTENSIVE CHRONIC KIDNEY DISEASE W ST 02/27/2018 RIGOBERTO PEARSON MD Ot K21.9 GASTRO-ESOPHAGEAL REFLUX DISEASE WITHOUT 02/27/2018 RIGOBERTO PEARSON MD Ot K82.4 CHOLESTEROLOSIS OF GALLBLADDER 02/27/2018 LILI GR, RIGOBERTO Frank Ot N18.3 CHRONIC KIDNEY DISEASE, STAGE 3 (MODERAT 02/27/2018 RIGOBERTO PEARSON MD Ot Z79.899 OTHER LINER ROLL CHANGER (CURRENT) DRUG THERAPY 02/27/2018 RIGOBERTO PEARSON MD Ot Z86.73 PRSNL HX OF TIA (TIA), AND CEREB INFRC W 02/27/2018 RIGOBERTO PEARSON MD Ot Z87.891 PERSONAL HISTORY OF NICOTINE DEPENDENCE 03/06/2018 RIGOBERTO PEARSON MD Ot E78.5 HYPERLIPIDEMIA, UNSPECIFIED 03/06/2018 RIGOBERTO PEARSON MD Ot I12.9 HYPERTENSIVE CHRONIC KIDNEY DISEASE W ST 03/06/2018 RIGOBERTO PEARSON MD Ot K21.9 GASTRO-ESOPHAGEAL REFLUX DISEASE WITHOUT 03/06/2018 RIGOBERTO PEARSON MD Ot K82.4 CHOLESTEROLOSIS OF GALLBLADDER 03/06/2018 RIGOBERTO PEARSON MD Ot N18.3 CHRONIC KIDNEY DISEASE, STAGE 3 (MODERAT 03/06/2018 RIGOBERTO PEARSON MD Ot Z79.899 OTHER HALF-WAY (CURRENT) DRUG THERAPY 03/06/2018 RIGOBERTO PEARSON MD Ot Z86.73 PRSNL HX OF TIA (TIA), AND CEREB INFRC W 03/06/2018 RIGOBERTO PEARSON MD Ot Z87.891 PERSONAL HISTORY OF NICOTINE DEPENDENCE 04/23/2018 OTHER, UNLISTED Ot Z29.8 ENCOUNTER FOR OTHER SPECIFIED PROPHYLACT 04/24/2018 OTHER, UNLISTED Ot Z29.8 ENCOUNTER FOR OTHER SPECIFIED PROPHYLACT 05/25/2018 THA TANNER MD Ot Z29.8 ENCOUNTER FOR OTHER SPECIFIED PROPHYLACT 05/30/2018 THA TANNER MD Ot Z29.8 ENCOUNTER FOR OTHER SPECIFIED PROPHYLACT 06/25/2018 THA TANNER MD Ot Z29.8 ENCOUNTER FOR OTHER SPECIFIED PROPHYLACT 07/17/2018 RIGOBERTO PEARSON MD Ot Z01.818 ENCOUNTER FOR OTHER PREPROCEDURAL EXAMIN 07/18/2018 THA TANNER MD Ot 722.4 CERVICAL DISC DEGEN 07/18/2018 THA TANNER MD Ot 782.0 SKIN SENSATION DISTURB 07/18/2018 THA TANNER MD Ot R26.0 ATAXIC GAIT 07/18/2018 FLORES GR, THA Javier Ot R53.1 WEAKNESS 07/18/2018 THA TANNER MD Ot 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 ATTACK, UNSP 07/18/2018 THA TANNER MD, Ot 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 ATTACK, UNSP 07/18/2018 ASHLEY CARVALHO GAUGE AND WEIGH MACHINE OPERATOR Ot 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 EMPLOYMENT ADVISOR-C Ot E78.5 HYPERLIPIDEMIA, UNSPECIFIED 07/18/2018 NEW, ABILIO G. EMPLOYMENT ADVISOR-C Ot I12.9 HYPERTENSIVE CHRONIC KIDNEY DISEASE W ST 07/18/2018 NEW, ABILIO G. EMPLOYMENT ADVISOR-C Ot K21.9 GASTRO-ESOPHAGEAL REFLUX DISEASE WITHOUT 07/18/2018 NEW, ABILIO G. EMPLOYMENT ADVISOR-C Ot M10.9 GOUT, UNSPECIFIED 07/18/2018 NEW, ABILIO G. EMPLOYMENT ADVISOR-C Ot M19.90 UNSPECIFIED OSTEOARTHRITIS, UNSPECIFIED 07/18/2018 NEW, ABILIO G. EMPLOYMENT ADVISOR-C Ot N18.3 CHRONIC KIDNEY DISEASE, STAGE 3 (MODERAT 07/18/2018 NEW, ABILIO G. EMPLOYMENT ADVISOR-C Ot R60.9 EDEMA, UNSPECIFIED 07/18/2018 NEW, ABILIO G. EMPLOYMENT ADVISOR-C Ot R80.9 PROTEINURIA, UNSPECIFIED 07/18/2018 ASHLEY CARVALHO GAUGE AND WEIGH MACHINE OPERATOR Ot R10.11 RIGHT UPPER QUADRANT PAIN 07/18/2018 FLORES GR, THA Javier Ot R05 COUGH 07/18/2018 THA TANNER MD Ot R07.89 OTHER CHEST PAIN 07/18/2018 THA TANNER MD Ot R09.89 OTH SYMPTOMS AND SIGNS INVOLVING THE CIR 07/18/2018 LILI GR, RIGOBERTO Frank Ot K82.4 CHOLESTEROLOSIS OF GALLBLADDER 07/18/2018 LILI GR, RIGOBERTO Frank Ot Z01.818 ENCOUNTER FOR OTHER PREPROCEDURAL EXAMIN 07/21/2018 RIGOBERTO PEARSON MD Ot K31.89 OTHER DISEASES OF STOMACH AND DUODENUM 07/21/2018 RIGOBERTO PEARSON MD Ot K44.9 DIAPHRAGMATIC HERNIA WITHOUT OBSTRUCTION 07/21/2018 RIGOBERTO PEARSON MD Ot R10.13 EPIGASTRIC PAIN 07/21/2018 RIGOBERTO PEARSON MD Ot Z85.828 PERSONAL HISTORY OF OTHER MALIGNANT NEOP 07/21/2018 RIGOBERTO PEARSON MD Ot Z86.14 PERSONAL HISTORY OF METHICILLIN RESIS ST 07/21/2018 RIGOBERTO PEARSON MD Ot Z87.891 PERSONAL HISTORY OF NICOTINE DEPENDENCE 07/21/2018 RIGOBERTO PEARSON MD Ot Z96.651 PRESENCE OF RIGHT ARTIFICIAL KNEE JOINT 07/23/2018 RIGOBERTO PEARSON MD Ot K31.9 DISEASE OF STOMACH AND DUODENUM, UNSPECI 07/23/2018 RIGOBERTO PEARSON MD Ot K44.9 DIAPHRAGMATIC HERNIA WITHOUT OBSTRUCTION 07/23/2018 RIGOBERTO PEARSON MD Ot R10.13 EPIGASTRIC PAIN 07/23/2018 RIGOBERTO PEARSON MD Ot Z85.828 PERSONAL HISTORY OF OTHER MALIGNANT NEOP 07/23/2018 RIGOBERTO PEARSON MD Ot Z86.14 PERSONAL HISTORY OF METHICILLIN RESIS ST 07/23/2018 RIGOBERTO PEARSON MD Ot Z87.891 PERSONAL HISTORY OF NICOTINE DEPENDENCE 07/23/2018 RIGOBERTO PEARSON MD Ot Z96.651 PRESENCE OF RIGHT ARTIFICIAL KNEE JOINT 07/23/2018 RIGOBERTO PEARSON MD Ot K31.89 OTHER DISEASES OF STOMACH AND DUODENUM 07/23/2018 RIGOBERTO PEARSON MD Ot K44.9 DIAPHRAGMATIC HERNIA WITHOUT OBSTRUCTION 07/23/2018 RIGOBERTO PEARSON MD Ot R10.13 EPIGASTRIC PAIN 07/23/2018 RIGOBERTO PEARSON MD Ot Z85.828 PERSONAL HISTORY OF OTHER MALIGNANT NEOP 07/23/2018 RIGOBERTO PEARSON MD Ot Z86.14 PERSONAL HISTORY OF METHICILLIN RESIS ST 07/23/2018 RIGOBERTO PEARSON MD Ot Z87.891 PERSONAL HISTORY OF NICOTINE DEPENDENCE 07/23/2018 RIGOBERTO PEARSON MD Ot Z96.651 PRESENCE OF RIGHT ARTIFICIAL KNEE JOINT 07/27/2018 THA TANNER MD Ot Z29.8 ENCOUNTER FOR OTHER SPECIFIED PROPHYLACT 08/28/2018 THA TANNER MD Ot Z29.8 ENCOUNTER FOR OTHER SPECIFIED PROPHYLACT 08/29/2018 THA TANNER MD Ot Z29.8 ENCOUNTER FOR OTHER SPECIFIED PROPHYLACT 09/28/2018 THA TANNER MD Ot Z29.8 ENCOUNTER FOR OTHER SPECIFIED PROPHYLACT 10/29/2018 THA TANNER MD Ot Z29.8 ENCOUNTER FOR OTHER SPECIFIED PROPHYLACT 12/01/2018 THA TANNER MD Ot Z29.8 ENCOUNTER FOR OTHER SPECIFIED PROPHYLACT 01/16/2019 ELAN RICHTER MD, Ot Z48.812 ENCNTR FOR SURGICAL AFTCR FOLLOWING SURG 01/16/2019 ELAN RICHTER MD, Ot Z95.1 PRESENCE OF AORTOCORONARY BYPASS GRAFT Procedures There is no data. Results Test [...] Staphylococcus aureus (MRSA) screening culture NEG NRG Methicillin resistant Staphylococcus aureus (MRSA) screening culture - 06:30 Methicillin resistant Staphylococcus aureus (MRSA) screening culture NEG NRG Complete blood count (CBC) with automated white blood cell (WBC) differential - 02/26/18 06:35 Blood leukocytes automated count (number/volume) 6.0 10*3/uL 4.3-11.0 Blood erythrocytes automated count (number/volume) 4.03 10*6/uL 4.35-5.85 Venous blood hemoglobin measurement (mass/volume) 12.6 g/dL 13.3-17.7 Blood hematocrit (volume fraction) 38 % 40-54 Automated erythrocyte mean corpuscular volume 94 [foz_us] 80-99 Automated erythrocyte mean corpuscular hemoglobin (mass per erythrocyte) 31 pg 25-34 Automated erythrocyte mean corpuscular hemoglobin concentration measurement ( mass/volume) 33 g/dL 32-36 Automated erythrocyte distribution width ratio 13.0 % 10.0-14.5 Automated blood platelet count (count/volume) 219 10*3/uL 130-400 Automated blood platelet mean volume measurement 9.8 [foz_us] 7.4-10.4 Automated blood neutrophils/100 leukocytes 52 % 42-75 Automated blood lymphocytes/100 leukocytes 33 % 12-44 Blood monocytes/100 leukocytes 12 % 0-12 Automated blood eosinophils/100 leukocytes 3 % 0-10 Automated blood basophils/100 leukocytes 1 % 0-10 Blood neutrophils automated count (number/volume) 3.1 10*3 1.8-7.8 Blood lymphocytes automated count (number/volume) 2.0 10*3 1.0-4.0 Blood monocytes automated count (number/volume) 0.7 10*3 0.0-1.0 Automated eosinophil count 0.2 10*3/uL 0.0-0.3 Automated blood basophil count (count/volume) 0.0 10*3/uL 0.0-0.1 Encounters ACCT No. Visit Date/Time Discharge Status Pt. Type Provider Facility Loc./Unit Complaint [id number] 02/06/2019 09:35:00 02/06/2019 23:59:59 CLS Outpatient RICHTER MD, ELAN Nam [facility] CR STATUS POST ACB [id number] 11/05/2018 08:07:00 11/30/2018 00:01:00 DIS Outpatient THA TANNER MD [facility] CR3 WELLNESS [id number] 10/27/2018 07:36:00 10/29/2018 00:01:00 DIS Outpatient THA TANNER MD [facility] CR3 WELLNESS [id number] 09/26/2018 09:19:00 09/28/2018 00:01:00 DIS Outpatient THA TANNER MD [facility] CR3 WELLNESS [id number] 08/27/2018 07:51:00 08/28/2018 00:01:00 DIS Outpatient THA TANNER MD [facility] CR3 WELLNESS [id number] 07/25/2018 09:46:00 07/27/2018 00:01:00 DIS Outpatient THA TANNER MD [facility] CR3 WELLNESS [id number] 07/21/2018 10:22:00 07/21/2018 14:55:00 DIS Outpatient RIGOBERTO PEARSON MD [facility] ENDO GERD/EPIGASTRIC PAIN [id number] 07/17/2018 09:25:00 07/17/2018 12:03:00 DIS Outpatient RIGOBERTO PEARSON MD [facility] PREOP EGD [id number] 06/23/2018 07:40:00 06/23/2018 23:59:59 CLS Outpatient THA TANNER MD [facility] WELLNESS [id number] 05/23/2018 06:10:00 05/25/2018 00:01:00 DIS Outpatient THA TANNER MD [facility] WELLNESS [id number] 04/23/2018 07:48:00 04/23/2018 00:01:00 DIS Outpatient OTHER, UNLISTED [facility] [place] [address] INDIVIDUAL WELLNESS CARD [id number] 02/26/2018 05:48:00 02/26/2018 11:10:00 DIS Outpatient RIGOBERTO PEARSON MD [facility] SDC GALLBLADDER POLYP [id number] 02/24/2018 05:49:00 02/24/2018 23:59:59 CLS Outpatient RIGOBERTO PEARSON MD [facility] PREOP GALLBLADDER POLYP [id number] 02/07/2018 09:36:00 02/07/2018 23:59:59 CLS Outpatient ASHLEY CARVALHO APRN [facility] RAD RUQ PAIN [id number] 02/04/2018 11:23:00 02/04/2018 23:59:59 CLS Outpatient THA TANNER MD [facility] RAD COUGH,DYSPNEA,LOW CHEST PAIN [id number] 07/17/2017 07:42:00 07/17/2017 13:32:00 DIS Outpatient RIGOBERTO PEARSON MD [facility] SDC LESIONS [id number] 07/10/2017 09:16:00 07/10/2017 15:00:00 DIS Outpatient RIGOBERTO PEARSON MD [facility] PREOP LESIONS [id number] 06/02/2017 12:39:00 06/02/2017 13:55:00 DIS Emergency SAMUEL DUMAS MD [facility] ER R LEG SPIDER BITE/ BLURRED VISION [id number] 04/29/2017 10:55:00 04/29/2017 23:59:59 CLS Outpatient ABILIO BROTHERS [facility] RAD N18.3 CKD 3 [id number] 04/03/2017 09:06:00 04/03/2017 23:59:59 CLS Outpatient ASHLEY CARVALHO GAUGE AND WEIGH MACHINE OPERATOR [facility] RAD HX OF TIA, F/U [id number] 08/09/2016 09:16:00 08/09/2016 11:10:00 DIS Outpatient RIGOBERTO PEARSON MD [facility] SDC GERD [id number] 08/07/2016 05:46:00 08/07/2016 12:50:00 DIS Outpatient RIGOBERTO PEARSON MD [facility] PREOP GERD [id number] 05/25/2016 10:02:00 05/25/2016 12:07:00 DIS Outpatient THA TANNER MD [facility] REHAB WEAKNESS;HAND AND KNEE ARTHRITIS [id number] 04/17/2016 11:20:00 04/17/2016 23:59:59 CLS Outpatient THA TANNER MD [facility] CARD TIA [id number] 04/13/2016 11:23:00 04/13/2016 23:59:59 CLS Outpatient THA TANNER MD [facility] RAD TIA [id number] 04/07/2016 09:45:00 04/07/2016 23:59:59 CLS Outpatient THA TANNER MD [facility] RAD GAIT INSTABILITY, WEAKNESS [id number] 12/16/2014 20:01:00 12/16/2014 21:55:00 DIS Emergency JENNIFFER ORONA GAUGE AND WEIGH MACHINE OPERATOR [facility] ER L HAND INDEX FINGER LAC [id number] 02/19/2014 08:22:00 02/19/2014 23:59:59 CLS Outpatient THA TANNER MD [facility] RAD NECK PAIN, BILAT HAND NUMBNESS [id number] 02/18/2019 08:49:00 ACT Outpatient THA TANNER MD [facility] CR3 WELLNESS [id number] 04/07/2016 09:44:00 Document Registration [id number] 04/10/2012 17:59:00 Document Registration [id number] 01/30/2012 13:19:00 Document Registration [id number] 10/04/2017 23:03:54 10/04/2017 23:59:59 CLS Outpatient [id number] 12/30/2014 17:55:07 ACT Document Registration
--- NOTE | 2019-02-20 18:13 | ED Head Injury ---
General Chief Complaint: Trauma-Non Activation Stated Complaint: FALL/HEAD LAC Nursing Triage Note: pt fell and hit the left side of his face on a wooden structure in his garden. pt has moderate blood loss. denies pain. Source: patient, family Exam Limitations: no limitations History of Present Illness Date Seen by Provider: Feb 20, 2019 Time Seen by Provider: 18:12 Initial Comments To ER per POV from home with c/o fall. Injury to left side of cheek just anterior to ear from hitting in on one of his wooden garlic stands. Occurred: just prior to arrival Severity: moderate Location: frontal Method of Injury: fell Loss of Consciousness: no loss of consciousness Associated Systoms: No Headaches, No Nausea/Vomiting Allergies and Home Medications Allergies Coded Allergies: No Known Drug Allergies (Unverified , 02/24/18) Home Medications Acetaminophen 500 Mg Tablet, 1,000 MG PO BID, (Reported) Aspirin 81 Mg Tablet.dr, 81 MG PO Q48H, (Reported) Cholecalciferol (Vitamin D3) 1,000 Unit Tablet, 1,000 UNIT PO DAILY, (Reported) Cyanocobalamin (Vitamin B-12) 2,500 Mcg Tablet, 2,500 MCG PO DAILY, (Reported) Febuxostat 40 Mg Tablet, 40 MG PO DAILY, (Reported) Furosemide 40 Mg Tablet, 40 MG PO DAILY, (Reported) Gemfibrozil 600 Mg Tablet, 600 MG PO BID, (Reported) Losartan Potassium 50 Mg Tablet, 50 MG PO BID, (Reported) Melatonin/Pyridoxine 1 Each Tablet, 5 MG PO HS, (Reported) Metoprolol Tartrate 50 Mg Tablet, 50 MG PO BID, (Reported) Pantoprazole Sodium 40 Mg Tablet.dr, 40 MG PO DAILY, (Reported) Potassium Chloride 20 Meq Tab.er.prt, 10 MEQ PO DAILY, (Reported) take 1/2 of 20meq tab Simvastatin 20 Mg Tablet, 20 MG PO HS, (Reported) Sucralfate 1 Gm Tablet, 1 GM PO QID, (Reported) Tramadol HCl 50 Mg Tablet, 50 MG PO BID, (Reported) Patient Home Medication List Home Medication List Reviewed: Yes Review of Systems Review of Systems Constitutional: see HPI Eyes: No Symptoms Reported Ears, Nose, Mouth, Throat: see HPI Respiratory: no symptoms reported Cardiovascular: no symptoms reported Genitourinary: no symptoms reported Musculoskeletal: no symptoms reported Skin: no symptoms reported Psychiatric/Neurological: No Symptoms Reported Past Audzzpc-Nwpzcd-Debhuf Hx Patient Social History Alcohol Beverage of Choice: Wine Type Used: Cigarettes, Smokeless Tobacco Former Smoker, Quit: Jul 10, 1985 Recent Foreign Travel: No Contact w/Someone Who Travel: No Recent Infectious Disease Expo: No Recent Hopitalizations: No Immunizations Up To Date Tetanus Booster (TDap): Unknown Date of Pneumonia Vaccine: Sep 09, 2017 Date of Influenza Vaccine: Sep 09, 2017 Seasonal Allergies Seasonal Allergies: No Past Medical History Surgeries: Yes (BACK SX, L TKR, left elbow x3, bilat CTR,) Gallbladder, Orthopedic Respiratory: No Cardiac: Yes High Cholesterol, Hypertension Neurological: No TIA Reproductive Disorders: No Sexually Transmitted Disease: No HIV/AIDS: No Gastrointestinal: No Gastroesophageal Reflux Musculoskeletal: Yes Arthritis, Back Injury Endocrine: No Loss of Vision: Bilateral Hearing Impairment: Denies Cancer: Yes Skin What Type of Treatment Did You: Surgical Intervention Psychosocial: No Integumentary: Yes (MRSA) Blood Disorders: No Adverse Reaction/Blood Tranf: No (HAS HAD BLOOD WITH NO REACTION) Family Medical History No Pertinent Family Hx Physical Exam Vital Signs Vital Signs - First Documented 02/20/19 17:48 Temp 97.6 Pulse 83 Resp 18 B/P (MAP) 138/92 (107) Pulse Ox 98 O2 Delivery Room Air Capillary Refill : Less Than 3 Seconds Height, Weight, BMI Height: 5'11.00" Weight: 190lbs. 0.0oz. [id number]; 25.4 BMI Method:Stated General Appearance: WD/WN, no apparent distress HEENT: PERRL/EOMI, normal ENT inspection, other (1.5cm laceration just anterior to left ear with brisk pulsatile bleed presumed to be superficial temporal artery. Artery itself could not be identified to be ligated here, sutures placed size 4-0 ethilon with wide bite to achieve hemostasis by tamponade. 4 sutures placed after anesthetized with 3ml 2% lidocaine with epi, Pressure dressing placed to help minimal bleeding beneath the skin. ) Neck: non-tender, full range of motion Respiratory: no respiratory distress, no accessory muscle use Gastrointestinal: normal bowel sounds, non tender Back: no vertebral tenderness Extremities: normal range of motion, non-tender Psychiatric: alert Crainal Nerves: normal hearing, normal speech, PERRL Skin: normal color, warm/dry Landrum Coma Score Best Eye Response: (4) Open Spontaneously Best Verbal Response: (5) Oriented Best Motor Response: (6) Obeys Commands Landrum Total: 15 Progress/Results/Core Measures Results/Orders My Orders Orders - JENNIFFER ORONA APRN Ct Head/Face/Cervical Wo (02/20/19 18:06) Vital Signs/I&O 02/20/19 17:48 Temp 97.6 Pulse 83 Resp 18 B/P (MAP) 138/92 (107) Pulse Ox 98 O2 Delivery Room Air Departure Impression Primary Impression: Facial laceration Qualified Codes: S01.81XA - Laceration without foreign body of other part of head, initial encounter Disposition: HOME, SELF-CARE Condition: Stable Departure-Patient Inst. Decision time for Depature: 18:52 Referrals: NGUYEN AGUILERA MD (PCP/Family) Primary Care Physician Patient Instructions: Laceration Repair With Stitches (DC) Add. Discharge Instructions: 1. You may get this wet starting tomorrow. if you shower tonight, keep this dry. Keep this dressing on until tomorrow morning. Return to ER for any concerns.Antibiotics as directed All discharge instructions reviewed with patient and/or family. Voiced understanding. Scripts Cephalexin (Keflex) 500 Mg Capsule 500 MG PO TID, #15 CAP Prov: JENNIFFER ORONA APRN 02/20/19 Images Head/Face 1 - Laceration JENNIFFER ORONA APRN Feb 20, 2019 18:13
--- NOTE | 2019-02-20 19:10 | Diagnostic Imaging Report ---
PROCEDURE: CT head, face, and cervical spine without contrast. TECHNIQUE: Multiple contiguous axial images were obtained through the head, neck, and facial bones without the use of intravenous contrast. Sagittal and coronal reformations through the cervical spine and facial bones were also performed. Auto Exposure Controls were utilized during the CT exam to meet ALARA standards for radiation dose reduction. INDICATION: Fell and hit left side of head. FINDINGS: The ventricles are normal in size, shape, and position. There is no acute parenchymal hemorrhage, edema, or mass. There is no extra-axial mass or hemorrhage. There is no skull fracture. There is appearance of inspissated mucus in the sphenoid sinus on the right. The other sinuses visualized are well aerated. No acute facial bone fracture is seen. No intraorbital abnormality is seen. There is normal height and alignment of the cervical vertebral bodies. There is disc space narrowing and spondylosis at all levels. There is no fracture or other acute abnormality seen. IMPRESSION: CT of the head shows no acute abnormality. CT of the facial bones shows some inspissated mucus in the sphenoid sinus with no acute abnormality. CT of the cervical spine shows degenerative changes with no acute abnormality. Dictated by: Dictated on workstation # [id number]
[2019-02-20] MEDS ORDERED: CEPH-507 PO (19:15)
[2019-02-20 19:16] VITALS: BP 138/92
== END 2019-02-20 19:30 | disposition home or self-care (01) ==
LOC: EDUNIT# 17:41 → ER 17:42
DX: S01.81XA Laceration without foreign body of other part of head, initial encounter (principal); I10 Essential (primary) hypertension; E78.00 Pure hypercholesterolemia, unspecified; K21.9 Gastro-esophageal reflux disease without esophagitis; R40.2142 Coma scale, eyes open, spontaneous, at arrival to emergency department; R40.2252 Coma scale, best verbal response, oriented, at arrival to emergency department; R40.2362 Coma scale, best motor response, obeys commands, at arrival to emergency department; Z85.828 Personal history of other malignant neoplasm of skin; Z96.652 Presence of left artificial knee joint; Z79.82 Long term (current) use of aspirin; Z87.891 Personal history of nicotine dependence; W01.190A Fall on same level from slipping, tripping and stumbling with subsequent striking against furniture, initial encounter
CPT/HCPCS: 70450; 70486; 72125

== ENCOUNTER 2019-02-20 22:19 | Emergency (ER) | payer MEDICARE, OTHER ==
[~2019-02-20] VITALS: Ht 180.3 cm; Wt 86.2 kg
[~2019-02-20 22:19] MED LIST changes: +CEPH-507 PO
[2019-02-20] MEDS ORDERED: HYDROcodone/APAP 5 MG/325 MG (LORTAB) TAB ONE (22:25)
[2019-02-20] MEDS ORDERED: HYDROcodone/APAP 5 MG/325 MG (LORTAB) TAB PO ONE (22:30)
--- NOTE | 2019-02-20 22:30 | ED Suture Removal/Wound Check ---
Suture/Wound Re-check General Appearance: WD/WN, no apparent distress Neuro/Tendon: normal sensation, normal motor functions Skin Exam: normal color, warm/dry Physical Exam Vital Signs Vital Signs - First Documented 02/20/19 02/20/19 22:20 22:24 Temp 96.8 Pulse 74 Resp 18 B/P (MAP) 179/100 Pulse Ox 99 O2 Delivery Room Air Capillary Refill : Less Than 3 Seconds General Appearance: WD/WN, no apparent distress, other (was here earlier for laceration anterior to left ear. Swelling has increased, had a recurrence of bleeding so he came back in. No bleeding at this time. Discussed with Dr Aguiar , he'll be in to see the patient. ) HEENT: PERRL/EOMI, normal ENT inspection, other (laceration with minimal blood superior anterior aspect of mid external ear canal. Discussed with Dr Cody from ENT--no treatment at this time. No active bleeding from laceration anterior to right ear at this very moment. significant hematoma noted. ) Neck: non-tender, full range of motion Respiratory: no respiratory distress, no accessory muscle use Gastrointestinal: normal bowel sounds Neurologic/Psychiatric: alert, normal mood/affect, oriented x 3 Skin: normal color, warm/dry Skin Problem Location: face Skin Problem Character: other (hematoma) Departure Communication (Admissions) 9142-Dr Aguiar here, evaluating pt. agrees with conservative management including pressure, discharge to home with return precautions. Impression Primary Impression: Hematoma Disposition: 01 HOME, SELF-CARE Condition: Stable Departure-Patient Inst. Decision time for Depature: 22:29 Referrals: BRUNA AGUIAR CHAD C MD (PCP/Family) Primary Care Physician Patient Instructions: HEMATOMA Add. Discharge Instructions: 1. Continue with direct pressure. Return to ER for any concerns 2. Follow up with Dr Aguiar next week. Call Saturday to make an appiontment to be seen. All discharge instructions reviewed with patient and/or family. Voiced understanding. Copy Copies To 1: NGUYEN AGUILERA MD, PETER J APRN Feb 20, 2019 22:30
--- NOTE | 2019-02-20 22:38 | NUR ---
dr medina here seeing patient.
[2019-02-20] MEDS ORDERED: RX-HYDROCODONE/APAP 5/325 MG #4 TAB PK PO PRN (23:00)
[2019-02-20 23:01] VITALS: BP 133/82
--- NOTE | 2019-02-21 21:45 | Consultation ---
History of Present Illness History of Present Illness Patient Consulted On(maria eugenia/time) 02/20/19 22:30 Date Seen by Provider: Feb 20, 2019 Time Seen by Provider: 22:30 History of Present Illness consult requested by Lalo Orona for hematoma/laceration left face Seen and evaluated in emergency department. Patient is a 78-year-old male who was doing well working earlier in the evening when he had fallen sustained a laceration to the left side of his face just in front of the left ear. Patient had laceration repaired. He did have small arterial bleed. This was closed then patient developed hematoma. Patient was discharged home. He states that certain having bleeding just prior to coming in again seeping a small amount from the incision. He knows that there is increase in the size of the hematoma. He has moderate discomfort just a pressure feeling. Patient also notes some slight hearing changes this seems to have a hard time clearing at times. Patient with no other complaints. Patient though was concerned due to the discomfort and slightly enlarging hematoma and he felt he should be reevaluated. He denies any nausea vomiting fever sweats chills shortness of breath chest pain or dizziness. Allergies and Home Medications Allergies Coded Allergies: No Known Drug Allergies (Unverified , 02/24/18) Home Medications Acetaminophen 500 Mg Tablet, 1,000 MG PO BID, (Reported) Aspirin 81 Mg Tablet.dr, 81 MG PO Q48H, (Reported) Cephalexin 500 Mg Capsule, 500 MG PO TID Prescribed by: LALO ORONA on 02/20/191914 Cholecalciferol (Vitamin D3) 1,000 Unit Tablet, 1,000 UNIT PO DAILY, (Reported) Cyanocobalamin (Vitamin B-12) 2,500 Mcg Tablet, 2,500 MCG PO DAILY, (Reported) Febuxostat 40 Mg Tablet, 40 MG PO DAILY, (Reported) Furosemide 40 Mg Tablet, 40 MG PO DAILY, (Reported) Gemfibrozil 600 Mg Tablet, 600 MG PO BID, (Reported) Losartan Potassium 50 Mg Tablet, 50 MG PO BID, (Reported) Melatonin/Pyridoxine 1 Each Tablet, 5 MG PO HS, (Reported) Metoprolol Tartrate 50 Mg Tablet, 50 MG PO BID, (Reported) Pantoprazole Sodium 40 Mg Tablet.dr, 40 MG PO DAILY, (Reported) Potassium Chloride 20 Meq Tab.er.prt, 10 MEQ PO DAILY, (Reported) take 1/2 of 20meq tab Simvastatin 20 Mg Tablet, 20 MG PO HS, (Reported) Sucralfate 1 Gm Tablet, 1 GM PO QID, (Reported) Tramadol HCl 50 Mg Tablet, 50 MG PO BID, (Reported) Patient Home Medication List Home Medication List Reviewed: Yes Past Eytwrqt-Clpnjo-Rctahn Hx Patient Social History Alcohol Use: Denies Use Number of Drinks Today: HH Recreational Drug Use: No Smoking Status: Former Smoker Former Smoker, Quit: Jul 10, 1985 Type Used: Cigarettes, Smokeless Tobacco 2nd Hand Smoke Exposure: No Recent Foreign Travel: No Contact w/Someone Who Travel: No Recent Infectious Disease Expo: No Recent Hopitalizations: No Immunizations Up To Date Tetanus Booster (TDap): Unknown Date of Pneumonia Vaccine: Sep 09, 2017 Date of Influenza Vaccine: Sep 09, 2017 Seasonal Allergies Seasonal Allergies: No Surgeries History of Surgeries: Yes (BACK, LT TKR, LT ELBOW x3, BILAT CTR, LT KNEE SEVERAL FOR MRSA) Surgeries: Gallbladder, Orthopedic Respiratory History of Respiratory Disorde: No Cardiovascular History of Cardiac Disorders: Yes Cardiac Disorders: High Cholesterol, Hypertension Neurological History of Neurological Disord: Yes Neurological Disorders: TIA Reproductive System Hx Reproductive Disorders: No Sexually Transmitted Disease: No HIV/AIDS: No Gastrointestinal History of Gastrointestinal Di: Yes (epigastric pain) Gastrointestinal Disorders: Gastroesophageal Reflux Musculoskeletal History of Musculoskeletal Dis: Yes Musculoskeletal Disorders: Arthritis, Back Injury Endocrine History of Endocrine Disorders: No HEENT Loss of Vision: Bilateral Hearing Impairment: Denies Cancer History of Cancer: Yes Cancer: Skin Psychosocial History of Psychiatric Problem: No Integumentary History of Skin or Integumenta: Yes (HX MRSA) Blood Transfusions History of Blood Disorders: No Adverse Reaction to a Blood Tr: No (HAS HAD BLOOD WITH NO REACTION) Family Medical History Significant Family History: No Pertinent Family Hx Review of Systems-General Constitutional: no symptoms reported EENTM: see HPI Respiratory: no symptoms reported Cardiovascular: no symptoms reported Gastrointestinal: no symptoms reported Genitourinary: no symptoms reported Musculoskeletal: no symptoms reported Skin: no symptoms reported Psychiatric/Neurological: No Symptoms Reported Physical Exam-General Problems Physical Exam Vital Signs Vital Signs - First Documented 02/20/19 02/20/19 22:20 22:24 Temp 96.8 Pulse 74 Resp 18 B/P (MAP) 179/100 Pulse Ox 99 O2 Delivery Room Air Capillary Refill : Less Than 3 Seconds General Appearance: no apparent distress HEENT: other (hematoma and laceration left face, already sutured, swelling into the left ear canal) Neck: non-tender, full range of motion, supple Respiratory: chest non-tender, no respiratory distress, no accessory muscle use Cardiovascular: regular rate, rhythm Gastrointestinal: normal bowel sounds, non tender, soft Rectal: deferred Back: normal inspection, no CVA tenderness Extremities: non-tender, normal inspection, no pedal edema Neurologic/Psychiatric: building mover II-XII nml as tested, no motor/sensory deficits, alert, normal mood/affect Skin: normal color (Small laceration just in front of the left ureter) Lymphatic: no adenopathy Assessment/Plan Assessment/Plan Assessment/Plan laceration left face, hematoma left side of face Laceration already repaired. Patient with hematoma to the left side of face. This should be limiting and patient instructed to keep pressure and ice packs on this. If any change in condition he should be reevaluated. I don't feel there is any need for surgical exploration for this should be self-limiting and would be difficult to find with extensive size of hematoma. Patient has no other concerns at this time. He's agrees with plan. I provided my number to him if he has any issues he is to notify me at that time or return to the ER. BRUNA HOLLAND DO Feb 21, 2019 21:45
== END 2019-02-20 23:05 | disposition home or self-care (01) ==
LOC: EDUNIT# 22:19 → ER 22:19
DX: S00.432A Contusion of left ear, initial encounter (principal); X58.XXXA Exposure to other specified factors, initial encounter
CPT/HCPCS: 99282

== ENCOUNTER 2019-03-06 08:47 | Outpatient (RCR) | payer MEDICARE, OTHER | END 2019-03-08 | disposition home or self-care (01) | LOC: CR3 08:47 | PROVIDERS: ATTEND Family Medicine | DX: Z29.8 Encounter for other specified prophylactic measures (principal) ==

== ENCOUNTER → 2019-04-08 | Outpatient (RCR) | payer MEDICARE, OTHER | END | disposition home or self-care (01) | LOC: CR3 03-09 09:00 | PROVIDERS: ATTEND Family Medicine | DX: Z29.8 Encounter for other specified prophylactic measures (principal) ==

== ENCOUNTER 2019-05-08 06:28 | Outpatient (RCR) | payer MEDICARE, OTHER | END 2019-05-10 | disposition home or self-care (01) | LOC: CR3 06:28 | PROVIDERS: ATTEND Family Medicine | DX: Z29.8 Encounter for other specified prophylactic measures (principal) ==

== ENCOUNTER → 2019-06-12 | Outpatient (RCR) | payer MEDICARE, OTHER | END | disposition home or self-care (01) | LOC: CR3 05-13 08:00 | PROVIDERS: ATTEND Family Medicine | DX: Z29.8 Encounter for other specified prophylactic measures (principal) ==

== ENCOUNTER 2019-07-01 07:27 | Outpatient (RCR) | payer MEDICARE, OTHER ==
[~2019-07-01 07:27] MED LIST changes: +RANI-613 PO; -RANI150T46 PO
== END 2019-07-16 | disposition home or self-care (01) ==
LOC: CR3 07:27
PROVIDERS: ATTEND Family Medicine
DX: Z29.8 Encounter for other specified prophylactic measures (principal)

== ENCOUNTER 2019-07-09 05:36 | Outpatient (CLI) | payer MEDICARE, OTHER ==
[~2019-07-09] VITALS: Ht 180.3 cm; Wt 86.2 kg
== END 2019-07-09 13:05 | disposition home or self-care (01) ==
LOC: PREOP 05:36
PROVIDERS: ATTEND Specialist
DX: Z01.818 Encounter for other preprocedural examination (principal)

== ENCOUNTER 2019-07-10 07:39 | Day surgery (SDC) | payer MEDICARE, OTHER ==
[~2019-07-10] VITALS: Ht 180.3 cm; Wt 86.2 kg
[2019-07-10] MEDS ORDERED: POVIDONE (BETADINE) OPHTH SOLN 5% 30 ML OP ONE (08:00)
[2019-07-10] MEDS ORDERED: MOXIFLOXACIN OPHTH SOLN 5 MG/ML 0.3 ML SYRINGE OP ONE (08:00)
[2019-07-10] MEDS ORDERED: TIMOLOL MALEATE 0.5% 5 ML (TIMOPTIC) BTL OU PRN (08:00)
[2019-07-10] MEDS ORDERED: LIDOCAINE PF 1% 2 ML AMP IR PRN (08:00)
[2019-07-10] MEDS: TETRACAINE 0.5% OPHTH SOLN 4 ML BTL (SINGLE DOSE ONLY) OU PRN ×4 (08:09→08:36)
[2019-07-10 08:10] VITALS: BP 125/75
[2019-07-10] MEDS: PHENYLEPHRINE 10% OPHTH (NEO-SYN) 5 ML BTL OU SCH ×3 (08:25→08:36)
[2019-07-10] MEDS: CYCLOPENTOLATE 1% (CYCLOGYL) 2 ML DROPS OP SCH ×3 (08:25→08:36)
--- NOTE | 2019-07-10 09:07 | Ophthalmologist Pre-Op Note ---
Pre-Operative Progress Note H&P Reviewed The H&P was reviewed, patient examined and no changes noted. Date H&P Reviewed: Jul 10, 2019 Time H&P Reviewed: 09:07 Pre-Op Dx Cataract, Left Eye IAN RUIZ MD Jul 10, 2019 09:07
[2019-07-10] MEDS ORDERED: MIDAZOLAM 2 MG/2 ML (VERSED) VIAL ONE (09:09)
[2019-07-10] MEDS ORDERED: acetaZOLAMIDE ER 500 MG CAP (DIAMOX SEQUELS) PO ONE (09:30)
--- NOTE | 2019-07-10 09:31 | Ophthalmology Operative Report ---
Cataract removal/placement IOL PREOPERATIVE DIAGNOSIS: Cataract Left Eye POSTOPERATIVE DIAGNOSIS: Cataract Left Eye PROCEDURE: Cataract removal and placement of posterior chamber implant, left eye SURGEON: Layo Ruiz ANESTHESIA: Topical with sedation COMPLICATIONS: None ESTIMATED BLOOD LOSS: Minimal DESCRIPTION OF PROCEDURE: After proper informed consent was obtained, the patient, a 79 male, was taken to the Operating Room and the left eye was anesthetized with tetracaine. The left eye was then prepped and draped in the usual manner. A wire lid speculum was placed. A paracentesis was made at the left hand position. Preservative free lidocaine was injected into the anterior chamber followed by viscoelastic. A clear corneal incision was made in the temporal position. A capsulorrhexis was preformed and the central nuclear and cortical material were removed. The posterior capsule was polished and an Sonny 23.5 [id number] was placed into the capsular bag. The residual viscoelastic was aspirated and balanced saline solution was injected into the anterior chamber. Moxifloxacin was injected into the anterior chamber. The wound was checked and found to be water tight. The patient tolerated the procedure well without complications. LAYO RUIZ MD Jul 10, 2019 09:31
[2019-07-10 09:40] VITALS: BP 122/68
--- NOTE | 2019-07-10 14:41 | Anesthesia-General Post-Op ---
MAC Patient Condition Mental Status/LOC: Same as Preop Cardiovascular: Satisfactory Nausea/Vomiting: Absent Respiratory: Satisfactory Pain: Controlled Complications: Absent Post Op Complications Complications None Follow Up Care/Instructions Patient Instructions None needed. Anesthesiology Discharge Order Discharge Order Patient is doing well, no complaints, stable vital signs, no apparent adverse anesthesia problems. No complications reported per nursing. BRITTNI DUARTE CRNA Jul 10, 2019 14:41
== END 2019-07-10 09:40 | disposition home or self-care (01) ==
LOC: SDC 07:39
PROVIDERS: ATTEND Specialist
DX: H25.12 Age-related nuclear cataract, left eye (principal); I12.9 Hypertensive chronic kidney disease with stage 1 through stage 4 chronic kidney disease, or unspecified chronic kidney disease; I25.10 Atherosclerotic heart disease of native coronary artery without angina pectoris; Z95.1 Presence of aortocoronary bypass graft; E78.5 Hyperlipidemia, unspecified; N18.3 Chronic kidney disease, stage 3 (moderate); K21.9 Gastro-esophageal reflux disease without esophagitis; Z79.82 Long term (current) use of aspirin; Z79.899 Other long term (current) drug therapy; Z96.659 Presence of unspecified artificial knee joint; Z87.891 Personal history of nicotine dependence; Z85.828 Personal history of other malignant neoplasm of skin

== ENCOUNTER 2019-07-28 05:49 | Outpatient (CLI) | payer MEDICARE, OTHER ==
[~2019-07-28] VITALS: Ht 180.3 cm; Wt 86.2 kg
== END 2019-07-28 14:48 ==
LOC: PREOP 05:49
PROVIDERS: ATTEND Specialist
DX: Z01.818 Encounter for other preprocedural examination (principal); H25.89 Other age-related cataract; F10.99 Alcohol use, unspecified with unspecified alcohol-induced disorder; Z87.891 Personal history of nicotine dependence

== ENCOUNTER 2019-07-29 07:21 | Outpatient (RCR) | payer MEDICARE, OTHER | END 2019-08-02 | disposition home or self-care (01) | LOC: CR3 07:21 | PROVIDERS: ATTEND Internal Medicine Interventional Cardiology | DX: Z48.812 Encounter for surgical aftercare following surgery on the circulatory system (principal); Z95.1 Presence of aortocoronary bypass graft; Z29.8 Encounter for other specified prophylactic measures ==

== ENCOUNTER 2019-07-31 06:54 | Day surgery (SDC) | payer MEDICARE, OTHER ==
[~2019-07-31] VITALS: Ht 180.3 cm; Wt 86.2 kg
[2019-07-31 07:00] VITALS: BP 123/71
[2019-07-31] MEDS ORDERED: LIDOCAINE PF 1% 2 ML AMP IR PRN (07:15)
[2019-07-31] MEDS ORDERED: POVIDONE (BETADINE) OPHTH SOLN 5% 30 ML OP ONE (07:15)
[2019-07-31] MEDS ORDERED: MOXIFLOXACIN OPHTH SOLN 5 MG/ML 0.3 ML SYRINGE OP ONE (07:15)
[2019-07-31] MEDS ORDERED: TIMOLOL MALEATE 0.5% 5 ML (TIMOPTIC) BTL OU PRN (07:15)
[2019-07-31] MEDS: TETRACAINE 0.5% OPHTH SOLN 4 ML BTL (SINGLE DOSE ONLY) OU PRN ×4 (07:21→07:41)
[2019-07-31] MEDS ORDERED: MIDAZOLAM 2 MG/2 ML (VERSED) VIAL ONE (07:22)
[2019-07-31] MEDS: PHENYLEPHRINE 10% OPHTH (NEO-SYN) 5 ML BTL OU SCH ×3 (07:27→07:41)
[2019-07-31] MEDS: CYCLOPENTOLATE 1% (CYCLOGYL) 2 ML DROPS OP SCH ×3 (07:27→07:41)
--- NOTE | 2019-07-31 08:17 | Ophthalmologist Pre-Op Note ---
Pre-Operative Progress Note H&P Reviewed The H&P was reviewed, patient examined and no changes noted. Date H&P Reviewed: Jul 31, 2019 Time H&P Reviewed: 08:17 Pre-Op Dx Cataract, Right Eye IAN RUIZ MD Jul 31, 2019 08:17
[2019-07-31] MEDS ORDERED: acetaZOLAMIDE ER 500 MG CAP (DIAMOX SEQUELS) PO ONE (08:30)
--- NOTE | 2019-07-31 08:41 | Ophthalmology Operative Report ---
Cataract removal/placement IOL PREOPERATIVE DIAGNOSIS: Cataract Right Eye POSTOPERATIVE DIAGNOSIS: Cataract Right Eye PROCEDURE: Cataract removal and placement of posterior chamber implant, right eye SURGEON: Layo Ruiz ANESTHESIA: Topical with sedation COMPLICATIONS: None ESTIMATED BLOOD LOSS: Minimal DESCRIPTION OF PROCEDURE: After proper informed consent was obtained, the patient, a 79 male, was taken to the Operating Room and the right eye was anesthetized with tetracaine. The right eye was then prepped and draped in the usual manner. A wire lid speculum was placed. A paracentesis was made at the left hand position. Preservative free lidocaine was injected into the anterior chamber followed by viscoelastic. A clear corneal incision was made in the temporal position. A capsulorrhexis was preformed and the central nuclear and cortical material were removed. The posterior capsule was polished and Sonny [id number] 23.0 IOL was placed into the capsular bag. The residual viscoelastic was aspirated and balanced saline solution was injected into the anterior chamber. Moxifloxacin was injected into the anterior chamber. The wound was checked and found to be water tight. The patient tolerated the procedure well without complications. LAYO RUIZ MD Jul 31, 2019 08:41
[2019-07-31 08:52] VITALS: BP 101/66
--- NOTE | 2019-07-31 13:14 | Anesthesia-General Post-Op ---
MAC Patient Condition Mental Status/LOC: Same as Preop Cardiovascular: Satisfactory Nausea/Vomiting: Absent Respiratory: Satisfactory Pain: Controlled Complications: Absent Post Op Complications Complications None Follow Up Care/Instructions Patient Instructions None needed. Anesthesiology Discharge Order Discharge Order Patient was seen after the procedure this morning and he was doing well, no complaints, stable vital signs, no apparent adverse anesthesia problems. SNOW MONZON DO Jul 31, 2019 13:14
== END 2019-07-31 08:52 | disposition home or self-care (01) ==
LOC: SDC 06:54
PROVIDERS: ATTEND Specialist
DX: H25.11 Age-related nuclear cataract, right eye (principal); I10 Essential (primary) hypertension; I25.10 Atherosclerotic heart disease of native coronary artery without angina pectoris; K21.9 Gastro-esophageal reflux disease without esophagitis; Z87.891 Personal history of nicotine dependence; Z85.828 Personal history of other malignant neoplasm of skin; Z95.1 Presence of aortocoronary bypass graft; Z79.82 Long term (current) use of aspirin; Z96.659 Presence of unspecified artificial knee joint

== ENCOUNTER → 2019-09-04 | Outpatient (RCR) | payer MEDICARE, OTHER | END | disposition home or self-care (01) | LOC: CR3 08-05 08:49 | PROVIDERS: ATTEND Internal Medicine Interventional Cardiology | DX: Z48.812 Encounter for surgical aftercare following surgery on the circulatory system (principal); Z95.1 Presence of aortocoronary bypass graft ==

== ENCOUNTER → 2019-10-07 | Outpatient (RCR) | payer MEDICARE, OTHER | END | disposition home or self-care (01) | LOC: CR3 09-07 06:00 | PROVIDERS: ATTEND Internal Medicine Interventional Cardiology | DX: Z48.812 Encounter for surgical aftercare following surgery on the circulatory system (principal); Z95.1 Presence of aortocoronary bypass graft; Z29.8 Encounter for other specified prophylactic measures ==

== ENCOUNTER 2019-11-06 07:46 | Outpatient (RCR) | payer MEDICARE, OTHER | END 2019-11-08 | disposition home or self-care (01) | LOC: CR3 07:46 | PROVIDERS: ATTEND Internal Medicine Interventional Cardiology | DX: Z48.812 Encounter for surgical aftercare following surgery on the circulatory system (principal); Z95.1 Presence of aortocoronary bypass graft ==

== ENCOUNTER 2019-12-09 08:28 | Outpatient (RCR) | payer MEDICARE, OTHER ==
[~2019-12-09 08:28] MED LIST changes: +SIMV20TA26 PO; -SIMV20TA3 PO; -TRAM50TA2 PO; +TRM50T PO
== END 2019-12-11 | disposition home or self-care (01) ==
LOC: CR3 08:28
PROVIDERS: ATTEND Internal Medicine Interventional Cardiology
DX: Z48.812 Encounter for surgical aftercare following surgery on the circulatory system (principal); Z95.1 Presence of aortocoronary bypass graft

== ENCOUNTER 2020-02-05 09:40 | Outpatient (RCR) | payer MEDICARE, OTHER | END 2020-03-02 | disposition home or self-care (01) | LOC: CR3 09:40 | PROVIDERS: ATTEND Internal Medicine Interventional Cardiology | DX: Z48.812 Encounter for surgical aftercare following surgery on the circulatory system (principal); Z95.1 Presence of aortocoronary bypass graft; Z29.8 Encounter for other specified prophylactic measures ==

== ENCOUNTER 2020-02-18 08:57 | Outpatient (RCR) | payer MEDICARE, OTHER | END 2020-02-18 10:15 | disposition home or self-care (01) | PROVIDERS: ATTEND Orthopaedic Surgery | DX: M25.561 Pain in right knee (principal); R26.9 Unspecified abnormalities of gait and mobility; K21.9 Gastro-esophageal reflux disease without esophagitis; G45.9 Transient cerebral ischemic attack, unspecified; M19.90 Unspecified osteoarthritis, unspecified site; E07.9 Disorder of thyroid, unspecified; G80.9 Cerebral palsy, unspecified; G20 Parkinson's disease; Z96.651 Presence of right artificial knee joint ==

== ENCOUNTER 2020-11-27 16:46 | Inpatient (IN) | payer MEDICARE, OTHER ==
[~2020-11-27] VITALS: Ht 182.9 cm; Wt 94.4 kg
[~2020-11-27 16:46] MED LIST changes: -PANT40TA3 PO; +PANT40TA52 PO
[2020-11-27] MEDS ORDERED: IBUPROFEN 800 MG (MOTRIN) TAB PO ONE (17:00)
--- NOTE | 2020-11-27 17:10 | ED Dyspnea ---
General Stated Complaint: WEAKNESS,CHILLS,FEVER,ACHY,FATIGUE Source of Information: Patient Exam Limitations: No Limitations History of Present Illness Date Seen by Provider: Nov 27, 2020 Time Seen by Provider: 17:06 Initial Comments To ER with c/o weakness, chills, fever, achy, fatigue, cough. Symptoms began about 2 months ago and he became feverish about 2 weeks ago.. Daughter whom he has been around is COVID +. Primary care is Dr. Migue Javier. Timing/Duration: Other (2-3 days) Severity: Moderate Prior Episodes/Possible Cause: No Prior Episodes Associated Symptoms: Cough, Fever Allergies and Home Medications Allergies Coded Allergies: No Known Drug Allergies (Unverified , 07/09/19) Home Medications Acetaminophen 500 Mg Tablet, 1,000 MG PO BID, (Reported) Aspirin 81 Mg Tablet.dr, 81 MG PO Q48H, (Reported) Cholecalciferol (Vitamin D3) 1,000 Unit Tablet, 1,000 UNIT PO DAILY, (Reported) Cyanocobalamin (Vitamin B-12) 2,500 Mcg Tablet, 2,500 MCG PO DAILY, (Reported) Febuxostat 40 Mg Tablet, 40 MG PO DAILY, (Reported) Furosemide 40 Mg Tablet, 40 MG PO DAILY, (Reported) Gemfibrozil 600 Mg Tablet, 600 MG PO BID, (Reported) Melatonin/Pyridoxine 1 Each Tablet, 5 MG PO HS, (Reported) Metoprolol Tartrate 50 Mg Tablet, 50 MG PO BID, (Reported) Pantoprazole Sodium 40 Mg Tablet.dr, 40 MG PO DAILY, (Reported) Potassium Chloride 20 Meq Tab.er.prt, 10 MEQ PO DAILY, (Reported) take 1/2 of 20meq tab Simvastatin 20 Mg Tablet, 20 MG PO HS, (Reported) Patient Home Medication List Home Medication List Reviewed: Yes Review of Systems Review of Systems Constitutional: see HPI, fever, malaise, weakness EENTM: see HPI Respiratory: see HPI, cough, short of breath Cardiovascular: no symptoms reported Genitourinary: no symptoms reported Musculoskeletal: no symptoms reported Skin: no symptoms reported Psychiatric/Neurological: No Symptoms Reported Endocrine: No Symptoms Reported Hematologic/Lymphatic: No Symptoms Reported Past Iriyrol-Rdkjnv-Wpgoew Hx Patient Social History Alcohol Beverage of Choice: Wine Type Used: Cigarettes, Smokeless Tobacco Former Smoker, Quit: Jul 10, 1985 2nd Hand Smoke Exposure: No Recent Hopitalizations: No Immunizations Up To Date Tetanus Booster (TDap): Unknown Date of Pneumonia Vaccine: Sep 09, 2017 Date of Influenza Vaccine: Sep 09, 2017 Seasonal Allergies Seasonal Allergies: No Past Medical History Surgeries: Yes (BACK, LT TKR, LT ELBOW x3, BILAT CTR, LT KNEE SEVERAL FOR MRSA) Gallbladder, Orthopedic Respiratory: No Cardiac: Yes High Cholesterol, Hypertension Neurological: Yes TIA Reproductive Disorders: No Sexually Transmitted Disease: No HIV/AIDS: No Gastrointestinal: Yes (epigastric pain) Gastroesophageal Reflux Musculoskeletal: Yes Arthritis, Back Injury Endocrine: No Loss of Vision: Bilateral Hearing Impairment: Denies Cancer: Yes Skin What Type of Treatment Did You: Surgical Intervention Psychosocial: No Integumentary: Yes (HX MRSA) Blood Disorders: No Adverse Reaction/Blood Tranf: No (HAS HAD BLOOD WITH NO REACTION) Family Medical History No Pertinent Family Hx Physical Exam Vital Signs Vital Signs - First Documented 11/27/20 16:50 Temp 38.4 Pulse 87 Resp 16 B/P (MAP) 189/103 (131) Pulse Ox 97 O2 Delivery Nasal Cannula O2 Flow Rate 1.00 Capillary Refill : Height, Weight, BMI Height: 5'11.00" Weight: 190lbs. 0.0oz. 86.622374ne; 25.4 BMI Method:Stated General Appearance: No Apparent Distress, WD/WN, Other (weak, alert and oriented. Pleasant. O2 93% on room air. ) Neck: Full Range of Motion, Normal Inspection Respiratory: No Accessory Muscle Use, No Respiratory Distress Cardiovascular: Regular Rate, Rhythm, Normal Peripheral Pulses Gastrointestinal: Non Tender, Soft Extremity: Normal Capillary Refill, Normal Inspection Neurologic/Psychiatric: Alert, Oriented x3 Skin: Normal Color, Warm/Dry Progress/Results/Core Measures Results/Orders Lab Results Laboratory Tests Test 11/27/20 17:00 Range/Units White Blood Count 3.4 L 4.3-11.0 10^3/uL Red Blood Count 4.77 4.30-5.52 10^6/uL Hemoglobin 14.4 13.3-17.7 g/dL Hematocrit 44 40-54 % Mean Corpuscular Volume 92 80-99 fL Mean Corpuscular Hemoglobin 30 25-34 pg Mean Corpuscular Hemoglobin Concent 33 32-36 g/dL Red Cell Distribution Width 13.9 10.0-14.5 % Platelet Count 152 130-400 10^3/uL Mean Platelet Volume 10.0 9.0-12.2 fL Immature Granulocyte % (Auto) 1 % Neutrophils (%) (Auto) 66 42-75 % Lymphocytes (%) (Auto) 25 12-44 % Monocytes (%) (Auto) 8 0-12 % Eosinophils (%) (Auto) 1 0-10 % Basophils (%) (Auto) 0 0-10 % Neutrophils # (Auto) 2.2 1.8-7.8 10^3/uL Lymphocytes # (Auto) 0.9 L 1.0-4.0 10^3/uL Monocytes # (Auto) 0.3 0.0-1.0 10^3/uL Eosinophils # (Auto) 0.0 0.0-0.3 10^3/uL Basophils # (Auto) 0.0 0.0-0.1 10^3/uL Immature Granulocyte # (Auto) 0.0 0.0-0.1 10^3/uL D-Dimer 0.88 H 0.00-0.49 UG/ML Sodium Level 136 135-145 MMOL/L Potassium Level 4.2 3.6-5.0 MMOL/L Chloride Level 97 L 98-107 MMOL/L Carbon Dioxide Level 27 21-32 MMOL/L Anion Gap 12 5-14 MMOL/L Blood Urea Nitrogen 26 H 7-18 MG/DL Creatinine 1.57 H 0.60-1.30 MG/DL Estimat Glomerular Filtration Rate 43 BUN/Creatinine Ratio 17 Glucose Level 99 70-105 MG/DL Calcium Level 9.2 8.5-10.1 MG/DL Corrected Calcium 9.0 8.5-10.1 MG/DL Total Bilirubin 0.5 0.1-1.0 MG/DL Aspartate Amino Transf (AST/SGOT) 20 5-34 U/L Alanine Aminotransferase (ALT/SGPT) 13 0-55 U/L Alkaline Phosphatase 61 40-136 U/L C-Reactive Protein High Sensitivity 4.14 H 0.00-0.50 MG/DL Total Protein 8.1 6.4-8.2 GM/DL Albumin 4.3 3.2-4.5 GM/DL Coronavirus 2019 ([facility]) Positive H Negative Micro Results Microbiology 11/27/20 Influenza Types A,B Antigen (DEWEY) - Final, Complete My Orders Orders - JENNIFFER ORONA APRN Cbc With Automated Diff (11/27/20 16:51) Comprehensive Metabolic Panel (11/27/20 16:51) Procalcitonin (Pct) (11/27/20 16:51) Hs C Reactive Protein (11/27/20 16:51) Fibrin Degradation Products (11/27/20 16:51) Chest 1 View, Ap/Pa Only (11/27/20 16:51) Influenza A And B Antigens (11/27/20 16:51) Covid 19 Inhouse Test (11/27/20 16:51) Ibuprofen Tablet (Motrin Tablet) (11/27/20 17:00) Medications Given in ED Current Medications Medications Dose Ordered Sig/Josse Route Start Time Stop Time Status Last Admin Dose Admin Ibuprofen 800 mg ONCE ONCE PO 11/27/20 17:00 11/27/20 17:01 DC 11/27/20 17:04 800 MG Vital Signs/I&O 11/27/20 16:50 Temp 38.4 Pulse 87 Resp 16 B/P (MAP) 189/103 (131) Pulse Ox 97 O2 Delivery Nasal Cannula O2 Flow Rate 1.00 Departure Communication (Admissions) NAME: JOBY WIGGINS [facility] REC#: [id number] PT STATUS: REG ER : 1940 PHYSICIAN: JENNIFFER ORONA APRN ADMIT DATE: 11/27/20/ER Draft Date of Exam:11/27/20 CHEST 1 VIEW, AP/PA ONLY EXAM: Chest 1 view, AP/PA only. INDICATION: Covid positive. COMPARISON: Chest radiograph 02/04/2018. FINDINGS: Sternotomy. CABG. Low lung volumes. Mild atelectasis or infiltrate in the right lung base. No pleural effusion or pneumothorax. No acute osseous finding. IMPRESSION: Low lung volumes with mild atelectasis or infiltrate in the right lung base. Dictated on workstation # [id number] Dict: 11/[id number]/201743 Trans: 11/27/20 174 [facility] [id number] Interpreted by: QUEENIE TAPIA MD Electronically signed by: Initially started feeling symptomatic about 2 months ago but became febrile 2 weeks ago. On arrival his oxygen saturation was 93% on room air but after a period of time he actually dropped to about 84% with a good waveform. He will need to be admitted for convalescent plasma, Decadron and supplemental oxygen. Impression Primary Impression: COVID-19 Disposition: 09 ADMITTED INPATIENT Condition: Stable Admissions Decision to Admit Reason: Admit from ER (General) Decision to Admit/Date: Nov 27, 2020 Time/Decision to Admit Time: 17:48 Departure-Patient Inst. Referrals: ROCKY SHARMA MD (PCP) Primary Care Physician JENNIFFER ORONA APRN Nov 27, 2020 17:10
[2020-11-27 17:20] LABS: BASOPHILS % (AUTO) 0 % (0-10); EOSINOPHILS % (AUTO) 1 % (0-10); HEMATOCRIT 44 % (40-54); HEMOGLOBIN 14.4 g/dL (13.3-17.7); LYMPHOCYTES # (AUTO) 0.9 10^3/uL (1.0-4.0); LYMPHOCYTES % (AUTO) 25 % (12-44); MEAN CORPUSCULAR HEMOGLOBIN 30 pg (25-34); MEAN CORPUSCULAR HGB CONC 33 g/dL (32-36); MEAN CORPUSCULAR VOLUME 92 fL (80-99); MONOCYTES # (AUTO) 0.3 10^3/uL (0.0-1.0); MONOCYTES % (AUTO) 8 % (0-12); NEUTROPHILS # (AUTO) 2.2 10^3/uL (1.8-7.8); NEUTROPHILS % (AUTO) 66 % (42-75); PLATELET COUNT 152 10^3/uL (130-400); WHITE BLOOD COUNT 3.4 10^3/uL (4.3-11.0)
[2020-11-27 17:25] LABS: ALBUMIN 4.3 GM/DL (3.2-4.5); POTASSIUM 4.2 MMOL/L (3.6-5.0)
[2020-11-27 17:27] LABS: CALCIUM 9.2 MG/DL (8.5-10.1)
[2020-11-27 17:28] LABS: TOTAL PROTEIN 8.1 GM/DL (6.4-8.2)
[2020-11-27 17:30] LABS: BILIRUBIN,TOTAL 0.5 MG/DL (0.1-1.0)
[2020-11-27 17:32] LABS: CREATININE SERUM 1.57 MG/DL (0.60-1.30)
--- NOTE | 2020-11-27 17:47 | Diagnostic Imaging Report ---
EXAM: Chest 1 view, AP/PA only. INDICATION: Covid positive. COMPARISON: Chest radiograph 02/04/2018. FINDINGS: Sternotomy. CABG. Low lung volumes. Mild atelectasis or infiltrate in the right lung base. No pleural effusion or pneumothorax. No acute osseous finding. IMPRESSION: Low lung volumes with mild atelectasis or infiltrate in the right lung base. Dictated by: Dictated on workstation # [id number]
--- NOTE | 2020-11-27 18:20 | NUR ---
Patient was informed that he was getting admitted and will be taken up after shift change. He will be going to room 508.
--- NOTE | 2020-11-27 18:31 | NUR ---
Update was given to Daughter Marie at this time.
[2020-11-27 19:22] VITALS: BP 131/80
[2020-11-27 19:47] VITALS: BP 131/80
[2020-11-27] MEDS ORDERED: ONDANSETRON 4 MG/2 ML (SDV) Z0FRAN IVP PRN (21:00)
[2020-11-27] MEDS ORDERED: ACETAMINOPHEN 325 MG TABLET PO PRN (21:00)
[2020-11-27] MEDS: inSUlin ASPART (NovoLOG) 1 UNIT/0.01 ML (CHARGE PER UNIT) SC SCH (21:48)
[2020-11-27] MEDS: LACTATED RINGERS 1,000 ML IV SCH (22:31)
[2020-11-27 23:43] VITALS: BP 118/69
[2020-11-28 03:50] VITALS: BP 143/81
[2020-11-28 04:12] LABS: BASOPHILS % (AUTO) 0 % (0-10); EOSINOPHILS % (AUTO) 1 % (0-10); HEMATOCRIT 39 % (40-54); HEMOGLOBIN 12.7 g/dL (13.3-17.7); LYMPHOCYTES # (AUTO) 0.5 10^3/uL (1.0-4.0); LYMPHOCYTES % (AUTO) 23 % (12-44); MEAN CORPUSCULAR HEMOGLOBIN 30 pg (25-34); MEAN CORPUSCULAR HGB CONC 33 g/dL (32-36); MEAN CORPUSCULAR VOLUME 92 fL (80-99); MONOCYTES # (AUTO) 0.2 10^3/uL (0.0-1.0); MONOCYTES % (AUTO) 9 % (0-12); NEUTROPHILS # (AUTO) 1.6 10^3/uL (1.8-7.8); NEUTROPHILS % (AUTO) 66 % (42-75); PLATELET COUNT 125 10^3/uL (130-400); WHITE BLOOD COUNT 2.4 10^3/uL (4.3-11.0)
[2020-11-28 04:29] LABS: ALBUMIN 3.7 GM/DL (3.2-4.5)
[2020-11-28 04:31] LABS: CALCIUM 8.6 MG/DL (8.5-10.1)
[2020-11-28 04:34] LABS: BILIRUBIN,TOTAL 0.4 MG/DL (0.1-1.0)
[2020-11-28 04:35] LABS: CREATININE SERUM 1.43 MG/DL (0.60-1.30)
[2020-11-28] MEDS: inSUlin ASPART (NovoLOG) 1 UNIT/0.01 ML (CHARGE PER UNIT) SC SCH ×4 (05:35→21:02)
--- NOTE | 2020-11-28 05:43 | Pulmonary Consultation ---
History of Present Illness History of Present Illness Date Seen by Provider: Nov 28, 2020 Time Seen by Provider: 05:38 Date of Admission Allergies and Home Medications Allergies Coded Allergies: No Known Drug Allergies (Unverified , 07/09/19) Home Medications Acetaminophen 500 Mg Tablet, 1,000 MG PO BID, (Reported) Aspirin 81 Mg Tablet.dr, 81 MG PO Q48H, (Reported) Cholecalciferol (Vitamin D3) 1,000 Unit Tablet, 1,000 UNIT PO DAILY, (Reported) Cyanocobalamin (Vitamin B-12) 2,500 Mcg Tablet, 2,500 MCG PO DAILY, (Reported) Febuxostat 40 Mg Tablet, 40 MG PO DAILY, (Reported) Furosemide 40 Mg Tablet, 40 MG PO DAILY, (Reported) Gemfibrozil 600 Mg Tablet, 600 MG PO BID, (Reported) Melatonin/Pyridoxine 1 Each Tablet, 5 MG PO HS, (Reported) Metoprolol Tartrate 50 Mg Tablet, 50 MG PO BID, (Reported) Pantoprazole Sodium 40 Mg Tablet.dr, 40 MG PO DAILY, (Reported) Potassium Chloride 20 Meq Tab.er.prt, 10 MEQ PO DAILY, (Reported) take 1/2 of 20meq tab Simvastatin 20 Mg Tablet, 20 MG PO HS, (Reported) Past Ikakkxc-Crvwqf-Feghtb Hx Patient Social History Alcohol Use: Denies Use Number of Drinks Today: HH Alcohol Beverage of Choice: Wine Recreational Drug Use: No Type Used: Cigarettes, Smokeless Tobacco Former Smoker, Quit: Jul 10, 1985 2nd Hand Smoke Exposure: No Recent Foreign Travel: No Contact w/Someone Who Travel: No Recent Infectious Disease Expo: No Recent Hopitalizations: No Physical Abuse: No Sexual Abuse: No Mistreated: No Fear: No Immunizations Up To Date Tetanus Booster (TDap): Unknown Date of Pneumonia Vaccine: Sep 09, 2017 Date of Influenza Vaccine: Sep 09, 2020 Seasonal Allergies Seasonal Allergies: No Past Medical History Surgeries: Yes (bilateral knee replacement) Cardiac, Gallbladder, Joint Replacement Respiratory: No Cardiac: No High Cholesterol, Hypertension Neurological: No TIA Reproductive Disorders: No Sexually Transmitted Disease: No HIV/AIDS: No Genitourinary: No Gastrointestinal: No Gastroesophageal Reflux Musculoskeletal: No Arthritis, Back Injury Endocrine: No HEENT: No Loss of Vision: Bilateral Hearing Impairment: Denies Cancer: No Skin What Type of Treatment Did You: Surgical Intervention Psychosocial: No Integumentary: No Blood Disorders: No Adverse Reaction/Blood Tranf: No (HAS HAD BLOOD WITH NO REACTION) Family Medical History No Pertinent Family Hx Review of Systems Time Seen by Provider: 05:42 Sepsis Event Evaluation Height, Weight, BMI Height: 5'11.00" Weight: 190lbs. 0.0oz. 86.360250zb; 28.21 BMI Method:Stated Exam Exam Vital Signs Date Time Temp Pulse Resp B/P (MAP) Pulse Ox O2 Delivery O2 Flow Rate FiO2 11/28/20 03:50 36.5 71 16 143/81 (101) 97 Room Air 11/27/20 23:43 36.8 90 18 118/69 (85) 96 Room Air 11/27/20 19:47 36.7 71 18 131/80 96 Nasal Cannula 1.00 11/27/20 19:22 36.7 71 18 131/80 (97) 96 Nasal Cannula 1.00 11/27/20 19:10 96 Nasal Cannula 1.00 11/27/20 18:40 82 18 113/76 95 Nasal Cannula 3.00 11/27/20 16:50 38.4 87 16 189/103 (131) 97 Nasal Cannula 1.00 I & O 11/28/20 06:59 Intake Total 0 ml Balance 0 ml Height & Weight Height: 5'11.00" Weight: 190lbs. 0.0oz. 86.127709dn; 28.21 BMI Method:Stated General Appearance: No Apparent Distress, WD/WN, Other (weak, alert and oriented. Pleasant. O2 93% on room air. ) Neck: Full Range of Motion, Normal Inspection Respiratory: No Accessory Muscle Use, No Respiratory Distress Cardiovascular: Regular Rate, Rhythm, Normal Peripheral Pulses Capillary Refill: Less Than 3 Seconds Extremity: Normal Capillary Refill, Normal Inspection Neurologic/Psychiatric: Alert, Oriented x3 Skin: Normal Color, Warm/Dry Results Lab Laboratory Tests 11/27/20 17:00 11/28/20 03:37 Assessment/Plan Assessment/Plan COVID -Symptoms start 2mo ago -Fever started 2wks ago -COVID testing positive yesterday -Out of window for Remdesivir -CVP -Decadron -Pt is on RA oxygen Pancytopenia -Monitor Acute renal failure -IVF Acute dehydration -Monitor CHRISTINA ZHANG DO Nov 28, 2020 05:43
[2020-11-28] MEDS: dexAMETHasone 6 MG TAB (DECADRON) PO SCH (05:52)
[2020-11-28 05:59] LABS: PHOSPHORUS 3.4 MG/DL (2.3-4.7)
--- NOTE | 2020-11-28 06:12 | NUR ---
Pt has not voided since 2199. Dr Olivares notified, no new orders received, will continue to monitor.
[2020-11-28 07:53] VITALS: BP 137/74
[2020-11-28] MEDS: ENOXAPARIN 40 MG/0.4 ML (LOVENOX) SYR SC SCH (08:59)
[2020-11-28 11:33] VITALS: BP 134/77
[2020-11-28] MEDS: LACTATED RINGERS 1,000 ML IV SCH (11:51)
[2020-11-28 15:35] VITALS: BP 176/82
--- NOTE | 2020-11-28 16:23 | NUR ---
SPOKE WITH THE PT (CALLED THE ROOM PHONE) AND WENT THRU THE EXT MED HISTORY TO COMPLETE THE MED REC PT WAS ABLE TO NAME ALL HIS MEDICATIONS WELL WHEN/HOW HE TAKES EACH PT IS ADAMANT THAT HE DOES NOT TAKES SERTRALINE 100MG DAILY AND JUST TAKES IT NEEDED FOR EMOTIONS OTC MEDS: NONE Addendum: 11/29/20 at 1154 by L[employer]IX patient relations coordinator WRONG PT
[2020-11-28 18:20] VITALS: BP 143/87
--- NOTE | 2020-11-28 18:24 | NUR ---
Patient arrived to room at this time from [facility]. Report received from Laura RAY. I agree with previous RN's assessment and will assume care at this time.
[2020-11-28 19:05] VITALS: BP 143/87
[2020-11-29] VITALS: BP 178/98
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
[2020-11-29] MEDS ORDERED: ZIPRASIDONE 20 MG INJ (GEODON) VIAL IM PRN (01:00)
[2020-11-29] MEDS ORDERED: LORazepam INJ 2 MG/ML (ATIVAN) VIAL ONE (01:01)
[2020-11-29] MEDS: LORazepam INJ 2 MG/ML (ATIVAN) VIAL IVP PRN ×3 (01:08→09:24)
[2020-11-29] MEDS: HALOPERIDOL 5 MG/ML (HALDOL) VIAL IM PRN ×2 (01:29→09:25)
--- NOTE | 2020-11-29 02:01 | NUR ---
REASSESSMENT OF PATIENT FINDS HIM SLEEPING SOUNDLY. BED ALARM SET 4 RAILS UP AND REMOVED SOFT RESTRAINTS FROM PATIENT. HE IS NOW CALM
[2020-11-29] MEDS: LACTATED RINGERS 1,000 ML IV SCH (02:59)
[2020-11-29] MEDS: inSUlin ASPART (NovoLOG) 1 UNIT/0.01 ML (CHARGE PER UNIT) SC SCH ×2 (05:22→11:00)
[2020-11-29 08:37] VITALS: BP 161/74
[2020-11-29 08:39] LABS: BASOPHILS % (AUTO) 0 % (0-10); EOSINOPHILS % (AUTO) 0 % (0-10); HEMATOCRIT 40 % (40-54); HEMOGLOBIN 13.5 g/dL (13.3-17.7); LYMPHOCYTES # (AUTO) 0.6 10^3/uL (1.0-4.0); LYMPHOCYTES % (AUTO) 16 % (12-44); MEAN CORPUSCULAR HEMOGLOBIN 30 pg (25-34); MEAN CORPUSCULAR HGB CONC 34 g/dL (32-36); MEAN CORPUSCULAR VOLUME 90 fL (80-99); MEAN PLATELET VOLUME 9.6 fL (9.0-12.2); MONOCYTES # (AUTO) 0.3 10^3/uL (0.0-1.0); MONOCYTES % (AUTO) 7 % (0-12); NEUTROPHILS # (AUTO) 2.8 10^3/uL (1.8-7.8); NEUTROPHILS % (AUTO) 76 % (42-75); PLATELET COUNT 146 10^3/uL (130-400); WHITE BLOOD COUNT 3.6 10^3/uL (4.3-11.0)
[2020-11-29 09:02] LABS: CREATININE SERUM 1.27 MG/DL (0.60-1.30)
[2020-11-29] MEDS: ENOXAPARIN 40 MG/0.4 ML (LOVENOX) SYR SC SCH (09:06)
[2020-11-29] MEDS: dexAMETHasone 6 MG TAB (DECADRON) PO SCH (09:06)
[2020-11-29] MEDS ORDERED: TRAM50TA3 PO (12:24)
[2020-11-29] MEDS ORDERED: FURO20TA4 PO (12:24)
[2020-11-29] MEDS ORDERED: MELA10TA10 SL (12:24)
[2020-11-29] MEDS ORDERED: METO-333 PO (12:24)
[2020-11-29] MEDS ORDERED: POTA-51 PO (12:24)
[2020-11-29] MEDS ORDERED: FLUT9.9S NS (12:24)
[2020-11-29] MEDS ORDERED: GEMF600T8 PO (12:24)
[2020-11-29] MEDS ORDERED: PANT40TA52 PO (12:24)
[2020-11-29] MEDS ORDERED: DICL100G27 TOP (12:24)
[2020-11-29] MEDS ORDERED: ASPI-1238 PO (12:24)
[2020-11-29] MEDS ORDERED: SIMV40TA25 PO (12:24)
[2020-11-29] MEDS ORDERED: MECL-149 PO (12:24)
[2020-11-29] MEDS ORDERED: CYAN-41 PO (12:24)
[2020-11-29] MEDS ORDERED: ALLO100T PO (12:25)
--- NOTE | 2020-11-29 12:26 | NUR ---
UNABLE TO SPEAK WITH PT, GOT A MED LIST FROM DR. HAMPTON OFFICE, CALLED [facility] AND SPOKE WITH HIS DAUGHTER (LUCAS) BRIEFLY TO COMPLETE THE MED REC (DUE TO PT NOT BEING ABLE TO TELL ME ANY INFORMATION ABOUT HIS MEDICATIONS I USED THE ABOVE LISTED RESOURCES TO COMPLETE THE MED REC) LUCAS LET ME KNOW THE MEDS WERE IN THE PT ROOM, HOWEVER [facility] AND WOLF LOOKED AND DID NOT LOCATE THEM. THE FOLLOWING ARE FILL DATES FROM HIS MAILORDER PHARMACY: 05-23-2020 ALLOPURINOL 100MG #90/90DS- PAST DUE FILL DATE IS DOCUMENTED ON THE MED REC 08-30-2020 GEMFIBROZIL 600MG #180/90DS 08-30-2020 PANTOPRAZOLE 40MG #60/60DS 08-30-2020 POTASSIUM CL 20MEQ #45/90DS 09-14-2020 METOPROLOL TART 25MG #90/90DS 09-16-2020 FUROSEMIDE 20MG #90/90DS 09-16-2020 SIMVASTATIN 40MG #90/90DS 11-08-2020 TRAMADOL 50MG #60/30DS OTC MEDS THAT WERE LISTED FROM DR. HAMPTON OFFICE: ASPIRIN 81MG VIT B12 FLONASE VOLTAREN GEL MECLIZINE MELATONIN I DID NOT INCLUDE THE FOLLOWING ON THE MED REC: MUCINEX- ON THE MED LIST IT WAS ORDERED 10-19-2019 CARAFATE 1GM-ON THE MED LIST IT WAS ORDERED ON 07-15-2018 AND NEITHER HIS MAILORDER OR LOCAL PHARMACY HAS ON THEIR RECORDS
--- NOTE | 2020-11-29 15:50 | Discharge Summary ---
Discharge Summary Hospital Course Was the Problem List Reviewed?: Yes Problems/Dx: (1) COVID-19 Status: Acute (2) Delirium Status: Acute Hospital Course Date of Admission: Nov 27, 2020 at 17:51 Admission Diagnosis : Family Physician/Provider: Migue Aguilera MD Date of Discharge: 11/29/20 Discharge Diagnosis: [ ] Hospital Course: [ ] Labs and Pending Lab Test: Laboratory Tests 11/28/20 20:55: Glucometer 88 11/29/20 05:24: Glucometer 129H 11/29/20 08:27: White Blood Count 3.6L, Red Blood Count 4.48, Hemoglobin 13.5, Hematocrit 40, Mean Corpuscular Volume 90, Mean Corpuscular Hemoglobin 30, Mean Corpuscular Hemoglobin Concent 34, Red Cell Distribution Width 13.5, Platelet Count 146, Mean Platelet Volume 9.6, Immature Granulocyte % (Auto) 1, Neutrophils (%) (Auto) 76H, Lymphocytes (%) (Auto) 16, Monocytes (%) (Auto) 7, Eosinophils (%) (Auto) 0, Basophils (%) (Auto) 0, Neutrophils # (Auto) 2.8, Lymphocytes # (Auto) 0.6L, Monocytes # (Auto) 0.3, Eosinophils # (Auto) 0.0, Basophils # (Auto) 0.0, Immature Granulocyte # (Auto) 0.0, Sodium Level 137, Potassium Level 4.0, Chloride Level 101, Carbon Dioxide Level 24, Anion Gap 12, Blood Urea Nitrogen 25H, Creatinine 1.27, Estimat Glomerular Filtration Rate 55, BUN/Creatinine Ratio 20, Glucose Level 100, Calcium Level 9.0 Microbiology 11/27/20 Influenza Types A,B Antigen (DEWEY) - Final, Complete Home Meds Active Reported Allopurinol 100 Mg Tablet 100 Mg PO DAILY LAST FILLED 05-23-2020 #90/90 DAY SUPPLY Tramadol HCl 50 Mg Tablet 50 Mg PO Q12H PRN Simvastatin 40 Mg Tablet 40 Mg PO HS Potassium Chloride 20 Meq Tablet.er 10 Meq PO DAILY TAKES OF A 20MEQ TAB Pantoprazole Sodium 40 Mg Tablet.dr 40 Mg PO DAILY Metoprolol Tartrate 25 Mg Tablet 25 Mg PO DAILY Meclizine HCl 25 Mg Tablet 25 Mg PO BID PRN Flonase Allergy Relief (Fluticasone Propionate) 9.9 Ml Lapaz.susp 2 Lapaz NS DAILY PRN Diclofenac Sodium 100 Gm Gel..gram. 1 Applic TOP BID PRN Gemfibrozil 600 Mg Tablet 600 Mg PO BIDAC Furosemide 20 Mg Tablet 20 Mg PO DAILY Vitamin B-12 (Cyanocobalamin (Vitamin B-12)) 1,000 Mcg Tablet 1,000 Mcg PO DAILY Aspirin EC (Aspirin) 81 Mg Tablet.dr 81 Mg PO DAILY Assessment/Pt Instructions Take medications as prescribed. Follow-up with your primary care physician in a couple weeks. Return with worsening shortness of breath or if you feel like you're getting worse. Discharge Planning: <30 minutes discharge planning Discharge Instructions Discharge Diet: No Restrictions Activity as Tolerated: Yes Discharge Physical Examination Vital Signs Vital Signs Date Time Temp Pulse Resp B/P (MAP) Pulse Ox O2 Delivery O2 Flow Rate FiO2 11/29/20 08:37 36.6 73 22 161/74 (103) 98 Room Air 11/27/20 19:47 1.00 General Appearance: No Apparent Distress, WD/WN Respiratory: Lungs Clear, Normal Breath Sounds, No Respiratory Distress Cardiovascular: Regular Rate, Rhythm, No Edema, No Murmur Gastrointestinal: Normal Bowel Sounds, Non Tender, Soft Extremity: Normal Inspection, Non Tender, No Pedal Edema Skin: Normal Color, Warm/Dry Neurologic/Psychiatric: Alert, No Motor/Sensory Deficits, Disoriented Allergies: Coded Allergies: No Known Drug Allergies (Unverified , 07/09/19) Copy Copies To 1: MIGUE AGUILERA MD Discharge Summary Date of Admission Nov 27, 2020 at 17:51 Date of Discharge Discharge Date: Nov 29, 2020 Discharge Time: 15:50 Admission Diagnosis COVID-19 Discharge Diagnosis (1) COVID-19 Status: Acute (2) Delirium Status: Acute Clinical Quality Measures DVT/VTE Risk/Contraindication: Risk Factor Score Per Nursin RFS Level Per Nursing on Admit: 2=Moderate THUAN FULTON MD Nov 29, 2020 15:50
== END 2020-11-29 17:00 | disposition home or self-care (01) | DRG 178 ==
LOC: EDUNIT# 16:46 → ER 16:48 → CSD 17:51 → EDLOC 17:51 → 4TH 11-28 18:10
PROVIDERS: ADMIT Family Medicine; ATTEND Internal Medicine
DX: U07.1 COVID-19 (principal); N17.9 Acute kidney failure, unspecified; D61.818 Other pancytopenia; Z79.82 Long term (current) use of aspirin; F17.210 Nicotine dependence, cigarettes, uncomplicated; E78.00 Pure hypercholesterolemia, unspecified; I10 Essential (primary) hypertension; K21.9 Gastro-esophageal reflux disease without esophagitis; M19.90 Unspecified osteoarthritis, unspecified site; E86.0 Dehydration; R41.0 Disorientation, unspecified
CPT/HCPCS: 36415; 71045; 80048; 80053; 82962; 83735; 84100; 84145; 85025; 85379; 86141; 86900; 86901; 87635; 87804

== ENCOUNTER 2021-01-02 07:46 | Emergency (ER) | payer MEDICARE, OTHER ==
[~2021-01-02] VITALS: Ht 172 cm; Wt 84.0 kg
[~2021-01-02 07:46] MED LIST changes: +ALLO100T PO; +ASPI-1238 PO; +CYAN-41 PO; +DICL100G27 TOP; +FLUT9.9S NS; +FURO20TA4 PO; +MECL-149 PO; +MELA10TA10 SL; +METO-333 PO; +POTA-51 PO; +SIMV40TA25 PO; +TRAM50TA3 PO
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
[2021-01-02] MEDS ORDERED: NS IV 1000 ML 1,000 ML IV SCH ×2 (08:00)
[2021-01-02] MEDS ORDERED: CEFEPIME INJECTION 1,000 MG in WATER (STERILE) FOR INJECTION 10 ML IV ONE (08:00)
[2021-01-02] MEDS ORDERED: VANCOMYCIN INJECTION 1,000 MG in NS (IVPB) 250 ML IV SCH (08:00)
--- NOTE | 2021-01-02 08:00 | NUR ---
DAUGHTER REQUESTED THAT HER BROTHER AND SISTER BE ABLE TO COME BACK TO SIT WITH HER AND PT.
--- NOTE | 2021-01-02 08:09 | ED Neurological Problem ---
General Stated Complaint: UNRESPONSIVE Source: family (Daughter/DPOA), EMS Exam Limitations: clinical condition History of Present Illness Date Seen by Provider: Jan 02, 2021 Time Seen by Provider: 07:45 Initial Comments The patient arrives ER by EMS from home where he was found by his brother with chief complaint of altered mental status. He was unresponsive making snoring noises. EMS reports his left side was mottled and blue and he was cold. Last known well time was 2029 yesterday. He had COVID-19 late last October and was discharged early November without oxygen needs. He was staying at home with fa zach's help. Blood sugar was 171. He did not respond to noxious stimuli. They are not sure what his room air oxygen sats were up and EMS put him on 10 L by nonrebreather. He had a large amount of thick mucus and/or emesis that he was laying in. When EMS attempted to suction his mouth he clenched his teeth down. He was discharged about a month ago with COVID-19 on oxygen requiring status. He had a baseline history of chronic kidney disease stage III and chronic dementia. PCP was Dr. Nguyen Aguilera. His daughter arrived to the ER shortly after him. She reiterates his wishes to be a DNR, DNI. Allergies and Home Medications Allergies Coded Allergies: No Known Drug Allergies (Unverified , 07/09/19) Home Medications Allopurinol 100 Mg Tablet, 100 MG PO DAILY, (Reported) LAST FILLED 05-23-2020 #90/90 DAY SUPPLY Aspirin 81 Mg Tablet.dr, 81 MG PO DAILY, (Reported) Cyanocobalamin (Vitamin B-12) 1,000 Mcg Tablet, 1,000 MCG PO DAILY, (Reported) Diclofenac Sodium 100 Gm Gel..gram., 1 APPLIC TOP BID PRN for PAIN-BREAKTHROUGH, (Reported) Fluticasone Propionate 9.9 Ml [place].susp, 2 SPRAY NS DAILY PRN for CONGESTION, (Reported) Furosemide 20 Mg Tablet, 20 MG PO DAILY, (Reported) Gemfibrozil 600 Mg Tablet, 600 MG PO BIDAC, (Reported) Meclizine HCl 25 Mg Tablet, 25 MG PO BID PRN for DIZZINESS, (Reported) Melatonin 10 Mg Tab.subl, 10 MG SL HS, (Reported) Metoprolol Tartrate 25 Mg Tablet, 25 MG PO DAILY, (Reported) Pantoprazole Sodium 40 Mg Tablet.dr, 40 MG PO DAILY, (Reported) Potassium Chloride 20 Meq Tablet.er, 10 MEQ PO DAILY, (Reported) TAKES OF A 20MEQ TAB Simvastatin 40 Mg Tablet, 40 MG PO HS, (Reported) Tramadol HCl 50 Mg Tablet, 50 MG PO Q12H PRN for PAIN-MODERATE (5-7), (Reported) Patient Home Medication List Home Medication List Reviewed: Yes Review of Systems Review of Systems Constitutional: see HPI (Unable to obtain any significant review of systems because of the patient's obtunded state.) All Other Systems Reviewed Negative Unless Noted: Yes Past Kwbpuea-Jyigfl-Scwjba Hx Patient Social History Alcohol Use: Occasionally Uses Alcohol Beverage of Choice: Wine Smoking Status: Former Smoker Type Used: Cigarettes, Smokeless Tobacco Former Smoker, Quit: Jul 10, 1985 2nd Hand Smoke Exposure: No Recent Hopitalizations: No Immunizations Up To Date Tetanus Booster (TDap): Unknown Date of Pneumonia Vaccine: Sep 09, 2017 Date of Influenza Vaccine: Sep 09, 2020 Seasonal Allergies Seasonal Allergies: No Past Medical History Surgeries: Yes (bilateral knee replacement) Cardiac, Gallbladder, Joint Replacement Respiratory: No Cardiac: No High Cholesterol, Hypertension Neurological: No TIA Reproductive Disorders: No Sexually Transmitted Disease: No HIV/AIDS: No Genitourinary: No Gastrointestinal: No Gastroesophageal Reflux Musculoskeletal: No Arthritis, Back Injury Endocrine: No HEENT: No Loss of Vision: Bilateral Hearing Impairment: Denies Cancer: No Skin What Type of Treatment Did You: Surgical Intervention Psychosocial: No Integumentary: No Blood Disorders: No Adverse Reaction/Blood Tranf: No (HAS HAD BLOOD WITH NO REACTION) Family Medical History No Pertinent Family Hx Physical Exam Vital Signs Vital Signs - First Documented 01/02/21 07:47 Temp 37.3 Pulse 105 Resp 18 B/P (MAP) 179/108 (131) Pulse Ox 100 O2 Delivery Simple Mask O2 Flow Rate 10.00 FiO2 100 Capillary Refill : Height, Weight, BMI Height: 5'11.00" Weight: 190lbs. 0.0oz. [id number]; 28.21 BMI Method:Stated General Appearance: other (Disheveled) HEENT: TMs normal (Negative for hematoma or cabral sign), other (Pupils four millimeters bilateral nonreactive round with conjunctival edema. Fixed gaze nonresponsive to noxious stimuli. Mild abrasions on the left parietal scalp/contusion) Neck: non-tender, normal inspection Respiratory: lungs clear, normal breath sounds, respiratory distress (Moderate with oxygen sats in the 80s on room air) Cardiovascular: normal peripheral pulses, regular rate, rhythm Peripheral Pulses: 2+ Radial Pulses (R), 2+ Radial Pulses (L) Gastrointestinal: non tender, soft, no organomegaly Neurologic/Psychiatric: other (GCS 3 points with fixed 4 mm nonresponsive pupils bilaterally. Flexes to noxious stimuli but does not withdraw from noxious stimuli on his fingertips.) Skin: normal color, other (Blisters on the left arm laterally) Stroke Onset of Symptoms Date of Onset of Symptoms: Jan 01, 2021 Time of Symptom Onset: 20:30 Onset of Symptoms: Yes Symptoms onset unknown: Yes NIH Stroke Scale Assessment Select: Initial Level of Consciousness: 3=NoResponse/Reflex motor (3), Level of Consciousness-Questions: 2=Answer neither question (2), LOC Commands: 2 =Performs neither task (2), Gaze: Normal (0), Visual Tinajero: 3=Bilateral Hemianopia (3), Facial Movement (Facial Paresis): 0=Normal symmetrical mnt (0), Motor Function-Arms Right: 4=No movement (4), Motor Function-Arms Left: 4=No movement (4), Motor Function-Legs Right: 4=No movement (4), Motor Function-Legs Left: 4=No movement (4), Limb Ataxia: 0=Amputation/joint fusion Unable to perform due to unconscious (0), Sensory: 1=Mild to Moderate loss Decreased reaction to peripheral noxious stimuli (1), Best Language: 3=Mute (3), Dysarthria: 3=Intubated/Physical vernon (3), Extinction & Inattention: 0=N o abnormality Unable to test (0), Total: 33 Stroke Thrombolytic Exclusion Age 18 or Over: Yes History of CVA: No Uncontrolled Coagulation Defec: No Intracranial Hemorrhage: No Severe Hypertension: No GI or Bleed: No Subarachnoid Hemorrhage: No Intracranial Neoplasm/Aneurysm: No Oral Anticoagulants: No Surgery or Trauma: No Puncture of Non-Compressible V: No Recent CPR: No Diabetic Hemorrhagic Retinopat: No Organ Biopsy: No Recent Obstetric Delivery: No Glucose: No Significant Hepatic Dysfunctio: No (171) NIH Stoke Scale >22: No Bacterial Endocarditis: No Pericarditis: No Improving Symptoms: No Platelets: No TPA Contraindication: Yes (Out of the window) IV - TPa Received IV - TPa Procedure Performed?: No (Out of the window) Focused Exam Lactate Level 01/02/21 07:57: Lactic Acid Level 2.97*H Lactic Acid Level Laboratory Tests Test 01/02/21 07:57 Lactic Acid Level 2.97 MMOL/L (0.50-2.00) *H Progress/Results/Core Measures Results/Orders Lab Results Laboratory Tests Test 01/02/21 07:56 01/02/21 07:57 01/02/21 08:00 Range/Units Glucometer 172 H 70-110 MG/DL White Blood Count 11.0 4.3-11.0 10^3/uL Red Blood Count 4.50 4.30-5.52 10^6/uL Hemoglobin 13.3 13.3-17.7 g/dL Hematocrit 42 40-54 % Mean Corpuscular Volume 93 80-99 fL Mean Corpuscular Hemoglobin 30 25-34 pg Mean Corpuscular Hemoglobin Concent 32 32-36 g/dL Red Cell Distribution Width 14.8 H 10.0-14.5 % Platelet Count 172 130-400 10^3/uL Mean Platelet Volume 10.1 9.0-12.2 fL Immature Granulocyte % (Auto) 1 % Neutrophils (%) (Auto) 90 H 42-75 % Lymphocytes (%) (Auto) 4 L 12-44 % Monocytes (%) (Auto) 5 0-12 % Eosinophils (%) (Auto) 0 0-10 % Basophils (%) (Auto) 0 0-10 % Neutrophils # (Auto) 9.9 H 1.8-7.8 10^3/uL Lymphocytes # (Auto) 0.5 L 1.0-4.0 10^3/uL Monocytes # (Auto) 0.5 0.0-1.0 10^3/uL Eosinophils # (Auto) 0.0 0.0-0.3 10^3/uL Basophils # (Auto) 0.0 0.0-0.1 10^3/uL Immature Granulocyte # (Auto) 0.1 0.0-0.1 10^3/uL Neutrophils % (Manual) 87 % Lymphocytes % (Manual) 4 % Monocytes % (Manual) 6 % Band Neutrophils 3 % Blood Morphology Comment NORMAL Prothrombin Time 15.1 H 12.2-14.7 SEC INR Comment 1.2 0.8-1.4 Activated Partial Thromboplast Time 26 24-35 SEC Sodium Level 140 135-145 MMOL/L Potassium Level 3.7 3.6-5.0 MMOL/L Chloride Level 106 98-107 MMOL/L Carbon Dioxide Level 20 L 21-32 MMOL/L Anion Gap 14 5-14 MMOL/L Blood Urea Nitrogen 27 H 7-18 MG/DL Creatinine 1.24 0.60-1.30 MG/DL Estimat Glomerular Filtration Rate 56 BUN/Creatinine Ratio 22 Glucose Level 174 H 70-105 MG/DL Lactic Acid Level 2.97 *H 0.50-2.00 MMOL/L Calcium Level 9.4 8.5-10.1 MG/DL Corrected Calcium 9.2 8.5-10.1 MG/DL Total Bilirubin 0.3 0.1-1.0 MG/DL Aspartate Amino Transf (AST/SGOT) 28 5-34 U/L Alanine Aminotransferase (ALT/SGPT) 17 0-55 U/L Alkaline Phosphatase 54 40-136 U/L Total Creatine Kinase 1000 H 30-200 U/L Troponin I < 0.028 <0.028 NG/ML Total Protein 8.4 H 6.4-8.2 GM/DL Albumin 4.2 3.2-4.5 GM/DL Urine Color YELLOW Urine Clarity CLEAR Urine pH 7.5 5-9 Urine Specific [place] 1.020 1.016-1.022 Urine Protein 2+ H NEGATIVE Urine Glucose (UA) TRACE H NEGATIVE Urine Ketones TRACE H NEGATIVE Urine Nitrite NEGATIVE NEGATIVE Urine Bilirubin NEGATIVE NEGATIVE Urine Urobilinogen 0.2 < = 1.0 MG/DL Urine Leukocyte Esterase NEGATIVE NEGATIVE Urine RBC (Auto) 1+ H NEGATIVE Urine RBC 5-10 H /HPF Urine WBC RARE /HPF Urine Crystals PRESENT H /LPF Urine Amorphous Sediment RARE MAT PHOSPHATE H /LPF Urine Bacteria NEGATIVE /HPF Urine Casts NONE /LPF Urine Mucus NEGATIVE /LPF Urine Culture Indicated NO My Orders Orders - TRELL SANDOVAL Cbc With Automated Diff (01/02/21 08:00) Comprehensive Metabolic Panel (01/02/21 08:00) Blood Culture (01/02/21 08:00) Sputum Culture (01/02/21 08:00) Urinalysis (01/02/21 08:00) Urine Culture (01/02/21 08:00) Protime With Inr (01/02/21 08:00) Partial Thromboplastin Time (01/02/21 08:00) Chest 1 View, Ap/Pa Only (01/02/21 08:00) Ed Iv/Invasive Line Start (01/02/21 08:00) Ed Iv/Invasive Line Start (01/02/21 08:00) Ekg Tracing (01/02/21 08:00) Troponin I (01/02/21 08:00) Vital Signs Adult Sepsis Patie Q15M (01/02/21 08:00) O2 (01/02/21 08:00) Remove Rings In Anticipation O (01/02/21 08:00) Lactic Acid Analyzer (01/02/21 08:00) Ns Iv 1000 Ml (Sodium Chloride 0.9%) (01/02/21 08:00) Cefepime Injection (Maxipime Injection) (01/02/21 08:00) Vancomycin Injection (Vancomycin Injecti (01/02/21 08:00) Ed Iv/Invasive Line Start (01/02/21 08:00) Ns Iv 1000 Ml (Sodium Chloride 0.9%) (01/02/21 08:00) Manual Differential (01/02/21 07:57) Catheter(Urinary) Insert & Ass 03,15 (01/02/21 08:18) Creatine Kinase (01/02/21 08:18) Ct Head Wo-R/O Stroke (01/02/21 ) Morphine Injection (Morphine Injection (01/02/21 12:19) Medications Given in ED Current Medications Medications Dose Ordered Sig/Josse Route Start Time Stop Time Status Last Admin Dose Admin Cefepime HCl 1000 mg/Sterile Water 10 ml @ 200 mls/hr ONCE ONCE IV 01/02/21 08:00 01/02/21 08:04 DC 01/02/21 08:13 200 MLS/HR Vital Signs/I&O 01/02/21 01/02/21 07:47 07:47 Temp 37.3 Pulse 105 Resp 18 B/P (MAP) 179/108 (131) Pulse Ox 100 100 O2 Delivery Simple Mask OxyMask O2 Flow Rate 10.00 FiO2 100 Progress Progress Note #1: Time: 08:15 Progress Note Patient was found down with suspected neurologic event. We're going to get a CT of his head and C-spine. We discussed with his power of insurance defense attorney/daughter the patient's wishes and she reiterates he still does not want to be intubated or mechanically kept alive. She is okay with us continuing a work-up to find out what happened. We did initiate the discussion about shifting our goals of care towards palliative medicine and she is okay with this plan if it seems futile. Progress Note #2: Time: 10:01 Progress Note Some of the son say that the patient was complaining of dizziness yesterday evening. I suspect that the bleed preceded the fall and this is not a trauma related bleed. We had a long discussion with family at the bedside and they were advised of the poor prognosis for pursuing treatment versus comfort cares. The family says it would be within their father's wishes to pursue comfort cares at this time. They used [facility] for his a few weeks ago and would like to recontact them. They would like to take the patient home today but they need a hospital bed to put him in the living room next to his woodstove. Progress Note #3: Time: 13:11 Progress Note Earlier we gave 2 mg morphine IV for some perceived air hunger. The patient is about to discharge home by EMS on hospice care. [facility] has provided a bed and family are awaiting his arrival. Initial ECG Impression Date: Jan 02, 2021 Initial ECG Impression Time: 07:52 Initial ECG Rate: 106 Initial ECG Rhythm: S.Tach Initial ECG Intervals: Normal Initial ECG Impression: Normal Initial ECG Comparisson: No Previous ECG Available Comment Sinus tachycardia without clinically relevant ST elevation or depression. Diagnostic Imaging Diagonstic Imaging: Xray Plain Films/CT/US/NM/MRI: chest Comments [facility], [place] NAME: ROSALIEJOBY REC#: [id number] PT STATUS: REG ER : 1940 PHYSICIAN: TRELL SANDOVAL MD ADMIT DATE: 01/02/21/ER Draft Date of Exam:01/02/21 CHEST 1 VIEW, AP/PA ONLY HISTORY: Sepsis, unresponsive. TECHNIQUE: Frontal view of the chest. COMPARISON: 11/27/2020. FINDINGS: There are bibasilar airspace opacities. No pleural effusion or pneumothorax is seen. The cardiac silhouette is normal in size. Sternotomy wires and post-CABG changes are seen. IMPRESSION: Bibasilar airspace opacities which may represent atelectasis or infection. Dictated on workstation # [id number] Dict: 01/02/21 0838 Trans: 01/02/21 0841 [id number] Interpreted by: KATHLEEN WATERS MD Electronically signed by: Reviewed: Reviewed by Me Diagonstic Imaging: CT Plain Films/CT/US/NM/MRI: c-spine, head Comments NAME: J[facility]Y [facility] REC#: [id number] PT STATUS: REG ER : 1940 PHYSICIAN: TRELL SANDOVAL MD ADMIT DATE: 01/02/21/ER Draft Date of Exam:01/02/21 CT HEAD WO-R/O STROKE CLINICAL INDICATION: Patient found unresponsive this morning on the floor. EXAM: Axial CT scan of the brain performed without IV contrast. Coronal and sagittal reformatted images were created. COMPARISON: Head CT without contrast dated 02/20/2019. FINDINGS: There is interval development of a large intraparenchymal hemorrhage which is centered in the right parietal lobe region and extends to involve the posterior right temporal lobe, right occipital lobe, and posterior right frontal lobe region. This area of hyperdense blood measures 8.5 cm x 5.1 cm x 6.2 cm (AP x Trans x CC). The basal ganglia structures are displaced anteriorly. The right thalamic structure is displaced medially and anteriorly. There are smaller patchy areas of hyperdense blood adjacent to this larger intraparenchymal hemorrhage which even involves the right thalamic or just slightly lateral to the right thalamic region. There is a moderate amount of adjacent low density parenchymal edema involving the right temporal lobe, right occipital lobe, right parietal lobe, and posterior right frontal lobe white matter region. There is 1.7 cm of left to right midline shift. 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 There is a small amount of blood within the left lateral ventricle trigone region. There is a small amount of blood in the 3rd ventricle and region of the right foramen of Monro. There is no definite blood in the 4th ventricle seen. There is effacement of the sulci of both cerebral hemispheres with the right side more than the left. There is right uncal herniation and lswvx-px-zzan subfalcine herniation. There is no significant crowding of the foramen magnum yet seen. The basal cistern is effaced with asymmetry of the perimesencephalic region and significant leftward deviation of the midbrain structures. There is interval development of a small area of extracranial soft tissue swelling involving the left frontal/forehead region. There is no skull fracture. The remainder of the extracranial soft tissue, skull, and orbits is unremarkable. There are large amounts of mucosal thickening and consolidation involving the sphenoid sinus with high density material within it which was also noted on the prior CT. The sinus disease has progressed in the interim. There is mild to moderate mucosal thickening involving the ethmoid sinus and mild mucosal thickening involving both maxillary sinuses. The mastoid air cells are clear. IMPRESSION: 1: There is interval development of a large posterior right cerebral hemisphere lobar intraparenchymal hemorrhage which appears centered in the right parietal lobe region. There are smaller scattered areas of hyperdense blood adjacent to this larger intraparenchymal hemorrhage. There is moderate associated parenchymal edema with 17 mm of hhxeu-bl-qphg midline shift. There is right uncal herniation and zxrrl-cm-nddf subfalcine herniation. There is effacement of the suprasellar cistern and distortion of the perimesencephalic cistern region. 2: There is a small amount of intraventricular blood in the 3rd ventricle and left lateral ventricle trigone region. 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 3: There is interval development of a small area of extracranial soft tissue swelling involving the left frontal/forehead region. There is no skull fracture. 4. The results of this report were discussed with Dr. Trell Sandoval via the telephone on 01/02/2021 at 0854 hours. Dictated on workstation # [id number] Dict: 01/02/21 0842 Trans: 01/02/21 0900 [id number] Interpreted by: YANICK CANALES MD Electronically signed by: Reviewed: Reviewed by Me Departure Communication (PCP) 1000: Discussed the case with Dr. Aguilera. He talked to the family earlier this morning. He agrees with hospice care at home. Impression Primary Impression: Intraparenchymal hemorrhage of brain Additional Impression: Encounter for hospice care Disposition: HOME, SELF-CARE Condition: Stable Departure-Patient Inst. Decision time for Depature: 10:03 Referrals: NGUYEN AGIULERA MD (PCP/Family) Primary Care Physician Patient Instructions: Intracerebral Hemorrhage (DC) Add. Discharge Instructions: Follow-up with [facility]. TRELL SANDOVAL Jan 02, 2021 08:09
[2021-01-02 08:14] LABS: BASOPHILS % (AUTO) 0 % (0-10); EOSINOPHILS % (AUTO) 0 % (0-10); HEMATOCRIT 42 % (40-54); HEMOGLOBIN 13.3 g/dL (13.3-17.7); LYMPHOCYTES # (AUTO) 0.5 10^3/uL (1.0-4.0); LYMPHOCYTES % (AUTO) 4 % (12-44); MEAN CORPUSCULAR HEMOGLOBIN 30 pg (25-34); MEAN CORPUSCULAR HGB CONC 32 g/dL (32-36); MEAN CORPUSCULAR VOLUME 93 fL (80-99); MEAN PLATELET VOLUME 10.1 fL (9.0-12.2); MONOCYTES # (AUTO) 0.5 10^3/uL (0.0-1.0); MONOCYTES % (AUTO) 5 % (0-12); NEUTROPHILS # (AUTO) 9.9 10^3/uL (1.8-7.8); NEUTROPHILS % (AUTO) 90 % (42-75); PLATELET COUNT 172 10^3/uL (130-400)
[2021-01-02 08:16] LABS: ALBUMIN 4.2 GM/DL (3.2-4.5); CHLORIDE 106 MMOL/L (98-107); POTASSIUM 3.7 MMOL/L (3.6-5.0); SODIUM 140 MMOL/L (135-145)
[2021-01-02 08:17] LABS: CALCIUM 9.4 MG/DL (8.5-10.1)
[2021-01-02 08:18] LABS: GLUCOSE 174 MG/DL (70-105); TOTAL PROTEIN 8.4 GM/DL (6.4-8.2)
[2021-01-02 08:19] LABS: CARBON DIOXIDE 20 MMOL/L (21-32); INR 1.2 (0.8-1.4); PROTHROMBIN TIME PATIENT 15.1 SEC (12.2-14.7)
[2021-01-02 08:20] LABS: BILIRUBIN,TOTAL 0.3 MG/DL (0.1-1.0)
[2021-01-02 08:22] LABS: ALKALINE PHOSPHATASE 54 U/L (40-136); CREATININE SERUM 1.24 MG/DL (0.60-1.30); GFR ESTIMATED 56
[2021-01-02 08:23] LABS: BUN/CREATININE RATIO 22
[2021-01-02 08:25] LABS: ALANINE AMINOTRANSFERASE 17 U/L (0-55)
[2021-01-02 08:27] LABS: BAND NEUTROPHILS 3 %; LYMPHOCYTES % (MANUAL) 4 %; MONOCYTES % (MANUAL) 6 %; NEUTROPHILS % (MANUAL) 87 %; RBC MORPH NORMAL
--- NOTE | 2021-01-02 08:38 | NUR ---
PT TO ROOM POST CT. ASKED FAMILY TO STEP OUT BRIEFLY TO ALLOW US TO CHANGE HIS SHEETS. ALLYSSA SHAH ASSISTED WITH LINEN CHANGE AND PT PAPO CARE. APPLIED NEW WARM BLANKETS. BED IN LOW POSITION, RAILS UP X2, GAVE FAMILY CALL LIGHT IF ANY ASSISTANCE IS NEEDED UPON RETURN TO ROOM.
--- NOTE | 2021-01-02 08:41 | Diagnostic Imaging Report ---
HISTORY: Sepsis, unresponsive. TECHNIQUE: Frontal view of the chest. COMPARISON: 11/27/2020. FINDINGS: There are bibasilar airspace opacities. No pleural effusion or pneumothorax is seen. The cardiac silhouette is normal in size. Sternotomy wires and post-CABG changes are seen. IMPRESSION: Bibasilar airspace opacities which may represent atelectasis or infection. Dictated by: Dictated on workstation # [id number]
--- NOTE | 2021-01-02 08:45 | NUR ---
STOPPED IVF PER DR GUERRERO. 900ML INFUSED.
[2021-01-02 08:58] LABS: BILIRUBIN,URINE NEGATIVE (NEGATIVE); CLARITY,URINE CLEAR; COLOR,URINE YELLOW; GLUCOSE, URINE (UA) TRACE (NEGATIVE); KETONES,URINE TRACE (NEGATIVE); LEUKOCYTE ESTERASE ,URINE NEGATIVE (NEGATIVE); NITRITE,URINE NEGATIVE (NEGATIVE); PH,URINE 7.5 (5-9); PROTEIN,URINE 2+ (NEGATIVE)
--- NOTE | 2021-01-02 09:00 | Diagnostic Imaging Report ---
CLINICAL INDICATION: Patient found unresponsive this morning on the floor. EXAM: Axial CT scan of the brain performed without IV contrast. Coronal and sagittal reformatted images were created. COMPARISON: Head CT without contrast dated 02/20/2019. FINDINGS: There is interval development of a large intraparenchymal hemorrhage which is centered in the right parietal lobe region and extends to involve the posterior right temporal lobe, right occipital lobe, and posterior right frontal lobe region. This area of hyperdense blood measures 8.5 cm x 5.1 cm x 6.2 cm (AP x Trans x CC). The basal ganglia structures are displaced anteriorly. The right thalamic structure is displaced medially and anteriorly. There are smaller patchy areas of hyperdense blood adjacent to this larger intraparenchymal hemorrhage which even involves the right thalamic or just slightly lateral to the right thalamic region. There is a moderate amount of adjacent low density parenchymal edema involving the right temporal lobe, right occipital lobe, right parietal lobe, and posterior right frontal lobe white matter region. There is 1.7 cm of left to right midline shift. 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 There is a small amount of blood within the left lateral ventricle trigone region. There is a small amount of blood in the 3rd ventricle and region of the right foramen of Monro. There is no definite blood in the 4th ventricle seen. There is effacement of the sulci of both cerebral hemispheres with the right side more than the left. There is right uncal herniation and ewpea-pk-zaon subfalcine herniation. There is no significant crowding of the foramen magnum yet seen. The basal cistern is effaced with asymmetry of the perimesencephalic region and significant leftward deviation of the midbrain structures. There is interval development of a small area of extracranial soft tissue swelling involving the left frontal/forehead region. There is no skull fracture. The remainder of the extracranial soft tissue, skull, and orbits is unremarkable. There are large amounts of mucosal thickening and consolidation involving the sphenoid sinus with high density material within it which was also noted on the prior CT. The sinus disease has progressed in the interim. There is mild to moderate mucosal thickening involving the ethmoid sinus and mild mucosal thickening involving both maxillary sinuses. The mastoid air cells are clear. IMPRESSION: 1: There is interval development of a large posterior right cerebral hemisphere lobar intraparenchymal hemorrhage which appears centered in the right parietal lobe region. There are smaller scattered areas of hyperdense blood adjacent to this larger intraparenchymal hemorrhage. There is moderate associated parenchymal edema with 17 mm of rxkzz-mj-txwy midline shift. There is right uncal herniation and fsfgb-as-rjmm subfalcine herniation. There is effacement of the suprasellar cistern and distortion of the perimesencephalic cistern region. 2: There is a small amount of intraventricular blood in the 3rd ventricle and left lateral ventricle trigone region. 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 3: There is interval development of a small area of extracranial soft tissue swelling involving the left frontal/forehead region. There is no skull fracture. 4. The results of this report were discussed with Dr. Trell Sandoval via the telephone on 01/02/2021 at 0854 hours. Dictated by: Dictated on workstation # [id number]
--- NOTE | 2021-01-02 09:20 | NUR ---
DR GUERRERO IN PT ROOM DISCUSSING FINDINGS AND OPTIONS WITH FAMILY. FAMILY WISHES TO TAKE PT HOME AND PROVIDE COMFORT CARE WITH HELP OF [facility].
[2021-01-02 09:22] LABS: BACTERIA,URINE NEGATIVE /HPF; WBC,URINE RARE /HPF
[2021-01-02 09:24] LABS: AMORPHOUS SEDIMENT,UR RARE AMOR PHOSPHATE /LPF
--- NOTE | 2021-01-02 09:50 | NUR ---
PER FAMILY [facility] WILL BE CONTACTED AND THEY WILL CONTACT DAUGHTER ELÍAS FOR ARRANGEMENTS.
--- NOTE | 2021-01-02 10:12 | NUR ---
MADE CONTACT WITH [facility] ENVIRONMENT COORDINATOR RAUL. INFORMATION PROVIDED TO HER AND WILL FAX OVER A DEMOGRAPHIC SHEET FOR INFORMATION. CONTACT WILL BE MADE WITH DAUGHTER ELÍAS AT NUMBER PROVIDED.
--- NOTE | 2021-01-02 10:25 | NUR ---
RAUL AT [facility] REQUESTED FACESHEET, FAXED AND SHOWS RECEIVED AT [phone]
--- NOTE | 2021-01-02 10:45 | NUR ---
TO RM2 TO CHECK ON PT AND FAMILY NEEDS. NO NEEDS CURRENTLY. PT STILL UNRESPONSIVE PT STILL ON CARDIAC ROOM MONITOR AND STILL HAVING GRUNTING AGONAL RESPIRATIONS.
--- NOTE | 2021-01-02 11:00 | NUR ---
TO RM2 TO CHECK ON PT AND FAMILY NEEDS. NO NEEDS CURRENTLY. PT STILL UNRESPONSIVE PT STILL ON CARDIAC ROOM MONITOR AND STILL HAVING GRUNTING AGONAL RESPIRATIONS. DAUGHTER STATES HE HAS HAD PERIODS PAUSED RESPIRATIONS. HOSPICE IN ROUTE TO PT HOME WITH HOSPITAL BED TO BE THERE BY 1145.
--- NOTE | 2021-01-02 11:20 | NUR ---
TO RM2 TO CHECK ON PT AND FAMILY NEEDS. NO NEEDS CURRENTLY. PT STILL UNRESPONSIVE PT STILL ON CARDIAC ROOM MONITOR AND STILL HAVING GRUNTING AGONAL RESPIRATIONS. STILL CONTINUES TO PAUSE INFORMED DR GUERRERO. SATURATIONS ON RM AIR CURRENTLY 96%.
--- NOTE | 2021-01-02 11:50 | NUR ---
TO RM2 TO CHECK ON PT AND FAMILY NEEDS. NO NEEDS CURRENTLY. PT STILL UNRESPONSIVE PT STILL ON CARDIAC ROOM MONITOR AND STILL HAVING GRUNTING AGONAL RESPIRATIONS. DAUGHTER STATES HOSPICE IS HAVING TROUBLE GETTING TO THE HOME DUE TO WEATHER. FAMILY IS ALSO HAVING SOME DIFFICULTIES GETTING BACK HOME. PT HAVING SOME PERIODS OF PAUSING STILL. DR. GUERRERO NOTIFIED WILL ORDER MORPHINE FOR COMFORT AND AIR HUNGER.
--- NOTE | 2021-01-02 12:00 | NUR ---
DAUGHTER LUCAS STATED FAMILY CALLED FROM HOME AND THE [facility] HAS ARRIVED.
[2021-01-02] MEDS ORDERED: morphine INJ 10 MG/ML 1ML (SYR OR VIAL) IVP STA (12:19)
--- NOTE | 2021-01-02 12:30 | NUR ---
CALL TO CAPTAIN TO ARRANGE EMS TRANSPORT HOME. GOT APPROVAL AND WILL CALL DISPATCH.
--- NOTE | 2021-01-02 12:50 | NUR ---
EMS IN ROUTE TO ED TO TRANSPORT PT PER DISPATCH.
[2021-01-02 13:02] VITALS: BP 153/87
--- NOTE | 2021-01-02 13:02 | NUR ---
EMS ARRIVED TO TRANSPORT PT HOME. DC PAPERS WITH DAUGHTER LUCAS, EMS STAFF HAS DNR AND FACE SHEET PAPERS TO GIVE TO HOSPICE STAFF.
--- NOTE | 2021-01-02 16:00 | NUR ---
PARKER FROM [facility] CALLED AND WAS NEEDING FACE SHEET WITH PHYSICIAN NOTES AND DIAGNOSIS. SENT THOSE PER HER REQUEST.
== END 2021-01-02 13:02 | disposition home or self-care (01) ==
LOC: EDUNIT# 07:46 → ER 07:48
DX: I61.8 Other nontraumatic intracerebral hemorrhage (principal); I10 Essential (primary) hypertension; E78.00 Pure hypercholesterolemia, unspecified; K21.9 Gastro-esophageal reflux disease without esophagitis; Z51.5 Encounter for palliative care; Z87.891 Personal history of nicotine dependence; Z86.73 Personal history of transient ischemic attack (TIA), and cerebral infarction without residual deficits; Z85.828 Personal history of other malignant neoplasm of skin; Z79.82 Long term (current) use of aspirin
CPT/HCPCS: 36415; 51702; 70450; 71045; 80053; 81000; 82550; 82962; 83605; 84484; 85007; 85027; 85610; 85730; 87040; 87088; 93005